=== PATIENT | male | born 1950 | race Caucasian/White ===

== ENCOUNTER → 2016-10-09 | Outpatient (REF) | payer MEDICARE, BC ==
[~2016-10-09] MED LIST: ASPI81TAEC PO; ATOR1TAB18 PO; CARV25TA PO; CEFD1CAP8 PO; COLA100C3 PO; CORE12.5 PO; COZA1TAB PO; DIGO0.12 PO; DRIS50002 PO; FEBU40TA PO; JANU100T PO; KEPP500T6 PO; LIDO5DIS36 TD; LOSA25TA8 PO; METF1000 PO; NORC7.5T PO; TORS100T PO; TOUJ1.2I SC; TRAM200T PO; XARE15TA PO
== END ==
LOC: M LAB REF 16:40
PROVIDERS: ATTEND Nurse Practitioner Family
DX: R56.9 Unspecified convulsions (principal)

== ENCOUNTER 2016-10-30 20:32 | Inpatient (IN) | payer MEDICARE, BC ==
[~2016-10-30] VITALS: Ht 170.2 cm; Wt 114.0 kg
[2016-10-30] MEDS: METOPROLOL 5 MG/5 ML VIAL IV SCH ×3 (21:14→21:29)
[2016-10-30 21:17] LABS: BASO % 0.2 % (0.0-1.0); EOS # 0.1 K/mm3 (0.0-0.50); EOS % 0.6 % (0.0-3.0); LARGE UNSTAINED CELL # 0.2 K/mm3 (0.0-0.4); LARGE UNSTAINED CELL % 0.9 % (0.0-4.0); LYMPH # 0.6 K/mm3 (1.5-4.5); LYMPH % 2.7 % (24.0-44.0); MEAN CORPUSCULAR HEMOGLOBIN 31.1 pg (27.0-33.0); MEAN CORPUSCULAR HGB CONC 34.3 g/dl (32.0-36.5); MEAN CORPUSCULAR VOLUME 90.5 fl (80.0-96.0); MONO # 0.9 K/mm3 (0.0-0.8); MONO % 4.6 % (0.0-5.0); NEUTROPHILS # 18.8 K/mm3 (1.8-7.7); NEUTROPHILS % 91.1 % (36.0-66.0); PLATELET COUNT, AUTOMATED 307 k/mm3 (150-450); RED CELL DISTRIBUTION WIDTH 14.8 % (11.5-14.5); WHITE BLOOD COUNT 20.6 K/mm3 (4.0-10.0)
[2016-10-30 21:24] LABS: INR 1.36
[2016-10-30 21:37] LABS: ALBUMIN 3.1 GM/DL (3.2-5.2); ALBUMIN/GLOBULIN RATIO 0.82 (1.00-1.93); ALKALINE PHOSPHATASE 109 U/L (45-117); ALT/SGPT 23 U/L (12-78); ANION GAP 10 MEQ/L (8-16); AST/SGOT 20 U/L (15-37); BILIRUBIN,DIRECT 0.2 MG/DL (0.0-0.2); BILIRUBIN,TOTAL 0.7 MG/DL (0.2-1.0); BLOOD UREA NITROGEN 38 MG/DL (7-18); CALCIUM LEVEL 8.4 MG/DL (8.8-10.2); CARBON DIOXIDE LEVEL 30 MEQ/L (21-32); CHLORIDE LEVEL 102 MEQ/L (98-107); CREATININE FOR GFR 1.63 MG/DL (0.70-1.30); FREE T4 1.57 NG/DL (0.76-1.46); GLOMERULAR FILTRATION RATE 45.6 (>49); GLUCOSE, FASTING 113 MG/DL (80-110); POTASSIUM SERUM 4.3 MEQ/L (3.5-5.1); SODIUM LEVEL 142 MEQ/L (136-145); TOTAL PROTEIN 6.9 GM/DL (6.4-8.2)
[2016-10-30 21:46] LABS: DIGOXIN LEVEL 0.7 NG/ML (0.5-2.0)
[2016-10-30] MEDS ORDERED: ASPI81TA7 PO (21:49)
[2016-10-30] MEDS ORDERED: CARV25TA PO (21:49)
[2016-10-30] MEDS ORDERED: CLOT1CRE71 TOP (21:49)
[2016-10-30] MEDS ORDERED: LOSA25TA8 PO (21:49)
--- NOTE | 2016-10-30 22:14 | ECGEPIP ---
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
--- NOTE | 2016-10-30 22:30 | REPUSA ---
Clinical history: Congestion. Comparison: None. Findings: The mediastinum and cardiac silhouette are within normal limits. There is mild pulmonary va scular congestion. There is a focal right lower lobe infiltrate. No pleural effusion or pneumothorax is seen. The osseous structures and soft tissues are unremarkable. Impression: Right lower lobe infiltrate. Mild congestive heart failure.
[2016-10-30] MEDS ORDERED: FUROSEMIDE 100 MG/10 ML VIAL (J1940) IV ONE (22:45)
[2016-10-30] MEDS ORDERED: DOXYCYCLINE HYCLATE 100 MG in D5W MINI-BAG PLUS 100 ML IV ONE (22:45)
[2016-10-30] MEDS ORDERED: cefTRIAXone SOD 1 GM in D5W MINI-BAG PLUS 50 ML IV ONE (22:45)
[2016-10-31] VITALS (7 sets, daily range): BP systolic 117–150; BP diastolic 58–76
[2016-10-31] MEDS ORDERED: DOCUSATE SODIUM 100 MG CAP PO PRN (03:00)
[2016-10-31] MEDS: LOTRISONE CREAM 15 GM (BETAMETH/CLOTRIMAZOLE) TOP SCH ×2 (03:31→20:40)
[2016-10-31] MEDS: ATORVASTATIN 20 MG TAB PO SCH ×2 (03:31→20:40)
[2016-10-31] MEDS ORDERED: DEXTROSE 50% 50 ML SYRINGE IV PRN (06:00)
[2016-10-31] MEDS ORDERED: GLUCAGON FOR INJ 1 MG VIAL (J1610) SC PRN (06:00)
[2016-10-31] MEDS ORDERED: GLUCOSE 4 GM CHEW TABLET PO PRN (06:00)
[2016-10-31 06:28] LABS: BASO % 0.1 % (0.0-1.0); LARGE UNSTAINED CELL # 0.1 K/mm3 (0.0-0.4); LARGE UNSTAINED CELL % 0.4 % (0.0-4.0); LYMPH # 0.7 K/mm3 (1.5-4.5); LYMPH % 2.3 % (24.0-44.0); MEAN CORPUSCULAR HEMOGLOBIN 30.9 pg (27.0-33.0); MEAN CORPUSCULAR HGB CONC 33.6 g/dl (32.0-36.5); MEAN CORPUSCULAR VOLUME 91.8 fl (80.0-96.0); MONO % 3.1 % (0.0-5.0); NEUTROPHILS # 30.1 K/mm3 (1.8-7.7); NEUTROPHILS % 94.2 % (36.0-66.0); PLATELET COUNT, AUTOMATED 255 k/mm3 (150-450); RED CELL DISTRIBUTION WIDTH 14.8 % (11.5-14.5)
--- NOTE | 2016-10-31 06:29 | HPE ---
DATE OF ADMISSION: 10/30/2016 PRIMARY CARE PROVIDER: JONATHAN Dong FUND MANAGER: Jude Keys MD REASON FOR ADMISSION: Atrial fibrillation, rapid ventricular response (RVR). HISTORY OF PRESENT ILLNESS: Patient is a 66-year-old male with history of atrial fibrillation with RVR. He was cardioverted in 2011. He was only in sinus rhythm for 4 months and then went back into atrial fibrillation. He has been controlled with medication ever since. He follows up with Dr. Keys. Per his , patient today started having nausea and vomiting, as well as some wheezes around 2-3 p.m. His stated he was a little confused, complaining of chills, no fever and had a cough with clear sputum. His said that he has been having a cold for the past 2-3 days. In the emergency room, patient underwent a chest x-ray, which showed right lower lobe infiltrate, mild congestive heart failure. He was found to be in rapid heart rate. EKG was done in the emergency room, which showed atrial fibrillation with rapid ventricular response, left bundle branch block, which is old, heart rate in 140s. Patient was given metoprolol. He got a total of three doses of 5 mg IV and diltiazem 20 mg, as well as one dose of Lasix 80 mg IV and he was started on ceftriaxone, doxycycline for his pneumonia. Upon my examination, his heart rate had already slowed down in the 70s. He was asymptomatic. He denied any shortness of breath. At this time, he denied any chest pain, denied any chills, denied any nausea or vomiting. Hospitalist was called for the admission. REVIEW OF SYSTEMS: 12-point review of system was obtained all which was negative except for those mentioned above. PAST MEDICAL HISTORY: Significant for congestive heart failure, atrial fibrillation, gout, seizure disorder, history of CVA in 2012, hypertension, hyperlipidemia, diabetes, coronary artery disease, left bundle branch block. obstructive sleep apnea on continuous positive airway pressure (CPAP). PAST SURGICAL HISTORY: Significant for cardiac catheterization with stent placement in the LAD, right leg surgery, bilateral cataract surgery. ALLERGIES TO MEDICATIONS: None. SOCIAL HISTORY: Patient quit smoking in 2011. He used to smoke five cigars a day for 25 years. Denies any alcohol use. Lives at home with his . FAMILY HISTORY: Noncontributory. HOME MEDICATIONS: Include: - Fajardo one tablet by mouth three times a day as needed, pain - aspirin 81 mg by mouth daily - atorvastatin 80 mg at bedtime - carvedilol 25 mg by mouth twice a day - digoxin 0.125 mg daily - Colace 100 mg daily as needed for constipation - Uloric 40 mg by mouth daily - Keppra 500 mg by mouth twice a day - Lidoderm patch daily as needed, pain - losartan 25 mg daily - metformin 1000 mg daily - Januvia 100 mg by mouth at lunchtime - Xarelto 50 mg by mouth daily - torsemide 50 mg by mouth daily - Toujeo 14 units subcutaneously daily - tramadol 200 mg daily - vitamin D 50,000 units once a week PHYSICAL FINDINGS: Vital signs on admission: Temperature 98.3, pulse 81, respiratory rate 20, blood pressure is 150/74, pulse oximetry 94% on 3 liters. HEENT: Pupils equal, round, reactive to light and accommodation. Neck: Supple. No jugular venous distention (JVD). Lungs: Clear to auscultation (CTA) bilaterally. Abdomen: Soft, nontender, nondistended. Extremities: Trace edema bilaterally. LABORATORY FINDINGS: WBC is 20.6, hemoglobin 14.9, hematocrit 43.5, platelet count 307. Sodium 142, potassium 4.3, chloride 102, BUN 38, creatinine 1.63, fasting glucose 113. Liver enzymes within normal limits. Troponin negative times one. BNP 381. TSH 1.8. Toxicology screen, Keppra level is pending. Digoxin level 0.7. D-dimer was 1130.7. INR 1.368, APTT was 41.1 and PTT 16.9. Chest x-ray showed right lower lobe infiltrate, mild congestive heart disease. ASSESSMENT AND PLAN: 1. Atrial fibrillation with rapid ventricular response, which had resolved after three doses of IV metoprolol 5 mg and diltiazem 20 mg. We will resume patient's home medications of digoxin 0.125 mg daily and carvedilol 25 mg by mouth twice a day. We will continue patient's Xarelto 50 mg by mouth daily. Patient normally follows up with Dr. Keys. We will monitor patient on telemetry overnight. 2. Right lower lobe infiltrate. Per , patient has been having cold-like symptoms for the last 2-3 days. We will continue patient on azithromycin and ceftriaxone. He was started on doxycycline and ceftriaxone in the emergency room. We will try to obtain sputum culture. Patient has been afebrile in the hospital but he had subjective fevers at home, and he has got leukocytosis of 20.6. 3. History of congestive heart failure. Patient received one dose of IV Lasix 80 mg. We will continue his torsemide. Does not appear to be grossly overloaded at this time. Will continue to monitor. 4. History of seizures. Will continue patient's Keppra. 5. History of CVA. 6. History of hypertension. 7. Hyperlipidemia. 8. Diabetes. Continue patient on insulin sliding scale with Accu-Chek before food and nightly. Consistent carbohydrate diet. 9. Left bundle branch block. 10. Coronary artery disease. We will continue to trend cardiac enzymes. First set was negative. 11. Deep venous thrombosis (DVT) prophylaxis. Patient is already on Xarelto.
[2016-10-31 06:35] LABS: ALBUMIN 2.7 GM/DL (3.2-5.2); ALBUMIN/GLOBULIN RATIO 0.61 (1.00-1.93); ALKALINE PHOSPHATASE 99 U/L (45-117); ALT/SGPT 21 U/L (12-78); ANION GAP 11 MEQ/L (8-16); AST/SGOT 15 U/L (15-37); BILIRUBIN,TOTAL 0.6 MG/DL (0.2-1.0); BLOOD UREA NITROGEN 34 MG/DL (7-18); CALCIUM LEVEL 8.1 MG/DL (8.8-10.2); CARBON DIOXIDE LEVEL 33 MEQ/L (21-32); CHLORIDE LEVEL 98 MEQ/L (98-107); CREATININE FOR GFR 1.59 MG/DL (0.70-1.30); GLOMERULAR FILTRATION RATE 46.9 (>49); GLUCOSE, FASTING 154 MG/DL (80-110); SODIUM LEVEL 142 MEQ/L (136-145); TOTAL PROTEIN 7.1 GM/DL (6.4-8.2)
[2016-10-31] MEDS: HumaLOG INSULIN (NovoLOG) PER UNIT SC SCH ×4 (08:43→20:45)
[2016-10-31] MEDS: levETIRAcetam 250MG TABLET (KEPPRA) PO SCH ×2 (08:45→20:40)
[2016-10-31] MEDS ORDERED: TORSEMIDE 100 MG TAB PO SCH (09:00)
[2016-10-31] MEDS: traMADol ER 100MG TABLET (ULTRAM ER) PO SCH (09:00)
[2016-10-31] MEDS: ASPIRIN 81 MG ENTERIC TAB PO SCH (09:58)
[2016-10-31] MEDS: CARVedilol 12.5 MG TAB PO SCH ×2 (10:03→20:39)
[2016-10-31] MEDS: LOSARTAN 25 MG TAB PO SCH (10:05)
[2016-10-31] MEDS: DOXYCYCLINE HYCLATE 100 MG in D5W MINI-BAG PLUS 100 ML IV SCH (13:37)
--- NOTE | 2016-10-31 15:16 | IPNPDOC ---
Subjective Date Seen The patient was seen on 10/31/16. Subjective Chief Complaint/HPI The patient is a 66-year-old male admitted with a reason for visit of Afib With Rapid Ventricular Response. Events since last encounter Feeling better. tired, cough is nonproductive, tolerating diet, no chest pain decline all vaccinations because of his history of polio s/p live vaccine Constitutional: Denies: Chills, Fever Pulmonary: Reports: Cough, Denies: Dyspnea Cardiovascular: Denies: Chest Pain, Palpitations Gastrointestinal: Denies: Nausea, Vomiting, Abdominal Pain Objective Physical Examination General Exam: Positive: Alert, Cooperative, No Acute Distress ENT Exam: Positive: Mucous membr. moist/pink Chest Exam: Positive: Diminished, Negative: Rales, Rhonchi, Wheezing Heart Exam: Positive: Irregular Rhythm, Normal S1, Normal S2 Abdomen Exam: Positive: Normal bowel sounds, Negative: Soft, Tenderness Extremity Exam: Positive: Edema (trace left) Assessment /Plan Problems (1) Pneumonia Status: Acute Problem Text: RLL- community acquired declines vaccination- we discuss at some length ceftriaxone and doxycycline ordered blood cultures ordered - resp screen ordered, sputum ordered although cough non productive (2) Atrial fibrillation with rapid ventricular response Status: Acute Problem Text: rate controlled likely related to acute illness on xarelto (3) Diabetes Status: Chronic (4) Hypertension Status: Chronic (5) Hyperlipidemia Status: Chronic (6) Post-polio syndrome Status: Chronic (7) CAD (coronary artery disease) Status: Chronic (8) LBBB (left bundle branch block) Status: Chronic (9) CHF (congestive heart failure) Status: Chronic Problem Text: received lasix in ED, continuing po diuretics Plan/VTE VTE Prophylaxis Ordered?: Yes (xarelto) VS, I&O, 24H, Fishbone Vital Signs/I&O Vital Signs Date Time Temp Pulse Resp B/P (MAP) Pulse Ox O2 Delivery O2 Flow Rate FiO2 10/31/16 12:00 97.6 66 18 117/60 (79) 93 Nasal Cannula 0.5 I&O- Last 24 Hours up to 6 AM 10/31/16 06:00 Intake Total 300 ml Output Total 750 ml Balance -450 ml Laboratory Data 24H LABS Laboratory Tests 2 10/30/16 21:04: White Blood Count 20.6H, Red Blood Count 4.81, Hemoglobin 14.9, Hematocrit 43.5 , Mean Corpuscular Volume 90.5, Mean Corpuscular Hemoglobin 31.1, Mean Corpuscular Hemoglobin Concent 34.3, Red Cell Distribution Width 14.8H, Platelet Count 307, Neutrophils (%) (Auto) 91.1H, Lymphocytes (%) (Auto) 2.7L, Monocytes (%) (Auto) 4.6, Eosinophils (%) (Auto) 0.6, Basophils (%) (Auto) 0.2, Neutrophils # (Auto) 18.8H, Lymphocytes # (Auto) 0.6L, Monocytes # (Auto) 0.9H, Eosinophils # (Auto) 0.1, Basophils # (Auto) 0.0, Large Unclassified Cells % 0.9 , Large Unclassified Cells # 0.2, Prothrombin Time 16.9H, Prothromb Time International Ratio 1.36, Activated Partial Thromboplast Time 41.1H, D-Dimer, Quantitative 1130.7H, Anion Gap 10, Glomerular Filtration Rate 45.6L, Calcium Level 8.4L, Aspartate Amino Transf (AST/SGOT) 20, Alanine Aminotransferase (ALT/ SGPT) 23, Alkaline Phosphatase 109, Total Bilirubin 0.7, Direct Bilirubin 0.2, Total Creatine Kinase 75, Creatine Kinase MB 1.0, Creatine Kinase MB Relative Index 1.33, Troponin I < 0.02, B-Type Natriuretic Peptide 381H, Total Protein 6.9, Albumin 3.1L, Albumin/Globulin Ratio 0.82L, Thyroid Stimulating Hormone ( TSH) 1.880, Free Thyroxine 1.57H, Digoxin Level 0.7 10/30/16 22:14: 10/31/16 05:24: White Blood Count 32.0*H, Red Blood Count 4.39, Hemoglobin 13.5L, Hematocrit 40.3L, Mean Corpuscular Volume 91.8, Mean Corpuscular Hemoglobin 30.9, Mean Corpuscular Hemoglobin Concent 33.6, Red Cell Distribution Width 14.8H, Platelet Count 255, Neutrophils (%) (Auto) 94.2H, Lymphocytes (%) (Auto) 2.3L, Monocytes (%) (Auto) 3.1, Eosinophils (%) (Auto) 0.0, Basophils (%) (Auto) 0.1, Neutrophils # (Auto) 30.1H, Lymphocytes # (Auto) 0.7L, Monocytes # (Auto) 1.0H, Eosinophils # (Auto) 0.0, Basophils # (Auto) 0.0, Large Unclassified Cells % 0.4 , Large Unclassified Cells # 0.1 10/31/16 05:29: Anion Gap 11, Glomerular Filtration Rate 46.9L, Calcium Level 8.1L, Aspartate Amino Transf (AST/SGOT) 15, Alanine Aminotransferase (ALT/SGPT) 21, Alkaline Phosphatase 99, Total Bilirubin 0.6, Total Creatine Kinase 47, Creatine Kinase MB 1.0, Creatine Kinase MB Relative Index 2.12, Troponin I < 0.02, Total Protein 7.1, Albumin 2.7L, Albumin/Globulin Ratio 0.61L, Blood Urea Nitrogen 34H , Creatinine 1.59H, Sodium Level 142, Potassium Level 4.0, Chloride Level 98, Carbon Dioxide Level 33H 10/31/16 06:53: Lactic Acid Level 2.1*H 10/31/16 11:43: Lactic Acid Followup at 4 Hours 1.9 10/31/16 11:56: Bedside Glucose (Misc Panel) 133H 10/31/16 13:10: Total Creatine Kinase 52, Creatine Kinase MB 1.0, Creatine Kinase MB Relative Index 1.92, Troponin I < 0.02 CBC/BMP Laboratory Tests 10/30/16 21:04 Red Blood Count 4.81, Mean Corpuscular Volume 90.5, Mean Corpuscular Hemoglobin 31.1, Mean Corpuscular Hemoglobin Concent 34.3, Red Cell Distribution Width 14.8 H, Neutrophils (%) (Auto) 91.1 H, Lymphocytes (%) (Auto) 2.7 L, Monocytes ( %) (Auto) 4.6, Eosinophils (%) (Auto) 0.6, Basophils (%) (Auto) 0.2, Neutrophils # (Auto) 18.8 H, Lymphocytes # (Auto) 0.6 L, Monocytes # (Auto) 0.9 H, Eosinophils # (Auto) 0.1, Basophils # (Auto) 0.0 10/31/16 05:24 Red Blood Count 4.39, Mean Corpuscular Volume 91.8, Mean Corpuscular Hemoglobin 30.9, Mean Corpuscular Hemoglobin Concent 33.6, Red Cell Distribution Width 14.8 H, Neutrophils (%) (Auto) 94.2 H, Lymphocytes (%) (Auto) 2.3 L, Monocytes ( %) (Auto) 3.1, Eosinophils (%) (Auto) 0.0, Basophils (%) (Auto) 0.1, Neutrophils # (Auto) 30.1 H, Lymphocytes # (Auto) 0.7 L, Monocytes # (Auto) 1.0 H, Eosinophils # (Auto) 0.0, Basophils # (Auto) 0.0 10/31/16 05:29 Calcium Level 8.1 L, Aspartate Amino Transf (AST/SGOT) 15, Alanine Aminotransferase (ALT/SGPT) 21, Total Creatine Kinase 47, Alkaline Phosphatase 99, Total Bilirubin 0.6, Total Protein 7.1, Albumin 2.7 L Microbiology Microbiology 10/30/16 Blood Culture, Received Pending 10/30/16 Blood Culture, Received Pending 10/31/16 Gram Stain - Final, Resulted 10/31/16 Sputum Culture, Resulted Pending 10/31/16 Respiratory Virus Panel (PCR) (MARCOS), Received Pending DOLORES LUEVANO MD October 31, 2016 15:16
[2016-10-31] MEDS ORDERED: LEVALBUTEROL 1.25 MG/0.5 ML CONCENTRATE NEB INH PRN (15:30)
[2016-10-31] MEDS: LEVALBUTEROL 1.25 MG/0.5 ML CONCENTRATE NEB INH SCH ×2 (16:00→20:25)
[2016-10-31] MEDS: FEBUXOSTAT 40 MG TABLET (ULORIC) PO SCH (18:23)
[2016-10-31] MEDS: DIGOXIN 0.125 MG TAB PO SCH (18:23)
[2016-10-31] MEDS: RIVAROXABAN 15 MG TAB (XARELTO) PO SCH (18:23)
[2016-10-31] MEDS ORDERED: cefTRIAXone SOD 1 GM in D5W MINI-BAG PLUS 50 ML IV SCH (21:00)
[2016-10-31] MEDS: cefTRIAXone SOD 2 GM in D5W MINI-BAG PLUS 50 ML IV SCH (22:39)
[2016-11-01 03:28] VITALS: BP 118/63
[2016-11-01 05:23] LABS: MEAN CORPUSCULAR HEMOGLOBIN 30.1 pg (27.0-33.0); MEAN CORPUSCULAR HGB CONC 32.6 g/dl (32.0-36.5); MEAN CORPUSCULAR VOLUME 92.3 fl (80.0-96.0); RED CELL DISTRIBUTION WIDTH 14.9 % (11.5-14.5); WHITE BLOOD COUNT 20.3 K/mm3 (4.0-10.0)
[2016-11-01 05:37] LABS: ALBUMIN 2.4 GM/DL (3.2-5.2); ALBUMIN/GLOBULIN RATIO 0.63 (1.00-1.93); BILIRUBIN,TOTAL 0.5 MG/DL (0.2-1.0); CALCIUM LEVEL 8.1 MG/DL (8.8-10.2); CREATININE FOR GFR 1.55 MG/DL (0.70-1.30); GLOMERULAR FILTRATION RATE 48.3 (>49); MAGNESIUM LEVEL 1.4 MG/DL (1.8-2.4); POTASSIUM SERUM 3.6 MEQ/L (3.5-5.1); TOTAL PROTEIN 6.2 GM/DL (6.4-8.2)
[2016-11-01] MEDS: LEVALBUTEROL 1.25 MG/0.5 ML CONCENTRATE NEB INH SCH ×4 (07:54→20:46)
[2016-11-01 08:00] VITALS: BP 140/69
[2016-11-01] MEDS: TORSEMIDE (DEMADEX) 50 MG PER 1/2 TAB PO SCH (08:37)
[2016-11-01] MEDS: ASPIRIN 81 MG ENTERIC TAB PO SCH (08:37)
[2016-11-01] MEDS: levETIRAcetam 250MG TABLET (KEPPRA) PO SCH ×2 (08:37→20:36)
[2016-11-01] MEDS: LOSARTAN 25 MG TAB PO SCH (08:37)
[2016-11-01] MEDS: traMADol ER 100MG TABLET (ULTRAM ER) PO SCH (08:37)
[2016-11-01] MEDS: HumaLOG INSULIN (NovoLOG) PER UNIT SC SCH ×4 (08:38→21:00)
[2016-11-01] MEDS: CARVedilol 12.5 MG TAB PO SCH ×2 (08:38→20:36)
--- NOTE | 2016-11-01 11:10 | IPNPDOC ---
Subjective Date Seen The patient was seen on 11/01/16. Subjective Chief Complaint/HPI The patient is a 66-year-old male admitted with a reason for visit of Afib With Rapid Ventricular Response. Events since last encounter Feeling better than yesterday, tolerating diet, although not particularly hungry - notes that he is in the same room that he was admitted to last year, not complaining of pain Constitutional: Denies: Chills, Fever Pulmonary: Denies: Dyspnea, Cough Cardiovascular: Denies: Chest Pain, Palpitations Gastrointestinal: Denies: Nausea, Vomiting Objective Physical Examination General Exam: Positive: Alert, Cooperative, No Acute Distress ENT Exam: Positive: Mucous membr. moist/pink Chest Exam: Positive: Diminished, Negative: Rales, Rhonchi, Wheezing Heart Exam: Positive: Rate Normal, Irregular Rhythm, Normal S1, Normal S2 Telemetry: Positive: Tachycardia Abdomen Exam: Positive: Normal bowel sounds, Negative: Soft, Tenderness Extremity Exam: Positive: Edema (trace left) Assessment /Plan Problems (1) Pneumonia Status: Acute Problem Text: RLL- community acquired declines vaccination- we discussed at some length 10/31/16 ceftriaxone and doxycycline ordered blood cultures ordered - resp screen shows entero/rhino viruses, sputum pending (2) Atrial fibrillation with rapid ventricular response Status: Acute Problem Text: rate controlled likely related to acute illness on xarelto (3) Diabetes Status: Chronic (4) Hypertension Status: Chronic (5) Hyperlipidemia Status: Chronic (6) Post-polio syndrome Status: Chronic (7) CAD (coronary artery disease) Status: Chronic (8) LBBB (left bundle branch block) Status: Chronic (9) CHF (congestive heart failure) Status: Chronic Problem Text: received lasix in ED, continued po diuretics- but has evidence of acute renal failure- will d/c for now- re-evaluate 11/02/16 Plan/VTE VTE Prophylaxis Ordered?: Yes (xarelto) VS, I&O, 24H, Fishbone Vital Signs/I&O Vital Signs Date Time Temp Pulse Resp B/P (MAP) Pulse Ox O2 Delivery O2 Flow Rate FiO2 11/01/16 08:38 67 11/01/16 08:37 140/69 11/01/16 08:00 97.4 18 93 Room Air 10/31/16 16:00 1.0 I&O- Last 24 Hours up to 6 AM 11/01/16 06:00 Intake Total 2300 ml Output Total 1150 ml Balance 1150 ml Laboratory Data 24H LABS Laboratory Tests 2 10/31/16 11:43: Lactic Acid Followup at 4 Hours 1.9 10/31/16 11:56: Bedside Glucose (Misc Panel) 133H 10/31/16 13:10: Total Creatine Kinase 52, Creatine Kinase MB 1.0, Creatine Kinase MB Relative Index 1.92, Troponin I < 0.02 10/31/16 17:56: Bedside Glucose (Misc Panel) 101 10/31/16 20:45: Bedside Glucose (Misc Panel) 181H 10/31/16 20:50: Total Creatine Kinase 52, Creatine Kinase MB 1.0, Creatine Kinase MB Relative Index 1.92, Troponin I 0.02 11/01/16 04:41: Anion Gap 6L, Glomerular Filtration Rate 48.3L, Blood Urea Nitrogen 39H, Creatinine 1.55H, Sodium Level 139, Potassium Level 3.6, Chloride Level 97L, Carbon Dioxide Level 36H, Calcium Level 8.1L, Aspartate Amino Transf (AST/SGOT) 14L, Alanine Aminotransferase (ALT/SGPT) 17, Alkaline Phosphatase 80, Total Bilirubin 0.5, Total Protein 6.2L, Albumin 2.4L, Magnesium Level 1.4L, Albumin/ Globulin Ratio 0.63L CBC/BMP Laboratory Tests 11/01/16 04:41 Red Blood Count 3.85 L, Mean Corpuscular Volume 92.3, Mean Corpuscular Hemoglobin 30.1, Mean Corpuscular Hemoglobin Concent 32.6, Red Cell Distribution Width 14.9 H, Calcium Level 8.1 L, Aspartate Amino Transf (AST/SGOT ) 14 L, Alanine Aminotransferase (ALT/SGPT) 17, Alkaline Phosphatase 80, Total Bilirubin 0.5, Total Protein 6.2 L, Albumin 2.4 L Microbiology Microbiology 10/30/16 Blood Culture - Preliminary, Resulted No growth after 24 hours . All specim... 10/30/16 Blood Culture - Preliminary, Resulted No growth after 24 hours . All specim... 10/31/16 Gram Stain - Final, Resulted 10/31/16 Sputum Culture, Resulted Pending 10/31/16 Respiratory Virus Panel (PCR) (MARCOS) - Final, Complete Human Rhinovirus/Enterovirus FLINT,DOLORES Santiago MD November 01, 2016 11:10
[2016-11-01 12:00] VITALS: BP 114/55
[2016-11-01] MEDS: DOXYCYCLINE HYCLATE 100 MG in D5W MINI-BAG PLUS 100 ML IV SCH ×3 (12:10)
[2016-11-01 16:00] VITALS: BP 113/53
--- NOTE | 2016-11-01 16:33 | ECGEPIP ---
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
[2016-11-01] MEDS: FEBUXOSTAT 40 MG TABLET (ULORIC) PO SCH (18:10)
[2016-11-01] MEDS: RIVAROXABAN 15 MG TAB (XARELTO) PO SCH (18:11)
[2016-11-01] MEDS: DIGOXIN 0.125 MG TAB PO SCH (18:11)
[2016-11-01 19:23] VITALS: BP 134/60
[2016-11-01] MEDS ORDERED: MAG SULF 1GM/100ML (MAG RUN) 1 GM in APPROPRIATE DILUENT 1 EA IV ONE (19:30)
[2016-11-01] MEDS: ATORVASTATIN 20 MG TAB PO SCH (20:35)
[2016-11-01] MEDS: ANEXSIA, NORCO 7.5MG/325MG TABLET(HYDROCODONE/APAP) PO PRN ×2 (20:36)
[2016-11-01] MEDS: LOTRISONE CREAM 15 GM (BETAMETH/CLOTRIMAZOLE) TOP SCH (22:13)
[2016-11-01] MEDS: cefTRIAXone SOD 2 GM in D5W MINI-BAG PLUS 50 ML IV SCH (22:54)
[2016-11-02] VITALS (7 sets, daily range): BP systolic 128–156; BP diastolic 59–74
[2016-11-02] MEDS: DOXYCYCLINE HYCLATE 100 MG in D5W MINI-BAG PLUS 100 ML IV SCH ×2 (00:55→12:15)
[2016-11-02 05:55] LABS: MEAN CORPUSCULAR HEMOGLOBIN 30.4 pg (27.0-33.0); MEAN CORPUSCULAR HGB CONC 33.1 g/dl (32.0-36.5); MEAN CORPUSCULAR VOLUME 91.9 fl (80.0-96.0); RED CELL DISTRIBUTION WIDTH 14.7 % (11.5-14.5); WHITE BLOOD COUNT 16.5 K/mm3 (4.0-10.0)
[2016-11-02 06:12] LABS: ALBUMIN 2.4 GM/DL (3.2-5.2); ALBUMIN/GLOBULIN RATIO 0.62 (1.00-1.93); BILIRUBIN,TOTAL 0.5 MG/DL (0.2-1.0); CREATININE FOR GFR 1.35 MG/DL (0.70-1.30); GLOMERULAR FILTRATION RATE 56.6 (>49); MAGNESIUM LEVEL 1.7 MG/DL (1.8-2.4); POTASSIUM SERUM 3.6 MEQ/L (3.5-5.1); TOTAL PROTEIN 6.3 GM/DL (6.4-8.2)
[2016-11-02] MEDS: LEVALBUTEROL 1.25 MG/0.5 ML CONCENTRATE NEB INH SCH ×4 (08:07→19:49)
[2016-11-02] MEDS: levETIRAcetam 250MG TABLET (KEPPRA) PO SCH ×2 (08:32→21:33)
[2016-11-02] MEDS: TORSEMIDE (DEMADEX) 50 MG PER 1/2 TAB PO SCH (08:33)
[2016-11-02] MEDS: LOSARTAN 25 MG TAB PO SCH (08:33)
[2016-11-02] MEDS: ASPIRIN 81 MG ENTERIC TAB PO SCH (08:33)
[2016-11-02] MEDS: CARVedilol 12.5 MG TAB PO SCH ×2 (08:33→21:33)
[2016-11-02] MEDS: HumaLOG INSULIN (NovoLOG) PER UNIT SC SCH ×4 (08:34→21:00)
[2016-11-02] MEDS: traMADol ER 100MG TABLET (ULTRAM ER) PO SCH (08:34)
--- NOTE | 2016-11-02 10:46 | IPNPDOC ---
Subjective Date Seen The patient was seen on 11/02/16. Subjective Chief Complaint/HPI The patient is a 66-year-old male admitted with a reason for visit of Afib With Rapid Ventricular Response. Events since last encounter Feeling better, not ready to go home, was unaware of episodes of bradycardia, tolerating diet, nonproductive cough Constitutional: Denies: Chills, Fever Pulmonary: Reports: Cough, Denies: Dyspnea Cardiovascular: Denies: Chest Pain, Palpitations Gastrointestinal: Denies: Nausea, Vomiting, Abdominal Pain Objective Physical Examination General Exam: Positive: Alert, Cooperative, No Acute Distress Eye Exam: Negative: Sclera icteric ENT Exam: Positive: Mucous membr. moist/pink Chest Exam: Positive: Diminished, Negative: Rales, Rhonchi, Wheezing Heart Exam: Positive: Rate Normal, Irregular Rhythm, Normal S1, Normal S2 Telemetry: Positive: Bradycardia Abdomen Exam: Positive: Normal bowel sounds, Negative: Soft, Tenderness Extremity Exam: Negative: Edema Assessment /Plan Problems (1) Pneumonia Status: Acute Problem Text: RLL- community acquired declines vaccination- we discussed at some length 10/31/16 ceftriaxone and doxycycline ordered blood cultures negative at 48 hours - resp screen shows entero/rhino viruses, sputum negative (2) Atrial fibrillation with rapid ventricular response Status: Acute Problem Text: rate controlled likely related to acute illness on xarelto (3) Diabetes Status: Chronic (4) Hypertension Status: Chronic (5) Hyperlipidemia Status: Chronic (6) Post-polio syndrome Status: Chronic (7) CAD (coronary artery disease) Status: Chronic (8) LBBB (left bundle branch block) Status: Chronic (9) CHF (congestive heart failure) Status: Chronic Problem Text: received lasix in ED, continued po diuretics- but has evidence of acute renal failure- on re-evaluation will continue po meds as ordered, reviewed plan with Marc Rico Plan/VTE VTE Prophylaxis Ordered?: Yes (xarelto) VS, I&O, 24H, Fishbone Vital Signs/I&O Vital Signs Date Time Temp Pulse Resp B/P (MAP) Pulse Ox O2 Delivery O2 Flow Rate FiO2 11/02/16 08:33 68 142/65 11/02/16 08:00 97.0 18 91 11/02/16 04:49 Room Air 11/01/16 21:06 1.0 I&O- Last 24 Hours up to 6 AM 11/02/16 05:59 Intake Total 960 ml Output Total 300 ml Balance 660 ml Laboratory Data 24H LABS Laboratory Tests 2 11/01/16 11:32: Bedside Glucose (Misc Panel) 260H 11/01/16 17:24: Bedside Glucose (Misc Panel) 191H 11/01/16 22:10: Bedside Glucose (Misc Panel) 244H 11/02/16 04:55: Anion Gap 9, Glomerular Filtration Rate 56.6, Blood Urea Nitrogen 38H, Creatinine 1.35H, Sodium Level 140, Potassium Level 3.6, Chloride Level 99, Carbon Dioxide Level 32, Calcium Level 8.0L, Aspartate Amino Transf (AST/SGOT) 20, Alanine Aminotransferase (ALT/SGPT) 27, Alkaline Phosphatase 89, Total Bilirubin 0.5, Total Protein 6.3L, Albumin 2.4L, Magnesium Level 1.7L, Albumin/ Globulin Ratio 0.62L CBC/BMP Laboratory Tests 11/02/16 04:55 Red Blood Count 3.74 L, Mean Corpuscular Volume 91.9, Mean Corpuscular Hemoglobin 30.4, Mean Corpuscular Hemoglobin Concent 33.1, Red Cell Distribution Width 14.7 H, Calcium Level 8.0 L, Aspartate Amino Transf (AST/SGOT ) 20, Alanine Aminotransferase (ALT/SGPT) 27, Alkaline Phosphatase 89, Total Bilirubin 0.5, Total Protein 6.3 L, Albumin 2.4 L Microbiology Microbiology 10/30/16 Blood Culture - Preliminary, Resulted No Growth after 48 hours. All Specime... 10/30/16 Blood Culture - Preliminary, Resulted No Growth after 48 hours. All Specime... 10/31/16 Gram Stain - Final, Complete 10/31/16 Sputum Culture - Final, Complete 10/31/16 Respiratory Virus Panel (PCR) (MARCOS) - Final, Complete Human Rhinovirus/Enterovirus DOLORES LUEVANO MD November 02, 2016 10:46
[2016-11-02] MEDS: FEBUXOSTAT 40 MG TABLET (ULORIC) PO SCH (17:25)
[2016-11-02] MEDS: RIVAROXABAN 15 MG TAB (XARELTO) PO SCH (17:25)
[2016-11-02] MEDS: DIGOXIN 0.125 MG TAB PO SCH (17:26)
[2016-11-02] MEDS: ATORVASTATIN 20 MG TAB PO SCH (21:32)
[2016-11-02] MEDS: ANEXSIA, NORCO 7.5MG/325MG TABLET(HYDROCODONE/APAP) PO PRN (21:33)
[2016-11-02] MEDS: LOTRISONE CREAM 15 GM (BETAMETH/CLOTRIMAZOLE) TOP SCH (21:34)
[2016-11-02] MEDS: cefTRIAXone SOD 2 GM in D5W MINI-BAG PLUS 50 ML IV SCH (23:17)
[2016-11-03] MEDS: DOXYCYCLINE HYCLATE 100 MG in D5W MINI-BAG PLUS 100 ML IV SCH ×2 (00:04→13:03)
[2016-11-03 04:37] VITALS: BP 148/65
[2016-11-03 05:20] LABS: MEAN CORPUSCULAR HEMOGLOBIN 30.8 pg (27.0-33.0); MEAN CORPUSCULAR HGB CONC 33.2 g/dl (32.0-36.5); MEAN CORPUSCULAR VOLUME 92.8 fl (80.0-96.0); RED CELL DISTRIBUTION WIDTH 14.6 % (11.5-14.5); WHITE BLOOD COUNT 12.5 K/mm3 (4.0-10.0)
[2016-11-03 05:38] LABS: ALBUMIN 2.3 GM/DL (3.2-5.2); ALBUMIN/GLOBULIN RATIO 0.59 (1.00-1.93); ALKALINE PHOSPHATASE 90 U/L (45-117); ALT/SGPT 23 U/L (12-78); ANION GAP 7 MEQ/L (8-16); AST/SGOT 14 U/L (15-37); BILIRUBIN,TOTAL 0.5 MG/DL (0.2-1.0); BLOOD UREA NITROGEN 32 MG/DL (7-18); CALCIUM LEVEL 8.2 MG/DL (8.8-10.2); CARBON DIOXIDE LEVEL 31 MEQ/L (21-32); CHLORIDE LEVEL 101 MEQ/L (98-107); CREATININE FOR GFR 1.16 MG/DL (0.70-1.30); GLOMERULAR FILTRATION RATE > 60.0 (>49); GLUCOSE, FASTING 191 MG/DL (80-110); MAGNESIUM LEVEL 1.6 MG/DL (1.8-2.4); POTASSIUM SERUM 3.7 MEQ/L (3.5-5.1); SODIUM LEVEL 139 MEQ/L (136-145); TOTAL PROTEIN 6.2 GM/DL (6.4-8.2)
[2016-11-03] MEDS: ANEXSIA, NORCO 7.5MG/325MG TABLET(HYDROCODONE/APAP) PO PRN (06:10)
[2016-11-03] MEDS: LEVALBUTEROL 1.25 MG/0.5 ML CONCENTRATE NEB INH SCH ×4 (07:10→19:54)
[2016-11-03 08:29] VITALS: BP 141/67
[2016-11-03] MEDS: HumaLOG INSULIN (NovoLOG) PER UNIT SC SCH ×4 (09:07→21:00)
[2016-11-03] MEDS: TORSEMIDE (DEMADEX) 50 MG PER 1/2 TAB PO SCH (09:08)
[2016-11-03] MEDS: LOSARTAN 25 MG TAB PO SCH (09:08)
[2016-11-03] MEDS: CARVedilol 12.5 MG TAB PO SCH ×2 (09:08→22:11)
[2016-11-03] MEDS: levETIRAcetam 250MG TABLET (KEPPRA) PO SCH ×2 (09:08→22:10)
[2016-11-03] MEDS: ASPIRIN 81 MG ENTERIC TAB PO SCH (09:08)
[2016-11-03] MEDS ORDERED: SLF 3 ML SYR IV PRN (09:15)
[2016-11-03] MEDS: traMADol ER 100MG TABLET (ULTRAM ER) PO SCH (09:16)
[2016-11-03] MEDS: SLF 3 ML SYR IV SCH ×2 (13:03→22:13)
[2016-11-03] MEDS ORDERED: MAG SULF 1GM/100ML (MAG RUN) 1 GM in APPROPRIATE DILUENT 1 EA IV ONE (13:15)
--- NOTE | 2016-11-03 14:50 | IPNPDOC ---
Subjective Date Seen The patient was seen on 11/03/16. Subjective Chief Complaint/HPI The patient is a 66-year-old male admitted with a reason for visit of Afib With Rapid Ventricular Response. Events since last encounter Feeling better, still weaker than normal, not ready for discharge, trouble producing sputum, he is accepting of trial of acapella Enjoys fishing which we discuss at some length Objective Physical Examination General Exam: Positive: Alert, No Acute Distress Eye Exam: Negative: Sclera icteric ENT Exam: Positive: Mucous membr. moist/pink Chest Exam: Positive: Diminished, Negative: Rales, Rhonchi, Wheezing Heart Exam: Positive: Rate Normal, Irregular Rhythm, Normal S1, Normal S2 Abdomen Exam: Positive: Normal bowel sounds, Negative: Soft, Tenderness Extremity Exam: Negative: Edema Assessment /Plan Problems (1) Pneumonia Status: Acute Problem Text: RLL- community acquired- based on xray/presentation planning 7 days of antibiotics which could be completed as outpt declines vaccination- we discussed at some length 10/31/16, 11/03/16 ceftriaxone and doxycycline ordered blood cultures negative at 48 hours - resp screen shows entero/rhino viruses, sputum negative (2) Atrial fibrillation with rapid ventricular response Status: Acute Problem Text: rate controlled likely related to acute illness on xarelto No longer needs telemetry (3) Diabetes Status: Chronic (4) Hypertension Status: Chronic (5) Hyperlipidemia Status: Chronic (6) Post-polio syndrome Status: Chronic (7) CAD (coronary artery disease) Status: Chronic (8) LBBB (left bundle branch block) Status: Chronic (9) CHF (congestive heart failure) Status: Chronic Problem Text: received lasix in ED, continued on home meds Plan/VTE VTE Prophylaxis Ordered?: Yes (xarelto) VS, I&O, 24H, Fishbone Vital Signs/I&O Vital Signs Date Time Temp Pulse Resp B/P (MAP) Pulse Ox O2 Delivery O2 Flow Rate FiO2 11/03/16 09:08 60 141/67 11/03/16 08:29 98.2 18 94 Room Air 11/03/16 06:40 1.0 I&O- Last 24 Hours up to 6 AM 11/03/16 06:00 Intake Total 1548 ml Output Total 1675 ml Balance -127 ml Laboratory Data 24H LABS Laboratory Tests 2 11/02/16 17:00: Bedside Glucose (Misc Panel) 141H 11/02/16 21:19: Bedside Glucose (Misc Panel) 216H 11/03/16 04:54: Anion Gap 7L, Glomerular Filtration Rate > 60.0, Blood Urea Nitrogen 32H, Creatinine 1.16, Sodium Level 139, Potassium Level 3.7, Chloride Level 101, Carbon Dioxide Level 31, Calcium Level 8.2L, Aspartate Amino Transf (AST/SGOT) 14L, Alanine Aminotransferase (ALT/SGPT) 23, Alkaline Phosphatase 90, Total Bilirubin 0.5, Total Protein 6.2L, Albumin 2.3L, Magnesium Level 1.6L, Albumin/ Globulin Ratio 0.59L 11/03/16 11:44: Bedside Glucose (Misc Panel) 220H CBC/BMP Laboratory Tests 11/03/16 04:54 Red Blood Count 3.69 L, Mean Corpuscular Volume 92.8, Mean Corpuscular Hemoglobin 30.8, Mean Corpuscular Hemoglobin Concent 33.2, Red Cell Distribution Width 14.6 H, Calcium Level 8.2 L, Aspartate Amino Transf (AST/SGOT ) 14 L, Alanine Aminotransferase (ALT/SGPT) 23, Alkaline Phosphatase 90, Total Bilirubin 0.5, Total Protein 6.2 L, Albumin 2.3 L Microbiology Microbiology 10/30/16 Blood Culture - Preliminary, Resulted No Growth after 72 hours. All specime... 10/30/16 Blood Culture - Preliminary, Resulted No Growth after 72 hours. All specime... 10/31/16 Gram Stain - Final, Complete 10/31/16 Sputum Culture - Final, Complete 10/31/16 Respiratory Virus Panel (PCR) ([facility]) - Final, Complete Human Rhinovirus/Enterovirus DOLORES LUEVANO MD November 03, 2016 14:50
[2016-11-03 15:35] VITALS: BP 150/69
[2016-11-03] MEDS: FEBUXOSTAT 40 MG TABLET (ULORIC) PO SCH (17:43)
[2016-11-03] MEDS: DIGOXIN 0.125 MG TAB PO SCH (17:43)
[2016-11-03] MEDS: RIVAROXABAN 15 MG TAB (XARELTO) PO SCH (17:43)
[2016-11-03 22:00] VITALS: BP 152/80
[2016-11-03] MEDS: LOTRISONE CREAM 15 GM (BETAMETH/CLOTRIMAZOLE) TOP SCH (22:09)
[2016-11-03] MEDS: ATORVASTATIN 20 MG TAB PO SCH (22:10)
[2016-11-03] MEDS: cefTRIAXone SOD 2 GM in D5W MINI-BAG PLUS 50 ML IV SCH (22:11)
[2016-11-04] MEDS: DOXYCYCLINE HYCLATE 100 MG in D5W MINI-BAG PLUS 100 ML IV SCH ×2 (01:30→12:52)
[2016-11-04] MEDS: SLF 3 ML SYR IV SCH ×3 (05:25→22:20)
[2016-11-04 06:00] VITALS: BP 144/68
[2016-11-04 06:12] LABS: MEAN CORPUSCULAR HEMOGLOBIN 30.2 pg (27.0-33.0); MEAN CORPUSCULAR HGB CONC 33.1 g/dl (32.0-36.5); MEAN CORPUSCULAR VOLUME 91.5 fl (80.0-96.0); RED CELL DISTRIBUTION WIDTH 14.7 % (11.5-14.5)
[2016-11-04 06:27] LABS: ALBUMIN 2.4 GM/DL (3.2-5.2); ALBUMIN/GLOBULIN RATIO 0.62 (1.00-1.93); ALKALINE PHOSPHATASE 89 U/L (45-117); ALT/SGPT 23 U/L (12-78); ANION GAP 5 MEQ/L (8-16); AST/SGOT 14 U/L (15-37); BILIRUBIN,TOTAL 0.6 MG/DL (0.2-1.0); BLOOD UREA NITROGEN 25 MG/DL (7-18); CALCIUM LEVEL 8.2 MG/DL (8.8-10.2); CARBON DIOXIDE LEVEL 33 MEQ/L (21-32); CHLORIDE LEVEL 102 MEQ/L (98-107); CREATININE FOR GFR 1.08 MG/DL (0.70-1.30); GLOMERULAR FILTRATION RATE > 60.0 (>49); GLUCOSE, FASTING 155 MG/DL (80-110); MAGNESIUM LEVEL 1.5 MG/DL (1.8-2.4); SODIUM LEVEL 140 MEQ/L (136-145); TOTAL PROTEIN 6.3 GM/DL (6.4-8.2)
[2016-11-04] MEDS ORDERED: MAG SULF 1GM/100ML (MAG RUN) 1 GM in APPROPRIATE DILUENT 1 EA IV ONE (07:00)
[2016-11-04] MEDS: LEVALBUTEROL 1.25 MG/0.5 ML CONCENTRATE NEB INH SCH ×4 (07:34→20:01)
[2016-11-04] MEDS: levETIRAcetam 250MG TABLET (KEPPRA) PO SCH ×2 (08:36→22:19)
[2016-11-04] MEDS: TORSEMIDE (DEMADEX) 50 MG PER 1/2 TAB PO SCH (08:36)
[2016-11-04] MEDS: HumaLOG INSULIN (NovoLOG) PER UNIT SC SCH ×4 (08:36→21:00)
[2016-11-04] MEDS: traMADol ER 100MG TABLET (ULTRAM ER) PO SCH (08:37)
[2016-11-04] MEDS: CARVedilol 12.5 MG TAB PO SCH ×2 (08:37→22:19)
[2016-11-04] MEDS: ASPIRIN 81 MG ENTERIC TAB PO SCH (08:37)
[2016-11-04] MEDS: LOSARTAN 25 MG TAB PO SCH (08:37)
--- NOTE | 2016-11-04 12:16 | IPNPDOC ---
Subjective Date Seen The patient was seen on 11/04/16. Subjective Chief Complaint/HPI The patient is a 66-year-old male admitted with a reason for visit of Afib With Rapid Ventricular Response. General: Denies: Chills, Night Sweats Constitutional: Denies: Chills, Fever Eyes: Denies: Pain, Vision change ENT: Denies: Head Aches, Ear Pain Skin: Denies: Rash, Lesions Pulmonary: Reports: Cough Cardiovascular: Denies: Chest Pain, Palpitations Gastrointestinal: Denies: Nausea, Vomiting Genitourinary: Denies: Dysuria, Frequency Hematologic: Denies: Bruising, Bleeding Excessively Objective Physical Examination General Exam: Positive: Alert, No Acute Distress Eye Exam: Negative: Sclera icteric ENT Exam: Positive: Mucous membr. moist/pink Chest Exam: Positive: Diminished, Negative: Rales, Rhonchi, Wheezing Heart Exam: Positive: Rate Normal, Irregular Rhythm, Normal S1, Normal S2 Abdomen Exam: Positive: Normal bowel sounds, Negative: Soft, Tenderness Extremity Exam: Negative: Edema Assessment /Plan Problems (1) Pneumonia Status: Acute Response to Treatment: Improving Problem Text: Cont ceftriaxone and doxycycline, will transition to PO Levaquin tomorrow for a completion of 7 days total Resp screen + for entero/rhino viruses, Sputum negative Resp status improving, will transition to PO Abx and Anticipate D/C in the AM pending clinical improvement (2) Atrial fibrillation with rapid ventricular response Status: Resolved Response to Treatment: Stable Problem Text: likely exacerbated by underlying PNA rate controlled Cont xarelto (3) Diabetes Status: Chronic (4) Hypertension Status: Chronic (5) Hyperlipidemia Status: Chronic (6) Post-polio syndrome Status: Chronic (7) CAD (coronary artery disease) Status: Chronic (8) LBBB (left bundle branch block) Status: Chronic (9) CHF (congestive heart failure) Status: Chronic Problem Text: received lasix in ED, continued on home meds Plan/VTE VTE Prophylaxis Ordered?: Yes (xarelto) VS, I&O, 24H, Fishbone Vital Signs/I&O Vital Signs Date Time Temp Pulse Resp B/P (MAP) Pulse Ox O2 Delivery O2 Flow Rate FiO2 11/04/16 08:37 68 140/70 11/04/16 06:00 98.8 20 92 Room Air 11/03/16 06:40 1.0 I&O- Last 24 Hours up to 6 AM 11/04/16 06:00 Intake Total 1130 ml Output Total 1970 ml Balance -840 ml Laboratory Data 24H LABS Laboratory Tests 2 11/03/16 16:51: Bedside Glucose (Misc Panel) 115 11/03/16 20:32: Bedside Glucose (Misc Panel) 182H 11/04/16 05:45: Anion Gap 5L, Glomerular Filtration Rate > 60.0, Blood Urea Nitrogen 25H, Creatinine 1.08, Sodium Level 140, Potassium Level 4.0, Chloride Level 102, Carbon Dioxide Level 33H, Calcium Level 8.2L, Aspartate Amino Transf (AST/SGOT) 14L, Alanine Aminotransferase (ALT/SGPT) 23, Alkaline Phosphatase 89, Total Bilirubin 0.6, Total Protein 6.3L, Albumin 2.4L, Magnesium Level 1.5L, Albumin/ Globulin Ratio 0.62L CBC/BMP Laboratory Tests 11/04/16 05:45 Red Blood Count 3.71 L, Mean Corpuscular Volume 91.5, Mean Corpuscular Hemoglobin 30.2, Mean Corpuscular Hemoglobin Concent 33.1, Red Cell Distribution Width 14.7 H, Calcium Level 8.2 L, Aspartate Amino Transf (AST/SGOT ) 14 L, Alanine Aminotransferase (ALT/SGPT) 23, Alkaline Phosphatase 89, Total Bilirubin 0.6, Total Protein 6.3 L, Albumin 2.4 L Microbiology Microbiology 10/30/16 Blood Culture - Preliminary, Resulted No Growth after 72 hours. All specime... 10/30/16 Blood Culture - Preliminary, Resulted No Growth after 72 hours. All specime... 10/31/16 Gram Stain - Final, Complete 10/31/16 Sputum Culture - Final, Complete 10/31/16 Respiratory Virus Panel (PCR) ([facility]) - Final, Complete Human Rhinovirus/Enterovirus MIRIAN DUARTE MD November 04, 2016 12:16
[2016-11-04 14:00] VITALS: BP 157/74
[2016-11-04] MEDS: RIVAROXABAN 15 MG TAB (XARELTO) PO SCH (17:49)
[2016-11-04] MEDS: FEBUXOSTAT 40 MG TABLET (ULORIC) PO SCH (17:49)
[2016-11-04] MEDS: DIGOXIN 0.125 MG TAB PO SCH (17:50)
[2016-11-04 22:00] VITALS: BP 131/70
[2016-11-04] MEDS: ATORVASTATIN 20 MG TAB PO SCH (22:19)
[2016-11-04] MEDS: cefTRIAXone SOD 2 GM in D5W MINI-BAG PLUS 50 ML IV SCH ×2 (22:19→23:53)
[2016-11-04] MEDS: LOTRISONE CREAM 15 GM (BETAMETH/CLOTRIMAZOLE) TOP SCH (22:20)
[2016-11-04] MEDS: ANEXSIA, NORCO 7.5MG/325MG TABLET(HYDROCODONE/APAP) PO PRN (23:24)
[2016-11-05] MEDS: DOXYCYCLINE HYCLATE 100 MG in D5W MINI-BAG PLUS 100 ML IV SCH (02:10)
[2016-11-05] MEDS: SLF 3 ML SYR IV SCH (04:21)
[2016-11-05 06:00] VITALS: BP 141/71
[2016-11-05 06:26] LABS: MEAN CORPUSCULAR HEMOGLOBIN 30.1 pg (27.0-33.0); MEAN CORPUSCULAR VOLUME 91.1 fl (80.0-96.0); RED CELL DISTRIBUTION WIDTH 14.7 % (11.5-14.5); WHITE BLOOD COUNT 13.9 K/mm3 (4.0-10.0)
[2016-11-05 06:44] LABS: ALBUMIN 2.3 GM/DL (3.2-5.2); ALBUMIN/GLOBULIN RATIO 0.62 (1.00-1.93); ALKALINE PHOSPHATASE 87 U/L (45-117); ALT/SGPT 24 U/L (12-78); ANION GAP 7 MEQ/L (8-16); AST/SGOT 12 U/L (15-37); BILIRUBIN,TOTAL 0.5 MG/DL (0.2-1.0); BLOOD UREA NITROGEN 26 MG/DL (7-18); CALCIUM LEVEL 8.1 MG/DL (8.8-10.2); CARBON DIOXIDE LEVEL 29 MEQ/L (21-32); CHLORIDE LEVEL 102 MEQ/L (98-107); GLOMERULAR FILTRATION RATE > 60.0 (>49); GLUCOSE, FASTING 175 MG/DL (80-110); MAGNESIUM LEVEL 1.7 MG/DL (1.8-2.4); POTASSIUM SERUM 3.9 MEQ/L (3.5-5.1); SODIUM LEVEL 138 MEQ/L (136-145)
[2016-11-05] MEDS ORDERED: MAG SULF 1GM/100ML (MAG RUN) 1 GM in APPROPRIATE DILUENT 1 EA IV ONE (07:00)
[2016-11-05] MEDS: LEVALBUTEROL 1.25 MG/0.5 ML CONCENTRATE NEB INH SCH (07:55)
[2016-11-05] MEDS: levETIRAcetam 250MG TABLET (KEPPRA) PO SCH (08:21)
[2016-11-05] MEDS: ASPIRIN 81 MG ENTERIC TAB PO SCH (08:21)
[2016-11-05] MEDS: TORSEMIDE (DEMADEX) 50 MG PER 1/2 TAB PO SCH (08:21)
[2016-11-05 08:22] VITALS: BP 137/77
[2016-11-05] MEDS: traMADol ER 100MG TABLET (ULTRAM ER) PO SCH (08:22)
[2016-11-05] MEDS: CARVedilol 12.5 MG TAB PO SCH (08:22)
[2016-11-05] MEDS: HumaLOG INSULIN (NovoLOG) PER UNIT SC SCH ×2 (08:22→13:17)
[2016-11-05] MEDS: LOSARTAN 25 MG TAB PO SCH (08:23)
[2016-11-05] MEDS ORDERED: MAGN400C3 PO (09:46)
[2016-11-05] MEDS ORDERED: LEVA500T PO (09:46)
--- NOTE | 2016-11-05 13:05 | DS.PDOC ---
Discharge Summary General Date of Admission October 30, 2016 at 23:37 Date of Discharge 11/05/16 Discharge Summary PROCEDURES PERFORMED DURING STAY: None. ADMITTING DIAGNOSES: 1. . Atrial fibrillation with rapid ventricular rate 2. . Viral/bacterial pneumonia DISCHARGE DIAGNOSES: 1. . Atrial fibrillation with rapid ventricular rate 2. . Viral/bacterial pneumonia COMPLICATIONS/CHIEF COMPLAINT: Afib With Rapid Ventricular Response. HISTORY OF PRESENT ILLNESS: . 66-year-old male with past medical history of congestive heart failure, atrial fibrillation, gout, seizure disorder, history of CVA in 2011, hypertension, hyperlipidemia, diabetes, coronary artery disease, left bundle branch block, and obstructive sleep apnea on continuous positive airway pressure (CPAP) presented to the ER with a chief complaint of increased shortness of breath. The patient states that he had initially started off with a cough productive of yellowish sputum, and flulike symptoms with generalized lethargy and malaise over the preceding 2-3 days. In the ER, the patient was found to be in atrial fibrillation with a rapid ventricular rate. The patient was given beta blockade as well as calcium channel eddie therapy in the ER. The patient was admitted to the hospitalist service for further evaluation and management. During hospitalization, the patient was noted to be positive for human Rhinovirus/enterovirus on the respiratory virus panel. A chest x-ray revealed a right lower lobe infiltrate. The patient was started on IV antibiotics and was given supportive treatment. During this time, the patient's respiratory status significantly improved, and his white blood cell count trended towards normalcy. As for the patient's atrial fibrillation with rapid ventricular rate, his rate has remained under control after treatment of his underlying respiratory illness. At this time, the patient states that he is feeling significantly better and is eager to return home. I have transitioned the patient's antibiotics to a by mouth regimen to be completed over the next 48 hours. In addition, I have advised the patient to follow-up with his primary care physician within one week. DISCHARGE MEDICATIONS: Please see below. ALLERGIES: Please see below. PHYSICAL EXAMINATION ON DISCHARGE: VITAL SIGNS: Please see below. General Exam: Positive: Alert, No Acute Distress Eye Exam: Negative: Sclera icteric ENT Exam: Positive: Mucous membr. moist/pink Chest Exam: Positive: Diminished, Negative: Rales, Rhonchi, Wheezing Heart Exam: Positive: Rate Normal, Irregular Rhythm, Normal S1, Normal S2 Abdomen Exam: Positive: Normal bowel sounds, Negative: Soft, Tenderness Extremity Exam: Negative: Edema LABORATORY DATA: Please see below. IMAGING: Clinical history: Congestion. Comparison: None. Findings: The mediastinum and cardiac silhouette are within normal limits. There is mild pulmonary vascular congestion. There is a focal right lower lobe infiltrate. No pleural effusion or pneumothorax is seen. The osseous structures and soft tissues are unremarkable. Impression: Right lower lobe infiltrate. Mild congestive heart failure. PROGNOSIS: Medically Stable ACTIVITY: As tolerated. DIET: .2gm low sodium diet DISCHARGE PLAN: Home DISPOSITION: .Home DISCHARGE INSTRUCTIONS: 1. . Follow-up primary care physician within one to 2 weeks 2. . Return to the ER if his symptoms return or persist DISCHARGE CONDITION: Stable. TIME SPENT ON DISCHARGE: Greater than 30 minutes. Vital Signs/I&Os Vital Signs Date Time Temp Pulse Resp B/P (MAP) Pulse Ox O2 Delivery O2 Flow Rate FiO2 11/05/16 08:22 67 137/77 11/05/16 08:20 Room Air 11/05/16 06:00 98.2 19 94 11/03/16 06:40 1.0 I&O- Last 24 Hours up to 6 AM 11/05/16 06:00 Intake Total 2030 ml Output Total 1400 ml Balance 630 ml Laboratory Data Labs 24H Laboratory Tests 2 11/05/16 06:13: Anion Gap 7L, Glomerular Filtration Rate > 60.0, Blood Urea Nitrogen 26H, Creatinine 1.10, Sodium Level 138, Potassium Level 3.9, Chloride Level 102, Carbon Dioxide Level 29, Calcium Level 8.1L, Aspartate Amino Transf (AST/SGOT) 12L, Alanine Aminotransferase (ALT/SGPT) 24, Alkaline Phosphatase 87, Total Bilirubin 0.5, Total Protein 6.0L, Albumin 2.3L, Magnesium Level 1.7L, Albumin/ Globulin Ratio 0.62L CBC/BMP Laboratory Tests 11/05/16 06:13 Red Blood Count 3.65 L, Mean Corpuscular Volume 91.1, Mean Corpuscular Hemoglobin 30.1, Mean Corpuscular Hemoglobin Concent 33.0, Red Cell Distribution Width 14.7 H, Calcium Level 8.1 L, Aspartate Amino Transf (AST/SGOT ) 12 L, Alanine Aminotransferase (ALT/SGPT) 24, Alkaline Phosphatase 87, Total Bilirubin 0.5, Total Protein 6.0 L, Albumin 2.3 L Microbiology Microbiology 10/30/16 Blood Culture - Final, Complete NO GROWTH AFTER 5 DAYS 10/30/16 Blood Culture - Final, Complete NO GROWTH AFTER 5 DAYS 10/31/16 Gram Stain - Final, Complete 10/31/16 Sputum Culture - Final, Complete 10/31/16 Respiratory Virus Panel (PCR) ([facility]) - Final, Complete Human Rhinovirus/Enterovirus Discharge Medications Scheduled ([place]) 300 Unit/Ml Inj, 14 UNIT SC DAILY, (Reported) (Magnesium Oxide) 400 Mg Cap, 400 MG PO BID Aspirin (Aspirin) 81 Mg Tab, 81 MG PO DAILY, (Reported) Atorvastatin Calcium (Atorvastatin Calcium) 80 Mg Tab, 80 MG PO QHS, (Reported) Betamethasone/Clotrimazole (Clotrimazole/Betamethason 1-0.05 %) 1 Dose/15 Gm Cream, 1 DOSE TOP QHS, (Reported) APPLIES TO FEET Carvedilol (Carvedilol) 25 Mg Tab, 25 MG PO BID, (Reported) Digoxin (Digoxin) 0.125 Mg Tab, 0.125 MG PO DAILY, (Reported) DINNERTIME Febuxostat (Uloric) 40 Mg Tab, 40 MG PO DAILY, (Reported) DINNERTIME Levetiracetam (Keppra) 500 Mg Tab, 500 MG PO BID, (Reported) Levofloxacin Hemihydrate (Levaquin) 500 Mg Tab, 500 MG PO DAILY Losartan Potassium (Losartan Potassium) 25 Mg Tab, 25 MG PO DAILY, (Reported) Metformin Hydrochloride (Metformin HCl) 1,000 Mg Tab, 1,000 MG PO DAILY, ( Reported) Rivaroxaban (Xarelto) 15 Mg Tab, 15 MG PO DAILY, (Reported) DINNERTIME Sitagliptin Phosphate (Januvia) 100 Mg Tab, 100 MG PO DAILY, (Reported) LUNCHTIME Torsemide (Torsemide) 100 Mg Tab, 50 MG PO DAILY, (Reported) Tramadol HCl (Tramadol HCl ER) 200 Mg Tab, 200 MG PO DAILY, (Reported) Vitamin D (Drisdol) 50,000 Unit Cap, 50,000 UNIT PO 1XWK, (Reported) THURSDAYS AROUND DINNERTIME Scheduled PRN Acetaminophen/Hydrocodone ([place] 7.5-325 mg) 1 Tab Tab, 1 TAB PO TID PRN for PAIN, (Reported) Docusate Sodium (Colace) 100 Mg Cap, 100 MG PO DAILY PRN for CONSTIPATION, ( Reported) Lidocaine (Lidoderm) 5 % Dis, 1-2 PATCH TD DAILY PRN for PAIN, (Reported) Allergies Coded Allergies: No Known Allergies (Unverified , 12/25/15) MIRIAN DUARTE MD November 05, 2016 13:05
== END 2016-11-05 13:20 | disposition home or self-care (01) | DRG 308 ==
LOC: EDBD 20:32 → M ED 22:12 → M ED INP 23:37 → M PCU 10-31 16:00 → M MSPAV 11-03 15:32
PROVIDERS: ADMIT Internal Medicine; ATTEND Internal Medicine
DX: I48.91 Unspecified atrial fibrillation (principal); J15.9 Unspecified bacterial pneumonia; J12.9 Viral pneumonia, unspecified; N17.9 Acute kidney failure, unspecified; I50.9 Heart failure, unspecified; M10.9 Gout, unspecified; G40.909 Epilepsy, unspecified, not intractable, without status epilepticus; E78.5 Hyperlipidemia, unspecified; E11.9 Type 2 diabetes mellitus without complications; G47.33 Obstructive sleep apnea (adult) (pediatric); I44.7 Left bundle-branch block, unspecified; I25.10 Atherosclerotic heart disease of native coronary artery without angina pectoris; Z79.82 Long term (current) use of aspirin; Z79.899 Other long term (current) drug therapy; Z87.891 Personal history of nicotine dependence; Z86.73 Personal history of transient ischemic attack (TIA), and cerebral infarction without residual deficits; G14 Postpolio syndrome

== ENCOUNTER → 2016-12-23 | Outpatient (CLI) | payer MEDICARE, BC ==
[~2016-12-23] MED LIST changes: +ASPI1TAB15 PO; -ATOR1TAB18 PO; +ATOR80TA59 PO; +CLOT1CRE71 TOP; -COLA100C3 PO; +COLA100C5 PO; +KEPP1TAB PO; -KEPP500T6 PO; +LEVA1TAB2 PO; -LIDO5DIS36 TD; +LIDO5DIS41 TD; +MAGN400C3 PO; -METF1000 PO; +METF10004 PO; -NORC7.5T PO; +NORC7.5T35 PO
--- NOTE | 2016-12-23 13:45 | REP ---
Chest two views HISTORY: Pneumonia Comparison: 12/25/2015 The lungs are clear. The heart is normal in size. The pulmonary vasculature is normal in appearance. The bony structure is intact. IMPRESSION: No acute disease. Signed by Liban Regan MD 12/23/2016 01:35 P
== END ==
LOC: M WUC 12:09
PROVIDERS: ATTEND Nurse Practitioner Family
DX: J18.9 Pneumonia, unspecified organism (principal)

== ENCOUNTER → 2017-02-10 | Outpatient (REF) | payer MEDICARE, BC | LOC: M LAB REF 13:53 | PROVIDERS: ATTEND Nurse Practitioner Family | DX: I48.2 Chronic atrial fibrillation (principal) ==

== ENCOUNTER → 2018-11-09 | Outpatient (REF) | payer MEDICARE, BC ==
[~2018-11-09] MED LIST changes: -DRIS50002 PO; +DRIS50003 PO; +LOSA25TA14 PO; -LOSA25TA8 PO; +NORC1TAB8 PO; -NORC7.5T35 PO; -TRAM200T PO; +TRAM200T23 PO
[2018-11-09 19:12] LABS: DIGOXIN LEVEL 0.5 NG/ML (0.5-2.0)
[2018-11-10 16:30] LABS: URIC ACID 3.6 MG/DL (3.5-7.2)
== END ==
LOC: M LAB REF 16:34
PROVIDERS: ATTEND Internal Medicine
DX: I48.2 Chronic atrial fibrillation (principal)

== ENCOUNTER → 2019-01-04 | Outpatient (REF) | payer MEDICARE, BC | LOC: M LAB REF 18:20 | PROVIDERS: ATTEND Nurse Practitioner Adult Health | DX: R19.7 Diarrhea, unspecified (principal) ==

== ENCOUNTER → 2019-02-17 | Outpatient (REF) | payer MEDICARE, BC ==
[~2019-02-17] MED LIST changes: -FEBU40TA PO; +FEBU40TA4 PO
[2019-02-18 19:32] LABS: PERCENT SATURATION 12.8 % (19.7-50.0)
== END ==
LOC: M LAB REF 16:42
PROVIDERS: ATTEND Internal Medicine
DX: N18.3 Chronic kidney disease, stage 3 (moderate) (principal); D64.9 Anemia, unspecified

== ENCOUNTER → 2019-03-03 | Outpatient (CLI) | payer MEDICARE, BC | LOC: M PT 12:11 | PROVIDERS: ATTEND Internal Medicine | DX: Z99.3 Dependence on wheelchair (principal) ==

== ENCOUNTER → 2019-05-12 | Outpatient (REF) | payer MEDICARE, BC | LOC: M LAB REF 17:43 | PROVIDERS: ATTEND Internal Medicine | DX: I48.20 Chronic atrial fibrillation, unspecified (principal); D64.9 Anemia, unspecified ==

== ENCOUNTER 2019-07-11 10:07 | Day surgery (SDC) | payer MEDICARE, BC ==
[~2019-07-11] VITALS: Ht 167.6 cm; Wt 112.9 kg
[~2019-07-11 10:07] MED LIST changes: +DIGO0.123 PO; +LIDOCAINE 2% MDV 20 ML VIAL As Ordered ONE; +MAGN400T2 PO; +NS 1,000 ML IV ONE; +VITA50005 PO; +ZYLO300T6 PO; +fentaNYL 100 MCG/2 ML INJECTION (J3010) As Ordered ONE; +propofoL 500 MG/50 ML VIAL As Ordered ONE
--- NOTE | 2019-07-11 11:35 | ROOR ---
Patient Name: Festus Cowan Procedure Date: 07/11/2019 11:14 AM Date of : 1950 Age: 69 Room: [facility] Gender: Male Note Status: Finalized Procedure: Upper Endoscopy + Biopsies Indications: Heartburn, Exclusion of Holland's esophagus, Family history of gastric cancer Providers: Samm Rucker MD Referring MD: Melida REYES MD Requesting Provider: Medicines: Monitored Anesthesia Care Complications: No immediate complications. Procedure: Pre-Anesthesia Assessment: - The heart rate, respiratory rate, oxygen saturations, blood pressure, adequacy of pulmonary ventilation, and response to care were monitored throughout the procedure. The Endoscope was introduced through the mouth, and advanced to the second part of duodenum. The upper GI endoscopy was accomplished without difficulty. The patient tolerated the procedure well. Findings: The Z-line was variable and was found 35 cm from the incisors. Multiple biopsies were obtained with cold forceps for evaluation to rule out Holland's Esophagus randomly at the gastroesophageal junction. A small hiatal hernia was present. Localized mild inflammation characterized by congestion (edema), erosions and erythema was found in the gastric antrum. Biopsies were taken with a cold forceps for Helicobacter pylori testing. The exam of the duodenum was otherwise normal. Impression: - Z-line variable, 35 cm from the incisors. - Small hiatal hernia. - Mucosal changes suspicious for gastritis. Biopsied. - Multiple biopsies were obtained at the gastroesophageal junction. - The examination was otherwise normal. Recommendation: - Patient has a contact number available for emergencies. The signs and symptoms of potential delayed complications were discussed with the patient. Return to normal activities tomorrow. Written discharge instructions were provided to the patient. - High fiber diet. - Discharge patient to home. - Continue present medications. - Await pathology results. - Telephone GI clinic for pathology results in 1 week. - Return to referring physician. - The findings and recommendations were discussed with the patient's family. Samm Rucker MD Samm Rucker MD 07/11/2019 11:35:18 AM Electronically signed by Samm Rucker MD Number of Addenda: 0 Note Initiated On: 07/11/2019 11:14 AM Estimated Blood Loss: Estimated blood loss: none.
--- NOTE | 2019-07-11 11:59 | ROOR ---
Patient Name: Festus Cowan Procedure Date: 07/11/2019 11:14 AM Date of : 1950 Age: 69 Room: [facility] Gender: Male Note Status: Finalized Procedure: Total Colonoscopy to Cecum + Cold Snare Polypectomy Indications: Colon cancer screening in patient at increased risk: Colorectal cancer in mother Providers: Samm Rucker MD Referring MD: Melida REYES MD Requesting Provider: Medicines: Monitored Anesthesia Care Complications: No immediate complications. Procedure: Pre-Anesthesia Assessment: - The heart rate, respiratory rate, oxygen saturations, blood pressure, adequacy of pulmonary ventilation, and response to care were monitored throughout the procedure. The Colonoscope was introduced through the anus and advanced to the cecum, identified by appendiceal orifice and ileocecal valve. The colonoscopy was performed without difficulty. The patient tolerated the procedure well. The quality of the bowel preparation was excellent. Findings: The perianal and digital rectal examinations were normal. Non-bleeding internal hemorrhoids were found during retroflexion. The hemorrhoids were small and Grade I (internal hemorrhoids that do not prolapse). Multiple small and large-mouthed diverticula were found in the recto-sigmoid colon, sigmoid colon and descending colon. A small polyp was found in the mid ascending colon. The polyp was sessile. The polyp was removed with a cold snare. Resection and retrieval were complete. The exam was otherwise without abnormality on direct and retroflexion views. Impression: - Non-bleeding internal hemorrhoids. - Diverticulosis in the recto-sigmoid colon, in the sigmoid colon and in the descending colon. - One small polyp in the mid ascending colon, removed with a cold snare. Resected and retrieved. - The examination was otherwise normal on direct and retroflexion views. - The exam was otherwise normal to the cecum. Recommendation: - Patient has a contact number available for emergencies. The signs and symptoms of potential delayed complications were discussed with the patient. Return to normal activities tomorrow. Written discharge instructions were provided to the patient. - Resume previous diet. - Discharge patient to home. - Continue present medications. - Await pathology results. - Repeat colonoscopy in 5 years for surveillance based on pathology results. - The findings and recommendations were discussed with the patient's family. Samm Rucker MD Samm Rucker MD 07/11/2019 11:58:27 AM Electronically signed by Samm Rucker MD Number of Addenda: 0 Note Initiated On: 07/11/2019 11:14 AM Estimated Blood Loss: Estimated blood loss: none.
[2019-07-11 12:20] VITALS: BP 176/78
== END 2019-07-11 12:26 | disposition home or self-care (01) ==
LOC: M OPP 10:07
PROVIDERS: ATTEND Internal Medicine Gastroenterology
DX: Z12.11 Encounter for screening for malignant neoplasm of colon (principal); Z80.0 Family history of malignant neoplasm of digestive organs; K64.0 First degree hemorrhoids; K57.30 Diverticulosis of large intestine without perforation or abscess without bleeding; D12.2 Benign neoplasm of ascending colon; K22.8 Other specified diseases of esophagus; K44.9 Diaphragmatic hernia without obstruction or gangrene; K31.89 Other diseases of stomach and duodenum; R12 Heartburn; I25.5 Ischemic cardiomyopathy; I48.91 Unspecified atrial fibrillation; G47.30 Sleep apnea, unspecified; E10.9 Type 1 diabetes mellitus without complications; Z79.4 Long term (current) use of insulin; Z79.82 Long term (current) use of aspirin; Z79.891 Long term (current) use of opiate analgesic; Z79.899 Other long term (current) drug therapy; Z87.891 Personal history of nicotine dependence
CPT/HCPCS: 43239; 45385; 88305; J3010

== ENCOUNTER → 2019-07-19 | Outpatient (REF) | payer MEDICARE, BC ==
[~2019-07-19] MED LIST changes: -LIDOCAINE 2% MDV 20 ML VIAL As Ordered ONE; -NS 1,000 ML IV ONE; -fentaNYL 100 MCG/2 ML INJECTION (J3010) As Ordered ONE; -propofoL 500 MG/50 ML VIAL As Ordered ONE
== END ==
LOC: M LAB REF 17:17
PROVIDERS: ATTEND Internal Medicine
DX: M10.9 Gout, unspecified (principal)

== ENCOUNTER → 2019-11-21 | Outpatient (REF) | payer MEDICARE, BC ==
[~2019-11-21] MED LIST changes: +ASPI-546 PO; -ASPI1TAB15 PO; +ESSE250T PO; +FERR325T3 PO; +FLOM0.4C39 PO; +ONDA-83 PO; +PANT40TA29 PO; +TORS20TA2 PO; +VENTAER INH
[2019-11-21 18:15] LABS: APPEARANCE, URINE MANUAL TURBID (CLEAR); BILIRUBIN, URINE MANUAL OBSCURED (NEGATIVE); COLOR, URINE MANUAL AMBER (YELLOW); GLUCOSE, URINE (UA) MANUAL NEGATIVE (NEGATIVE); KETONE, URINE MANUAL OBSCURED mg/dL (NEGATIVE); NITRITE, URINE MANUAL OBSCURED (NEGATIVE); PH,URINE MAN 8.5 UNITS (5.0 - 7.0); PROTEIN, URINE MANUAL 3+ mg/dL (NEGATIVE); SPECIFIC GRAVITY,URINE MANUAL 1.016 (1.002-1.035); UROBILINOGEN, URINE MANUAL OBSCURED mg/dl (NORMAL)
[2019-11-21 18:16] LABS: BLOOD URINE MANUAL POSITIVE (NEGATIVE); LEUKOCYTE ESTERASE, URINE MAN POSITIVE (NEGATIVE); RBC, URINE TNTC /hpf (0-3); WBC, URINE TNTC /hpf (0-3)
[2019-11-21 18:17] LABS: BACTERIA, URINE SMALL AMOUNT; HYALINE CAST, URINE NONE SEEN /lpf (0-1); SQUAMOUS EPITHELIAL CELL URINE NONE SEEN /hpf (SMALL AMT)
[2019-11-21 18:18] LABS: AMORPHOUS SEDIMENT, URINE MOD AMOUNT (NEGATIVE)
[2019-11-21 18:19] LABS: MUCUS, URINE SMALL AMOUNT (NEGATIVE)
[2019-11-21 18:40] LABS: ANISOCYTOSIS 2+; BASOPHILS 1 % (0-1); EOSINOPHILS 1 % (0-3); LYMPHOCYTES 8 % (16-44); MONOCYTES 7 % (0-5); NEUTROPHILS 83 % (28-66); PLATELET ESTIMATE NORMAL (NORMAL)
[2019-11-21 18:41] LABS: OVALOCYTES 2+
[2019-11-21 18:58] LABS: CRENATED RBC 1+
== END ==
LOC: M LAB REF 17:19
PROVIDERS: ATTEND Internal Medicine
DX: R31.9 Hematuria, unspecified (principal); D72.829 Elevated white blood cell count, unspecified

== ENCOUNTER → 2019-12-08 | Outpatient (REF) | payer MEDICARE, BC ==
[2019-12-08 12:27] LABS: APPEARANCE, URINE CLEAR (CLEAR); BACTERIA, URINE AUTO NEGATIVE (NEGATIVE); BILIRUBIN, URINE AUTO NEGATIVE (NEGATIVE); BLOOD, URINE BLOOD NEGATIVE (NEGATIVE); COLOR, URINE YELLOW (YELLOW); GLUCOSE, URINE (UA) AUTO NEGATIVE (NEGATIVE); KETONE, URINE AUTO NEGATIVE (NEGATIVE); LEUKOCYTE ESTERASE, URINE AUTO NEGATIVE (NEGATIVE); NITRITE, URINE AUTO NEGATIVE (NEGATIVE); PROTEIN, URINE AUTO 3+ mg/dL (NEGATIVE); RBC, URINE AUTO 7 /HPF (0-3); SPECIFIC GRAVITY URINE AUTO 1.014 (1.002-1.035); SQUAMOUS EPITHELIAL CELL UR AU 1 /HPF (0-6); WBC, URINE AUTO 1 /HPF (0-3)
== END ==
LOC: M LAB REF 11:27
PROVIDERS: ATTEND Internal Medicine
DX: R31.9 Hematuria, unspecified (principal); I48.20 Chronic atrial fibrillation, unspecified

== ENCOUNTER → 2020-01-03 | Outpatient (REF) | payer MEDICARE, BC | LOC: M LAB REF 15:29 | PROVIDERS: ATTEND Internal Medicine | DX: D64.9 Anemia, unspecified (principal) ==

== ENCOUNTER → 2020-01-12 | Outpatient (REF) | payer MEDICARE, BC ==
[2020-02-10 23:19] LABS: MYOGLOBIN SCREEN, URINE POSITIVE (NEGATIVE)
[2020-02-28 14:03] LABS: FREE LAMBDA LIGHT CHAINS SERUM SEE SEPARATE REPORT
[2020-02-28 14:04] LABS: FREE KAPPA LIGHT CHAINS SERUM SEE SEPARATE REPORT; FREE KAPPA LIGHT CHAINS URINE SEE SEPARATE REPORT; FREE LAMBDA LIGHT CHAINS URINE SEE SEPARATE REPORT; KAPPA/LAMBDA RATIO SERUM SEE SEPARATE REPORT; KAPPA/LAMBDA RATIO URINE SEE SEPARATE REPORT
[2020-03-10 15:05] LABS: CREATININE,RANDOM URINE 91.6 MG/DL; TOTAL PROTEIN,RANDOM URINE 488.2 MG/DL (0.0-12.0)
[2020-03-10 16:36] LABS: MYOGLOBIN 81 NG/ML (16-116)
== END ==
LOC: M LAB REF 13:25
PROVIDERS: ATTEND Internal Medicine
DX: R80.9 Proteinuria, unspecified (principal); R31.9 Hematuria, unspecified

== ENCOUNTER → 2020-02-06 | Outpatient (REF) | payer MEDICARE, BC ==
[2020-02-07 12:17] LABS: TOTAL PROTEIN 6.3 GM/DL (6.4-8.2)
[2020-02-07 14:01] LABS: ALBUMIN 2.84 GM/DL (3.29-5.55); ALPHA-1-GLOBULIN % 7.3 % (2.9-4.9); ALPHA-1-GLOBULINS 0.46 GM/DL (0.17-0.41); ALPHA-2-GLOBULINS 0.98 GM/DL (0.42-0.99); ALPHA-2-GLOBULINS % 15.5 % (7.1-11.8); BETA-1-GLOBULINS 0.33 GM/DL (0.28-0.60); BETA-1-GLOBULINS % 5.3 % (4.7-7.2); BETA-2-GLOBULINS 0.42 GM/DL (0.19-0.55); BETA-2-GLOBULINS % 6.7 % (3.2-6.5); GAMMA GLOBULIN % 20.2 % (11.1-18.8); GAMMA GLOBULINS 1.27 GM/DL (0.65-1.58)
== END ==
LOC: M LAB REF 11:02
PROVIDERS: ATTEND Internal Medicine
DX: R80.9 Proteinuria, unspecified (principal); N18.3 Chronic kidney disease, stage 3 (moderate)

== ENCOUNTER → 2020-02-07 | Outpatient (REF) | payer MEDICARE, BC ==
[2020-02-07 19:17] LABS: APPEARANCE, URINE CLOUDY (CLEAR); BACTERIA, URINE AUTO NEGATIVE (NEGATIVE); BILIRUBIN, URINE AUTO NEGATIVE (NEGATIVE); BLOOD, URINE BLOOD NEGATIVE (NEGATIVE); COLOR, URINE AMBER (YELLOW); GLUCOSE, URINE (UA) AUTO NEGATIVE (NEGATIVE); KETONE, URINE AUTO NEGATIVE (NEGATIVE); LEUKOCYTE ESTERASE, URINE AUTO TRACE (NEGATIVE); MUCUS, URINE SMALL (NEGATIVE); NITRITE, URINE AUTO NEGATIVE (NEGATIVE); PROTEIN, URINE AUTO 3+ mg/dL (NEGATIVE); RBC, URINE AUTO 4 /HPF (0-3); SPECIFIC GRAVITY URINE AUTO 1.014 (1.002-1.035); SQUAMOUS EPITHELIAL CELL UR AU 4 /HPF (0-6); TRIPLE PHOSPHATE CRYSTALS SMALL; UROBILINOGEN, URINE AUTO 0.2 mg/dL (0.0-2.0); WBC, URINE AUTO 92 /HPF (0-3)
== END ==
LOC: M LAB REF 13:24
PROVIDERS: ATTEND Internal Medicine
DX: R31.9 Hematuria, unspecified (principal); R80.9 Proteinuria, unspecified

== ENCOUNTER → 2020-02-10 | Outpatient (CLI) | payer MEDICARE, BC | LOC: M LABSMTC 11:03 | PROVIDERS: ATTEND Anesthesiology | DX: Z11.59 Encounter for screening for other viral diseases (principal) | CPT/HCPCS: C9803; U0003 ==

== ENCOUNTER 2020-02-15 09:34 | Day surgery (SDC) | payer MEDICARE, BC ==
[~2020-02-15] VITALS: Ht 172.7 cm; Wt 111.0 kg
[~2020-02-15 09:34] MED LIST changes: +LIDOCAINE 2% 100MG/5ML SDV (FOR ANES.) As Ordered ONE; +NS 1,000 ML IV ONE; +propofoL 200 MG/20 ML VIAL As Ordered ONE
[2020-02-15 11:30] VITALS: BP 137/63
--- NOTE | 2020-02-15 11:39 | ROOR ---
Patient Name: Festus Cowan Procedure Date: 02/15/2020 10:35 AM Date of : 1950 Age: 70 Room: [facility] Gender: Male Note Status: Finalized Procedure: Total Colonoscopy to Cecum Indications: Abnormal CT of the GI tract Providers: Samm Rucker MD Referring MD: Melida REYES MD Requesting Provider: Medicines: Monitored Anesthesia Care Complications: No immediate complications. Procedure: Pre-Anesthesia Assessment: - The heart rate, respiratory rate, oxygen saturations, blood pressure, adequacy of pulmonary ventilation, and response to care were monitored throughout the procedure. The Colonoscope was introduced through the anus and advanced to the cecum, identified by appendiceal orifice and ileocecal valve. The colonoscopy was performed without difficulty. The patient tolerated the procedure well. The quality of the bowel preparation was good. Findings: The perianal and digital rectal examinations were normal. Non-bleeding internal hemorrhoids were found during retroflexion. The hemorrhoids were small and Grade I (internal hemorrhoids that do not prolapse). Multiple small and large-mouthed diverticula were found in the recto-sigmoid colon, sigmoid colon and descending colon. The exam was otherwise without abnormality on direct and retroflexion views. Impression: - Non-bleeding internal hemorrhoids. - Diverticulosis in the recto-sigmoid colon, in the sigmoid colon and in the descending colon. - The examination was otherwise normal on direct and retroflexion views. - No specimens collected. - The exam was otherwise normal to the cecum. Recommendation: - Patient has a contact number available for emergencies. The signs and symptoms of potential delayed complications were discussed with the patient. Return to normal activities tomorrow. Written discharge instructions were provided to the patient. - High fiber diet. - Discharge patient to home. - Continue present medications. - Repeat colonoscopy in 5 years for surveillance. - Return to referring physician. - The findings and recommendations were discussed with the patient. Samm Rucker MD Samm Rucker MD 02/15/2020 10:58:39 AM Electronically signed by Samm Rucker MD Number of Addenda: 0 Note Initiated On: 02/15/2020 10:35 AM Estimated Blood Loss: Estimated blood loss: none.
== END 2020-02-15 11:36 | disposition home or self-care (01) ==
LOC: M OPP 09:34
PROVIDERS: ATTEND Internal Medicine Gastroenterology
DX: K57.30 Diverticulosis of large intestine without perforation or abscess without bleeding (principal); K64.0 First degree hemorrhoids; R93.3 Abnormal findings on diagnostic imaging of other parts of digestive tract; I10 Essential (primary) hypertension; I48.91 Unspecified atrial fibrillation; E10.9 Type 1 diabetes mellitus without complications; Z80.0 Family history of malignant neoplasm of digestive organs; G47.30 Sleep apnea, unspecified; Z87.891 Personal history of nicotine dependence; Z79.4 Long term (current) use of insulin; Z79.82 Long term (current) use of aspirin; Z79.891 Long term (current) use of opiate analgesic; Z79.899 Other long term (current) drug therapy; Z95.5 Presence of coronary angioplasty implant and graft

== ENCOUNTER → 2020-02-21 | Outpatient (REF) | payer MEDICARE, BC ==
[~2020-02-21] MED LIST changes: -LIDOCAINE 2% 100MG/5ML SDV (FOR ANES.) As Ordered ONE; -NS 1,000 ML IV ONE; -propofoL 200 MG/20 ML VIAL As Ordered ONE
[2020-02-21 18:04] LABS: PERCENT SATURATION 13.1 % (19.7-50.0)
[2020-02-24 17:07] LABS: ANCA-ATYPICAL <1:20 titer (Neg:<1:20); ANTI DOUBLE STRAND-DNA AB 6 IU/mL (0-9); ANTI DS-DNA AB Negative (Negative); ANTI-GLOMERULAR BASEMENT MEMB 5 units (0-20); ANTINUCLEAR ANTIBODIES DIRECT Positive (Negative); CYTOPLASMIC NEUTROP AB ANCA-C <1:20 titer (Neg:<1:20); FREE KAPPA LIGHT CHAINS SERUM 63.9 mg/L (3.3-19.4); FREE LAMBDA LIGHT CHAINS SERUM 57.3 mg/L (5.7-26.3); KAPPA/LAMBDA RATIO SERUM 1.12 (0.26-1.65); PERINUCLEAR AB ANCA-P <1:20 titer (Neg:<1:20); RNP ANTIBODIES <0.2 AI (0.0-0.9); SJOGREN'S ANTI SS-B <0.2 AI (0.0-0.9); SMITH ANTIBODIES <0.2 AI (0.0-0.9)
== END ==
LOC: M LAB REF 17:12
PROVIDERS: ATTEND Internal Medicine Nephrology
DX: R80.9 Proteinuria, unspecified (principal); D50.9 Iron deficiency anemia, unspecified

== ENCOUNTER → 2020-02-29 | Outpatient (REF) | payer MEDICARE, BC ==
[2020-02-29 19:16] LABS: CREATININE, URINE 74.6 MG/DL; URINE TOTAL PROTEIN 394.9 MG/DL (0-12)
[2020-02-29 19:17] LABS: CREATININE 24 HOUR, URINE 939.9 MG/24HR (950-2500); TOTAL PROTEIN 24 HOUR URINE 4975.7 MG/24HR (50-150)
== END ==
LOC: M LAB REF 16:59
PROVIDERS: ATTEND Internal Medicine Nephrology
DX: R80.9 Proteinuria, unspecified (principal)

== ENCOUNTER → 2020-03-29 | Outpatient (REF) | payer MEDICARE, BC ==
[2020-03-29 18:13] LABS: APPEARANCE, URINE MANUAL TURBID (CLEAR); COLOR, URINE MANUAL YELLOW (YELLOW); GLUCOSE, URINE (UA) MANUAL NEGATIVE (NEGATIVE); KETONE, URINE MANUAL NEGATIVE (NEGATIVE); PROTEIN, URINE MANUAL 3+ mg/dL (NEGATIVE); SPECIFIC GRAVITY,URINE MANUAL 1.017 (1.002-1.035)
[2020-03-29 18:14] LABS: BILIRUBIN, URINE MANUAL NEGATIVE (NEGATIVE); BLOOD URINE MANUAL POSITIVE (NEGATIVE); LEUKOCYTE ESTERASE, URINE MAN POSITIVE (NEGATIVE); NITRITE, URINE MANUAL NEGATIVE (NEGATIVE); PH,URINE MAN 8.5 UNITS (5.0 - 7.0); UROBILINOGEN, URINE MANUAL NORMAL (NORMAL)
[2020-03-29 18:29] LABS: BACTERIA, URINE SMALL AMOUNT; HYALINE CAST, URINE NONE SEEN /lpf (0-1); MUCUS, URINE LARGE AMOUNT (NEGATIVE); SQUAMOUS EPITHELIAL CELL URINE SMALL AMOUNT /hpf (SMALL AMT); TRIPLE PHOSPHATE CRYSTAL,URINE SMALL AMOUNT /hpf
[2020-03-29 18:30] LABS: AMORPHOUS SEDIMENT, URINE LARGE AMOUNT (NEGATIVE)
== END ==
LOC: M LAB REF 16:23
PROVIDERS: ATTEND Internal Medicine
DX: R80.9 Proteinuria, unspecified (principal); N40.0 Benign prostatic hyperplasia without lower urinary tract symptoms

== ENCOUNTER → 2020-05-08 | Outpatient (REF) | payer MEDICARE, BC ==
[2020-05-08 17:50] LABS: BACTERIA, URINE AUTO NEGATIVE (NEGATIVE); RBC, URINE AUTO 2 /HPF (0-3); SQUAMOUS EPITHELIAL CELL UR AU 0 /HPF (0-6); WBC, URINE AUTO 2 /HPF (0-3)
== END ==
LOC: M LAB REF 17:10
PROVIDERS: ATTEND Internal Medicine Nephrology
DX: R80.9 Proteinuria, unspecified (principal)

== ENCOUNTER → 2020-05-25 | Outpatient (REF) | payer MEDICARE, BC ==
[2020-05-25 13:42] LABS: APPEARANCE, URINE TURBID (CLEAR); BACTERIA, URINE AUTO 3+ (NEGATIVE); BILIRUBIN, URINE AUTO NEGATIVE (NEGATIVE); BLOOD, URINE BLOOD 2+ (NEGATIVE); COLOR, URINE YELLOW (YELLOW); GLUCOSE, URINE (UA) AUTO 1+ mg/dL (NEGATIVE); KETONE, URINE AUTO NEGATIVE (NEGATIVE); LEUKOCYTE ESTERASE, URINE AUTO 3+ (NEGATIVE); NITRITE, URINE AUTO NEGATIVE (NEGATIVE); PROTEIN, URINE AUTO 3+ mg/dL (NEGATIVE); RBC, URINE AUTO 29 /HPF (0-3); SQUAMOUS EPITHELIAL CELL UR AU 0 /HPF (0-6); UROBILINOGEN, URINE AUTO 0.2 mg/dL (0.0-2.0); WBC, URINE AUTO TNTC /HPF (0-3)
== END ==
LOC: M SMT 12:40
PROVIDERS: ATTEND Nurse Practitioner Women's Health
DX: N39.0 Urinary tract infection, site not specified (principal)
CPT/HCPCS: 51703; 51798; 81001; 87088; G0463

== ENCOUNTER → 2020-07-24 | Outpatient (REF) | payer MEDICARE, BC ==
[2020-07-24 18:16] LABS: APPEARANCE, URINE CLOUDY (CLEAR); BACTERIA, URINE AUTO 2+ (NEGATIVE); BILIRUBIN, URINE AUTO NEGATIVE (NEGATIVE); BLOOD, URINE BLOOD 3+ (NEGATIVE); COLOR, URINE YELLOW (YELLOW); GLUCOSE, URINE (UA) AUTO NEGATIVE (NEGATIVE); KETONE, URINE AUTO NEGATIVE (NEGATIVE); LEUKOCYTE ESTERASE, URINE AUTO 3+ (NEGATIVE); MUCUS, URINE SMALL (NEGATIVE); NITRITE, URINE AUTO NEGATIVE (NEGATIVE); PROTEIN, URINE AUTO 3+ mg/dL (NEGATIVE); RBC, URINE AUTO TNTC /HPF (0-3); SPECIFIC GRAVITY URINE AUTO 1.009 (1.002-1.035); SQUAMOUS EPITHELIAL CELL UR AU 1 /HPF (0-6); UROBILINOGEN, URINE AUTO 0.2 mg/dL (0.0-2.0); WBC, URINE AUTO TNTC /HPF (0-3)
== END ==
LOC: M SMT 16:57
PROVIDERS: ATTEND Nurse Practitioner Family
DX: N28.89 Other specified disorders of kidney and ureter (principal)
CPT/HCPCS: 51702; 51798; 81001; 87088; 87186; G0463

== ENCOUNTER 2020-08-03 17:00 | Emergency (ER) | payer MEDICARE, BC ==
[~2020-08-03] VITALS: Ht 167.6 cm; Wt 100.0 kg
[2020-08-03 17:01] VITALS: BP 149/66
--- OUTSIDE RECORDS SUMMARY | 2020-08-03 17:11 | CCD | Continuity of Care Document ---
Author Author Festus Reyes M.D. Organization Unknown Address [address] [facility] [address] [place] [address] Phone [phone] Care Team Providers [facility] Name Role Phone Mj Philip MD AUTM [phone] Melida Reyes MD AUTM [phone] TerraCelsa quevedosusan AUTM [phone] [facility] AUTM Problems Active Problems Provider Date Type 2 diabetes mellitus DORINDA Rodriguez Onset: 08/21/19 14 Long-term current use of insulin Melida Reyes M.D. Ons et: 11/21/2019 Chronic atrial fibrillation Melida Reyes M.D. Onset: 0 11/21/2019 Long-term current use of anticoagulant Hunter Banks Onset: 11/21/2019 Hypertensive chronic kidney disease with stage 1 through stage 4 chronic kidney disease, or unspecified chronic kidney disease Melida Reyes M.D. Onset: 11/21/2019 Chronic kidney disease stage 3 Melida Reyes M.D. Onset : 11/21/2019 Primary cardiomyopathy Melida Reyes M.D. Onset: 2019 Obstructive sleep apnea syndrome Melida Reyes M.D. Ons et: 11/21/2019 Post poliomyelitis syndrome Reba Coyle FNP Onset: 11/20 Infarction - precerebral Reba Coyle FNP Onset: 11/21/19 20 Pure hypercholesterolemia Melida Reyes M.D. Onset: Proteinuria Melida Reyes M.D. Onset: 0 Chronic atrial fibrillation Melida Reyes M.D. Onset: 0 02/09/2020 Social History Type Date Description Comments Sex Unknown ETOH Use Rarely consumes alcohol Tobacco Use Start: Unknown End: Unknown Patient is a former smoker CIGARS, QUIT 2011 Allergies, Adverse Reactions, Alerts Description No Known Drug Allergies Medications Active Medications SIG Qnty Indications Ordering Provide r Date Pantoprazole Sodium 20mg Tablets D R 1 by mouth every am 90tabs Melida Reyes M.D. 05/07/20 20 B-D Uf III Short Pen Need Mis 31G X 10/21' Use Twice Daily 180units Melida Reyes M.D. 1 06/20/2019 Torsemide 20mg Tablets 2 by mouth qam alternate with 1 po qam Melida Reyes M.D. 03/28/2020 Magnesium 400mg Tablets 2 by mouth qam; 2 by mouth every night Melida Reyes M.D. Losartan Potassium 50mg Tablets take 1 tablet by mouth qhs 90tabs Melida Reyes M.D. 03/09 Contour Next Blood Glucose Test S trips Use 1 Strip To Check Glucose Twice Daily 100units Melida Reyes M.D. 02/18/2020 Drisdol 1.25mg (37213 Ut) Capsules 1 tab weekly by mouth 12caps Melida Reyes M.D. 11/01/19 20 Ferrous Sulfate 324(65Fe) mg Table ts DR 1 by mouth every other day Melida Reyes M.D. 05/20/2019 Armen Contour Next Blood Glucose Test Strips test twice a day dxe11.21 100units Melida styles M.D. 07/04/2018 Allopurinol 300mg Tablets 1 by mouth every day 90tabs Melida Reyes M.D. 10/24/19 18 Ondansetron HCL 4mg Tablets take one tablet by mouth q 6 hour prn nausea 30tabs DORINDA Rodriguez 02/21/2017 Ventolin HFA 108(90Base) mcg/Act A erosol 2 puffs four times a day as needed 24gm May Chaves, P 11/15/2016 Digoxin 125mcg Tablets 1 by mouth every day 90tabs Reba Coyle,[employer] 11/13/2016 Cpap Supplies to be worn while sleeping. G47.33 Christiane Cole, [employer] 10/09/2016 Lancets Misc test twi ce a day dx: e11.9 200units Chavo Cuenca, D.O. 06/11/2015 BD Pen [place] Short/Ultrafine/31G X 5/1 6" 31G X 8 mm Misc 2 inj every day dx e11.21 200units Melida amezquita M.D. 02/02/2015 Khari Carney 300U nit/ML Solution Pen-Inject 26 units every morning, titrate up as in structed until average am fsbs is less than 140 13.5ml Melida Reyes M.D. 02/03/20 15 Hydrocodone-Acetaminophen 7.5-325mg Tablets 1 by mouth bid/ as needed g14 60tabs M25.512 Melida De Guzman M.D. 12/23/2013 Xarelto 15mg Tablets Take 1 tablet by mouth once daily 90tabs Melida Reyes M.D. 014 Levetiracetam 500mg Tablets Take 1 tablet by mouth twice daily 180tabs Melida Reyes M.D. Tramadol HCL ER 200mg Tablets ER 2 4HR 1 by mouth every day g14 30tabs G14 Melida Reyes M.D. 04/09 Lidoderm 5% Patches apply 1 patch 12 hours on and 12 hours off as needed 90units Melida Reyes M.D. 05/02/2013 Colace 100mg Capsules 1 po bi d prn Rick Snow.OSelin 05/02/2013 Aspirin 81mg Tablets 1 po qd Rick Snow.OSelin 05/02/2013 Atorvastatin Calcium 80mg Tablets take one tablet by mouth once daily 90tabs Melida Reyes M. D. 05/02/2013 Carvedilol 25mg Tablets Take 1 tablet by mouth twice daily 180tabs Melida Reyes M.D. Finasteride 5mg Tablets 1 by mouth every day Unknown History Medications Tramadol HCL ER 150mg Caps ER 24HR 1 po qd 30caps Melida Reyes M.D. 05/07/20 - 05/08/2020 Cipro 250mg Tablets 1 twice a day x 10 days 20tabs Melida Reyes M.D. 03/29/20 20 - 05/07/2020 Amoxicillin 500mg Capsules 1 three times a day x 10 days 30caps May Chaves [facility] 02/07/2020 - Medications Administered in Office Medication SIG Qnty Indications Ordering Provider Date Administration Of Flu Vaccine Inj ection May Chaves [facility] 03/16/2019 Administration Of Flu Vaccine Inj ection BERNA RodriguezP 03/29/2018 Immunizations CPT Code Status Date Vaccine Lot # 55681 Given 03/16/2019 Influenza Vaccin e Quadrivalent Preser/Antibiotic Free Im Use [id number] 15080 Given 03/29/2018 Influenza Virus Vaccine, Quadrivalent (Cciiv4), Derived From Cell 061805 U-Td Refused 01/03/2020 Td(Adult)(Tetanus, Diphtheri a) unspecified 30444 Refused 01/03/2020 Shingrix Zoster Vaccine (HZV), Recombinant, Subunit, Adjuvanted 59031 Refused 01/03/2020 Pneumovax 23 74703 Refused 01/03/2020 Prevnar 13 70368 Refused 05/10/2018 Shingrix Zoster Vaccine (HZV), Recombinant, Subunit, Adjuvanted 44506 Refused 05/12/2017 Zoster Vaccine 90302 Refused 05/12/2017 Pneumovax 23 97605 Refused 05/12/2017 Tetanus/Diptheria(Td)Toxoids Preservative Free 19102 Refused 05/12/2017 Influenza Vaccin e Quadrivalent Preser/Antibiotic Free Im Use 93914 Refused 05/12/2017 Prevnar 13 Vital Signs Date Vital Result Comment 06/19/2020 1:29pm BP Systolic 128 mmHg RT Arm BP Diastolic 70 mmHg RT Arm Heart Rate 60 /min Height 65 inches 5'5" Weight 225.00 lb BMI (Body Mass Index) 37.4 kg/m2 05/07/2020 11:31am BP Systolic 120 mmHg BP Diastolic 60 mmHg Heart Rate 58 /min Height 65 inches 5'5" Weight 235.00 lb BMI (Body Mass Index) 39.1 kg/m2 Results Test Acquired Date Facility Test Result H/L Range Note A1c 05/07/2020 [facility] Knitting Machine Mechanic: [place] [address] [phone] Hba1c 8.8 % High <5.7 1 Est Avg Glucose 206 mg/dL High 60 - 110 Laboratory test finding 05/07/2020 [facility] marie hubbard Knitting Machine Mechanic: [place] [address] [phone] Thyroid Stimulating Hormone 6.03 uIU/mL High 0.3 6 - 3.74 Laboratory test finding 05/07/2020 [facility] anna marie hubbard Knitting Machine Mechanic: [place] [address] [phone] T4 Free 1.37 ng/dL 0.76 - 1.46 Laboratory test finding 03/29/2020 [facility] [address] [id number] [phone] Urine Culture FULL REPORT IN L <SEE NOTE> Normal 2 Urinalysis Manual 03/29/2020 [facility] nter [address] [place], [place] [address] [phone] Appearance, Urine Manual TURBID High Clear Color, Urine Manual YELLOW Normal Yellow PH,Urine Man 8.5 units Normal 5.0 - 7.0 Specific [place],Urine Manual 1.017 Normal 1.002-1.035 Protein, Urine Manual 3+ mg/dL High Negative Glucose, Urine (Ua) Manual NEGATIVE mg/dL Normal Negative Ketone, Urine Manual NEGATIVE mg/dL Normal Negative Urobilinogen, Urine Manual NORMAL mg/dL Normal Normal Bilirubin, Urine Manual NEGATIVE Normal Negative Nitrite, Urine Manual NEGATIVE Normal Negative Leukocyte Esterase, Urine Man POSITIVE High Negative Blood Urine Manual POSITIVE High Negative Microscopic, Urine 03/29/2020 [facility] nt [address] [place] [address] [phone] WBC, Urine 3-5 /hpf High 0-3 RBC, Urine 3-5 /hpf High 0-3 Squamous Epithelial Cell Urine SMALL AMOUNT /hpf Normal Small Amt Triple Phosphate Crystal,Urine SMALL AMOUNT /hpf High None Bacteria, Urine SMALL AMOUNT High None Hyaline Cast, Urine NONE SEEN /lpf Normal 0-1 Mucus, Urine LARGE AMOUNT High Negative Amorphous Sediment, Urine LARGE AMOUNT High Negative Microscopic Exam UNSPUN Normal Ua Routine 02/07/2020 [facility] nter [address] [place] [address] [phone] Appearance, Urine CLOUDY High Clear Color, Urine SOLE Normal Yellow PH,Urine 8.0 units Normal 5.0-9.0 Specific [place] Urine Auto 1.014 Normal 1.002-1.035 Protein, Urine Auto 3+ mg/dL High Negative Glucose, Urine (Ua) Auto NEGATIVE mg/dL Normal Negative Ketone, Urine Auto NEGATIVE mg/dL Normal Negative Urobilinogen, Urine Auto 0.2 mg/dL Normal 0.0-2.0 Bilirubin, Urine Auto NEGATIVE Normal Negative Nitrite, Urine Auto NEGATIVE Normal Negative Leukocyte Esterase, Urine Auto TRACE High Negative Blood, Urine Blood NEGATIVE Normal Negative WBC, Urine Auto 92 /HPF High 0-3 RBC, Urine Auto 4 /HPF High 0-3 Bacteria, Urine Auto NEGATIVE Normal Negative Squamous Epithelial Cell Ur AU 4 /HPF Normal 0-6 Mucus, Urine SMALL Normal Negative Hyaline Cast, Urine Auto 0 /LPF Normal 0-1 Triple Phosphate Crystals SMALL Normal None Laboratory test finding 02/07/2020 [facility] [address] [place] [address] [phone] Urine Culture FULL REPORT IN L <SEE NOTE> Normal 3 Microalbumin/Creatinine Urine 02/07/2020 [facility] Knitting Machine Mechanic: [place] [address] [phone] Microalbumin Urine 5549.2 mg/L High 1.3 - 20.0 4 Urine Creatinine 71.7 mg/dL 30.0 - 125.0 Microalb/Creat Ratio 7739.5 ug/mg High 0.0 - 30.0 Basic Metabolic Panel 02/06/2020 [facility] Knitting Machine Mechanic: Dr Dinesh Balderas [place], [place] [id number] [phone] Glucose 83 mg/dL 74 - 99 5 BUN 20 mg/dL High 7 - 18 Creatinine 1.3 mg/dL 0.6 - 1.3 Sodium 141 mEq/L 136 - 145 Potassium 4.2 mEq/L 3.5 - 5.1 Chloride 105 mEq/L 98 - 107 Carbon Dioxide 28 mEq/L 21 - 32 Calcium 8.3 mg/dL Low 8.5 - 10.1 GFR 55 mL/min Low >60 GFR >= 60 mL/min >60 6 Laboratory test finding 02/06/2020 [facility] Knitting Machine Mechanic: [place] [address] [phone] Magnesium 1.6 mg/dL Low 1.8 - 2.4 Serum Protein Electrophoresis 02/06/2020 [address] [place] [id number] [phone] Albumin % 45.0 % Low 55.8-66.1 Hjggv-5-Osctneqe % 7.3 % High 2.9-4.9 Pxrgy-1-Lizzmlate % 15.5 % High 7.1-11.8 Irrm-3-Cwunlbruz % 5.3 % Normal 4.7-7.2 Ipxv-0-Nzxjfllzg % 6.7 % High 3.2-6.5 Gamma Globulin % 20.2 % High 11.1-18.8 Albumin 2.84 GM/DL Low 3.29-5.55 Lqkik-1-Uhxorczkk 0.46 GM/DL High 0.17-0.41 Yekml-5-Dawrjuhdr 0.98 GM/DL Normal 0.42-0.99 Yqhs-6-Nghujmquk 0.33 GM/DL Normal 0.28-0.60 Vgkx-8-Jzxkkgtem 0.42 GM/DL Normal 0.19-0.55 Gamma Globulins 1.27 GM/DL Normal 0.65-1.58 Total Protein 6.3 GM/DL Low 6.4-8.2 Spep Interpretation SEE COMMENT Normal 7 Spep Pathologist Review REV'D BY Jamison RED <SEE NOTE> Normal 8 Microalbumin/Creatinine Urine 01/12/2020 [facility] Knitting Machine Mechanic: [place] [address] [phone] Microalbumin Urine 3505.9 mg/L High 1.3 - 20.0 Urine Creatinine 92.3 mg/dL 30.0 - 125.0 Microalb/Creat Ratio 3798.4 ug/mg High 0.0 - 30.0 Laboratory test finding 01/12/2020 [facility] anna marie hubbard Knitting Machine Mechanic: [place] [address] [phone] Creatine Kinase(CK) 26 U/L Low 39 - 308 Serum Protein Elect W/RFX 01/12/2020 [facility] [address] [place] [address] [phone] Albumin % TNP % Normal 55.8-66.1 Fzbij-1-Vooxmrue % TNP % Normal 2.9-4.9 Iesyw-9-Slfsddzlx % TNP % Normal 7.1-11.8 Oewr-5-Burkbuqdr % TNP % Normal 4.7-7.2 Tkgg-2-Mokshxckw % TNP % Normal 3.2-6.5 Gamma Globulin % TNP % Normal 11.1-18.8 Albumin TNP GM/DL Normal 3.29-5.55 9 Nkflc-5-Avilsbquk TNP GM/DL Normal 0.17-0.41 Hwnnt-7-Gumgyislk TNP GM/DL Normal 0.42-0.99 Vcgj-2-Orldtwbsy TNP GM/DL Normal 0.28-0.60 Cjnx-5-Pbbctfrzc TNP GM/DL Normal 0.19-0.55 Gamma Globulins TNP GM/DL Normal 0.65-1.58 Total Protein TNP GM/DL Normal 6.4-8.2 Spep Interpretation For RFX TNP Normal Spep Pathologist Review TNP Normal Laboratory test finding 01/12/2020 [facility] [address] [place] [address] [phone] Myoglobin 81 NG/ML Normal 16-116 Laboratory test finding 01/12/[address] [address] [phone] Myoglobin Screen, Urine POSITIVE Normal Negative 10 Immunotype Ur (Free LT Chains) SEE SEPARATE REP <SEE NOTE> Normal 11 Urine Protein Electrophoresis SEE SEPARATE REP <SEE NOTE> Normal 12 Creatinine,Random Urine 91.6 mg/dL Normal Total Protein,Random Urine 488.2 mg/dL High 0.0-12.0 Urine Free [place] & Lambda Chains Quantit 01/12/2020 [address] [place] [address] [phone] Free [place] Light Chains Urine SEE SEPARATE REP < SEE NOTE> Normal 13 Free Lambda Light Chains Urine SEE SEPARATE REP <SEE NOTE> Normal 14 [place]/Lambda Ratio Urine SEE SEPARATE REP <SEE NOTE> Normal 15 Free [place] & Lambda LT Chains 01/12/2020 [place] [address] [phone] Free [place] Light Chains Serum SEE SEPARATE REP < SEE NOTE> Normal 16 Free Lambda Light Chains Serum SEE SEPARATE REP <SEE NOTE> Normal 17 [place]/Lambda Ratio Serum SEE SEPARATE REP <SEE NOTE> Normal 18 Microalbumin/Creatinine Urine 01/03/2020 [facility], Knitting Machine Mechanic: [place] [address] [phone] Microalbumin Urine 3327.8 mg/L High 1.3 - 20.0 Urine Creatinine 99.4 mg/dL 30.0 - 125.0 Microalb/Creat Ratio 3347.9 ug/mg High 0.0 - 30.0 Complete Blood Count 01/03/2020 [facility] Knitting Machine Mechanic: [place] [address] [phone] WBC 12.1 x10*3/UL High 4.1 - 10.9 RBC 3.69 x10*6/UL Low 4.20 - 6.30 Hemoglobin 10.9 g/dL Low 12.0 - 18.0 19 Hematocrit 31.6 % Low 37.0 - 51.0 MCV 85.7 fL 80.0 - 97.0 MCH 29.5 pg 26.0 - 32.0 MCHC 34.4 g/dL 31.0 - 38.0 RDW 16.6 % High 11.6 - 13.7 PLT 368 x10*3/UL 140 - 440 MPV 9.3 FL 7.8 - 11.0 Lymph % 16.5 % 10.0 - 58.5 Mid % 5.6 % 1.7 - 9.3 Neut % 77.9 % 37.0 - 92.0 Lymph # 2.0 x10*3/UL 0.6 - 4.1 Mid # 0.7 x10*3/UL High 0.1 - 0.6 Neut # 9.4 x10*3/UL High 2.0 - 7.8 A1c 01/03/2020 [facility] Knitting Machine Mechanic: Dr Dinesh Balderas [place] [id number] [phone] Hba1c 7.8 g/dL High 4.8 - 5.6 20 Est Avg Glucose 177 mg/dL High 60 - 110 Laboratory test finding 01/03/2020 [facility] islisa, Knitting Machine Mechanic: Dr Dinesh Balderas [place] [id number] [phone] Magnesium 1.8 mg/dL 1.8 - 2.4 Basic Metabolic Panel 01/03/2020 [facility] Knitting Machine Mechanic: Dr [address]h [place] [id number] [phone] Glucose 205 mg/dL High 74 - 99 21 BUN 20 mg/dL High 7 - 18 Creatinine 1.2 mg/dL 0.6 - 1.3 Sodium 142 mEq/L 136 - 145 Potassium 4.9 mEq/L 3.5 - 5.1 Chloride 104 mEq/L 98 - 107 Carbon Dioxide 28 mEq/L 21 - 32 Calcium 8.1 mg/dL Low 8.5 - 10.1 22 GFR >= 60 mL/min >60 GFR >= 60 mL/min >60 23 Laboratory test finding 01/03/2020 [facility] is, Knitting Machine Mechanic: Dr Dinesh Balderas [place] [id number] [phone] Thyroid Stimulating Hormone 3.81 uIU/mL High 0.3 6 - 3.74 Liver Function Profile 01/03/2020 [facility] Knitting Machine Mechanic: Dr [address]h [address] [place] [id number] [phone] Alk. Phosphatase 128 mg/dL High 46 - 116 Total Bilirubin 0.6 mg/dL 0.2 - 1.0 Ast (Sgot) 18 U/L 15 - 37 Alt (SGPT) 16 U/L 12 - 78 Albumin 2.4 g/dL Low 3.4 - 5.0 24 Total Protein 6.1 g/dL Low 6.4 - 8.2 Direct Bilirubin 0.2 mg/dL High 0.0 - 0.2 A/G Ratio 0.65 CALC Low 1.00 - 1.90 Lipid Profile 01/03/2020 [facility] , Knitting Machine Mechanic: Dr Dinesh Balderas [place] [id number] [phone] Cholesterol 114 mg/dL Low 131 - 200 Triglycerides 61 mg/dL 30 - 150 HDL Cholesterol 32 mg/dL Low 35 - 60 LDL (Calculated) 70 CALC 50 - 159 Laboratory test finding 01/03/2020 [facility], Knitting Machine Mechanic: Dr D[place] [address] [phone] PSA 1.63 ng/mL <4.00 25 Ua Dipstick Only 01/03/2020 [facility] Knitting Machine Mechanic: Dr D[place] [address] [phone] Urine Color YELLOW Yellow Urine Appearance CLEAR Clear Urine PH 7.0 units 5.0 - 9.0 Urine Specific [place] 1.015 1.005 - 1.030 Urine Leukocytes NEGATIVE Negative Urine Blood SMALL Abnormal Negative Urine Protein 3+ Abnormal Negative -Trace Urine Glucose NEGATIVE mg/dL Negative Urine Nitrite NEGATIVE Negative Urine Ketone NEGATIVE mg/dL Negative Urine Bilirubin NEGATIVE Negative Urine Urobilinogen 0.2 mg/dL 0.2 - 1.0 1 Lab Result Notes: Pre-Diabetes 5.7 - 6.4 % Diabetes = or > 6.5% 2 FULL REPORT IN LAB NOTES (eC W and Medent). ORGANISM 1: AEROCOCCUS VIRIDANS COLONY COUNT >100,000 Aerococcus viridans appear to be susceptible to penicillin and display a low level of resistance to aminoglycoides. A. viridans seems to be naturally susceptible to macrolides, tetracyclines, and chloramphenicol, resistance to these agents has been observed. ORGANISM 1: AEROCOCCUS VIRIDANS 3 FULL REPORT IN LAB NOTES (eC W and Medent). NO GROWTH 4 NOTE: SPECIMEN WAS DILUTED MANY TIMES ...THIS HAS BEEN VERIFIED 5 100-125 mg/dL PRE-DIABET ES/FASTING >126 mg/dL DIABETES/FASTING 6 CHRONIC KIDNEY DISEASE STAGI NG PER NKF STAGE I & II GFR >= 60 NORMAL TO MILDLY DECREASED STAGE III GFR 30-59 MODERATELY DECREASED STAGE IV GFR 15-29 SEVERELY DECREASED STAGE V GFR <15 VERY LITTLE GFR LEFT ESRD GFR <15 ON DANCE PROFESSOR 7 M-SPIKE NOTED IN EARLY GAMMA REGION. CONCENTRATION = 0.33 GM/DL 8 REV'D BY Jamison VITALE 9 Test not performed. Please resubmit with new order and sample. 10 SUGGEST QUANTITATIVE TEST BE ORDERED FOR CONFIRMATION. 11 SEE SEPARATE REPORT Testing performed at reference lab . Report copy to follow on a separate form. 02/28/20 REF LAB#:[id number] 12 SEE SEPARATE REPORT 13 SEE SEPARATE REPORT 14 SEE SEPARATE REPORT 15 SEE SEPARATE REPORT 16 SEE SEPARATE REPORT Testing performed at reference lab . Report copy to follow on a separate form. 02/28/20 REF LAB#:[id number] 17 SEE SEPARATE REPORT 18 SEE SEPARATE REPORT 19 NOTE: RESULT VERIFIED. 20 Lab Result Notes: Pre-Diabetes 5.7 - 6.4 % Diabetes = or > 6.5% 21 100-125 mg/dL PRE-DIABET ES/FASTING >126 mg/dL DIABETES/FASTING 22 NOTE: RESULT VERIFIED. 23 CHRONIC KIDNEY DISEASE STAGI NG PER NKF STAGE I & II GFR >= 60 NORMAL TO MILDLY DECREASED STAGE III GFR 30-59 MODERATELY DECREASED STAGE IV GFR 15-29 SEVERELY DECREASED STAGE V GFR <15 VERY LITTLE GFR LEFT ESRD GFR <15 ON DANCE PROFESSOR 24 NOTE: RESULT VERIFIED. 25 This assay was performed on the [employer] Dimension EXL using the B- Galactosidase/CPRG methodology and should not be compared interchangeably with other methods. The PSA should not be used alone as a screening test for the presence or absence of malignant disease. Procedures Date Code Description Status 02/15/2020 [id number] Colonoscopy Completed 07/11/2019 [id number] Colonoscopy Completed 05/13/2016 [id number] Diabetic Retinal Eye Exam Comple [employer] Description No Information Available Encounters Type Date Location Provider Dx Diagnosis Office Visit 06/19/2020 1:[facility]p [facility] 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 06/19/2020 R80.9 Proteinuria, unspecified Melida Reyes M.D. 06/19/2020 R39.14 Feeling of incomplete bladder em ptying Melida Reyes M.D. 06/19/2020 N40.1 Benign prostatic hyperplasia wit h lower urinary tract symptoms Melida Reyes M.D. 06/19/2020 D47.2 Monoclonal gammopathy Melida pierre M.D. 06/19/2020 D50.9 Iron deficiency anemia, unspecif ied Melida Reyes M.D. 06/19/2020 E03.9 Hypothyroidism, unspecified Hunter HerrD. 06/19/2020 I48.20 Chronic atrial fibrillation, uns pecjena Reyes M.D. 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 06/19/2020 I12.9 Hypertensive chronic kidney dise ase with stage 1 through sta Melida Reyes M.D. 06/19/2020 N18.31 Chronic kidney disease, stage 3a Melida Reyes M.D. 06/19/2020 E78.00 Pure hypercholesterolemia, unspe ciroxanne Reyes M.D. 06/19/2020 M15.9 Polyosteoarthritis, unspecified Melida Reyes M.D. 05/07/2020 R80.9 Proteinuria, unspecified Melida Reyes M.D. 05/07/2020 D47.2 Monoclonal gammopathy Melida pierre M.D. 05/07/2020 D50.9 Iron deficiency anemia, unspecif ied Mleida Reyes M.D. 05/07/2020 N30.01 Acute cystitis with hematuria Pari Reyes M.D. 05/07/2020 I48.20 Chronic atrial fibrillation, uns pecjena Reyes M.D. 05/07/2020 Z79.01 terminal make up operator (current) use of antic oagulants Melida Reyes M.D. 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 05/07/2020 I12.9 Hypertensive chronic kidney dise ase with stage 1 through sta Melida Reyes M.D. 05/07/2020 N18.31 Chronic kidney disease, stage 3a Melida Reyes M.D. 05/07/2020 E78.00 Pure hypercholesterolemia, unspe ciroxanne Reyes M.D. 05/07/2020 M15.9 Polyosteoarthritis, unspecified Melida Reyes M.D. 05/07/2020 E07.9 Disorder of thyroid, unspecified Melida Reyes M.D. 03/29/2020 R30.0 Dysuria Melida martinez M.D. 03/29/2020 R30.0 Dysuria Lab Schedule 03/28/2020 D50.9 Iron deficiency anemia, unspecif ied Melida Reyes M.D. 03/28/2020 N40.0 Benign prostatic hyp erplasia without lower urinary tract symptoms Melida Reyes M.D. 03/28/2020 I48.20 Chronic atrial fibrillation, uns pecified Melida Reyes M.D. 03/28/2020 Z79.01 custodial (current) use of antic oagulants Melida Reyes M.D. 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 03/28/2020 I12.9 Hypertensive chronic kidney dise ase with stage 1 through sta Melida Reyes M.D. 03/28/2020 N18.31 Chronic kidney disease, stage 3a Melida Reyes M.D. 03/28/2020 E83.42 Hypomagnesemia Melida martinez M.D. 03/28/2020 E78.00 Pure hypercholesterolemia, unspe cified Melida Reyes M.D. 03/28/2020 M15.9 Polyosteoarthritis, unspecified Melida Reyes M.D. 03/28/2020 R80.9 Proteinuria, unspecified Melida Reyes M.D. 03/28/2020 D47.2 Monoclonal gammopathy Melida pierre M.D. 02/09/2020 R80.9 Proteinuria, unspecified Melida Reyes M.D. 02/09/2020 D47.2 Monoclonal gammopathy Melida pierre M.D. 02/09/2020 D50.9 Iron deficiency anemia, unspecif ied Melida Reyes M.D. 02/09/2020 I48.20 Chronic atrial fibrillation, uns pecjena Reyes M.D. 02/09/2020 Z79.01 custodial (current) use of antic oagulants Melida Reyes M.D. 02/09/2020 I42.0 Dilated cardiomyopathy Melida Reyes M.D. 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 02/09/2020 N18.3 Chronic kidney disease, stage 3 (moderate) Melida Reyes M.D. 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 02/09/2020 G47.33 Obstructive sleep apnea (adult) (pediatric) Melida Reyes M.D. 02/09/2020 E83.42 Hypomagnesemia Melida martinez M.D. 02/09/2020 N40.0 Benign prostatic hyp erplasia without lower urinary tract symptoms Melida Reyes M.D. 02/07/2020 R31.9 Hematuria, unspecified Melida Reyes M.D. 02/07/2020 R31.9 Hematuria, unspecified Lab Sched ule 02/06/2020 E83.42 Hypomagnesemia Melida martinez M.D. 02/06/2020 E83.42 Hypomagnesemia Lab Schedule 02/06/2020 I12.9 Hypertensive chronic kidney disease with stage 1 through stage 4 chronic kidney disease, or unspecified chronic kidney disease Melida Reyes M.D. 02/06/2020 I12.9 Hypertensive chronic kidney dise ase with stage 1 through sta Lab Schedule 02/06/2020 N18.3 Chronic kidney disease, stage 3 (moderate) Melida Reyes M.D. 02/06/2020 N18.3 Chronic kidney disease, stage 3 (moderate) Lab Schedule 02/06/2020 R80.9 Proteinuria, unspecified Melida Reyes M.D. 02/06/2020 R80.9 Proteinuria, unspecified Lab Lewis edule 01/12/2020 R80.9 Proteinuria, unspecified Melida Reyes M.D. 01/12/2020 R80.9 Proteinuria, unspecified Lab Lewis edule 01/12/2020 R31.9 Hematuria, unspecified Melida Reyes M.D. 01/12/2020 R31.9 Hematuria, unspecified Lab Sched ule 01/11/2020 R80.9 Proteinuria, unspecified Melida Reyes M.D. 01/03/2020 I48.20 Chronic atrial fibrillation, uns pecified Melida Reyes M.D. 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 01/03/2020 I42.0 Dilated cardiomyopathy Melida Reyes M.D. 01/03/2020 I12.9 Hypertensive chronic kidney dise ase with stage 1 through sta Melida Reyes M.D. 01/03/2020 N18.3 Chronic kidney disease, stage 3 (moderate) Melida Reyes M.D. 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 01/03/2020 Z79.4 custodial (current) use of insul in Melida Reyes M.D. 01/03/2020 G47.33 Obstructive sleep apnea (adult) (pediatric) Melida Reyes M.D. 01/03/2020 E83.42 Hypomagnesemia Melida martinez M.D. 01/03/2020 N40.0 Benign prostatic hyp erplasia without lower urinary tract symptoms Melida Reyes M.D. 01/03/2020 E78.00 Pure hypercholesterolemia, unspe cified Melida Reyes M.D. 01/03/2020 Z13.89 Encounter for screening for othe r disorder Melida Reyes M.D. Plan of Treatment Future Appointment(s):* 08/06/2020 10:45 am - Melida Reyes M.D. at [facility] 06/19/2020 - Melida Reyes M.D.* N30.21 Other chronic cystitis with hematuria * R80.9 Proteinuria, unspecified * R39.14 Feeling of incomplete bladder emptying * N40.1 Benign prostatic hyperplasia with lower urinary tract symptoms * D47.2 Monoclonal gammopathy * D50.9 Iron deficiency anemia, unspecified * E03.9 Hypothyroidism, unspecified * I48.20 Chronic atrial fibrillation, unspecified * E11.21 Type 2 diabetes mellitus with diabetic nephropathy * I12.9 Hypertensive chronic kidney disease with stage 1 through sta * N18.31 Chronic kidney disease, stage 3a * E78.00 Pure hypercholesterolemia, unspecified * M15.9 Polyosteoarthritis, unspecified * All * Comments:* 15. CVA. 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 Healthcare Proxy, MOLST forms reviewed and signed. Functional Status Description No Information Available Mental Status Description No Information Available Referrals Refer to Reason for Referral Status Appt Date Feng Ellis M.D. CONSULT FOR BPH, UTI 0- PLEASE LET OFFICE KNOW IF AN APPT HAS BEEN MADE Sent [facility] [address], [place] [address] [phone] Germaine Betts MD NEW PATIENT CONSULT FOR PROT EINURIA DR. REYES HAS SPOKEN WITH YOUR PHYSICIAN AND HAS AGREED TO SEE OUR PATIENT WITHIN 2 WEEKS. THANK YOU! Closed 02/21/2020 [facility] [address] [place], [place] [address] [phone]
--- OUTSIDE RECORDS SUMMARY | 2020-08-03 17:11 | CCD ---
Author Author [facility] Organization [facility] Address Unknown Phone Unavailable Care Team Providers Care Budget Examiner Name Role Phone Francisco, Anuel Unavailable PROBLEMS Type Condition ICD9-CM Code [id number] Code Onset Dates Condition S tatus W/U Status Risk SNOMED Code Notes Problem Urinary retention due to benign prostatic hyperplasia N28.89 Active confirmed 562788358 Problem Gross hematuria R31.0 Active confirmed 1978 83159 Problem Benign prostatic hyperplasia with lower urinary tract symptoms N40.1 Active confirmed [id number] ALLERGIES No Known Allergies ENCOUNTERS from 1950 to 2020-08-01 Encounter Location Date Provider Diagnosis [facility] [address] [place] [address] Jul Anuel Francisco Urinary tract infection, site not specif ied N39.0 IMMUNIZATIONS No Information SOCIAL HISTORY Tobacco Use: Social History Observation Description Date Details (start date - stop date) Former Smoker Sex Assigned At : Social History Observation Description Sex Assigned At Unknown Language: Question Answer Notes Languages spoken: Estonian 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 Alcohol Screening: Question Answer Notes Did you have a drink containing alcohol in the past year? Ye s Points 1 Interpretation Negative How often did you have six or more drinks on one occas ion in the past year? Never (0 points) How many drinks did you have on a typica l day when you were drinking in the past year? 1 or 2 (0 points) How often did you have a drink containing alcohol in t he past year? Monthly or less (1 point) Tobacco Use: Question Answer Notes Are you a: former smoker quit 2011 REASON FOR REFERRAL No Information VITAL SIGNS No information MEDICATIONS Medication SIG (Take, Route, Frequency, Duration) Notes Start Da te End Date Status Atorvastatin Calcium 80 MG 1 tablet Orally Once a day for 30 day(s) Active Levetiracetam 500 MG 1 tablet Orally every 12 hrs for 30 day(s) Active Aspir-Low 81 MG 1 tablet Orally Once a day for 30 day(s) Active Xarelto 15 MG 1 tablet with food Orally Once a day for 30 day(s) Active Ventolin HFA 108 (90 Base) MCG/ACT 1 puff as needed Inhalation ever y 4 hrs Active Allopurinol 300 MG 1 tablet Orally Once a day for 30 day(s) Active Ferrous Sulfate 325 (65 Fe) MG 1 tablet Orally Once a day for 30 day( s) Active Lidoderm 5 % 1 patch remove after 12 hours Externally Once a day Active Digoxin 125 MCG as directed Orally A ctive Zofran 4 MG 1 tablet Orally Once a day for 30 day(s) Active Losartan Potassium 50 MG 1 tablet Orally Once a day for 30 day(s) Active Ventolin HFA 108 (90 Base) MCG/ACT 1 puff as needed Inhalation ever y 4 hrs Not-Taking Levofloxacin 500 MG 1 tablet Orally Once a day for 10 day(s) Jul, Active Drisdol 1.25 MG (47633 UT) 1 capsule Orally for 30 day(s) Active Toujeo SoloStar 300 UNIT/ML as directed Subcutaneous Active Bactrim DS 800-160 MG 1 tablet Orally _1 hour prior to cystoscop y 18 May, 2020 Not-Taking Digoxin 125 MCG as directed Orally U nknown Misc. Devices - as directed Active Hydrocodone-Acetaminophen 7.5-325 MG 1 tablet as needed Orally ever y 6 hrs Active Torsemide 20 MG as directed Orally A ctive Colace 100 MG 1 capsule as needed Orally Once a day for 30 day(s) Active Magnesium 400 MG as directed Orally Active TraMADol HCl ER 150 MG 1 capsule Orally Once a day Active Pantoprazole Sodium 40 MG 1 tablet Orally Once a day Active Flomax 0.4 MG 1 capsule Orally Once a day for 30 day(s) Active Finasteride 5 MG 1 tablet Orally Once a day for 90 day(s) Jun, Active Carvedilol 25 MG 1 tablet with food Orally Twice a day for 30 day(s) Active PROCEDURES No Information RESULTS No Results REASON FOR VISIT urine culture MEDICAL (GENERAL) HISTORY Type Description Date Medical History DM type 2 Medical History Chronic A-fib Medical History kidney disease stage 3 Medical History cardiomyopathy Medical History Obstructive sleep apnea Medical History post poliomyelitis syndrome Medical History proteinuria Medical History Gout Medical History hx stroke Surgical History heart stent placed 03/2012 Surgical History leg surgery right Surgical History cataracts Surgical History colonoscopy Surgical History cystoscopy 06/12/2020 Hospitalization History pneumonmia Hospitalization History polio at 8 years Hospitalization History stroke Goals Section No Information Health Concerns No Information MEDICAL EQUIPMENT No Information MENTAL STATUS No Information FUNCTIONAL STATUS No Information ASSESSMENTS Encounter Date Diagnosis Assessment Notes Treatment Notes Treatm ent Clinical Notes Jul, Urinary tract infection, site not specified (ICD -10 - N39.0) PLAN OF TREATMENT Next Appt Details Provider Name:Aj Rogers, 2020-08-30 10:00:00 AM, [address], [place], [address], Insurance Providers Payer Name Payer Address Payer Phone Insured Name Patient Relati onship to Insured Coverage Start Date Coverage End Date BS [place] [facility] [address] [facility] [address] ALVINA BLACKMAN self MEDICARE Part A and B [address] [facility] [address] [phone] ALVINA BLACKMAN self
--- OUTSIDE RECORDS SUMMARY | 2020-08-03 17:11 | CCD | Continuity of Care Document ---
Author Author Festus Reyes M.D. Organization Unknown Address [address] [facility] [address] [place] [address] Phone [phone] Care Team Providers Care Food And Beverage Assistant Manager Name Role Phone Mj Philip MD AUTM [phone] Melida Reyes MD AUTM [phone] TerraCelsa quevedosusan AUTM [phone] [facility] [place] AUTM [phone] Problems Active Problems Provider Date Type 2 [...] 100units Melida Reyes M.D. 02/18/2020 Drisdol 1.25mg (88101 Ut) Capsules 1 tab weekly by mouth [...] 1 by mouth every day 90tabs Reba Coyle,BELT BACK OPERATOR 11/13/2016 Cpap Supplies to be worn while sleeping. G47.33 Christiane Cole, BELT BACK OPERATOR 10/09/2016 Lancets Misc test twi ce a day dx: e11.9 200units Chavo Cuenca, D.O. 06/11/2015 BD Pen Clute Short/Ultrafine/31G X 5/1 6" 31G X 8 mm Misc 2 inj every day dx e11.21 200units Melida amezquita M.D. 02/02/2015 Khari Carney 300U nit/ML Solution Pen-Inject 32 units every morning, titrate up as in [...] tablet by mouth twice daily 180tabs Melida Ryees M.D. Finasteride 5mg Tablets 1 by mouth every day Unknown History Medications Tramadol HCL ER 150mg Caps ER 24HR 1 po qd 30caps Melida Reyes M.D. 05/07/20 - 05/08/2020 Cipro 250mg Tablets 1 twice a day x 10 days 20tabs Melida Reyes M.D. 03/29/20 20 - 05/07/2020 Amoxicillin 500mg Capsules 1 three times a day x 10 days 30caps May Chaves [facility] 02/07/2020 - Medications Administered in Office Medication SIG Qnty Indications Ordering Provider Date Administration Of Flu Vaccine Inj ection May Chaves [facility] 03/16/2019 Administration Of Flu Vaccine Inj ection BENRA RodriguezP 03/29/2018 Immunizations CPT Code Status Date Vaccine Lot # [id number] Given 03/16/2019 Influenza Vaccin e Quadrivalent Preser/Antibiotic Free Im Use [id number] Given 03/29/2018 Influenza Virus Vaccine, Quadrivalent (Cciiv4), Derived From Cell [id number] U-Td Refused 01/03/2020 Td(Adult)(Tetanus, Diphtheri a) unspecified 84217 Refused 01/03/2020 Shingrix Zoster Vaccine (HZV), Recombinant, Subunit, Adjuvanted 82286 Refused 01/03/2020 Pneumovax 23 41201 Refused 01/03/2020 Prevnar 13 28598 Refused 05/10/2018 Shingrix Zoster Vaccine (HZV), Recombinant, Subunit, Adjuvanted 84688 Refused 05/12/2017 Zoster Vaccine 48244 Refused 05/12/2017 Pneumovax 23 68637 Refused 05/12/2017 Tetanus/Diptheria(Td)Toxoids Preservative Free 52503 Refused 05/12/2017 Influenza Vaccin e Quadrivalent Preser/Antibiotic Free [place] Use 84820 Refused 05/12/2017 Prevnar 13 Vital Signs Date [...] Test Result H/L Range Note A1c 05/07/2020 [facility] Bingo Worker: [place] [address] [phone] Hba1c 8.8 % High <5.7 1 Est Avg Glucose 206 mg/dL High 60 - 110 Laboratory test finding 05/07/2020 [facility] anna marie hubbard Bingo Worker: [place] [address] [phone] Thyroid Stimulating Hormone 6.03 uIU/mL High 0.3 6 - 3.74 Laboratory test finding 05/07/2020 [facility] anna marie hubbard Bingo Worker: [place] [address] [phone] T4 Free 1.37 ng/dL 0.76 - 1.46 Laboratory test finding 03/29/2020 [facility] [address] [id number] [phone] Urine Culture FULL REPORT IN L <SEE NOTE> Normal 2 Urinalysis Manual 03/29/2020 [facility] nter [address] [place], [place] [id number] [phone] Appearance, Urine Manual TURBID High Clear Color, Urine Manual YELLOW Normal Yellow PH,Urine Man 8.5 units Normal 5.0 - 7.0 Specific [place],Urine Manual 1.017 Normal 1.002-1.035 Protein, Urine Manual 3+ mg/dL High Negative Glucose, Urine (Ua) Manual NEGATIVE mg/dL Normal Negative Ketone, Urine Manual NEGATIVE mg/dL Normal Negative Urobilinogen, Urine Manual NORMAL mg/dL Normal Normal Bilirubin, Urine Manual NEGATIVE Normal Negative Nitrite, Urine Manual NEGATIVE Normal Negative Leukocyte Esterase, Urine Man POSITIVE High Negative Blood Urine Manual POSITIVE High Negative Microscopic, Urine 03/29/2020 [facility] nt [address] [place] [address] [phone] WBC, Urine 3-5 /hpf High 0-3 RBC, [...] Microscopic Exam UNSPUN Normal Ua Routine 02/07/2020 [facility] [address]ter [address] [place] [address] [phone] Appearance, Urine CLOUDY High Clear Color, Urine SOLE Normal Yellow PH,Urine 8.0 units Normal 5.0-9.0 Specific [place] Urine Auto 1.014 Normal 1.002-1.035 Protein, Urine [...] SMALL Normal None Laboratory test finding 02/07/2020 [address] [place] [address] [phone] Urine Culture FULL REPORT IN L <SEE NOTE> Normal 3 Microalbumin/Creatinine Urine 02/07/2020 [facility] Bingo Worker: [place] [address] [phone] Microalbumin Urine 5549.2 mg/L High 1.3 - 20.0 4 Urine Creatinine 71.7 mg/dL 30.0 - 125.0 Microalb/Creat Ratio 7739.5 ug/mg High 0.0 - 30.0 Serum Protein Electrophoresis 02/06/2020 [facility] [address] [place] [address] [phone] Albumin % 45.0 % Low 55.8-66.1 Prklr-6-Tnemsuzv % 7.3 % High 2.9-4.9 Tqbuf-8-Mytnyaefd % 15.5 % High 7.1-11.8 Nwnz-4-Epykgttpi % 5.3 % Normal 4.7-7.2 Visd-2-Kmoapgowz % 6.7 % High 3.2-6.5 Gamma Globulin % 20.2 % High 11.1-18.8 Albumin 2.84 GM/DL Low 3.29-5.55 Asmgf-5-Mfksivkem 0.46 GM/DL High 0.17-0.41 Jrxby-8-Selbscqxp 0.98 GM/DL Normal 0.42-0.99 Titv-7-Vbbjnxyau 0.33 GM/DL Normal 0.28-0.60 Wrvb-9-Gvuebggsq 0.42 GM/DL Normal 0.19-0.55 Gamma Globulins 1.27 GM/DL Normal 0.65-1.58 Total Protein 6.3 GM/DL Low 6.4-8.2 Spep Interpretation SEE COMMENT Normal 5 Spep Pathologist Review REV'D BY Jamison RED <SEE NOTE> Normal 6 Laboratory test finding 02/06/2020 [facility] Bingo Worker: Dr Dinesh Balder[place] [address] [phone] Magnesium 1.6 mg/dL Low 1.8 - 2.4 Basic Metabolic Panel 02/06/2020 [facility] Bingo Worker: Dr Dinesh Balderas [place] [address] [phone] Glucose 83 mg/dL 74 - 99 7 BUN 20 mg/dL High 7 - 18 Creatinine 1.3 mg/dL 0.6 - 1.3 Sodium 141 mEq/L 136 - 145 Potassium 4.2 mEq/L 3.5 - 5.1 Chloride 105 mEq/L 98 - 107 Carbon Dioxide 28 mEq/L 21 - 32 Calcium 8.3 mg/dL Low 8.5 - 10.1 GFR 55 mL/min Low >60 GFR >= 60 mL/min >60 8 1 Lab Result Notes: Pre-Diabetes 5.7 - [...] MANY TIMES ...THIS HAS BEEN VERIFIED 5 M-SPIKE NOTED IN EARLY GAMMA REGION. CONCENTRATION = 0.33 GM/DL 6 REV'D BY Jamisno VITALE 7 100-125 mg/dL PRE-DIABET ES/FASTING >126 mg/dL DIABETES/FASTING 8 CHRONIC KIDNEY DISEASE STAGI NG PER NKF STAGE I & II GFR >= 60 NORMAL TO MILDLY DECREASED STAGE III GFR 30-59 MODERATELY DECREASED STAGE IV GFR 15-29 SEVERELY DECREASED STAGE V GFR <15 VERY LITTLE GFR LEFT ESRD GFR <15 ON DIGITAL EDITOR Procedures Date Code Description Status 02/15/2020 [id number] Colonoscopy Completed 07/11/2019 [id number] Colonoscopy Completed 05/13/2016 449605735 Diabetic Retinal Eye Exam Comple Moven Description No Information Available Encounters Type Date Location Provider Dx Diagnosis Office Visit 06/19/2020 1:30p [facility] PSelinCSelin Reyes M.D. N30.21 Other chronic cystitis with [...] Polyosteoarthritis, unspecif ied Office Visit 05/07/2020 11:30a [facility] PAshish Reyes M.D. 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 06/19/2020 E03.9 Hypothyroidism, unspecified Ayanna Reyes M.D. 06/19/2020 I48.20 Chronic atrial fibrillation, uns pecified Melida Reyes M.D. 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 06/19/2020 I12.9 Hypertensive chronic kidney dise ase with stage 1 through sta Melida Reyes M.D. 06/19/2020 N18.31 Chronic kidney disease, stage 3a Melida Reyes M.D. 06/19/2020 E78.00 Pure hypercholesterolemia, unspe cified Melida Reyes M.D. 06/19/2020 M15.9 Polyosteoarthritis, annabellaified Melida Reyes M.D. 05/07/2020 R80.9 Proteinuria, unspecified Melida Reyes M.D. 05/07/2020 D47.2 Monoclonal gammopathy Melida pierre M.D. 05/07/2020 D50.9 Iron deficiency anemia, unspecif ied Melida Reyes M.D. 05/07/2020 N30.01 Acute cystitis with hematuria Pari Reyes M.D. 05/07/2020 I48.20 Chronic atrial fibrillation, uns pecjena Reyes M.D. 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 05/07/2020 I12.9 Hypertensive chronic kidney dise ase with stage 1 through axel Reyes M.D. 05/07/2020 N18.31 Chronic kidney disease, stage 3a Melida Reyes M.D. 05/07/2020 E78.00 Pure hypercholesterolemia, unspe cified Melida Reyes M.D. 05/07/2020 M15.9 Polyosteoarthritis, unspecified Melida [...] uns pecified Melida Reyes M.D. 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 03/28/2020 I12.9 Hypertensive chronic kidney dise ase with stage 1 through axel Reyes M.D. 03/28/2020 N18.31 Chronic kidney disease, stage 3a Melida Reyes M.D. 03/28/2020 E83.42 Hypomagnesemia Melida martinez M.D. 03/28/2020 E78.00 Pure hypercholesterolemia, unspe ciroxanne Reyes M.D. 03/28/2020 M15.9 Polyosteoarthritis, unspecified Melida Reyes M.D. 03/28/2020 R80.9 Proteinuria, unspecified Melida Reyes M.D. 03/28/2020 D47.2 Monoclonal gammopathy Melida pierre M.D. 02/09/2020 R80.9 Proteinuria, unspecified Melida Reyes M.D. 02/09/2020 D47.2 Monoclonal gammopathy Melida pierre M.D. 02/09/2020 D50.9 Iron deficiency anemia, unspecif ied Melida Reyes M.D. 02/09/2020 I48.20 Chronic atrial fibrillation, uns pecified Melida Reyes M.D. 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 02/06/2020 R80.9 Proteinuria, unspecified Lab [facility] Plan of Treatment Future Appointment(s):* 08/06/2020 10:45 am - [facility] 06/19/2020 - Melida Reyes M.D.* N30.21 [...] Description No Information Available Referrals Refer to Dr Reason for Referral Status Appt Date Feng Ellis M.D. CONSULT FOR BPH, UTI 0- PLEASE LET OFFICE KNOW IF AN APPT HAS BEEN MADE Sent [facility] [address] [place] , [place] [address] [phone] Germaine Betts MD NEW PATIENT CONSULT FOR PROT EINURIA DR. REYES HAS SPOKEN WITH YOUR PHYSICIAN AND HAS AGREED TO SEE OUR PATIENT WITHIN 2 WEEKS. THANK YOU! Closed 02/21/2020 [facility] [address] [place], [place] [address] [phone]
--- OUTSIDE RECORDS SUMMARY | 2020-08-03 17:11 | CCD ---
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 Name Role Phone ApodacaDwight ng Unavailable PROBLEMS Type Condition ICD9-CM Code [id number] Code Onset Dates Condition S tatus SNOMED Code Notes Problem Urinary retention due to benign prostatic hyperplasia N28.89 Active 345759158 Problem Gross hematuria R31.0 Active 891876434 Problem Benign prostatic hyperplasia with lower urinary tract symptoms N40.1 Active [id number] ALLERGIES No Known Allergies ENCOUNTERS from 1950 to 2020-07-04 Encounter Location Date Provider Diagnosis [facility] [id number] [place] [address] [place] [address] Jun Dwight Apodaca Urinary retention due to benign prostati c hyperplasia N28.89 and Gross hematuria R31.0 IMMUNIZATIONS No Information SOCIAL HISTORY Tobacco Use: Social History Observation Description Date Details (start date - stop date) Former Smoker Sex Assigned At : Social History Observation Description Sex Assigned At Unknown Language: Question Answer Notes Languages spoken: Lithuanian Scientology: Question Answer Notes Scientology No restoration beliefs that would impact health care. Alcohol [...] REASON FOR REFERRAL No Information VITAL SIGNS Weight 238 lbs 06 [place], 2021 Height 66 in Jun, BMI 38.41 kg/m2 Jun, Heart Rate 52 /min Jun, Respiratory Rate 18 /min Jun, Temperature 98.3 degrees Fahrenheit Jun, Oximetry 96 Jun, Blood pressure systolic 130 mm Hg Jun, Blood pressure diastolic 72 mm Hg Jun, MEDICATIONS Medication SIG (Take, Route, Frequency, Duration) Notes Start Da te End Date Status Drisdol 1.25 MG (69936 UT) 1 capsule Orally for 30 day(s) Active Hydrocodone-Acetaminophen 7.5-325 MG 1 tablet as needed Orally ever y 6 hrs Active Losartan Potassium 50 MG 1 tablet Orally Once a day for 30 day(s) Active Toujeo SoloStar 300 UNIT/ML as directed Subcutaneous Active Allopurinol 300 MG 1 tablet Orally Once a day for 30 day(s) Active Digoxin 125 MCG as directed Orally U nknown Ferrous Sulfate 325 (65 Fe) MG 1 tablet Orally Once a day for 30 day( s) Active Ventolin HFA 108 (90 Base) MCG/ACT 1 puff as needed Inhalation ever y 4 hrs Not-Taking Zofran 4 MG 1 tablet Orally Once a day for 30 day(s) Active TraMADol HCl ER 150 MG 1 capsule Orally Once a day Active Bactrim DS 800-160 MG 1 tablet Orally _1 hour prior to cystoscop y May, Not-Taking Atorvastatin Calcium 80 MG 1 tablet Orally Once a day for 30 day(s) Active Torsemide 20 MG as directed Orally A ctive Digoxin 125 MCG as directed Orally A ctive Flomax 0.4 MG 1 capsule Orally Once a day for 30 day(s) Active Finasteride 5 MG 1 tablet Orally Once a day for 90 day(s) Jun, Active Ventolin HFA 108 (90 Base) MCG/ACT 1 puff as needed Inhalation ever y 4 hrs Active Misc. Devices - as directed Active Carvedilol 25 MG 1 tablet with food Orally Twice a day for 30 day(s) Active Magnesium 400 MG as directed Orally Active Pantoprazole Sodium 40 MG 1 tablet Orally Once a day Active Aspir-Low 81 MG 1 tablet Orally Once a day for 30 day(s) Active Lidoderm 5 % 1 patch remove after 12 hours Externally Once a day Active Colace 100 MG 1 capsule as needed Orally Once a day for 30 day(s) Active Levetiracetam 500 MG 1 tablet Orally every 12 hrs for 30 day(s) Active Xarelto 15 MG 1 tablet with food Orally Once a day for 30 day(s) Active PROCEDURES No Information RESULTS No Results REASON FOR VISIT urinary retention MEDICAL (GENERAL) HISTORY Type Description Date Medical [...] Notes Treatment Notes Treatm ent Clinical Notes Jun, Urinary retention due to mary ign prostatic hyperplasia (ICD-10 - N28.89) He prefers to delay surgery for now. I will add Finasteride to his regimen and RTC 2 weeks for voiding trial Jun, Gross hematuria (ICD-10 - R31.0) PLAN OF TREATMENT Treatment Notes Assessment Notes Clinical Notes Urinary retention due to benign prostatic hyperplasia He prefers to delay surgery for now. I will add Finasteride to his regimen and RTC 2 weeks for voiding trial Future Test Test Name Order Date uro CYSTOSCOPY 20200613 Medication: Lidocaine HCl 2% Jelly 5mL Intravesically [id number] Gomez Catheter Coude Insertion 16F [id number] Next Appt Details 2 Weeks Reason:voiding trial Provider Name:Aj Rogers, 2020-08-30 10:00:00 AM, [address], [place], [address], Follow Up:2 Weeksvoiding trial Insurance Providers Payer Name Payer Address Payer Phone Insured Name Patient Relati onship to Insured Coverage Start Date Coverage End Date MEDICARE Part A and B [address] [facility] [phone] ALVINA BLACKMAN self [place] [address] [address] [place] [address] ALVINA BLACKMAN self
--- OUTSIDE RECORDS SUMMARY | 2020-08-03 17:11 | CCD ---
Author Author [facility] Organization [facility] Address Unknown Phone Unavailable Care Team Providers Care Director Of Field Sales Name Role Phone Francisco Jsol Marian Unavailable PROBLEMS Type Condition ICD9-CM Code [id number] Code Onset Dates Condition S tatus SNOMED Code Notes Problem Urinary retention due to benign prostatic hyperplasia N28.89 Active 851111284 Problem Gross hematuria R31.0 Active 186796469 Problem Benign prostatic hyperplasia with lower urinary tract symptoms N40.1 Active [id number] ALLERGIES No Known Allergies ENCOUNTERS from 1950 to 2020-07-02 Encounter Location Date Provider Diagnosis [facility] Urology [address] [place] [address] Jun Marian Dove IMMUNIZATIONS No Information SOCIAL HISTORY Tobacco Use: Social History Observation Description Date Details (start date - stop date) Former Smoker Sex Assigned At : Social History Observation Description Sex Assigned At Unknown Language: Question Answer Notes Languages spoken: Turkmen Congregation: Question Answer Notes Congregation No scientologist beliefs that would impact health care. Alcohol [...] te End Date Status Drisdol 1.25 MG (77748 UT) 1 capsule Orally for 30 day(s) [...] to cystoscop y 18 May, 2020 Not-Taking Atorvastatin Calcium 80 MG 1 tablet [...] Information RESULTS No Results REASON FOR VISIT No Information MEDICAL (GENERAL) HISTORY Type Description Date Medical [...] No Information FUNCTIONAL STATUS No Information ASSESSMENTS No Information PLAN OF TREATMENT Next Appt Details Provider Name:Aj Mosqueda Rogers, 2020-08-30 10:00:00 AM, [address], [place], [address], Insurance Providers Payer Name Payer Address Payer Phone Insured Name Patient Relati onship to Insured Coverage Start Date Coverage End Date BS [facility] [address] [facility] [address] ALVINA BLACKMAN self MEDICARE Part A and B [address] [facility] [phone] ALVINA BLACKMAN self
--- OUTSIDE RECORDS SUMMARY | 2020-08-03 17:11 | CCD ---
Author Author [facility] Organization [facility] Address Unknown Phone Unavailable Care Team Providers Care Consultant Electronics Name Role Phone Aj Rogers Unavailable PROBLEMS Type Condition ICD9-CM Code [id number] Code Onset Dates Condition S tatus SNOMED Code Notes Problem Urinary retention due to benign prostatic hyperplasia N28.89 Active 010847435 Problem Gross hematuria R31.0 Active 527727171 Problem Benign prostatic hyperplasia with lower urinary tract symptoms N40.1 Active [id number] ALLERGIES No Known Allergies ENCOUNTERS from 1950 to 2020-07-05 Encounter Location Date Provider Diagnosis [facility] Urology [address] [place] [address] Jun Aj Rogers Urinary retention due to benign prostati c hyperplasia N28.89 ; Benign prostatic hyperplasia with lower urinary tract symptoms N40.1 and Other retention of urine R33.8 IMMUNIZATIONS No Information SOCIAL HISTORY Tobacco Use: Social History Observation Description Date Details (start date - stop date) Former Smoker Sex Assigned At : Social History Observation Description Sex Assigned At Unknown Language: Question Answer Notes Languages spoken: Palestinian Synagogue: Question Answer Notes Synagogue No buddhist beliefs that would impact health care. Alcohol [...] No Information VITAL SIGNS Weight 238 lbs Jun, Height 66 in Jun, BMI 38.41 kg/m2 Jun, Heart Rate 58 /min Jun, Respiratory Rate 18 /min Jun, Temperature 99 degrees Fahrenheit Jun, Oximetry 95 Jun, Blood pressure systolic 128 mm Hg Jun, Blood pressure diastolic 74 mm Hg Jun, MEDICATIONS Medication SIG (Take, Route, Frequency, Duration) Notes Start Da te End Date Status Drisdol 1.25 MG (08660 UT) 1 capsule Orally for 30 day(s) [...] a day for 30 day(s) Active PROCEDURES from 1950 to 2020-07-05 Procedure Date Ordered Result Body Site Voiding Trial 2020-06-27 N/A uro INSERT TEMP BLADDER CATH 2020-06-27 N/A RESULTS No Results REASON FOR VISIT TOV MEDICAL (GENERAL) HISTORY Type Description Date Medical [...] mary ign prostatic hyperplasia (ICD-10 - N28.89) The patient will begin self intermittent catheterization. He was stay on tamsulosin and finasteride. Follow-up in 10 weeks for management. Jun, Benign prostatic hyperplasia with lower urinary tract symptoms (ICD-10 - N40.1) Jun, Other retention of urine (ICD-10 - R33.8) PLAN OF TREATMENT Treatment Notes Assessment Notes Clinical Notes Urinary retention due to benign prostatic hyperplasia The patient will begin self intermittent catheterization. He was stay on tamsulosin and finasteride. Follow-up in 10 weeks for management. Next Appt Details 10 weeks for management of chronic reten tion Reason: Provider Name:Aj Rogers, 2020-08-30 10:00:00 AM, [address], [place], [address], Insurance Providers Payer Name Payer Address Payer Phone Insured Name Patient Relati onship to Insured Coverage Start Date Coverage End Date [facility] [place] [phone] [address] [place] [address] ALVINA BLACKMAN self MEDICARE Part A and B [address] [facility] [phone] ALVINA BLACKMAN self
--- OUTSIDE RECORDS SUMMARY | 2020-08-03 17:12 | CCD | Continuity of Care Document ---
Author Author Festus Reyes M.D. Organization Unknown Address [address] [place] [address] Phone [phone] Care Team Providers Care Calculus Teacher Name Role Phone Mj Philip MD AUTM [phone] Melida Reyes MD AUTM [phone] TerraCelsa quevedosusan AUTM [phone] [facility] [place] AUTM Problems Active Problems Provider Date Type 2 diabetes mellitus DORINDA Rodriguez Onset: 08/21/19 14 Long-term current use of insulin Melida Reyes M.D. Ons et: 11/21/2019 Chronic atrial fibrillation, unspecified Melida Reyes M.D. Onset: 11/21/2019 Long-term current use of anticoagulant Hunter Banks Onset: 11/21/2019 Hypertensive chronic kidney disease with stage 1 through stage 4 chronic kidney disease, or unspecified chronic kidney disease Melida eRyes M.D. Onset: 11/21/2019 Chronic kidney disease stage 3 Melida Reyes M.D. Onset : 11/21/2019 Primary cardiomyopathy Melida Reyes M.D. Onset: 2019 Obstructive sleep apnea syndrome Melida Reyes M.D. Ons et: 11/21/2019 Post poliomyelitis syndrome Reba Coyle FNP Onset: 11/20 Infarction - precerebral Reba Coyle FNP Onset: 06/15/20 20 Pure hypercholesterolemia Melida Reyes M.D. Onset: [...] 100units Melida Reyes M.D. 02/18/2020 Drisdol 1.25mg (12809 Ut) Capsules 1 tab weekly by mouth [...] a day as needed 24gm May Chaves, [facility] 11/15/2016 Digoxin 125mcg Tablets 1 by mouth every day 90tabs Reba Coyle,[facility] 11/13/2016 Cpap Supplies to be worn while sleeping. G47.33 Phyl Panda Cole, [facility] 10/09/2016 Lancets Misc test twi ce a day dx: e11.9 200units Chavo Cuenca, D.O. 06/11/2015 BD Pen [place] Short/Ultrafine/31G X 5/1 6" 31G X 8 [...] 05/02/2013 Aspirin 81mg Tablets 1 po qd Lay SnowOSelin 05/02/2013 Atorvastatin Calcium 80mg Tablets take one tablet by mouth once daily 90tabs Hunter Banks 05/02/2013 Carvedilol 25mg Tablets Take 1 tablet by mouth twice daily 180tabs Mleida Reyes M.D. Finasteride 5mg Tablets 1 by mouth every day Unknown History Medications Tramadol HCL ER 150mg Caps ER 24HR 1 po qd 30caps Melida Reyes M.D. 05/07/20 20 - 05/08/2020 Cipro 250mg Tablets 1 twice a day x 10 days 20tabs Melida Reyes M.D. 03/29/20 20 - 05/07/2020 Amoxicillin 500mg Capsules 1 three times a day x 10 days 30caps DORINDA Rodriguez 02/07/2020 - Magnesium 250mg Tablets 1 by mouth every hs Melida Reyes M.D. 12/19/19 - 03/28/2020 Medications Administered in Office Medication SIG Qnty Indications Ordering Provider Date Administration Of Flu Vaccine Inj ection DORINDA Rodriguez 03/16/2019 Administration Of Flu Vaccine Inj ection DORINDA Rodriguez 03/29/2018 Immunizations CPT Code Status Date Vaccine Lot # 99603 Given 03/16/2019 Influenza Vaccin e Quadrivalent Preser/Antibiotic Free Im Use [id number] 42176 Given 03/29/2018 Influenza Virus Vaccine, Quadrivalent (Cciiv4), Derived From Cell [id number] U-Td Refused 01/03/2020 Td(Adult)(Tetanus, Diphtheri a) unspecified 52188 Refused 01/03/2020 Shingrix Zoster Vaccine (HZV), Recombinant, Subunit, Adjuvanted 24118 Refused 01/03/2020 Pneumovax 23 29236 Refused 01/03/2020 Prevnar 13 59489 Refused 05/10/2018 Shingrix Zoster Vaccine (HZV), Recombinant, Subunit, Adjuvanted 06416 Refused 05/12/2017 Zoster Vaccine 18691 Refused 05/12/2017 Pneumovax 23 18995 Refused 05/12/2017 Tetanus/Diptheria(Td)Toxoids Preservative Free 14439 Refused 05/12/2017 Influenza Vaccin e Quadrivalent Preser/Antibiotic Free Im Use 88734 Refused 05/12/2017 Prevnar 13 Vital Signs Date [...] Test Result H/L Range Note A1c 05/07/2020 [facility] Embedded Developer: [place] [address] [phone] Hba1c 8.8 % High <5.7 1 Est Avg Glucose 206 mg/dL High 60 - 110 Laboratory test finding 05/07/2020 [facility] islisa, anna marie Embedded Developer: [place] [address] [phone] Thyroid Stimulating Hormone 6.03 uIU/mL High 0.3 6 - 3.74 Laboratory test finding 05/07/2020 [facility] islisa, Embedded Developer: [place] [address] [phone] T4 Free 1.37 ng/dL 0.76 - 1.46 Laboratory test finding 03/29/2020 [facility] [address] [place], [place] [id number] [phone] Urine Culture FULL REPORT IN L <SEE NOTE> Normal 2 Urinalysis Manual 03/29/2020 [facility] [address] [place], [place] [id number] [phone] Appearance, Urine Manual TURBID High Clear Color, Urine Manual YELLOW Normal Yellow PH,Urine Man 8.5 units Normal 5.0 - 7.0 Specific Otis,Urine Manual 1.017 Normal 1.002-1.035 Protein, Urine Manual 3+ mg/dL High Negative Glucose, Urine (Ua) Manual NEGATIVE mg/dL Normal Negative Ketone, Urine Manual NEGATIVE mg/dL Normal Negative Urobilinogen, Urine Manual NORMAL mg/dL Normal Normal Bilirubin, Urine Manual NEGATIVE Normal Negative Nitrite, Urine Manual NEGATIVE Normal Negative Leukocyte Esterase, Urine Man POSITIVE High Negative Blood Urine Manual POSITIVE High Negative Microscopic, Urine 03/29/2020 [facility] [address] [place] [address] [phone] WBC, Urine 3-5 /hpf High 0-3 RBC, [...] Microscopic Exam UNSPUN Normal Ua Routine 02/07/2020 [facility] [address] [place] [address] [phone] Appearance, Urine CLOUDY High Clear Color, Urine SOLE Normal Yellow PH,Urine 8.0 units Normal 5.0-9.0 Specific Otis Urine Auto 1.014 Normal 1.002-1.035 Protein, Urine [...] SMALL Normal None Laboratory test finding 02/07/2020 [facility] [address] [place], [place] [id number] [phone] Urine Culture FULL REPORT IN L <SEE NOTE> Normal 3 Microalbumin/Creatinine Urine 02/07/2020 [facility] Embedded Developer: [place] [address] [phone] Microalbumin Urine 5549.2 mg/L High 1.3 - 20.0 4 Urine Creatinine 71.7 mg/dL 30.0 - 125.0 Microalb/Creat Ratio 7739.5 ug/mg High 0.0 - 30.0 Basic Metabolic Panel 02/06/2020 [facility] Embedded Developer: Dr Dinesh Balderas [place], [place] [id number] [phone] Glucose 83 mg/dL 74 - 99 5 [...] mL/min >60 6 Laboratory test finding 02/06/2020 [facility] Embedded Developer: [place] [address] [phone] Magnesium 1.6 mg/dL Low 1.8 - 2.4 Serum Protein Electrophoresis 02/06/2020 [facility] [address] [place] [address] [phone] Albumin % 45.0 % Low 55.8-66.1 Pqrwx-1-Xdjouhsr % 7.3 % High 2.9-4.9 Hmnnr-6-Ntxmgizlc % 15.5 % High 7.1-11.8 Mvqv-2-Oiqykdhik % 5.3 % Normal 4.7-7.2 Xjza-7-Ajpqpanob % 6.7 % High 3.2-6.5 Gamma Globulin % 20.2 % High 11.1-18.8 Albumin 2.84 GM/DL Low 3.29-5.55 Tbdnj-3-Bibirjppb 0.46 GM/DL High 0.17-0.41 Rpxmg-6-Nhrdntzvz 0.98 GM/DL Normal 0.42-0.99 Jxmq-5-Vslvbrelp 0.33 GM/DL Normal 0.28-0.60 Cgke-5-Sficengdp 0.42 GM/DL Normal 0.19-0.55 Gamma Globulins 1.27 GM/DL Normal 0.65-1.58 Total Protein 6.3 GM/DL Low 6.4-8.2 Spep Interpretation SEE COMMENT Normal 7 Spep Pathologist Review REV'D BY Jamison RED <SEE NOTE> Normal 8 Microalbumin/Creatinine Urine 01/12/2020 [facility] Embedded Developer: [place] [address] [phone] Microalbumin Urine 3505.9 mg/L High 1.3 - 20.0 Urine Creatinine 92.3 mg/dL 30.0 - 125.0 Microalb/Creat Ratio 3798.4 ug/mg High 0.0 - 30.0 Laboratory test finding 01/12/2020 [facility] Embedded Developer: Dr Dinesh Balderas [place], [place] [id number] [phone] Creatine Kinase(CK) 26 U/L Low 39 - 308 Serum Protein Elect W/RFX 01/12/[address] [address] [phone] Albumin % TNP % Normal 55.8-66.1 Fmfye-0-Jvfohfvw % TNP % Normal 2.9-4.9 Nhoqs-6-Gwyfdmhms % TNP % Normal 7.1-11.8 Mfaz-1-Plcqgizfb % TNP % Normal 4.7-7.2 Yrkh-4-Olhzpbzfr % TNP % Normal 3.2-6.5 Gamma Globulin % TNP % Normal 11.1-18.8 Albumin TNP GM/DL Normal 3.29-5.55 9 Jmnwk-3-Dnhdyiqmb TNP GM/DL Normal 0.17-0.41 Qygcx-9-Otdgyqhjg TNP GM/DL Normal 0.42-0.99 Omwv-8-Rzxvofupr TNP GM/DL Normal 0.28-0.60 Rurf-8-Onfdmdvhp TNP GM/DL Normal 0.19-0.55 Gamma Globulins TNP GM/DL Normal 0.65-1.58 Total Protein TNP GM/DL Normal 6.4-8.2 Spep Interpretation For RFX TNP Normal Spep Pathologist Review TNP Normal Laboratory test finding 01/12/[address] [address] [phone] Myoglobin 81 NG/ML Normal 16-116 Laboratory test finding 01/12/[address] [address] [phone] Myoglobin Screen, Urine POSITIVE Normal Negative 10 Immunotype Ur (Free LT Chains) SEE SEPARATE REP <SEE NOTE> Normal 11 Urine Protein Electrophoresis SEE SEPARATE REP <SEE NOTE> Normal 12 Creatinine,Random Urine 91.6 mg/dL Normal Total Protein,Random Urine 488.2 mg/dL High 0.0-12.0 Urine Free Burchinal & Lambda Chains Quantit 01/12/2020 [address] [place] [address] [phone] Free Burchinal Light Chains Urine SEE SEPARATE REP < SEE NOTE> Normal 13 Free Lambda Light Chains Urine SEE SEPARATE REP <SEE NOTE> Normal 14 Burchinal/Lambda Ratio Urine SEE SEPARATE REP <SEE NOTE> Normal 15 Free Burchinal & Lambda LT Chains 01/12/[address] [address] [phone] Free Burchinal Light Chains Serum SEE SEPARATE REP < SEE NOTE> Normal 16 Free Lambda Light Chains Serum SEE SEPARATE REP <SEE NOTE> Normal 17 Burchinal/Lambda Ratio Serum SEE SEPARATE REP <SEE NOTE> Normal 18 Microalbumin/Creatinine Urine 01/03/2020 [facility] Embedded Developer: [place] [address] [phone] Microalbumin Urine 3327.8 mg/L High 1.3 - 20.0 Urine Creatinine 99.4 mg/dL 30.0 - 125.0 Microalb/Creat Ratio 3347.9 ug/mg High 0.0 - 30.0 Complete Blood Count 01/03/2020 [facility] Embedded Developer: [place] [address] [phone] WBC 12.1 x10*3/UL High 4.1 - 10.9 [...] x10*3/UL High 2.0 - 7.8 A1c [facility]/03/2020 [facility] Embedded Developer: Dr Dinesh Balderas [place] [id number] [phone] Hba1c 7.8 g/dL High 4.8 - 5.6 20 Est Avg Glucose 177 mg/dL High 60 - 110 Laboratory test finding 01/03/2020 [facility], Embedded Developer: [place] [address] [phone] Magnesium 1.8 mg/dL 1.8 - 2.4 Basic Metabolic Panel 01/03/2020 [facility] Embedded Developer: [place] [address] [phone] Glucose 205 mg/dL High 74 - 99 [...] mL/min >60 23 Laboratory test finding 01/03/2020 [facility], Embedded Developer: [place] [address] [phone] Thyroid Stimulating Hormone 3.81 uIU/mL High 0.3 6 - 3.74 Liver Function Profile 01/03/2020 [facility] Embedded Developer: [place] [address] [phone] Alk. Phosphatase 128 mg/dL High 46 - [...] Low 1.00 - 1.90 Lipid Profile 01/03/2020 [facility] , Embedded Developer: [place] [address] [phone] Cholesterol 114 mg/dL Low 131 - 200 Triglycerides 61 mg/dL 30 - 150 HDL Cholesterol 32 mg/dL Low 35 - 60 LDL (Calculated) 70 CALC 50 - 159 Laboratory test finding 01/03/2020 [facility] Embedded Developer: [place] [address] [phone] PSA 1.63 ng/mL <4.00 25 Ua Dipstick Only 01/03/2020 [facility] , Embedded Developer: Dr Dinesh Balderas [place] [id number] [phone] Urine Color YELLOW Yellow Urine Appearance CLEAR Clear Urine PH 7.0 units 5.0 - 9.0 Urine Specific Otis 1.015 1.005 - 1.030 Urine Leukocytes NEGATIVE Negative Urine Blood SMALL Abnormal Negative Urine Protein 3+ Abnormal Negative -Trace Urine Glucose NEGATIVE mg/dL Negative Urine Nitrite NEGATIVE Negative Urine Ketone NEGATIVE mg/dL Negative Urine Bilirubin NEGATIVE Negative Urine Urobilinogen 0.2 mg/dL 0.2 - 1.0 Laboratory test finding 12/19/[address] [facility], Embedded Developer: Dr Dinesh Balderas [place] [id number] [phone] Magnesium 1.4 mg/dL Low 1.8 - 2.4 26 Basic Metabolic Panel 12/19/2019 [facility], Embedded Developer: Dr Dinesh Balderas [place] [id number] [phone] Glucose 132 mg/dL High 74 - 99 27 BUN 24 mg/dL High 7 - 18 Creatinine 1.3 mg/dL 0.6 - 1.3 Sodium 141 mEq/L 136 - 145 Potassium 4.4 mEq/L 3.5 - 5.1 Chloride 103 mEq/L 98 - 107 Carbon Dioxide 30 mEq/L 21 - 32 Calcium 8.5 mg/dL 8.5 - 10.1 GFR 55 mL/min Low >60 GFR >= 60 mL/min >60 28 Ua Dipstick Only 12/19/2019 [facility] Embedded Developer: Dr Dinesh Balderas [place], [place] [address] [phone] Urine Color YELLOW Yellow Urine Appearance CLEAR Clear Urine PH 6.0 units 5.0 - 9.0 Urine Specific Otis 1.020 1.005 - 1.030 Urine Leukocytes NEGATIVE Negative Urine Blood SMALL Abnormal Negative Urine Protein 3+ Abnormal Negative -Trace Urine Glucose NEGATIVE mg/dL Negative Urine Nitrite NEGATIVE Negative Urine Ketone NEGATIVE mg/dL Negative Urine Bilirubin NEGATIVE Negative Urine Urobilinogen 0.2 mg/dL 0.2 - 1.0 Microalbumin/Creatinine Urine 12/19/2019 [facility] Embedded Developer: Dr Dinesh Balderas [place], [place] [address] [phone] Microalbumin Urine 1594.2 mg/L High 1.3 - 20.0 2 9 Urine Creatinine 60.1 mg/dL 30.0 - 125.0 Microalb/Creat Ratio 2652.6 ug/mg High 0.0 - 30.0 1 Lab Result Notes: Pre-Diabetes 5.7 - [...] LITTLE GFR LEFT ESRD GFR <15 ON POLICY MANAGER 7 M-SPIKE NOTED IN EARLY GAMMA REGION. CONCENTRATION = 0.33 GM/DL 8 REV'D BY Jamison VITALE 9 Test not performed. Please resubmit with new order and sample. 10 SUGGEST QUANTITATIVE TEST BE ORDERED FOR CONFIRMATION. 11 SEE SEPARATE REPORT Testing performed at reference lab . Report copy to follow on a separate form. 02/28/20 REF LAB#:[id number] 12 SEE SEPARATE REPORT 13 SEE SEPARATE REPORT 14 SEE SEPARATE REPORT 15 SEE SEPARATE REPORT 16 SEE SEPARATE REPORT Testing performed at reference lab . Report copy to follow on a separate form. 02/28/20 REF LAB#:[id number] 17 SEE SEPARATE REPORT 18 SEE SEPARATE [...] LITTLE GFR LEFT ESRD GFR <15 ON POLICY MANAGER 24 NOTE: RESULT VERIFIED. 25 This assay was performed on the Siemens Dimension EXL using the B- Galactosidase/CPRG methodology and should not be compared interchangeably with other methods. The PSA should not be used alone as a screening test for the presence or absence of malignant disease. 26 NOTE: RESULT VERIFIED. 27 100-125 mg/dL PRE-DIABET ES/FASTING >126 mg/dL DIABETES/FASTING 28 CHRONIC KIDNEY DISEASE STAGI NG PER NKF STAGE I & II GFR >= 60 NORMAL TO MILDLY DECREASED STAGE III GFR 30-59 MODERATELY DECREASED STAGE IV GFR 15-29 SEVERELY DECREASED STAGE V GFR <15 VERY LITTLE GFR LEFT ESRD GFR <15 ON POLICY MANAGER 29 240.3 Procedures Date Code Description Status 02/15/2020 [id number] Colonoscopy Completed 07/11/2019 [id number] Colonoscopy Completed 05/13/2016 [id number] Diabetic Retinal Eye Exam Comple moneymeets Description No Information Available Encounters Type Date Location Provider Dx Diagnosis Office Visit 05/07/2020 11:30a [facility] Contreras Reyes M.D. 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 05/07/2020 D47.2 Monoclonal gammopathy Melida pierre M.D. 05/07/2020 D50.9 Iron deficiency anemia, unspecif ied Melida Reyes M.D. 05/07/2020 N30.01 Acute cystitis with hematuria Pari Reyes M.D. 05/07/2020 I48.20 Chronic atrial fibrillation, uns pecified Melida Reyes M.D. 05/07/2020 Z79.01 rn long term care (current) use of antic oagulants Melida Reyes [...] M.D. 03/28/2020 I48.20 Chronic atrial fibrillation, uns pecjena Reyes M.D. 03/28/2020 Z79.01 rn long term care (current) use of antic oagulants Melida Reyes [...] uns pecified Melida Reyes M.D. 02/09/2020 Z79.01 assisted (current) use of antic oagulants Melida Reyse M.D. 02/09/2020 I42.0 Dilated cardiomyopathy Melida Reyes [...] uns pecified Melida Reyes M.D. 01/03/2020 Z79.01 assisted (current) use of antic oagulants Melida Reyes M.D. 01/03/2020 I42.0 Dilated cardiomyopathy Melida Reyes M.D. 01/03/2020 I12.9 Hypertensive chronic kidney dise ase with stage 1 through sta Melida Reyes M.D. 01/03/2020 N18.3 Chronic kidney disease, stage 3 (moderate) Melida Reyes M.D. 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 01/03/2020 Z79.4 rn long term care (current) use of insul in Melida Reyes M.D. 01/03/2020 G47.33 Obstructive sleep apnea (adult) (pediatric) Melida Reyes M.D. 01/03/2020 E83.42 Hypomagnesemia Melida martinez M.D. 01/03/2020 N40.0 Benign prostatic hyp erplasia without lower urinary tract symptoms Melida Reyes M.D. 01/03/2020 E78.00 Pure hypercholesterolemia, unspe cified Melida Reyes M.D. 01/03/2020 Z13.89 Encounter for screening for othe r disorder Melida Reyes M.D. 12/19/2019 R31.9 Hematuria, unspecified Melida Reyes M.D. 12/19/2019 R63.4 Abnormal weight loss Melida De Guzman M.D. 12/19/2019 I48.20 Chronic atrial fibrillation, uns pecified Melida Reyes M.D. 12/19/2019 Z79.01 assisted (current) use of antic oagulants Melida Reyes M.D. 12/19/2019 E11.21 Type 2 diabetes mellitus with di abetic nephropathy Melida Reyes M.D. 12/19/2019 Z79.4 assisted (current) use of insul in Melida Reyes M.D. 12/19/2019 D64.9 Anemia, unspecified Melida amezquita M.D. 12/19/2019 E83.42 Hypomagnesemia Melida martinez M.D. 12/19/2019 I12.9 Hypertensive chronic kidney dise ase with stage 1 through sta Melida Reyes M.D. 12/19/2019 N18.3 Chronic kidney disease, stage 3 (moderate) Melida Reyes M.D. Plan of Treatment 05/07/2020 - Melida Reyes M.D.* R80.9 Proteinuria, unspecified * D47.2 Monoclonal gammopathy * D50.9 Iron deficiency anemia, unspecified * N30.01 Acute cystitis with hematuria * I48.20 Chronic atrial fibrillation, unspecified * Z79.01 assisted (current) use of anticoagulants * E11.21 Type 2 diabetes mellitus with diabetic nephropathy * I12.9 Hypertensive chronic kidney disease with stage 1 through sta * N18.31 Chronic kidney disease, stage 3a * E78.00 Pure hypercholesterolemia, unspecified * M15.9 Polyosteoarthritis, unspecified * E07.9 Disorder of thyroid, unspecified * All * New Medication:* Pantoprazole Sodium 20 mg - 1 by mouth every am * Tramadol HCL ER 150 mg - 1 po qd * Comments:* 13. CVA. Continues on Keppra for seizure [id number]. Post polio syndrome. Uses scooter, walker, cane. is supportive. Functional Status Description No Information Available Mental Status Description No Information Available Referrals Refer to Dr Reason for Referral Status Appt Date Feng Ellis M.D. CONSULT FOR BPH, UTI 0- PLEASE LET OFFICE KNOW IF AN APPT HAS BEEN MADE Sent [facility] [address] , [facility] [place] [address] [phone] Germaine Betts MD NEW PATIENT CONSULT FOR PROT EINURIA DR. REYES HAS SPOKEN WITH YOUR PHYSICIAN AND HAS AGREED TO SEE OUR PATIENT WITHIN 2 WEEKS. THANK YOU! Created [facility] [address] [place], [place] [address] [phone]
--- OUTSIDE RECORDS SUMMARY | 2020-08-03 17:12 | CCD ---
Author Author [facility] Organization [facility] Address Unknown Phone Unavailable Care Team Providers Care Bus And Trolley Inspecting Dispatcher Name Role Phone Marian Dove Unavailable PROBLEMS Type Condition ICD9-CM Code [id number] Code Onset Dates Condition S tatus SNOMED Code Notes Problem Benign prostatic hyperplasia with lower urinary tract symptoms N40.1 Active [id number] Problem Urinary retention due to benign prostatic hyperplasia N28.89 Active 093180245 ALLERGIES No Known Allergies ENCOUNTERS from 1950 to 2020-06-12 Encounter Location Date Provider Diagnosis [facility] Urology [address] [place] [address] Jun Marian Dove Benign prostatic hyperplasia with lower urinary tract symptoms N40.1 IMMUNIZATIONS No Information SOCIAL HISTORY Tobacco Use: Social History Observation Description Date Details (start date - stop date) Former Smoker Sex Assigned At : Social History Observation Description Sex Assigned At Unknown Language: Question Answer Notes Languages spoken: Turkmen Druze: Question Answer Notes Druze No shinto beliefs that would impact health care. Alcohol [...] Notes Start Da te End Date Status Carvedilol 25 MG 1 tablet with food Orally Twice a day for 30 day(s) Active Bactrim DS 800-160 MG 1 tablet Orally _1 hour prior to cystoscop y 18 May, 2020 Active Torsemide 20 MG as directed Orally A ctive Toujeo SoloStar 300 UNIT/ML as directed Subcutaneous Active Xarelto 15 MG 1 tablet with food Orally Once a day for 30 day(s) Active Levetiracetam 500 MG 1 tablet Orally every 12 hrs for 30 day(s) Active Losartan Potassium 50 MG 1 tablet Orally Once a day for 30 day(s) Active Colace 100 MG 1 capsule as needed Orally Once a day for 30 day(s) Active Atorvastatin Calcium 80 MG 1 tablet Orally Once a day for 30 day(s) Active TraMADol HCl ER 150 MG 1 capsule Orally Once a day Active Ventolin HFA 108 (90 Base) MCG/ACT 1 puff as needed Inhalation ever y 4 hrs Active Aspir-Low 81 MG 1 tablet Orally Once a day for 30 day(s) Active Misc. Devices - as directed Active Ferrous Sulfate 325 (65 Fe) MG 1 tablet Orally Once a day for 30 day( s) Active Pantoprazole Sodium 40 MG 1 tablet Orally Once a day Active Lidoderm 5 % 1 patch remove after 12 hours Externally Once a day Active Hydrocodone-Acetaminophen 7.5-325 MG 1 tablet as needed Orally ever y 6 hrs Active Flomax 0.4 MG 1 capsule Orally Once a day for 30 day(s) Active Magnesium 400 MG as directed Orally Active Drisdol 1.25 MG (75723 UT) 1 capsule Orally for 30 day(s) Active Digoxin 125 MCG as directed Orally A ctive Zofran 4 MG 1 tablet Orally Once a day for 30 day(s) Active Allopurinol 300 MG 1 tablet Orally Once a day for 30 day(s) Active Digoxin 125 MCG as directed Orally U nknown Ventolin HFA 108 (90 Base) MCG/ACT 1 puff as needed Inhalation ever y 4 hrs Not-Taking PROCEDURES No Information RESULTS No Results REASON FOR VISIT antibiotic cysto MEDICAL (GENERAL) HISTORY Type Description Date Medical History DM type 2 Medical History Chronic A-fib Medical History kidney disease stage 3 Medical History cardiomyopathy Medical History Obstructive sleep apnea Medical History post poliomyelitis syndrome Medical History proteinuria Medical History Gout Medical History hx stroke Surgical History heart stent placed 03/2012 Surgical History leg surgery right Surgical History cataracts Surgical History colonoscopy Hospitalization History pneumonmia Hospitalization History polio at 8 years Hospitalization History stroke Goals Section No Information Health Concerns No Information MEDICAL EQUIPMENT No Information MENTAL STATUS No Information FUNCTIONAL STATUS No Information ASSESSMENTS Encounter Date Diagnosis Assessment Notes Treatment Notes Treatm ent Clinical Notes Jun, Benign prostatic hyperplasia with lower urinary tract symptoms (ICD-10 - N40.1) PLAN OF TREATMENT Medication Medication Name Sig Start Date Stop Date Bactrim DS 800-160 MG 1 tablet Orally _1 hour prior to cystoscop y 18 May, 2020 Next Appt Details Provider Name:Dwight Apodaca, 2020-06 02:30:00 PM, [address], [place], [address], Insurance Providers Payer Name Payer Address Payer Phone Insured Name Patient Relati onship to Insured Coverage Start Date Coverage End Date MEDICARE Part A and B [address] [facility] [phone] ALVINA BLACKMAN [facility] [place] [address] [address] [facility] [id number] ALVINA BLACKMAN self
--- OUTSIDE RECORDS SUMMARY | 2020-08-03 17:12 | CCD ---
Author Author [facility] Organization [facility] Address Unknown Phone Unavailable Care Team Providers Care Rehabilitation Manager Name Role Phone Marian Dove Unavailable PROBLEMS Type Condition ICD9-CM Code [id number] Code Onset Dates Condition S tatus SNOMED Code Notes Problem Benign prostatic hyperplasia with lower urinary tract symptoms N40.1 Active [id number] Problem Urinary retention due to benign prostatic hyperplasia N28.89 Active [id number] ALLERGIES No Known Allergies ENCOUNTERS from 1950 to 2020-06-04 Encounter Location Date Provider Diagnosis [facility] Urology [address] [place] [address] May Marian Dove Benign prostatic hyperplasia with lower urinary tract symptoms N40.1 ; Urinary tract infection, site not specified N39.0 ; Urinary retention due to benign prostatic hyperplasia N28.89 and Poor urinary stream R39.12 IMMUNIZATIONS No Information SOCIAL HISTORY Tobacco Use: Social History Observation Description Date Details (start date - stop date) Former Smoker Sex Assigned At : Social History Observation Description Sex Assigned At Unknown Language: Question Answer Notes Languages spoken: Sami Samaritan: Question Answer Notes Samaritan No judaism beliefs that would impact health care. Alcohol [...] No Information VITAL SIGNS Weight 238 lbs May, Height 66 in May, BMI 38.41 kg/m2 May, Heart Rate 45 /min May, Respiratory Rate 18 /min May, Temperature 98.9 degrees Fahrenheit May, Oximetry 95% May, Blood pressure systolic 132 mm Hg May, Blood pressure diastolic 74 mm Hg May, MEDICATIONS Medication SIG (Take, Route, Frequency, Duration) Notes Start Da te End Date Status Torsemide 20 MG as directed Orally A ctive Toujeo SoloStar 300 UNIT/ML as directed Subcutaneous Active Magnesium 400 MG as directed Orally Active Hydrocodone-Acetaminophen 7.5-325 MG 1 tablet as needed Orally ever y 6 hrs Active Levetiracetam 500 MG 1 tablet Orally every 12 hrs for 30 day(s) Active Carvedilol 25 MG 1 tablet with food Orally Twice a day for 30 day(s) Active Losartan Potassium 50 MG 1 tablet Orally Once a day for 30 day(s) Active Xarelto 15 MG 1 tablet with food Orally Once a day for 30 day(s) Active TraMADol HCl ER 150 MG 1 capsule Orally Once a day Active Drisdol 1.25 MG (42220 UT) 1 capsule Orally for 30 day(s) Active Digoxin 125 MCG as directed Orally A ctive Pantoprazole Sodium 40 MG 1 tablet Orally Once a day Active Lidoderm 5 % 1 patch remove after 12 hours Externally Once a day Active Flomax 0.4 MG 1 capsule Orally Once a day for 30 day(s) Active Atorvastatin Calcium 80 MG 1 tablet Orally Once a day for 30 day(s) Active Colace 100 MG 1 capsule as needed Orally Once a day for 30 day(s) Active Misc. Devices - as directed Active Ventolin HFA 108 (90 Base) MCG/ACT 1 puff as needed Inhalation ever y 4 hrs Active Aspir-Low 81 MG 1 tablet Orally Once a day for 30 day(s) Active Ferrous Sulfate 325 (65 Fe) MG 1 tablet Orally Once a day for 30 day( s) Active Bactrim DS 800-160 MG 1 tablet Orally _1 hour prior to cystoscop y May, Active Zofran 4 MG 1 tablet Orally Once a day for 30 day(s) Active Allopurinol 300 MG 1 tablet Orally Once a day for 30 day(s) Active Digoxin 125 MCG as directed Orally U nknown Ventolin HFA 108 (90 Base) MCG/ACT 1 puff as needed Inhalation ever y 4 hrs Not-Taking PROCEDURES from 1950 to 2020-06-04 Procedure Date Ordered Result Body Site Medication: Lidocaine HCl 2% Jelly 5mL Intravesically 2020-05-25 N/A Beck Catheter Coude Insertion 18F 2020-05-25 N/A uro PVR (Post Voiding Residual) Bladder Scan 2020-05-25 N/A RESULTS Component Value Reference Range UA URINALYSIS Reviewed date:05/25/2020 13:46:50 Interpretation: Performing Lab:[facility] [address] [id number] , ,[place] [address] URINE CULTURE Reviewed date:05/28/2020 08:21:09 Interpretation: Performing Lab:[facility] [address] [id number] , ,[place] [address] REASON FOR VISIT UTI MEDICAL (GENERAL) HISTORY Type Description Date Medical [...] Notes Treatment Notes Treatm ent Clinical Notes May, Benign prostatic hyperplasia with lower urinary tract symptoms (ICD-10 - N40.1) May, Urinary tract infection, site not specified (ICD -10 - N39.0) May, Urinary retention due to mary ign prostatic hyperplasia (ICD-10 - N28.89) May, Poor urinary stream (ICD-10 - R39.12) May, Other Caring for your beck catheter material was printed,Cystoscopy material was printed Patient Educated with: Cystoscopy (In- Office) Procedure and Instructions.pdf (Cystoscopy (In-Office) Procedure and Instructions.pdf) PLAN OF TREATMENT Medication Medication Name Sig Start Date Stop Date Bactrim DS 800-160 MG 1 tablet Orally _1 hour prior to cystoscop y 18 May, 2020 Next Appt Details cysto Reason:urinary retention Provider Name:Dwight Apodaca, 2020-06 02:30:00 PM, [address], [place], [address], Follow Up:cystourinary retention Insurance Providers Payer Name Payer Address Payer Phone Insured Name Patient Relati onship to Insured Coverage Start Date Coverage End Date BS [facility] [facility] [address] [facility] [address] ALVINA BLACKMAN self MEDICARE Part A and B [address] [facility] [phone] ALVINA BLACKMAN self
--- OUTSIDE RECORDS SUMMARY | 2020-08-03 17:12 | CCD ---
Author Author [facility] Organization [facility] Address Unknown Phone Unavailable Care Team Providers Care Director [employer] Communications Name Role Phone Francisco JNaomie hortonhel Unavailable PROBLEMS Type Condition ICD9-CM Code [id number] Code Onset Dates Condition S tatus SNOMED Code Notes Problem Benign prostatic hyperplasia with lower urinary tract symptoms N40.1 Active [id number] Problem Urinary retention due to benign prostatic hyperplasia N28.89 Active 513234281 ALLERGIES No Known Allergies ENCOUNTERS from 1950 to 2020-06-04 Encounter Location Date Provider Diagnosis [facility] Urology [address] [place] [address] May Marian Dove IMMUNIZATIONS No Information SOCIAL HISTORY Tobacco Use: Social History Observation Description Date Details (start date - stop date) Former Smoker Sex Assigned At : Social History Observation Description Sex Assigned At Unknown Language: Question Answer Notes Languages spoken: Ethiopian Baptist: Question Answer Notes Baptist No orthodox beliefs that would impact health care. Alcohol [...] Once a day Active Drisdol 1.25 MG (61770 UT) 1 capsule Orally for 30 day(s) [...] Information RESULTS No Results REASON FOR VISIT bloody/cloudy urine MEDICAL (GENERAL) HISTORY Type Description Date Medical [...] Information ASSESSMENTS No Information PLAN OF TREATMENT Medication Medication Name Sig Start Date Stop Date Bactrim DS 800-160 MG 1 tablet Orally _1 hour prior to cystoscop y 18 May, 2020 Next Appt Details Provider Name:Dwight Apodaca, 2020-06 02:30:00 PM, [address], [place], [address], Insurance Providers Payer Name Payer Address Payer Phone Insured Name Patient Relati onship to Insured Coverage Start Date Coverage End Date BS [facility] [address] [place] [address] ALVINA BLACKMAN self MEDICARE Part A and B [address] [facility] [phone] ALVINA BLACKMAN self
--- OUTSIDE RECORDS SUMMARY | 2020-08-03 17:13 | CCD ---
Author Author [facility] Organization [facility] Address Unknown Phone Unavailable Care Team Providers Care Assistant To The Vice President Name Role Phone Jamison Rucker MD Unavailable Unavailable Jamison Rucker MD Unavailable Unavailable Jamison Rucker MD Unavailable Unavailable Jamison Rucker MD Unavailable Unavailable Jamison Rucker MD Unavailable Unavailable Jamison Rucker MD Unavailable Unavailable Jamison Rucker MD Unavailable Unavailable Jamison Rucker MD Unavailable Unavailable Jamison Rucker MD Unavailable Unavailable Jamison Rucker MD Unavailable Unavailable Jamison Rucker MD Unavailable Unavailable Jamison Rucker MD Unavailable Unavailable Jamison Rucker MD Unavailable Unavailable Jamison Rucker MD Unavailable Unavailable Jamison Rucker MD Unavailable Unavailable Jamison Rucker MD Unavailable Unavailable Jamison Rucker MD Unavailable Unavailable Jamison Rucker MD Unavailable Unavailable Jamison Rucker MD Unavailable Unavailable Jamison Rucker MD Unavailable Unavailable Jamison Rucker MD Unavailable Unavailable Jamison Rucker MD Unavailable Unavailable Jamison Rucker MD Unavailable Unavailable Jamison Rucker MD Unavailable Unavailable Jamison Rucker MD Unavailable Unavailable Jamison Rucker MD Unavailable Unavailable Jamison Rucker MD Unavailable Unavailable Jamison Rucker MD Unavailable Unavailable Jamison Rucker MD Unavailable Unavailable Jamison Rucker MD Unavailable Unavailable Jamison Rucker MD Unavailable Unavailable Jamison Rucker MD Unavailable Unavailable Jamison Rucker MD Unavailable Unavailable Jamison Rucker MD Unavailable Unavailable Jamison Rucker MD Unavailable Unavailable Jamison Rucker MD Unavailable Unavailable Jamison Rucker MD Unavailable Unavailable Jamison Rucker MD Unavailable Unavailable Jamison Rucker MD Unavailable Unavailable Jamison Rucker MD Unavailable Unavailable Jamison Rucker MD Unavailable Unavailable Jamison Rucker MD Unavailable Unavailable Jamison Rucker MD Unavailable Unavailable Jamison Rucker MD Unavailable Unavailable Jamison Rucker MD Unavailable Unavailable Jamison Rucker MD Unavailable Unavailable Jamison Rucker MD Unavailable Unavailable Jamison Rucker MD Unavailable Unavailable Jamison Rucker MD Unavailable Unavailable Jamison Rucker MD Unavailable Unavailable Panda Fofana MD Unavailable Unavailable Panda Fofana MD Unavailable Unavailable Panda Fofana MD Unavailable Unavailable Panda Fofana MD Unavailable Unavailable Panda Fofana MD Unavailable Unavailable Panda Fofana MD Unavailable Unavailable Panda Fofana MD Unavailable Unavailable Panda Fofana MD Unavailable Unavailable Panda Fofana MD Unavailable Unavailable Panda Fofana MD Unavailable Unavailable Panda Fofana MD Unavailable Unavailable Panda Fofana MD Unavailable Unavailable Panda Fofana MD Unavailable Unavailable Panda Fofana MD Unavailable Unavailable Panda Fofana MD Unavailable Unavailable Panda Fofana MD Unavailable Unavailable Panda Fofana MD Unavailable Unavailable Panda Fofana MD Unavailable Unavailable Panda Fofana MD Unavailable Unavailable Panda Fofana MD Unavailable Unavailable Panda Fofana MD Unavailable Unavailable Panda Fofana MD Unavailable Unavailable Panda Fofana MD Unavailable Unavailable Panda Fofana MD Unavailable Unavailable Panda Fofana MD Unavailable Unavailable Panda Fofana MD Unavailable Unavailable Panda Fofana MD Unavailable Unavailable Panda Fofana MD Unavailable Unavailable Panda Fofana MD Unavailable Unavailable Panda Fofana MD Unavailable Unavailable Panda Fofana MD Unavailable Unavailable Panda Fofana MD Unavailable Unavailable Panda Fofana MD Unavailable Unavailable Panda Fofana MD Unavailable Unavailable Panda Fofana MD Unavailable Unavailable Panda Fofana MD Unavailable Unavailable Panda Fofana MD Unavailable Unavailable Panda Fofana MD Unavailable Unavailable Panda Fofana MD Unavailable Unavailable Panda Fofana MD Unavailable Unavailable Panda Fofana MD Unavailable Unavailable Pnada Fofana MD Unavailable Unavailable Panda Fofana MD Unavailable Unavailable Panda Fofana MD Unavailable Unavailable Panda Fofana MD Unavailable Unavailable Panda Fofana MD Unavailable Unavailable Panda Fofana MD Unavailable Unavailable Panda Fofana MD Unavailable Unavailable Panda Fofana MD Unavailable Unavailable Panda Fofana MD Unavailable Unavailable BrigidoPanda MD Unavailable Unavailable BrigidoPanda MD Unavailable Unavailable Panda Fofana MD Unavailable Unavailable Panda Fofana MD Unavailable Unavailable Panda Fofana MD Unavailable Unavailable Panda Fofana MD Unavailable Unavailable Panda Fofana MD Unavailable Unavailable Panda Fofana MD Unavailable Unavailable Panda Fofana MD Unavailable Unavailable Panda Fofana MD Unavailable Unavailable Panda Fofana MD Unavailable Unavailable Panda Fofana MD Unavailable Unavailable Panda Fofana MD Unavailable Unavailable Panda Fofana MD Unavailable Unavailable Panda Fofana MD Unavailable Unavailable Panda Fofana MD Unavailable Unavailable Panda Fofana MD Unavailable Unavailable Panda Fofana MD Unavailable Unavailable Panda Fofana MD Unavailable Unavailable Panda Fofana MD Unavailable Unavailable Panda Fofana MD Unavailable Unavailable Panda Fofana MD Unavailable Unavailable Panda Fofana MD Unavailable Unavailable Panda Fofana MD Unavailable Unavailable Panad Fofana MD Unavailable Unavailable Panda Fofana MD Unavailable Unavailable Panda Fofana MD Unavailable Unavailable Panda Fofana MD Unavailable Unavailable Fish, Martin Ramires MD Unavailable Unavailable Fish, Martin Ramires MD Unavailable Unavailable Fish, Martin Ramires MD Unavailable Unavailable Fish, Martin Ramires MD Unavailable Unavailable Dino, Martin Ramires MD Unavailable Unavailable Dino, Martin Ramires MD Unavailable Unavailable Dino, Martin Ramires MD Unavailable Unavailable Dino, Martin Ramires MD Unavailable Unavailable Dino, Martin Ramires MD Unavailable Unavailable Dino, Martin Ramires MD Unavailable Unavailable Dino, Martin Ramires MD Unavailable Unavailable Dino, Martin Ramires MD Unavailable Unavailable Dino, B Ike MD Unavailable Unavailable Fish, B Ike MD Unavailable Unavailable Fish, B Ike MD Unavailable Unavailable Fish, B Ike MD Unavailable Unavailable Fish, B Ike MD Unavailable Unavailable Fish, B Ike MD Unavailable Unavailable Fish, B Ike MD Unavailable Unavailable Fish, B Ike MD Unavailable Unavailable Fish, B Ike MD Unavailable Unavailable Fish, B Ike MD Unavailable Unavailable Fish, B Ike MD Unavailable Unavailable Fish, B Ike MD Unavailable Unavailable Fish, B Ike MD Unavailable Unavailable Fish, B Ike MD Unavailable Unavailable Fish, B Ike MD Unavailable Unavailable Fish, B Ike MD Unavailable Unavailable Fish, B Ike MD Unavailable Unavailable Fish, B Ike MD Unavailable Unavailable Fish, B Ike MD Unavailable Unavailable Fish, B Ike MD Unavailable Unavailable Fish, B Ike MD Unavailable Unavailable Fish, B Ike MD Unavailable Unavailable Fish, B Ike MD Unavailable Unavailable Fish, B Ike MD Unavailable Unavailable Fish, B Ike MD Unavailable Unavailable Fish, B Ike MD Unavailable Unavailable Fish, B Ike MD Unavailable Unavailable Fish, B Ike MD Unavailable Unavailable Fish, B Ike MD Unavailable Unavailable Fish, B Ike MD Unavailable Unavailable Fish, B Ike MD Unavailable Unavailable Fish, B Ike MD Unavailable Unavailable Fish, B Ike MD Unavailable Unavailable Fish, B Ike MD Unavailable Unavailable Fish, B Ike MD Unavailable Unavailable Fish, B Ike MD Unavailable Unavailable Fish, B Ike MD Unavailable Unavailable Fish, B Ike MD Unavailable Unavailable Fish, B Ike MD Unavailable Unavailable Fish, B Ike MD Unavailable Unavailable Fish, B Ike MD Unavailable Unavailable Re-disclosure Warning The records that you are about to access may contain information from federally-assisted alcohol or drug abuse programs. If such information is present, then the following federally mandated warning applies: This information has been disclosed to you from records protected by federal confidentiality rules (42 CFR part 2). The federal rules prohibit you from making any further disclosure of this information unless further disclosure is expressly permitted by the written consent of the person to whom it pertains or as otherwise permitted by 42 CFR part 2. A general authorization for the release of medical or other information is NOT sufficient for this purpose. The Federal rules restrict any use of the information to criminally investigate or prosecute any alcohol or drug abuse patient.The records that you are about to access may contain highly sensitive health information, the redisclosure of which is protected by Article 27-F of the [facility] Public Health law. If you continue you may have access to information: Regarding HIV / AIDS; Provided by facilities licensed or operated by the [facility] Office of Mental Health; or Provided by the [facility] Office for People With Developmental Disabilities. If such information is present, then the following [facility] mandated warning applies: This information has been disclosed to you from confidential records which are protected by state law. State law prohibits you from making any further disclosure of this information without the specific written consent of the person to whom it pertains, or as otherwise permitted by law. Any unauthorized further disclosure in violation of state law may result in a fine or mcc sentence or both. A general authorization for the release of medical or other information is NOT sufficient authorization for further disc losure. Encounters Encounter Providers Location Date Indications Data Source(s ) Unknown [address] [place] [id number] 07/27/2020 12:00:00 AM EST eCW1 ([facility]) Unknown [address] [place] [phone] 07/02/2020 12:00:00 AM EST eCW1 ([facility]) Outpatient [address] [place] [phone] 06/27/2020 12:00:00 AM EST eCW1 ([facility]) Outpatient Attender: Melida Rodriguez 12:30:00 PM EST MED[facility] ([facility] ) ([facility]yst[facility]) Urology [address] [place] [phone] 06/13/2020 12:00:00 AM EST eCW1 ([facility]) Unknown [address] [place] [phone] 06/11/2020 12:00:00 AM EST eCW1 ([facility]) Unknown [address] [place] [phone] 06/04/2020 12:00:00 AM EST eCW1 ([facility]) Outpatient [address] [place] [phone] 05/25/2020 12:00:00 AM EST eCW1 ([facility]) Outpatient Attender: Melida Rodriguez 10:30:00 AM EST [facility] ([facility] ) Outpatient Attender: Melida Rodriguez 10:45:00 AM EDT [facility] ([facility] ) Outpatient Attender: Melida Rodriguez 02:30:00 PM EDT [facility] ([facility] ) Outpatient Attender: Samm Rucker MD Main Office 01/26/2020 10:45:00 AM EDT [facility] ([facility]) OFFICE OUTPATIENT NEW 30 MINUTES Attender: Ike Sun MD Physic al Therapy 01/25/2020 10:45:00 AM EDT [facility] ([facility]) Outpatient Attender: Melida Rodriguez 11:00:00 AM EDT [facility] ([facility] ) Outpatient Attender: Melida Rodriguze 11:15:00 AM EDT [facility] ([facility] ) Outpatient Attender: Melida Rodriguez 08:30:00 AM EDT [facility] ([facility] ) Outpatient Attender: Melida Rodriguez 03:15:00 PM EDT [facility] ([facility] ) Outpatient Attender: Melida Rodriguez 10:00:00 AM EST [facility] ([facility] ) Immunizations Vaccine Date Status Description Data Source(s) INFLUENZA VACCINE QUADRIVALENT 2019- (65 YR UP)/MF59 C.1/PF 03/08/2020 12:00:00 AM EDT completed Kapoor Madeline Shingrix Zoster Vaccine (HZV), Recombinant, Subunit, A djuvanted 01/03/2020 12:25:00 PM EDT completed [facility]) Pneumococcal conjugate PCV 13 01/03/2020 12:24:00 PM EDT completed ELEUTERIO ([facility]) pneumococcal polysaccharide PPV23 01/03/2020 12:24:00 PM EDT comple ezekiel MCCLELLAN ([facility]) Note that this Td is not adsorbed. 01/03/2020 12:24:00 PM EDT compl eted MEDDIANE ([facility]) Medications Medication Brand Name Start Date Product Form Dose Route Admi nistrative Instructions Pharmacy Instructions Status Indications Reaction Description Data Source(s) Levofloxacin 500 MG Oral Tablet Levofloxacin 500 MG 07/30/2020 1 2:00:00 AM EST 1.0 {tablet} active Levofloxaci n 500 MG eCW1 ([facility]) Finasteride 5 MG Oral Tablet Finasteride 5 MG 06/13/2020 12:00:00 A M EST 1.0 {tablet} active Finasteride 5 MG eCW1 ( [facility]) Finasteride 5 MG Oral Tablet Finasteride 5 MG 06/13/2020 12:00:00 A M EST 1.0 {tablet} active Finasteride 5 MG eCW1 ( [facility]) Finasteride 5 MG Oral Tablet Finasteride 5 MG 06/13/2020 12:00:00 A M EST 1.0 {tablet} active Finasteride 5 MG eCW1 ( [facility]) Finasteride 5 MG Oral Tablet Finasteride 5 MG 06/13/2020 12:00:00 A M EST 1.0 {tablet} active Finasteride 5 MG eCW1 ( [facility]) Sulfamethoxazole 800 MG / Trimethoprim 1 60 MG Oral Tablet [Bactrim] Bactrim DS 800-160 MG Bactrim DS 800-160 MG 05/25/2020 12:00:00 AM EST 1.0 {table t} suspended Bactrim DS 800-160 MG eCW1 ( [facility]) Sulfamethoxazole 800 MG / Trimethoprim 1 60 MG Oral Tablet [Bactrim] Bactrim DS 800-160 MG Bactrim DS 800-160 MG 05/25/2020 12:00:00 AM EST 1.0 {table t} suspended Bactrim DS 800-160 MG eCW1 ( [facility]) Sulfamethoxazole 800 MG / Trimethoprim 1 60 MG Oral Tablet [Bactrim] Bactrim DS 800-160 MG Bactrim DS 800-160 MG 05/25/2020 12:00:00 AM EST 1.0 {table t} active Bactrim DS 800-160 MG eCW1 ( [facility]) Sulfamethoxazole 800 MG / Trimethoprim 1 60 MG Oral Tablet [Bactrim] Bactrim DS 800-160 MG Bactrim DS 800-160 MG 05/25/2020 12:00:00 AM EST 1.0 {table t} active Bactrim DS 800-160 MG eCW1 ( [facility]) Sulfamethoxazole 800 MG / Trimethoprim 1 60 MG Oral Tablet [Bactrim] Bactrim DS 800-160 MG Bactrim DS 800-160 MG 05/25/2020 12:00:00 AM EST 1.0 {table t} active Bactrim DS 800-160 MG eCW1 ( [facility]) Sulfamethoxazole 800 MG / Trimethoprim 1 60 MG Oral Tablet [Bactrim] Bactrim DS 800-160 MG Bactrim DS 800-160 MG 05/25/2020 12:00:00 AM EST 1.0 {table t} suspended Bactrim DS 800-160 MG eCW1 ( [facility]) Sulfamethoxazole 800 MG / Trimethoprim 1 60 MG Oral Tablet [Bactrim] Bactrim DS 800-160 MG Bactrim DS 800-160 MG 05/25/2020 12:00:00 AM EST 1.0 {table t} suspended Bactrim DS 800-160 MG eCW1 ( [facility]) pantoprazole 20 MG Delayed Release Oral Tablet Pantoprazole Sodium 05/07/2020 12:00:00 AM EST ORAL active M EDENT ([facility]) 24 HR tramadol hydrochloride 150 MG Extended Release O ral Capsule Tramadol HCL ER 05/07/2020 12:00:00 AM EST ORAL completed [facility] ([facility]) B-D Uf III Short Pen Need Mis 04/20/2020 12:00:00 AM EST active [facility] ([facility]) Ciprofloxacin 250 MG Oral Tablet [Cipro] Cipro 03/29/2020 12:00:00 AM EDT completed MED[facility] ([facility]) Losartan Potassium 50 MG Oral Tablet Losartan Potassium 12:00:00 AM EDT ORAL active [facility] ([facility]) torsemide 20 MG Oral Tablet Torsemide 03/28/2020 12:00:00 AM EDT ORAL active MED[facility] ([facility]) Magnesium 03/28/2020 12:00:00 AM EDT ORAL active [facility] ([facility]) Contour Next Blood Glucose Test 02/18/2020 12:00:00 AM EDT active [facility] ([facility] ) Amoxicillin 500 MG Oral Capsule Amoxicillin 02/07/2020 12:00:00 AM EDT completed [facility] ([facility]) Suprep Bowel Prep Kit Suprep Bowel Prep Kit 01/26/2020 12:00:00 AM EDT active [facility] ([facility]) Magnesium 12/19/2019 12:00:00 AM EDT ORAL complete d [facility] ([facility]) torsemide 20 MG Oral Tablet Torsemide 12/08/2019 12:00:00 AM EDT ORAL active [facility] ([facility]) Amoxicillin 500 MG Oral Tablet Amoxicillin 11/23/2019 12:00:00 AM EDT ORAL completed [facility] ([facility]) Tamsulosin hydrochloride 0.4 MG Oral Capsule Tamsulosin HCL 11/20/2019 12:00:00 AM EDT active [facility] ([facility]) Ciprofloxacin 250 MG Oral Tablet Ciprofloxacin HCL 11/20/2019 12:00 :00 AM EDT ORAL completed [facility] ([facility]) Ergocalciferol 26873 UNT Oral Capsule [Drisdol] Drisdol 11/01/2019 12:00:00 AM EDT ORAL active [facility] ([facility]) Magnesium Oxide 400 MG Oral Tablet Magnesium Oxide 07/20/2019 12:00 :00 AM EST ORAL completed [facility] ([facility]) Omeprazole 40 MG Delayed Release Oral Capsule Omeprazole 07/11/2019 12:00:00 AM EST ORAL active [facility] (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 [place] [facility] [id number] S [id number] MEDICARE C [id number] S [id number] A Medicare Natl Govt Servic Medicare Primary [id number] Self [id number] [facility] Medigap Part B [id number] Self [id number] Medicare [place]l Govt Servic Medicare Primary [id number] Self [id number] Medicare [place] Govt Servic Medicare Primary [id number] Self [id number] Medicare [place] Govt Servic Medicare Primary [id number] Self [id number] Medicare [place] Govt Servic Medicare Primary [id number] Self [id number] Medicare [place] Govt Servic Medicare Primary [id number] Self [id number] [facility] [id number] SP [id number] MEDICARE [id number] SP [id number] A Medicare Natl Govt Servic Medicare Primary [id number] Self [id number] Medicare [place] Govt Servic Medicare Primary [id number] Self [id number] Medicare [place] Govt Servic Medicare Primary [id number] Self [id number] Medicare [place] Govt Servic Medicare Primary [id number] Self [id number] [facility] Medigap Part B [id number] Self [id number] Medicare Natl Govt Servic Medicare Primary Self [facility] [id number] No [id number] BS [place] [facility] [id number] SP [id number] SELF PAY [id number] SP [id number] Problems, Conditions, and Diagnoses Code Display Name Description Problem Type Effective Dates Data Source(s) R31.0 614239717 Gross hematuria Problem 06/13/2020 12:00:00 AM EST eCW1 ([facility]) N40.1 Lower urinary tract symptoms due to varun gn prostatic hypertrophy Benign prostatic hyperplasia with lower urinary tract symptoms Problem 05/25/2020 12:00:00 AM EST eCW1 ([facility]) N28.89 Disorder of kidney and/or ureter Urinary retention due to benign prostatic hyperplasia Problem 05/25/2020 12:00:00 AM EST eCW1 ([facility]) [id number] Chronic atrial fibrillation Chronic atrial fibrillatio n Problem 02/09/2020 12:00:00 AM EDT MED[facility] ([facility]) [id number] Radiology result abnormal Radiology result abnormal Pr oblem 01/26/2020 12:00:00 AM EDT MED[facility] ([facility]) [id number] Proteinuria Proteinuria Problem 01/11/2020 12:00:00 AM EDT [facility] ([facility]) [id number] Pure hypercholesterolemia Pure hypercholesterolemia Pr oblem 11/21/2019 12:00:00 AM EDT [facility] ([facility]) [id number] Infarction - precerebral Infarction - precerebral Prob kiet 11/21/2019 12:00:00 AM EDT [facility] ([facility]) [id number] Post poliomyelitis syndrome Post poliomyelitis syndrom e Problem 11/21/2019 12:00:00 AM EDT [facility] ([facility]) [id number] Obstructive sleep apnea syndrome Obstructive sle ep apnea syndrome Problem 11/21/2019 12:00:00 AM EDT [facility] ([facility]) [id number] Primary cardiomyopathy Primary cardiomyopathy Problem 11/21/2019 12:00:00 AM EDT [facility] ([facility]) 440187909 Chronic kidney disease stage 3 Chronic kidney disease stage 3 Problem 11/21/2019 12:00:00 AM EDT [facility] ([facility]) Hypertensive chronic kidney disease with stage 1 through stage 4 chronic kidney disease, or unspecified chronic kidney disease Hypertensive chronic kidney disease with stage 1 through stage 4 chronic kidney disease, or unspecified chronic kidney disease Problem 11/21/2019 12:00:00 AM ED T MED[facility] ([facility]) [id number] Long-term current use of anticoagulant L bryan-term current use of anticoagulant Problem 11/21/2019 12:00:00 AM EDT MEDENT ([facility]) 183150262 Chronic atrial fibrillation Chronic atrial fibrillatio n Problem 11/21/2019 12:00:00 AM EDT [facility] ([facility]) [id number] Long-term current use of insulin Long-term curre nt use of insulin Problem 11/21/2019 12:00:00 AM EDT [facility] ([facility]) Surgeries/Procedures Procedure Description Date Indications Data Source(s) INSJ TEMP NDWELLG BLADDER CATHETER SIMPLE 06/27/2020 1 2:00:00 AM EST eCW1 ([facility]) Voiding Trial 06/27/2020 12:00:00 AM EST eCW1 ([facility]) uro PVR (Post Voiding Residual) Bladder Scan 0 12:00:00 AM EST eCW1 ([facility]) Medication: Lidocaine HCl 2% Jelly 5mL Intravesically 05/25/2020 12:00:00 AM EST eCW1 ([facility]) Colonoscopy 02/15/2020 12:00:00 AM EDT M EDENT ([facility]) COLONOSCOPY FLX DX W/WO COLLJ SPECIMENS 02/15/2020 12: 00:00 AM EDT MED[facility] ([facility]) RADEX SPINE LUMBOSACRAL MINIMUM 4 VIEWS 01/25/2020 12: 00:00 AM EDT [facility] ([facility]) X-Ray Hip Unilateral With Pelvis 2-3 Views 01/25/2020 12:00:00 AM EDT MED[facility] ([facility]) Colonoscopy 07/11/2019 12:00:00 AM EST M EDENT ([facility]) Results ID Date Data Source URINE CULTURE 05/25/2020 12:00:00 AM EST [facility] Name Value Range Interpretation Code Description Data Fatmata rce(s) Supporting Document(s) URINE CULTURE eCW1 ([facility]) ID Date Data Source UA URINALYSIS 05/25/2020 12:00:00 AM EST [facility] Name Value Range Interpretation Code Description Data Fatmata rce(s) Supporting Document(s) UA URINALYSIS eCW1 ([facility]) ID Date Data Source [id number] 05/07/2020 11:22:00 AM EST [facility] Name Value Range Interpretation Code Description Data Fatmata rce(s) Supporting Document(s) Thyroxine (T4) free [Mass/volume] in Serum or Plasma 1.37 ng/dL 0.76- 1.46 [facility]) ID Date Data Source [id number] 05/07/2020 11:22:00 AM EST [facility]) Name Value Range Interpretation Code Description Data Fatmata rce(s) Supporting Document(s) Thyrotropin [Units/volume] in Serum or Plasma by Detec tion limit <= 0.05 mIU/L 6.03 uIU/mL 0.36-3.74 [facility] ([facility] ) ID Date Data Source [id number] 05/07/2020 11:22:00 AM EST [facility] Name Value Range Interpretation Code Description Data Fatmata rce(s) Supporting Document(s) Glucose mean value [Mass/volume] in Blood Estimated fr om glycated hemoglobin 206 mg/dL 60-110 [facility] Hemoglobin A1c/Hemoglobin.total in Blood 8.8 % [facility] Lab Result Notes: Pre-Diabetes 5.7 - 6.4 % Diabetes = or > 6.5% ID Date Data Source [id number] 03/29/2020 11:30:00 AM EDT [facility] ([facility]) Name Value Range Interpretation Code Description Data Fatmata rce(s) Supporting Document(s) WBC, Urine Laboratory test result 0-3 [facility] ([facility]) RBC, Urine Laboratory test result 0-3 [facility] ([facility]) Triple Phosphate Crystal,Urine Laboratory test result [facility] ([facility]) Squamous Epithelial Cell Urine Laboratory test result [facility] ([facility]) Mucus, Urine Laboratory test result MEDE NT ([facility]) Hyaline Cast, Urine Laboratory test result 0-1 [facility] ([facility]) Bacteria, Urine Laboratory test result M ED[facility] ([facility]) Microscopic Exam Laboratory test result [facility] ([facility]) Amorphous Sediment, Urine Laboratory test result [facility] ([facility]) ID Date Data Source [id number] 03/29/2020 11:30:00 AM EDT [facility] Name Value Range Interpretation Code Description Data Fatmata rce(s) Supporting Document(s) Color, Urine Manual Laboratory test result [facility] Appearance, Urine Manual Laboratory test result [facility] PH,Urine Man 8.5 units 5.0-7.0 [facility] Protein, Urine Manual Laboratory test result [facility] Specific [place],Urine Manual 1.017 1.002-1.035 [facility] ([facility]) Glucose, Urine (Ua) Manual Laboratory test result [facility] Urobilinogen, Urine Manual Laboratory test result [facility] Bilirubin, Urine Manual Laboratory test result [facility] Ketone, Urine Manual Laboratory test result [facility] Leukocyte Esterase, Urine Man Laboratory test result [facility] Nitrite, Urine Manual Laboratory test result [facility] Blood Urine Manual Laboratory test result [facility] ID Date Data Source [id number] 03/29/2020 11:30:00 AM EDT [facility] Name Value Range Interpretation Code Description Data Fatmata rce(s) Supporting Document(s) Bacteria identified in Urine by Culture Laboratory test result [facility] ([facility]) FULL REPORT IN LAB NOTES ([facility]CW and [facility] ). ORGANISM 1: AEROCOCCUS VIRIDANS COLONY COUNT >100,000 Aerococcus viridans appear to be susceptible to penicillin and display a low level of resistance to aminoglycoides. A. viridans seems to be naturally susceptible to macrolides, tetracyclines, and chloramphenicol, resistance to these agents has been observed. ORGANISM 1: AEROCOCCUS VIRIDANS ID Date Data Source [id number] 02/10/2020 11:00:00 AM EDT [facility] Name Value Range Interpretation Code Description Data Fatmata rce(s) Supporting Document(s) SARS coronavirus 2 RNA [facility] This lab was ordered by [facility] and reported by [facility]. ID Date Data Source [id number] 02/07/2020 01:25:00 PM EDT [facility] ([facility]) Name Value Range Interpretation Code Description Data Fatmata rce(s) Supporting Document(s) Bacteria identified in Urine by Culture Laboratory test result [facility] FULL REPORT IN LAB NOTES ([facility] and [facility] ). NO GROWTH ID Date Data Source [id number] 02/07/2020 01:25:00 PM EDT [facility] Name Value Range Interpretation Code Description Data Fatmata rce(s) Supporting Document(s) Appearance, Urine Laboratory test result [facility] PH,Urine 8.0 units 5.0-9.0 [facility]) Specific [place] Urine Auto 1.014 1.002-1.035 [facility] Color, Urine Laboratory test result [facility] Protein, Urine Auto Laboratory test result [facility] Glucose, Urine (Ua) Auto Laboratory test result [facility] Urobilinogen, Urine Auto 0.2 mg/dL 0.0-2.0 [facility] Ketone, Urine Auto Laboratory test result [facility] Bilirubin, Urine Auto Laboratory test result [facility] Nitrite, Urine Auto Laboratory test result [facility] Blood, Urine Blood Laboratory test result [facility] Leukocyte Esterase, Urine Auto Laboratory test result [facility] Bacteria, Urine Auto Laboratory test result [facility] RBC, Urine Auto 4 /HPF 0-3 [facility] ([facility]) WBC, Urine Auto 92 /HPF 0-3 [facility] ([facility]) Mucus, Urine Laboratory test result [facility] Hyaline Cast, Urine Auto 0 /LPF 0-1 [facility] Squamous Epithelial Cell Ur AU 4 /HPF 0-6 [facility] Triple Phosphate Crystals Laboratory test result [facility] ID Date Data Source [id number] 02/07/2020 01:24:00 PM EDT [facility] ([facility]) Name Value Range Interpretation Code Description Data Fatmata rce(s) Supporting Document(s) Urine Creatinine 71.7 mg/dL 30.0-125.0 [facility] Microalbumin Urine 5549.2 mg/L 1.3-20.0 [facility] ( [facility] NOTE: SPECIMEN WAS DILUTED MANY TIMES ...THIS HAS BEEN VERIFIED Microalb/Creat Ratio 7739.5 ug/mg 0.0-30.0 [facility] ([facility]) ID Date Data Source [id number] 02/06/2020 11:03:00 AM EDT [facility] ([facility]) Name Value Range Interpretation Code Description Data Fatmata rce(s) Supporting Document(s) Albumin % 45.0 % 55.8-66.1 [facility]) Helyh-1-Slfhnwty % 7.3 % 2.9-4.9 [facility] ([facility]) Rxlu-6-Gfewfmdmt % 5.3 % 4.7-7.2 [facility] ([facility]) Yroq-0-Bmnpupzhc % 6.7 % 3.2-6.5 [facility] ([facility]) Fehjw-5-Fvdzbrtmz % 15.5 % 7.1-11.8 [facility] ([facility]) Fylyh-9-Rigtbzktx 0.46 GM/DL 0.17-0.41 [facility] ([facility]) Gamma Globulin % 20.2 % 11.1-18.8 [facility] ([facility]) Albumin 2.84 GM/DL 3.29-5.55 [facility]) Wlje-0-Jhcmtnwlk 0.42 GM/DL 0.19-0.55 [facility] ([facility] Kqaa-9-Haznmyluf 0.33 GM/DL 0.28-0.60 [facility] ([facility] Hmmzm-0-Bqxpyyweo 0.98 GM/DL 0.42-0.99 [facility] ([facility]) Gamma Globulins 1.27 GM/DL 0.65-1.58 [facility] ([facility]) Spep Interpretation Laboratory test result [facility] ([facility]) M-SPIKE NOTED IN EARLY GAMMA REGION. CONCENTRATION = 0.33 GM/DL Total Protein 6.3 GM/DL 6.4-8.2 [facility] ([facility]) Laboratory test finding (navigational concept) Laboratory test result [facility] ([facility]) REV'D BY Jamison LOZANO ID Date Data Source [id number] 02/06/2020 11:01:00 AM EDT [facility] ([facility]) Name Value Range Interpretation Code Description Data Fatmata rce(s) Supporting Document(s) Glucose [Mass/volume] in Serum or Plasma 83 mg/dL 74-99 [facility] ([facility]) 100-125 mg/dL PRE-DIABETES/FASTING >126 mg/dL DIABETES/FASTING Urea nitrogen [Mass/volume] in Serum or Plasma 20 mg/dL 7-18 [facility] ([facility]) Sodium [Moles/volume] in Serum or Plasma 141 meq/L 136-145 [facility] ([facility]) Potassium [Moles/volume] in Serum or Plasma 4.2 meq/L 3.5-5.1 [facility] ([facility]) Creatinine 1.3 mg/dL 0.6-1.3 [facility] ([facility]) Glomerular filtration rate/1.73 sq M pre dicted among non-blacks [Volume Rate/Area] in Serum or Plasma by Creatinine-based formula (MDRD) 55 mL/min [facility] ([facility]) Calcium [Mass/volume] in Serum or Plasma 8.3 mg/dL 8.5-10.1 [facility] ([facility]) Chloride [Moles/volume] in Serum or Plasma 105 meq/L 98-107 [facility] ([facility]) Carbon dioxide, total [Moles/volume] in Serum or Plasma 28 meq/L 21 -32 [facility] ([facility]) Glomerular filtration rate/1.73 sq M pre dicted among blacks [Volume Rate/Area] in Serum or Plasma by Creatinine-based formula (MDRD) Laboratory test result [facility] <content>CHRONIC KIDNEY DISEASE STAGING PER NKF</content>
<content></content>
<content>STAGE I & II GFR >= 60 NORMAL TO MILDLY DECREASED</content>
<content>STAGE III GFR 30-59 MODERATELY DECREASED</content>
<content>STAGE IV GFR 15-29 SEVERELY DECREASED</content>
<content>STAGE V GFR <15 VERY LITTLE GFR LEFT</content>
<content>ESRD GFR <15 ON CHARTER PILOT</content>
<content></content> ID Date Data Source [id number] 02/06/2020 11:01:00 AM EDT [facility] ([facility]) Name Value Range Interpretation Code Description Data Fatmata rce(s) Supporting Document(s) Magnesium 1.6 mg/dL 1.8-2.4 [facility]) ID Date Data Source [id number] 01/12/2020 01:36:00 PM EDT [facility] ([facility]) Name Value Range Interpretation Code Description Data Fatmata rce(s) Supporting Document(s) Free [place] Light Chains Serum Laboratory test result [facility] ([facility]) SEE SEPARATE REPORT Testing performed at reference lab . Report copy to follow on a separate form. 02/28/20 REF LAB#:[id number] [place]/Lambda Ratio Serum Laboratory test result [facility] ([facility]) SEE SEPARATE REPORT Free Lambda Light Chains Serum Laboratory test result [facility] ([facility]) SEE SEPARATE REPORT ID Date Data Source [id number] 01/12/2020 01:36:00 PM EDT [facility] ([facility]) Name Value Range Interpretation Code Description Data Fatmata rce(s) Supporting Document(s) Free Lambda Light Chains Urine Laboratory test result [facility] ([facility]) SEE SEPARATE REPORT Free [place] Light Chains Urine Laboratory test result [facility] ([facility]) SEE SEPARATE REPORT [place]/Lambda Ratio Urine Laboratory test result [facility] ([facility]) SEE SEPARATE REPORT ID Date Data Source [id number] 01/12/2020 01:36:00 PM EDT [facility] ([facility]) Name Value Range Interpretation Code Description Data Fatmata rce(s) Supporting Document(s) Myoglobin Screen, Urine [facility] SUGGEST QUANTITATIVE TEST BE ORDERED FOR CONFIRMATION. Immunofixation for Urine Laboratory test result [facility] ([facility]) SEE SEPARATE REPORT Testing performed at reference lab . Report copy to follow on a separate form. 02/28/20 REF LAB#:[id number] Creatinine [Mass/volume] in Urine 91.6 mg/dL [facility] ([facility]) Protein electrophoresis panel - Urine Laboratory test result [facility] ([facility]) SEE SEPARATE REPORT Protein [Mass/volume] in Urine 488.2 mg/dL 0.0-12.0 [facility] ([facility]) ID Date Data Source [id number] 01/12/2020 01:36:00 PM EDT [facility] Name Value Range Interpretation Code Description Data Fatmata rce(s) Supporting Document(s) Myoglobin [Mass/volume] in Serum or Plasma 81 ng/mL 16-116 [facility]) ID Date Data Source [id number] 01/12/2020 01:36:00 PM EDT [facility] Name Value Range Interpretation Code Description Data Fatmata rce(s) Supporting Document(s) Albumin % Laboratory test result 55.8-66.1 [facility] ([facility]) Yzqxs-3-Jczzzwoap % Laboratory test result 7.1-11.8 [facility] ([facility]) Ondc-6-Mqhgafmfl % Laboratory test result 4.7-7.2 [facility] ([facility]) Yxxhm-0-Onucsmlk % Laboratory test result 2.9-4.9 [facility] ([facility]) Gamma Globulin % Laboratory test result 11.1-18.8 [facility] ([facility]) Lvrj-3-Wktjpoald % Laboratory test result 3.2-6.5 [facility] ([facility]) Tgson-8-Iszgrcnze Laboratory test result 0.42-0.99 [facility] Albumin Laboratory test result 3.29-5.55 [facility] ([facility]) Test not performed. Please resubmit wit h new order and sample. Qtsii-4-Wddsdyuwq Laboratory test result 0.17-0.41 [facility] ([facility]) Bdiu-2-Qpcoklqin Laboratory test result 0.19-0.55 [facility] Fibz-7-Ehpmofqij Laboratory test result 0.28-0.60 [facility] Gamma Globulins Laboratory test result 0.65-1.58 [facility] Total Protein Laboratory test result 6.4-8.2 [facility] Spep Interpretation For RFX Laboratory test result [facility] Laboratory test finding (navigational concept) Laboratory test result [facility] ([facility]) ID Date Data Source [id number] 01/12/2020 01:36:00 PM EDT [facility] Name Value Range Interpretation Code Description Data Fatmata rce(s) Supporting Document(s) Myoglobin Screen, Urine Laboratory test result [facility] Myoglobin [Mass/volume] in Serum or Plasma Laboratory test result [facility] Protein [Mass/volume] in Urine Laboratory test result [facility] ([facility]) Creatinine [Mass/volume] in Urine Laboratory test result [facility]) ID Date Data Source [id number] 01/17/2020 05:05:00 PM EDT [facility] Name Value Range Interpretation Code Description Data Fatmata rce(s) Supporting Document(s) Free [place] Lt Chains,S 65.3 mg/L 3.3-19.4 Above high normal [facility] Free Lambda Lt Chains,S 58.7 mg/L 5.7-26.3 Above high normal [facility] [place]/Lambda Ratio,S 1.11 0.26-1.65 [facility] ID Date Data Source [id number] 01/18/2020 04:05:00 AM EDT [facility] Name Value Range Interpretation Code Description Data Fatmata rce(s) Supporting Document(s) Free [place] Lt Chains,Ur 153.36 mg/L 0.63-113.79 Above high normal [facility] Free Lambda Lt Chains,Ur 54.49 mg/L 0.47-11.77 Above high normal [facility] [place]/Lambda Ratio,U 2.81 1.03-31.76 [facility] ID Date Data Source [id number] 01/18/2020 03:05:00 PM EDT [facility] Name Value Range Interpretation Code Description Data Fatmata rce(s) Supporting Document(s) Protein,Total,Urine 559.1 mg/dL Not Estab. [facility] Results confirmed ondilution. Albumin, U 74.8 % [facility] Xpgxe-2-Nzccyzgv, U 6.5 % [facility] Auwzh-4-Gtuxamfc, U 4.1 % [facility] Beta Globulin, U 8.9 % [facility] Gamma Globulin, U 5.7 % [facility] M-Fadi, % Not Observed % Not Observed [facility] Immunofixation Result, Urine L [facility] Immunofixation shows IgA monoclonal prot ein with kappa light chainspecificity.Monoclonal bands detected are faint. Suggest retesting in 4-6 months. Note: [facility] Protein electrophoresis scan will follow via computer, mail, orcourier delivery. PDF . [facility] ID Date Data Source [id number] 01/12/2020 11:13:00 AM EDT [facility] ([facility]) Name Value Range Interpretation Code Description Data Fatmata rce(s) Supporting Document(s) Creatine kinase [Enzymatic activity/volume] in Serum or Plasma 26 U /L 39-308 [facility] ([facility]) ID Date Data Source [id number] 01/12/2020 10:59:00 AM EDT [facility] ([facility]) Name Value Range Interpretation Code Description Data Fatmata rce(s) Supporting Document(s) Urine Creatinine 92.3 mg/dL 30.0-125.0 [facility] ([facility]) Microalbumin Urine 3505.9 mg/L 1.3-20.0 [facility] ( [facility]) Microalb/Creat Ratio 3798.4 ug/mg 0.0-30.0 [facility] ([facility]) ID Date Data Source [id number] 01/04/2020 12:00:00 AM EDT [facility] Imaging Melida Fofana MD Patient Name: ALVINA [id number] [facility] Date of : Floor [facility]: [facility] [id number] Fax: [phone] EXAM: CT ABDOMEN & PELVIS WITHOUT&WITH CONTRASTCLINICAL INFORMATION: Hematuria. UTI.Low dose [address] scanning of the abdomen and pelvis wasobtained with oral contrast, before and after the administration ofintravenous contrast using 3 mm increments and reconstructed in bothsagittal and coronal scan planes. Immediate and delayed post contrastenhanced imaging was obtained through the abdomen. 75 cc of Optiray 350was administered intravenously.The visualized lung bases demonstrate mild interstitial fibrotic change.There are small bilateral pleural effusions.There is mild elevation of the left hemidiaphragm. The liver demonstratesno evidence of mass. There appear to be small gallstones in thegallbladder without evidence of gallbladder wall edema. I do not seeevidence of significant biliary dilatation. The spleen is normal in sizewith no intrinsic abnormality. The adrenal glands are normal. Nopancreatic mass is seen. There is no evidence of renal, ureteral orbladder calculus. A cyst in the nnetv-jg-ckx left kidney measuresapproximately 1.8 cm in diameter. A cyst in the lower pole of the leftkidney measures 1.6 cm in diameter. There is no hydroureteronephrosisbilaterally. There is mild atherosclerotic calcification of the abdominalaorta without aneurysm. There is no adenopathy. There is no free air orfree fluid. There is sigmoid diverticulosis and left colonicdiverticulosis, with no evidence of acute diverticulitis. I suspect rectalwall thickening. Differential diagnosis would include inflammation orneoplasm. Prostate is moderately enlarged. Urinary bladder is moderatelydistended. There are degenerative changes of the spine. There is severeatrophy of the right pelvic and lower extremity musculature to the level ofthe proximal thigh.IMPRESSION:Small bilateral pleural effusion.Small gallstones in the gallbladder with no gallbladder wall edema orevidence of biliary dilatation. No renal, ureteral or bladder calculus.No hydroureteronephrosis. Two cysts left kidney as discussed above.Urinary bladder is moderately distended. Prostate is moderately enlarged.Sigmoid and left colonic diverticulosis without acute diverticulitis.There appears to be thickening of the wall of the rectum, which mayindicate inflammatory change or neoplasm.Accredited by the [employer] in [place].Davi Back, ASHLEY/Christiano you for referring ALVINA BLACKMAN to our office. Electronically Signed - DAVI BACK MD 01/04/20 18:16 Name Value Range Interpretation Code Description Data Fatmata rce(s) Supporting Document(s) ID Date Data Source [id number] 01/03/2020 11:46:00 AM EDT [facility] Name Value Range Interpretation Code Description Data Fatmata rce(s) Supporting Document(s) Urine Color Laboratory test result [facility] ([facility]) Urine Appearance Laboratory test result [facility] ([facility]) Specific gravity of Urine 1.015 1.005-1.030 [facility] ([facility]) Urine PH 7.0 units 5.0-9.0 [facility]) Urine Leukocytes Laboratory test result [facility] ([facility]) Urine Blood Laboratory test result Abnormal (applies to non-numeric results) [facility] ([facility]) Urine Protein Laboratory test result 0-0 Abnormal (applies to non-numeric results) [facility] ([facility]) Glucose [Presence] in Urine Laboratory test result [facility] ([facility]) Urine Nitrite Laboratory test result [facility] ([facility]) Urine Ketone Laboratory test result [facility] ([facility]) Urine Urobilinogen 0.2 mg/dL 0.2-1.0 [facility] ([facility]) Bilirubin.total [Mass/volume] in Serum or Plasma Laboratory test resu lt [facility] ([facility]) ID Date Data Source [id number] 01/03/2020 11:46:00 AM EDT [facility] ([facility]) Name Value Range Interpretation Code Description Data Fatmata rce(s) Supporting Document(s) Urine Creatinine 99.4 mg/dL 30.0-125.0 [facility] Microalbumin Urine 3327.8 mg/L 1.3-20.0 [facility] ([facility] Microalb/Creat Ratio 3347.9 ug/mg 0.0-30.0 [facility] ([facility]) ID Date Data Source [id number] 01/03/2020 10:44:00 AM EDT [facility] ([facility]) Name Value Range Interpretation Code Description Data Fatmata rce(s) Supporting Document(s) Ferritin [Mass/volume] in Serum or Plasma Laboratory test result [facility] ([facility]) ID Date Data Source [id number] 01/03/2020 10:33:00 AM EDT [facility] ([facility]) Name Value Range Interpretation Code Description Data Fatmata rce(s) Supporting Document(s) Thyrotropin [Units/volume] in Serum or Plasma by Detec tion limit <= 0.05 mIU/L 3.81 uIU/mL 0.36-3.74 [facility] ([facility] ) ID Date Data Source [id number] 01/03/2020 10:33:00 AM EDT [facility] ([facility]) Name Value Range Interpretation Code Description Data Fatmata rce(s) Supporting Document(s) Glucose [Mass/volume] in Serum or Plasma 205 mg/dL 74-99 [facility] ([facility]) 100-125 mg/dL PRE-DIABETES/FASTING >126 mg/dL DIABETES/FASTING Creatinine 1.2 mg/dL 0.6-1.3 [facility] Urea nitrogen [Mass/volume] in Serum or Plasma 20 mg/dL 7-18 [facility] ([facility]) Sodium [Moles/volume] in Serum or Plasma 142 meq/L 136-145 [facility] ([facility]) Potassium [Moles/volume] in Serum or Plasma 4.9 meq/L 3.5-5.1 [facility] ([facility]) Chloride [Moles/volume] in Serum or Plasma 104 meq/L 98-107 [facility] ([facility]) Calcium [Mass/volume] in Serum or Plasma 8.1 mg/dL 8.5-10.1 [facility] ([facility]) NOTE: RESULT VERIFIED. Glomerular filtration rate/1.73 sq M pre dicted among non-blacks [Volume Rate/Area] in Serum or Plasma by Creatinine-based formula (MDRD) Laboratory test result [facility] ([facility] ) Carbon dioxide, total [Moles/volume] in Serum or Plasma 28 meq/L 21 -32 [facility] ([facility]) Glomerular filtration rate/1.73 sq M pre dicted among blacks [Volume Rate/Area] in Serum or Plasma by Creatinine-based formula (MDRD) Laboratory test result [facility] ([facility]) <content>CHRONIC KIDNEY DISEASE STAGING PER NKF</content>
<content></content>
<content>STAGE I & II GFR >= 60 NORMAL TO MILDLY DECREASED</content>
<content>STAGE III GFR 30-59 MODERATELY DECREASED</content>
<content>STAGE IV GFR 15-29 SEVERELY DECREASED</content>
<content>STAGE V GFR <15 VERY LITTLE GFR LEFT</content>
<content>ESRD GFR <15 ON CHARTER PILOT</content>
<content></content> ID Date Data Source [id number] 01/03/2020 10:33:00 AM EDT [facility] ([facility]) Name Value Range Interpretation Code Description Data Fatmata rce(s) Supporting Document(s) Magnesium 1.8 mg/dL 1.8-2.4 [facility] ([facility]) ID Date Data Source [id number] 01/03/2020 10:33:00 AM EDT [facility] ([facility]) Name Value Range Interpretation Code Description Data Fatmata rce(s) Supporting Document(s) Hemoglobin A1c/Hemoglobin.total in Blood 7.8 g/dL 4.8-5.6 [facility] Lab Result Notes: Pre-Diabetes 5.7 - 6.4 % Diabetes = or > 6.5% Glucose mean value [Mass/volume] in Blood Estimated fr om glycated hemoglobin 177 mg/dL 60-110 [facility] ID Date Data Source [id number] 01/03/2020 10:33:00 AM EDT [facility] Name Value Range Interpretation Code Description Data Fatmata rce(s) Supporting Document(s) Leukocytes [#/volume] in Blood by Automated count 12.1 x10*3/UL 4.1-1 0.9 [facility] Hematocrit [Volume Fraction] of Blood by Automated count 31.6 % 3 7.0-51.0 [facility] ([facility]) Erythrocytes [#/volume] in Blood by Automated count 3.69 x10*6/UL 4.2 0-6.30 [facility] Hemoglobin [Mass/volume] in Blood 10.9 g/dL 12.0-18.0 [facility] NOTE: RESULT VERIFIED. MCV 85.7 fL 80.0-97.0 [facility] ([facility]) MCH 29.5 pg 26.0-32.0 [facility] ([facility]) MCHC 34.4 g/dL 31.0-38.0 [facility] ([facility]) Erythrocyte distribution width [Ratio] by Automated count 16.6 % 11.6-13.7 [facility] Platelets [#/volume] in Blood by Automated count 368 x10*3/UL 140-440 [facility] MPV 9.3 FL 7.8-11.0 [facility] ([facility]) Mid % 5.6 % 1.7-9.3 [facility] ([facility]) Lymph % 16.5 % 10.0-58.5 [facility] ([facility]) Lymph # 2.0 x10*3/UL 0.6-4.1 [facility] ([facility]) Neut % 77.9 % 37.0-92.0 [facility] ([facility]) Mid # 0.7 x10*3/UL 0.1-0.6 [facility] ([facility]) Neut # 9.4 x10*3/UL 2.0-7.8 [facility] ([facility]) ID Date Data Source [id number] 01/03/2020 10:33:00 AM EDT [facility]) Name Value Range Interpretation Code Description Data Fatmata rce(s) Supporting Document(s) Magnesium, Serum Laboratory test result [facility] ([facility]) Hemoglobin A1c/Hemoglobin.total in Blood Laboratory test result [facility]) ID Date Data Source [id number] 01/03/2020 10:32:00 AM EDT [facility] ([facility]) Name Value Range Interpretation Code Description Data Fatmata rce(s) Supporting Document(s) Prostate specific Ag [Mass/volume] in Serum or Plasma 1.63 ng/mL [facility] ([facility]) This assay was performed on the Siemens Dimension EXL using the B- Galactosidase/CPRG methodology and should not be compared interchangeably with other methods. The PSA should not be used alone as a screening test for the presence or absence of malignant disease. ID Date Data Source [id number] 01/03/2020 10:32:00 AM EDT [facility] ([facility]) Name Value Range Interpretation Code Description Data Fatmata rce(s) Supporting Document(s) Cholesterol [Mass/volume] in Serum or Plasma 114 mg/dL 131-200 [facility] ([facility]) Triglyceride [Mass/volume] in Serum or Plasma 61 mg/dL 30-150 [facility] ([facility]) Cholesterol in LDL [Mass/volume] in Serum or Plasma by calcu lation 70 CALC 50-159 [facility] ([facility]) Cholesterol in HDL [Mass/volume] in Serum or Plasma 32 mg/dL 35-60 [facility] ([facility]) ID Date Data Source [id number] 01/03/2020 10:32:00 AM EDT [facility] ([facility]) Name Value Range Interpretation Code Description Data Fatmata rce(s) Supporting Document(s) Alkaline phosphatase isoenzyme [Units/volume] in Serum or Pl asma 128 mg/dL 46-116 [facility] ([facility]) Total Bilirubin 0.6 mg/dL 0.2-1.0 [facility] ([facility]) Alanine aminotransferase [Enzymatic activity/volume] in Seru m or Plasma 16 U/L 12-78 [facility] ([facility]) Aspartate aminotransferase [Enzymatic activity/volume] in Serum or Plasma 18 U/L 15-37 [facility] Albumin [Mass/volume] in Serum or Plasma 2.4 g/dL 3.4-5.0 [facility] ([facility]) NOTE: RESULT VERIFIED. Proteinase 3 Ab [Units/volume] in Serum 6.1 g/dL 6.4-8.2 [facility] Direct Bilirubin 0.2 mg/dL 0.0-0.2 [facility] ([facility]) A/G Ratio 0.65 CALC 1.00-1.90 [facility] ([facility]) ID Date Data Source [id number] 12/19/2019 11:45:00 AM EDT [facility] ([facility]) Name Value Range Interpretation Code Description Data Fatmata rce(s) Supporting Document(s) Microalbumin Urine 1594.2 mg/L 1.3-20.0 [facility] ([facility]) 240.3 Microalb/Creat Ratio 2652.6 ug/mg 0.0-30.0 [facility] Urine Creatinine 60.1 mg/dL 30.0-125.0 [facility] ([facility]) ID Date Data Source [id number] 12/19/2019 11:45:00 AM EDT [facility] Name Value Range Interpretation Code Description Data Fatmata rce(s) Supporting Document(s) Urine Color Laboratory test result [facility] Specific gravity of Urine 1.020 1.005-1.030 [facility] Urine Appearance [facility] Urine PH 6.0 units 5.0-9.0 [facility] ([facility]) Urine Blood Laboratory test result Abnormal (applies to non-numeric results) [facility] ([facility]) Urine Leukocytes Laboratory test result [facility] ([facility]) Urine Nitrite Laboratory test result [facility] ([facility]) Urine Protein Laboratory test result 0-0 Abnormal (applies to non-numeric results) [facility] ([facility]) Glucose [Presence] in Urine Laboratory test result [facility] ([facility]) Urine Urobilinogen 0.2 mg/dL 0.2-1.0 [facility] ([facility]) Urine Ketone Laboratory test result [facility] ([facility]) Bilirubin.total [Mass/volume] in Serum or Plasma Laboratory test resu lt [facility] ([facility]) ID Date Data Source [id number] 12/19/2019 11:45:00 AM EDT [facility] ([facility]) Name Value Range Interpretation Code Description Data Fatmata rce(s) Supporting Document(s) Glucose [Mass/volume] in Serum or Plasma 132 mg/dL 74-99 [facility] ([facility]) 100-125 mg/dL PRE-DIABETES/FASTING >126 mg/dL DIABETES/FASTING Urea nitrogen [Mass/volume] in Serum or Plasma 24 mg/dL 7-18 [facility] ([facility]) Creatinine 1.3 mg/dL 0.6-1.3 [facility]) Sodium [Moles/volume] in Serum or Plasma 141 meq/L 136-145 [facility] ([facility]) Chloride [Moles/volume] in Serum or Plasma 103 meq/L 98-107 [facility] ([facility]) Potassium [Moles/volume] in Serum or Plasma 4.4 meq/L 3.5-5.1 [facility] ([facility]) Glomerular filtration rate/1.73 sq M pre dicted among non-blacks [Volume Rate/Area] in Serum or Plasma by Creatinine-based formula (MDRD) 55 mL/min [facility] Carbon dioxide, total [Moles/volume] in Serum or Plasma 30 meq/L 21 -32 [facility] ([facility]) Calcium [Mass/volume] in Serum or Plasma 8.5 mg/dL 8.5-10.1 [facility] ([facility]) Glomerular filtration rate/1.73 sq M pre dicted among blacks [Volume Rate/Area] in Serum or Plasma by Creatinine-based formula (MDRD) Laboratory test result [facility] <content>CHRONIC KIDNEY DISEASE STAGING PER NKF</content>
<content></content>
<content>STAGE I & II GFR >= 60 NORMAL TO MILDLY DECREASED</content>
<content>STAGE III GFR 30-59 MODERATELY DECREASED</content>
<content>STAGE IV GFR 15-29 SEVERELY DECREASED</content>
<content>STAGE V GFR <15 VERY LITTLE GFR LEFT</content>
<content>ESRD GFR <15 ON CHARTER PILOT</content>
<content></content> ID Date Data Source [id number] 12/19/2019 11:45:00 AM EDT [facility] ([facility]) Name Value Range Interpretation Code Description Data Fatmata rce(s) Supporting Document(s) Magnesium 1.4 mg/dL 1.8-2.4 [facility] ([facility]) NOTE: RESULT VERIFIED. ID Date Data Source [id number] 12/08/2019 09:04:00 AM EDT [facility] Name Value Range Interpretation Code Description Data Fatmata rce(s) Supporting Document(s) Color, Urine Laboratory test result [facility] ([facility]) Appearance, Urine Laboratory test result [facility] ([facility]) Protein, Urine Auto Laboratory test result [facility] ([facility]) Specific [place] Urine Auto 1.014 1.002-1.035 [facility] ([facility]) PH,Urine 6.0 units 5.0-9.0 [facility] ([facility]) Ketone, Urine Auto Laboratory test result [facility] ([facility]) Glucose, Urine (Ua) Auto Laboratory test result [facility] Urobilinogen, Urine Auto 2.0 mg/dL 0.0-2.0 [facility] ([facility]) Bilirubin, Urine Auto Laboratory test result [facility] ([facility]) Nitrite, Urine Auto Laboratory test result [facility] ([facility]) Blood, Urine Blood Laboratory test result [facility] Leukocyte Esterase, Urine Auto Laboratory test result [facility] ([facility]) RBC, Urine Auto 7 /HPF 0-3 [facility] ([facility]) WBC, Urine Auto 1 /HPF 0-3 [facility] ([facility]) Bacteria, Urine Auto Laboratory test result [facility] Squamous Epithelial Cell Ur AU 1 /HPF 0-6 [facility] Hyaline Cast, Urine Auto 0 /LPF 0-1 [facility] ID Date Data Source [id number] 12/08/2019 09:04:00 AM EDT [facility] Name Value Range Interpretation Code Description Data Fatmata rce(s) Supporting Document(s) Microscopic observation [Identifier] in Unspecified specimen by Non- gynecological cytology method Laboratory test result [facility] Bacteria identified in Urine by Culture Laboratory test result [facility] FULL REPORT IN LAB NOTES (eCW and [facility] ). NO GROWTH ID Date Data Source [id number] 12/08/2019 09:03:00 AM EDT [facility] Name Value Range Interpretation Code Description Data Fatmata rce(s) Supporting Document(s) Erythrocytes [#/volume] in Blood by Automated count 3.86 x10*6/UL 4.2 0-6.30 [facility] ([facility]) Leukocytes [#/volume] in Blood by Automated count 10.4 x10*3/UL 4.1-1 0.9 [facility] MCV 87.8 fL 80.0-97.0 [facility] ([facility]) Hemoglobin [Mass/volume] in Blood 11.2 g/dL 12.0-18.0 [facility] ([facility]) NOTE: RESULT VERIFIED. Hematocrit [Volume Fraction] of Blood by Automated count 33.9 % 3 7.0-51.0 [facility] ([facility]) MCHC 33.1 g/dL 31.0-38.0 [facility] ([facility]) MCH 29.0 pg 26.0-32.0 [facility] ([facility]) Erythrocyte distribution width [Ratio] by Automated count 17.3 % 11.6-13.7 [facility] Platelets [#/volume] in Blood by Automated count 272 x10*3/UL 140-440 [facility] ([facility]) Lymph % 16.3 % 10.0-58.5 [facility] ([facility]) MPV 9.0 FL 7.8-11.0 [facility] ([facility]) Mid % 5.8 % 1.7-9.3 [facility] ([facility]) Neut % 77.9 % 37.0-92.0 [facility] ([facility]) Mid # 0.6 x10*3/UL 0.1-0.6 [facility] ([facility]) Lymph # 1.7 x10*3/UL 0.6-4.1 [facility] ([facility]) Neut # 8.1 x10*3/UL 2.0-7.8 [facility] ([facility]) ID Date Data Source [id number] 12/08/2019 09:03:00 AM EDT [facility] Name Value Range Interpretation Code Description Data Fatmata rce(s) Supporting Document(s) Hemoglobin A1c/Hemoglobin.total in Blood 7.9 g/dL 4.8-5.6 [facility] Lab Result Notes: Pre-Diabetes 5.7 - 6.4 % Diabetes = or > 6.5% Glucose mean value [Mass/volume] in Blood Estimated fr om glycated hemoglobin 180 mg/dL 60-110 [facility] ID Date Data Source [id number] 12/08/2019 09:03:00 AM EDT [facility] Name Value Range Interpretation Code Description Data Fatmata rce(s) Supporting Document(s) Magnesium 1.4 mg/dL 1.8-2.4 [facility] ([facility]) NOTE: RESULT VERIFIED. ID Date Data Source [id number] 12/08/2019 09:03:00 AM EDT [facility] ([facility]) Name Value Range Interpretation Code Description Data Fatmata rce(s) Supporting Document(s) Glucose [Mass/volume] in Serum or Plasma 98 mg/dL 74-99 [facility] ([facility]) 100-125 mg/dL PRE-DIABETES/FASTING >126 mg/dL DIABETES/FASTING Urea nitrogen [Mass/volume] in Serum or Plasma 23 mg/dL 7-18 [facility] ([facility]) Creatinine 1.5 mg/dL 0.6-1.3 [facility] ([facility]) Sodium [Moles/volume] in Serum or Plasma 141 meq/L 136-145 [facility] ([facility]) Chloride [Moles/volume] in Serum or Plasma 106 meq/L 98-107 [facility] ([facility]) Potassium [Moles/volume] in Serum or Plasma 4.5 meq/L 3.5-5.1 [facility] ([facility]) Glomerular filtration rate/1.73 sq M pre dicted among non-blacks [Volume Rate/Area] in Serum or Plasma by Creatinine-based formula (MDRD) 47 mL/min [facility] ([facility]) Calcium [Mass/volume] in Serum or Plasma 8.1 mg/dL 8.5-10.1 [facility] ([facility]) NOTE: RESULT VERIFIED. Carbon dioxide, total [Moles/volume] in Serum or Plasma 28 meq/L 21 -32 [facility] Glomerular filtration rate/1.73 sq M pre dicted among blacks [Volume Rate/Area] in Serum or Plasma by Creatinine-based formula (MDRD) 57 mL/min [facility] <content>CHRONIC KIDNEY DISEASE STAGING PER NKF</content>
<content></content>
<content>STAGE I & II GFR >= 60 NORMAL TO MILDLY DECREASED</content>
<content>STAGE III GFR 30-59 MODERATELY DECREASED</content>
<content>STAGE IV GFR 15-29 SEVERELY DECREASED</content>
<content>STAGE V GFR <15 VERY LITTLE GFR LEFT</content>
<content>ESRD GFR <15 ON CHARTER PILOT</content>
<content></content> ID Date Data Source [id number] 12/08/2019 09:03:00 AM EDT [facility] ([facility]) Name Value Range Interpretation Code Description Data Fatmata rce(s) Supporting Document(s) Digoxin [Mass/volume] in Serum or Plasma 1.0 ng/mL 0.5-2.0 [facility] ([facility]) ID Date Data Source [id number] 12/08/2019 09:03:00 AM EDT [facility] ([facility]) Name Value Range Interpretation Code Description Data Fatmata rce(s) Supporting Document(s) Microscopic observation [Identifier] in Unspecified specimen by Non- gynecological cytology method Laboratory test result [facility] SPECIMEN: Urine 60ml Dark yellow SPECIMEN ADEQUACY: Satisfactory for evaluation CATEGORIZATION: Negative for Malignancy DESCRIPTIONS: Urothelial cells noted COMMENTS: 12/12/2019 - 1245 Signed EDMUNDO RAMSEY(ASCP) 12/12/2019 1246 (Prelim) Signed Sree Lozano MD 12/12/2019 1311 ID Date Data Source [id number] 12/08/2019 09:03:00 AM EDT [facility] ([facility]) Name Value Range Interpretation Code Description Data Fatmata rce(s) Supporting Document(s) Magnesium, Serum Laboratory test result [facility] ([facility]) Hemoglobin A1c/Hemoglobin.total in Blood Laboratory test result [facility] ([facility]) ID Date Data Source [id number] 11/21/2019 03:53:00 PM EDT [facility] ([facility]) Name Value Range Interpretation Code Description Data Fatmata rce(s) Supporting Document(s) Appearance, Urine Manual Laboratory test result [facility] ([facility]) PH,Urine Man 8.5 units 5.0-7.0 [facility] ([facility]) Color, Urine Manual Laboratory test result [facility] ([facility]) Glucose, Urine (Ua) Manual Laboratory test result [facility] ([facility]) Protein, Urine Manual Laboratory test result [facility] ([facility]) Specific [place],Urine Manual 1.016 1.002-1.035 [facility] Urobilinogen, Urine Manual Laboratory test result [facility] ([facility]) Ketone, Urine Manual Laboratory test result [facility] ([facility]) Nitrite, Urine Manual Laboratory test result [facility] Bilirubin, Urine Manual Laboratory test result [facility] ([facility]) Blood Urine Manual Laboratory test result [facility] Leukocyte Esterase, Urine Man Laboratory test result [facility] ID Date Data Source [id number] 11/21/2019 03:53:00 PM EDT [facility] Name Value Range Interpretation Code Description Data Fatmata rce(s) Supporting Document(s) Neutrophils 83 % 28-66 [facility] ([facility]) Lymphocytes 8 % 16-44 [facility] ([facility]) Monocytes 7 % 0-5 [facility] ([facility]) Eosinophils 1 % 0-3 [facility] ([facility]) Basophils 1 % 0-1 [facility] ([facility]) Anisocytosis Laboratory test result [facility] Crenated RBC Laboratory test result [facility] ([facility]) Platelet Estimate Laboratory test result [facility] Ovalocytes Laboratory test result [facility] ID Date Data Source [id number] 11/21/2019 03:53:00 PM EDT [facility] Name Value Range Interpretation Code Description Data Fatmata rce(s) Supporting Document(s) RBC, Urine Laboratory test result 0-3 [facility] ([facility]) WBC, Urine Laboratory test result 0-3 [facility] ([facility]) Squamous Epithelial Cell Urine Laboratory test result [facility] ([facility]) Hyaline Cast, Urine Laboratory test result 0-1 [facility] Bacteria, Urine Laboratory test result [facility] Mucus, Urine Laboratory test result [facility] Amorphous Sediment, Urine Laboratory test result [facility] ([facility]) Microscopic Exam Laboratory test result [facility] ([facility]) ID Date Data Source [id number] 11/21/2019 03:53:00 PM EDT [facility] Name Value Range Interpretation Code Description Data Fatmata rce(s) Supporting Document(s) Bacteria identified in Urine by Culture Laboratory test result [facility] FULL REPORT IN LAB NOTES ([facility]CW and [facility] ). ORGANISM 1: AEROCOCCUS VIRIDANS COLONY COUNT >100,000 Aerococcus viridans appear to be susceptible to penicillin and display a low level of resistance to aminoglycoides. A. viridans seems to be naturally susceptible to macrolides, tetracyclines, and chloramphenicol, resistance to these agents has been observed. ORGANISM 1: AEROCOCCUS VIRIDANS ID Date Data Source [id number] 11/21/2019 03:39:00 PM EDT [facility] Name Value Range Interpretation Code Description Data Fatmata rce(s) Supporting Document(s) Creatine kinase [Enzymatic activity/volume] in Serum or Plasma 63 U /L 39-308 [facility] ID Date Data Source [id number] 11/21/2019 03:39:00 PM EDT [facility] ([facility]) Name Value Range Interpretation Code Description Data Fatmata rce(s) Supporting Document(s) Leukocytes [#/volume] in Blood by Automated count 14.4 x10*3/UL 4.1-1 0.9 [facility] NOTE: MANUAL DIFFERENTIAL SENT TO [facility] FOR VERIFICATION. Erythrocytes [#/volume] in Blood by Automated count 4.53 x10*6/UL 4.2 0-6.30 [facility]) Hematocrit [Volume Fraction] of Blood by Automated count 38.8 % 3 7.0-51.0 [facility] ([facility]) Hemoglobin [Mass/volume] in Blood 12.8 g/dL 12.0-18.0 [facility] ([facility]) MCH 28.2 pg 26.0-32.0 [facility] MCV 85.5 fL 80.0-97.0 [facility] MCHC 32.9 g/dL 31.0-38.0 [facility] ([facility]) MPV 8.5 FL 7.8-11.0 [facility] ([facility]) Platelets [#/volume] in Blood by Automated count 362 x10*3/UL 140-440 [facility] ([facility]) Erythrocyte distribution width [Ratio] by Automated count 16.9 % 11.6-13.7 [facility] ([facility]) Lymph % 7.1 % 10.0-58.5 [facility] Mid % 8.5 % 1.7-9.3 [facility] Neut # 12.1 x10*3/UL 2.0-7.8 [facility] ([facility]) Neut % 84.4 % 37.0-92.0 [facility] ([facility]) Mid # 1.3 x10*3/UL 0.1-0.6 [facility] ([facility]) Lymph # 1.0 x10*3/UL 0.6-4.1 [facility] ([facility]) ID Date Data Source [id number] 11/21/2019 03:39:00 PM EDT [facility] ([facility]) Name Value Range Interpretation Code Description Data Fatmata rce(s) Supporting Document(s) Urea nitrogen [Mass/volume] in Serum or Plasma 30 mg/dL 7-18 [facility] ([facility]) Glucose [Mass/volume] in Serum or Plasma 119 mg/dL 74-99 [facility] ([facility]) 100-125 mg/dL PRE-DIABETES/FASTING >126 mg/dL DIABETES/FASTING Creatinine 1.5 mg/dL 0.6-1.3 [facility] ([facility]) Sodium [Moles/volume] in Serum or Plasma 141 meq/L 136-145 [facility] ([facility]) Potassium [Moles/volume] in Serum or Plasma 4.2 meq/L 3.5-5.1 [facility] ([facility]) Carbon dioxide, total [Moles/volume] in Serum or Plasma 33 meq/L 21 -32 [facility] ([facility]) Chloride [Moles/volume] in Serum or Plasma 104 meq/L 98-107 [facility] ([facility]) Calcium [Mass/volume] in Serum or Plasma 8.7 mg/dL 8.5-10.1 [facility] ([facility]) Alkaline phosphatase isoenzyme [Units/volume] in Serum or Pl asma 126 mg/dL 46-116 [facility] ([facility]) Total Bilirubin 0.8 mg/dL 0.2-1.0 [facility] ([facility]) Aspartate aminotransferase [Enzymatic activity/volume] in Serum or Plasma 10 U/L 15-37 [facility] ([facility] ) Alanine aminotransferase [Enzymatic activity/volume] in Seru m or Plasma 9 U/L 12-78 [facility] ([facility]) Albumin [Mass/volume] in Serum or Plasma 2.5 g/dL 3.4-5.0 [facility] ([facility]) A/G Ratio 0.57 CALC 1.00-1.90 [facility] ([facility]) Proteinase 3 Ab [Units/volume] in Serum 6.9 g/dL 6.4-8.2 [facility] ([facility]) Glomerular filtration rate/1.73 sq M pre dicted among blacks [Volume Rate/Area] in Serum or Plasma by Creatinine-based formula (MDRD) 57 mL/min [facility] [facility] <content>CHRONIC KIDNEY DISEASE STAGING PER NKF</content>
<content></content>
<content>STAGE I & II GFR >= 60 NORMAL TO MILDLY DECREASED</content>
<content>STAGE III GFR 30-59 MODERATELY DECREASED</content>
<content>STAGE IV GFR 15-29 SEVERELY DECREASED</content>
<content>STAGE V GFR <15 VERY LITTLE GFR LEFT</content>
<content>ESRD GFR <15 ON CHARTER PILOT</content>
<content></content> Glomerular filtration rate/1.73 sq M pre dicted among non-blacks [Volume Rate/Area] in Serum or Plasma by Creatinine-based formula (MDRD) 47 mL/min [facility] ([facility]) ID Date Data Source [id number] 07/19/2019 11:57:00 AM EST [facility] ([facility]) Name Value Range Interpretation Code Description Data Fatmata rce(s) Supporting Document(s) Urate [Mass/volume] in Serum or Plasma 5.4 mg/dL 3.5-7.2 [facility] ([facility]) ID Date Data Source [id number] 07/19/2019 11:56:00 AM EST [facility] ([facility]) Name Value Range Interpretation Code Description Data Fatmata rce(s) Supporting Document(s) Urea nitrogen [Mass/volume] in Serum or Plasma 23 mg/dL 7-18 [facility] ([facility]) Glucose [Mass/volume] in Serum or Plasma 106 mg/dL 74-99 [facility] ([facility]) 100-125 mg/dL PRE-DIABETES/FASTING >126 mg/dL DIABETES/FASTING Creatinine 1.3 mg/dL 0.6-1.3 [facility] ([facility]) Sodium [Moles/volume] in Serum or Plasma 142 meq/L 136-145 [facility] ([facility]) Potassium [Moles/volume] in Serum or Plasma 4.9 meq/L 3.5-5.1 [facility] ([facility]) Glomerular filtration rate/1.73 sq M pre dicted among non-blacks [Volume Rate/Area] in Serum or Plasma by Creatinine-based formula (MDRD) 55 mL/min [facility] ([facility]) Carbon dioxide, total [Moles/volume] in Serum or Plasma 30 meq/L 21 -32 [facility] ([facility]) Calcium [Mass/volume] in Serum or Plasma 8.3 mg/dL 8.5-10.1 [facility] ([facility]) Chloride [Moles/volume] in Serum or Plasma 105 meq/L 98-107 [facility] ([facility]) Glomerular filtration rate/1.73 sq M pre dicted among blacks [Volume Rate/Area] in Serum or Plasma by Creatinine-based formula (MDRD) [facility] <content>CHRONIC KIDNEY DISEASE STAGING PER NKF</content>
<content></content>
<content>STAGE I & II GFR >= 60 NORMAL TO MILDLY DECREASED</content>
<content>STAGE III GFR 30-59 MODERATELY DECREASED</content>
<content>STAGE IV GFR 15-29 SEVERELY DECREASED</content>
<content>STAGE V GFR <15 VERY LITTLE GFR LEFT</content>
<content>ESRD GFR <15 ON CHARTER PILOT</content>
<content></content> ID Date Data Source [id number] 07/19/2019 11:56:00 AM EST [facility] ([facility]) Name Value Range Interpretation Code Description Data Fatmata rce(s) Supporting Document(s) Magnesium 1.5 mg/dL 1.8-2.4 [facility]) NOTE: RESULT VERIFIED. ID Date Data Source [id number] 07/19/2019 11:56:00 AM EST [facility] ([facility]) Name Value Range Interpretation Code Description Data Fatmata rce(s) Supporting Document(s) Hemoglobin A1c/Hemoglobin.total in Blood 7.8 g/dL 4.8-5.6 [facility] Lab Result Notes: Pre-Diabetes 5.7 - 6.4 % Diabetes = or > 6.5% Glucose mean value [Mass/volume] in Blood Estimated fr om glycated hemoglobin 177 mg/dL 60-110 [facility] ID Date Data Source [id number] 07/19/2019 11:56:00 AM EST [facility] ([facility]) Name Value Range Interpretation Code Description Data Fatmata rce(s) Supporting Document(s) Leukocytes [#/volume] in Blood by Automated count 10.0 x10*3/UL 4.1-1 0.9 [facility] ([facility]) Hemoglobin [Mass/volume] in Blood 11.2 g/dL 12.0-18.0 [facility] ([facility]) NOTE: RESULT VERIFIED. Erythrocytes [#/volume] in Blood by Automated count 4.08 x10*6/UL 4.2 0-6.30 [facility] ([facility]) MCV 84.3 fL 80.0-97.0 [facility] ([facility]) MCH 27.4 pg 26.0-32.0 [facility] ([facility]) Hematocrit [Volume Fraction] of Blood by Automated count 34.4 % 3 7.0-51.0 [facility] MCHC 32.5 g/dL 31.0-38.0 [facility] ([facility]) Platelets [#/volume] in Blood by Automated count 265 x10*3/UL 140-440 [facility] Erythrocyte distribution width [Ratio] by Automated count 17.7 % 11.6-13.7 [facility] Mid % 4.3 % 1.7-9.3 [facility] ([facility]) Lymph % 13.9 % 10.0-58.5 [facility] ([facility]) MPV 8.7 FL 7.8-11.0 [facility] ([facility]) Neut % 81.8 % 37.0-92.0 [facility] ([facility]) Neut # 8.2 x10*3/UL 2.0-7.8 [facility] ([facility]) Mid # 0.5 x10*3/UL 0.1-0.6 [facility] ([facility]) Lymph # 1.3 x10*3/UL 0.6-4.1 [facility] ID Date Data Source [id number] 07/19/2019 11:56:00 AM EST [facility] Name Value Range Interpretation Code Description Data Fatmata rce(s) Supporting Document(s) Thyrotropin [Units/volume] in Serum or Plasma by Detec tion limit <= 0.05 mIU/L 3.27 uIU/mL 0.36-3.74 [facility] ([facility] ) ID Date Data Source [id number] 07/11/2019 10:51:00 AM EST [facility] Name Value Range Interpretation Code Description Data Fatmata rce(s) Supporting Document(s) Bedside Glucose 95 mg/dL 80-115 [facility] ([facility]) ID Date Data Source [id number] 06/14/2019 10:14:00 AM EST [facility] ([facility]) Name Value Range Interpretation Code Description Data Fatmata rce(s) Supporting Document(s) Creatinine 1.2 mg/dL 0.6-1.3 [facility] Urea nitrogen [Mass/volume] in Serum or Plasma 21 mg/dL 7-18 [facility] ([facility]) Glucose [Mass/volume] in Serum or Plasma 102 mg/dL 74-99 [facility] ([facility]) 100-125 mg/dL PRE-DIABETES/FASTING >126 mg/dL DIABETES/FASTING Potassium [Moles/volume] in Serum or Plasma 4.2 meq/L 3.5-5.1 [facility] ([facility]) Chloride [Moles/volume] in Serum or Plasma 103 meq/L 98-107 [facility] ([facility]) Carbon dioxide, total [Moles/volume] in Serum or Plasma 32 meq/L 21 -32 [facility] ([facility]) Sodium [Moles/volume] in Serum or Plasma 143 meq/L 136-145 [facility] ([facility]) Glomerular filtration rate/1.73 sq M pre dicted among non-blacks [Volume Rate/Area] in Serum or Plasma by Creatinine-based formula (MDRD) Laboratory [facility] ) Glomerular filtration rate/1.73 sq M pre dicted among blacks [Volume Rate/Area] in Serum or Plasma by Creatinine-based formula (MDRD) Laboratory test result [facility] ([facility]) <content>CHRONIC KIDNEY DISEASE STAGING PER NKF</content>
<content></content>
<content>STAGE I & II GFR >= 60 NORMAL TO MILDLY DECREASED</content>
<content>STAGE III GFR 30-59 MODERATELY DECREASED</content>
<content>STAGE IV GFR 15-29 SEVERELY DECREASED</content>
<content>STAGE V GFR <15 VERY LITTLE GFR LEFT</content>
<content>ESRD GFR <15 ON CHARTER PILOT</content>
<content></content> Calcium [Mass/volume] in Serum or Plasma 9.0 mg/dL 8.5-10.1 [facility] ([facility]) ID Date Data Source [id number] 06/14/2019 10:14:00 AM EST [facility] ([facility]) Name Value Range Interpretation Code Description Data Fatmata rce(s) Supporting Document(s) Erythrocytes [#/volume] in Blood by Automated count 4.63 x10*6/UL 4.2 0-6.30 [facility] ([facility]) Leukocytes [#/volume] in Blood by Automated count 11.4 x10*3/UL 4.1-1 0.9 [facility] ([facility]) Hematocrit [Volume Fraction] of Blood by Automated count 38.8 % 3 7.0-51.0 [facility] ([facility]) MCH 26.9 pg 26.0-32.0 [facility]) MCV 83.9 fL 80.0-97.0 [facility]) Hemoglobin [Mass/volume] in Blood 12.4 g/dL 12.0-18.0 [facility] Erythrocyte distribution width [Ratio] by Automated count 16.4 % 11.6-13.7 [facility] ([facility]) MCHC 32.0 g/dL 31.0-38.0 [facility]) Platelets [#/volume] in Blood by Automated count 317 x10*3/UL 140-440 [facility] ([facility]) Lymph % 15.5 % 10.0-58.5 [facility]) Mid % 4.7 % 1.7-9.3 [facility]) MPV 8.5 FL 7.8-11.0 [facility] Neut % 79.8 % 37.0-92.0 [facility]) Lymph # 1.7 x10*3/UL 0.6-4.1 [facility] ([facility]) Mid # 0.6 x10*3/UL 0.1-0.6 [facility] ([facility]) Neut # 9.1 x10*3/UL 2.0-7.8 [facility] ([facility]) Procedure Social History Code Duration Value Status Description Data Source(s ) Smoking 07/31/2020 12:00:00 AM EST Former Smoker completed Former Smoker eCW1 ([facility]) Smoking 06/27/2020 12:00:00 AM EST Former Smoker completed Former Smoker eCW1 ([facility]) Smoking 06/27/2020 12:00:00 AM EST Former Smoker completed Former Smoker eCW1 ([facility]) Smoking 06/27/2020 12:00:00 AM EST Former Smoker completed Former Smoker eCW1 ([facility]) Smoking 05/25/2020 12:00:00 AM EST Former Smoker completed Former Smoker eCW1 ([facility]) Smoking 05/25/2020 12:00:00 AM EST Former Smoker completed Former Smoker eCW1 ([facility]) Smoking 05/25/2020 12:00:00 AM EST Former Smoker completed Former Smoker eCW1 ([facility]) Vital Signs ID Date Data Source [id number] Name Value Range Interpretation Code Description Data Source(s) Diastolic blood pressure 74 mm[Hg] 74 mm[Hg] eCW1 ([facility]) Systolic blood pressure 128 mm[Hg] 128 mm[Hg] e CW1 ([facility]) Body temperature 99 [degF] 99 [degF] eCW1 ([facility]) Respiratory rate 18 /min 18 /min eCW1 ([facility]) Heart rate 58 /min 58 /min eCW1 ([facility]) Body mass index (BMI) [Ratio] 38.41 kg/m2 38.41 kg/m2 eCW1 ([facility]) Body height 66 [in_i] 66 [in_i[facility] Body weight 238 [lb_av] 238 [lb_av] eCW1 ([facility]) Body mass index (BMI) [Ratio] 37.4 kg/m2 37.4 k g/m2 [facility] ([facility]) Body weight 225.00 [lb_av] 225.00 [lb_av] MEDEN T ([facility]) Body height 65 [in_i] 65 [in_i] [facility] ([facility]) 5'5" Heart rate 60 /min 60 /min [facility] ([facility]) Diastolic blood pressure 70 mm[Hg] 70 mm[Hg] [facility] ([facility]) RT Arm Systolic blood pressure 128 mm[Hg] 128 mm[Hg] M EDENT ([facility]) RT Arm Diastolic blood pressure 72 mm[Hg] 72 mm[Hg] eCW1 ([facility]) Systolic blood pressure 130 mm[Hg] 130 mm[Hg] e CW1 ([facility]) Body temperature 98.3 [degF] 98.3 [degF] eCW1 ( [facility]) Respiratory rate 18 /min 18 /min eCW1 ([facility]) Heart rate 52 /min 52 /min eCW1 ([facility]) Body mass index (BMI) [Ratio] 38.41 kg/m2 38.41 kg/m2 W1 ([facility]) Body height 66 [in_i] 66 [in_i] [facility] Body weight 238 [lb_av] 238 [lb_av] eCW1 ([facility]) Diastolic blood pressure 74 mm[Hg] 74 mm[Hg] eCW1 ([facility]) Systolic blood pressure 132 mm[Hg] 132 mm[Hg] e CW1 ([facility]) Body temperature 98.9 [degF] 98.9 [degF] eCW1 ( [facility]) Respiratory rate 18 /min 18 /min eCW1 ([facility]) Heart rate 45 /min 45 /min eCW1 ([facility]) Body mass index (BMI) [Ratio] 38.41 kg/m2 38.41 kg/m2 W1 ([facility]) Body height 66 [in_i] 66 [in_i] [facility] Body weight 238 [lb_av] 238 [lb_av] eCW1 ([facility]) Body mass index (BMI) [Ratio] 39.1 kg/m2 39.1 k g/m2 [facility] ([facility]) Body weight 235.00 [lb_av] 235.00 [lb_av] MED[facility] T ([facility]) Body height 65 [in_i] 65 [in_i] [facility] ([facility]) 5'5" Heart rate 58 /min 58 /min [facility] ([facility]) Diastolic blood pressure 60 mm[Hg] 60 mm[Hg] [facility] ([facility]) Systolic blood pressure 120 mm[Hg] 120 mm[Hg] M EDENT ([facility]) Body mass index (BMI) [Ratio] 41.3 kg/m2 41.3 k g/m2 [facility] ([facility]) Diastolic blood pressure 60 mm[Hg] 60 mm[Hg] [facility] ([facility]) RT Arm Systolic blood pressure 128 mm[Hg] 128 mm[Hg] M EDENT ([facility]) RT Arm Body weight 248.00 [lb_av] 248.00 [lb_av] [facility] T ([facility]) Body height 65 [in_i] 65 [in_i] [facility] ([facility]) 5'5" Heart rate 56 /min 56 /min [facility] ([facility]) Body weight 107.503 kg 107.503 kg [facility]) Body mass index (BMI) [Ratio] 37.1 kg/m2 37.1 k g/m2 [facility] ([facility]) Heart rate 59 /min 59 /min [facility]) Diastolic blood pressure 77 mm[Hg] 77 mm[Hg] [facility] ([facility]) Systolic blood pressure 130 mm[Hg] 130 mm[Hg] M EDENT ([facility]) Body weight 237.00 [lb_av] 237.00 [lb_av] MEDEN T ([facility]) Temp 97.9 Body height 67 [in_i] 67 [in_i] [facility]) 5'7" Body mass index (BMI) [Ratio] 38.2 kg/m2 38.2 k g/m2 [facility] ([facility] ) Body weight 237.00 [lb_av] 237.00 [lb_av] MEDEN T ([facility]) Body height 66 [in_i] 66 [in_i] [facility] ([facility]) 5'6" Body temperature 97.4 [degF] 97.4 [degF] [facility] ([facility] ) Body mass index (BMI) [Ratio] 40.5 kg/m2 40.5 k g/m2 [facility] ([facility]) Oxygen saturation in Arterial blood by Pulse oximetry 98 % 98 % [facility] ([facility]) Air Body weight 243.12 [lb_av] 243.12 [lb_av] [facility] T ([facility]) Body height 65 [in_i] 65 [in_i] [facility] ([facility]) 5'5" Heart rate 50 /min 50 /min [facility] ([facility]) Diastolic blood pressure 64 mm[Hg] 64 mm[Hg] [facility] ([facility]) Systolic blood pressure 126 mm[Hg] 126 mm[Hg] [facility] ([facility]) Body mass index (BMI) [Ratio] 41.1 kg/m2 41.1 k g/m2 [facility] ([facility]) Oxygen saturation in Arterial blood by Pulse oximetry 94 % 94 % [facility] ([facility]) Body weight 247.00 [lb_av] 247.00 [lb_av] [facility] T ([facility]) Body height 65 [in_i] 65 [in_i] [facility] ([facility]) 5'5" Heart rate 74 /min 74 /min [facility] ([facility]) Diastolic blood pressure 66 mm[Hg] 66 mm[Hg] [facility] ([facility]) Systolic blood pressure 138 mm[Hg] 138 mm[Hg] [facility] ([facility]) Body mass index (BMI) [Ratio] 40.8 kg/m2 40.8 k g/m2 [facility] ([facility]) Oxygen saturation in Arterial blood by Pulse oximetry 97 % 97 % [facility] ([facility]) Body weight 245.00 [lb_av] 245.00 [lb_av] [facility] T ([facility]) Body height 65 [in_i] 65 [in_i] [facility] ([facility]) 5'5" Heart rate 63 /min 63 /min [facility] ([facility]) Diastolic blood pressure 72 mm[Hg] 72 mm[Hg] [facility]) Systolic blood pressure 124 mm[Hg] 124 mm[Hg] [facility] ([facility]) Body mass index (BMI) [Ratio] 38.8 kg/m2 38.8 k g/m2 [facility] ([facility]) Oxygen saturation in Arterial blood by Pulse oximetry 95 % 95 % [facility] ([facility]) Body weight 233.00 [lb_av] 233.00 [lb_av] [facility] T ([facility]) Body height 65 [in_i] 65 [in_i] [facility] ([facility]) 5'5" Heart rate 85 /min 85 /min [facility] ([facility]) Diastolic blood pressure 62 mm[Hg] 62 mm[Hg] [facility]) Systolic blood pressure 122 mm[Hg] 122 mm[Hg] [facility] ([facility]) Body mass index (BMI) [Ratio] 43.8 kg/m2 43.8 k g/m2 [facility] ([facility]) Body weight 263.00 [lb_av] 263.00 [lb_av] [facility] Body height 65 [in_i] 65 [in_i] [facility]) 5'5" Heart rate 88 /min 88 /min [facility] ([facility]) Diastolic blood pressure 64 mm[Hg] 64 mm[Hg] [facility]) RT Arm Systolic blood pressure 150 mm[Hg] 150 mm[Hg] [facility] ([facility]) RT Arm Body height 67 [in_i] 67 [in_i] [facility] ([facility]) 5'7" Body weight 116.122 kg 116.122 kg [facility] ([facility]) Body mass index (BMI) [Ratio] 40.1 kg/m2 40.1 k g/m2 [facility] ([facility]) Heart rate 74 /min 74 /min [facility]) Diastolic blood pressure 83 mm[Hg] 83 mm[Hg] [facility] ([facility]) Systolic blood pressure 138 mm[Hg] 138 mm[Hg] M EDENT ([facility]) Body weight 256.00 [lb_av] 256.00 [lb_av] MEDEN T ([facility]) Patient Treatment Plan of Care Planned Activity Planned Date Details Description Data Source (s) Sulfamethoxazole 800 MG / Trimethoprim 160 MG Oral Tab let [Bactrim] 05/25/2020 12:00:00 AM EST eCW1 ([facility]) Sulfamethoxazole 800 MG / Trimethoprim 160 MG Oral Tab let [Bactrim] 05/25/2020 12:00:00 AM EST eCW1 ([facility]) Sulfamethoxazole 800 MG / Trimethoprim 160 MG Oral Tab let [Bactrim] 05/25/2020 12:00:00 AM EST eCW1 ([facility])
--- OUTSIDE RECORDS SUMMARY | 2020-08-03 17:53 | CCD ---
Author Author [facility] Organization [facility] Address Unknown Phone Unavailable Care Team Providers Care Warp Starter Name Role Phone Jamison Rucker MD Unavailable [...] Unavailable Unavailable Jamison Rucker MD Unavailable Unavailable Jamisno Rucker MD Unavailable Unavailable Jamison Rucker MD [...] Unavailable Panda Fofana MD Unavailable Unavailable Panda Fofnaa MD Unavailable Unavailable Panda Fofana MD Unavailable [...] Unavailable Dino, Martin Ramires MD Unavailable Unavailable iDno, Martin Ramires MD Unavailable Unavailable Dino, Martin [...] B Ike MD Unavailable Unavailable Fish, B Kie MD Unavailable Unavailable Fish, B Ike MD [...] is protected by Article 27-F of the [facility] Public Health law. If you continue you may have access to information: Regarding HIV / AIDS; Provided by facilities licensed or operated by the [facility] Office of Mental Health; or Provided by the [facility] Office for People With Developmental Disabilities. If such information is present, then the following [facility] mandated warning applies: This information [...] law may result in a fine or penitentiary sentence or both. A general authorization for the release of medical or other information is NOT sufficient authorization for further disc losure. Encounters Encounter Providers Location Date Indications Data Source(s ) Unknown [address] [place] [id number] 07/27/2020 12:00:00 AM EST eCW1 ([facility]) Unknown [address] [place] [phone] 07/02/2020 12:00:00 AM EST eCW1 ([facility]) Outpatient [address] [place] [phone] 06/27/2020 12:00:00 AM EST eCW1 ([facility]) Outpatient Attender: Melida Rodriguez 12:30:00 PM EST MEDENT ([facility] ) (Cysto1) Urology [address] [place] [phone] 06/13/2020 12:00:00 AM EST eCW1 ([facility]) Unknown [address] [place] [phone] 06/11/2020 12:00:00 AM EST eCW1 ([facility]) Unknown [address] [place] [phone] 06/04/2020 12:00:00 AM EST eCW1 ([facility]) Outpatient [address] [place] [id number] 05/25/2020 12:00:00 AM EST eCW1 ([facility]) Outpatient Attender: Melida Rodriguez 10:30:00 AM EST MEDENT ([facility] ) Outpatient Attender: Melida Rodriguez 10:45:00 AM EDT MEDENT ([facility] ) Outpatient Attender: Melida Rodriguez 02:30:00 PM EDT MEDENT ([facility] ) Outpatient Attender: Samm Rucker MD Main Office 01/26/2020 10:45:00 AM EDT MEDENT ([facility]) OFFICE OUTPATIENT NEW 30 MINUTES Attender: Ike Sun MD Physic al Therapy 01/25/2020 10:45:00 AM EDT MEDENT ([facility]) Outpatient Attender: Melida Rodriguez 11:00:00 AM EDT MEDENT ([facility] ) Outpatient Attender: Melida Rodriguez 11:15:00 AM EDT MEDENT ([facility] ) Outpatient Attender: Melida Rodriguez 08:30:00 AM EDT MED[facility] ([facility] ) Outpatient Attender: Melida Rodriguez 03:15:00 PM EDT MEDENT ([facility] ) Outpatient Attender: Melida Rodriguez 10:00:00 AM EST MEDENT ([facility] ) Immunizations Vaccine Date Status Description Data Source(s) INFLUENZA VACCINE QUADRIVALENT 2019- (65 YR UP)/MF59 C.1/PF 03/08/2020 12:00:00 AM EDT completed Kapoor Madeline Shingrix Zoster Vaccine (HZV), Recombinant, Subunit, A djuvanted 01/03/2020 12:25:00 PM EDT completed [facility]) Pneumococcal conjugate PCV 13 01/03/2020 12:24:00 PM EDT completed ELEUTERIO ([facility]) pneumococcal polysaccharide PPV23 01/03/2020 12:24:00 PM EDT comple ezekiel MCCLELLAN ([facility]) Note that this Td is not adsorbed. 01/03/2020 12:24:00 PM EDT compl eted MEDDIANE ([facility]) Medications Medication Brand Name Start Date Product Form Dose Route Admi nistrative Instructions Pharmacy Instructions Status Indications Reaction Description Data Source(s) Levofloxacin 500 MG Oral Tablet Levofloxacin 500 MG 07/30/2020 1 2:00:00 AM EST 1.0 {tablet} active Levofloxaci n 500 MG [facility] Finasteride 5 MG Oral Tablet Finasteride 5 MG 06/13/2020 12:00:00 A M EST 1.0 {tablet} active Finasteride 5 MG [facility]CW[facility] Finasteride 5 MG Oral Tablet Finasteride 5 MG 06/13/2020 12:00:00 A M EST 1.0 {tablet} active Finasteride 5 MG eCW1 [facility] Finasteride 5 MG Oral Tablet Finasteride 5 MG 06/13/2020 12:00:00 A M EST 1.0 {tablet} active Finasteride 5 MG eCW1 [facility]) Finasteride 5 MG Oral Tablet Finasteride 5 MG 06/13/2020 12:00:00 A M EST 1.0 {tablet} active Finasteride 5 MG eCW1 [facility]) Sulfamethoxazole 800 MG / Trimethoprim 1 60 MG Oral Tablet [Bactrim] Bactrim DS 800-160 MG Bactrim DS 800-160 MG 05/25/2020 12:00:00 AM EST 1.0 {table t} suspended Bactrim DS 800-160 MG eCW1 ( [facility]) Sulfamethoxazole 800 MG / Trimethoprim 1 60 MG Oral Tablet [Bactrim] Bactrim DS 800-160 MG Bactrim DS 800-160 MG 05/25/2020 12:00:00 AM EST 1.0 {table t} suspended Bactrim DS 800-160 MG eCW1 ( [facility]) Sulfamethoxazole 800 MG / Trimethoprim 1 60 MG Oral Tablet [Bactrim] Bactrim DS 800-160 MG Bactrim DS 800-160 MG 05/25/2020 12:00:00 AM EST 1.0 {table t} active Bactrim DS 800-160 MG eCW1 ( [facility]) Sulfamethoxazole 800 MG / Trimethoprim 1 60 MG Oral Tablet [Bactrim] Bactrim DS 800-160 MG Bactrim DS 800-160 MG 05/25/2020 12:00:00 AM EST 1.0 {table t} active Bactrim DS 800-160 MG eCW1 ( [facility]) Sulfamethoxazole 800 MG / Trimethoprim 1 60 MG Oral Tablet [Bactrim] Bactrim DS 800-160 MG Bactrim DS 800-160 MG 05/25/2020 12:00:00 AM EST 1.0 {table t} active Bactrim DS 800-160 MG eCW1 ( [facility]) Sulfamethoxazole 800 MG / Trimethoprim 1 60 MG Oral Tablet [Bactrim] Bactrim DS 800-160 MG Bactrim DS 800-160 MG 05/25/2020 12:00:00 AM EST 1.0 {table t} suspended Bactrim DS 800-160 MG eCW1 ( [facility]) Sulfamethoxazole 800 MG / Trimethoprim 1 60 MG Oral Tablet [Bactrim] Bactrim DS 800-160 MG Bactrim DS 800-160 MG 05/25/2020 12:00:00 AM EST 1.0 {table t} suspended Bactrim DS 800-160 MG eCW1 ( [facility]) pantoprazole 20 MG Delayed Release Oral Tablet Pantoprazole Sodium 05/07/2020 12:00:00 AM EST ORAL active M EDENT ([facility]) 24 HR tramadol hydrochloride 150 MG Extended Release O ral Capsule Tramadol HCL ER 05/07/2020 12:00:00 AM EST ORAL completed MED[facility] ([facility]) B-D Uf III Short Pen Need Mis 04/20/2020 12:00:00 AM EST active [facility] ([facility]) Ciprofloxacin 250 MG Oral Tablet [Cipro] Cipro 03/29/2020 12:00:00 AM EDT completed MEDENT ([facility]) Losartan Potassium 50 MG Oral Tablet Losartan Potassium 12:00:00 AM EDT ORAL active MEDENT ([facility]) torsemide 20 MG Oral Tablet Torsemide 03/28/2020 12:00:00 AM EDT ORAL active MED[facility] ([facility]) Magnesium 03/28/2020 12:00:00 AM EDT ORAL active MEDENT ([facility]) Contour Next Blood Glucose Test 02/18/2020 12:00:00 AM EDT active MEDENT ([facility] ) Amoxicillin 500 MG Oral Capsule Amoxicillin 02/07/2020 12:00:00 AM EDT completed MEDENT ([facility]) Suprep Bowel Prep Kit Suprep Bowel Prep Kit 01/26/2020 12:00:00 AM EDT active [facility] ([facility]) Magnesium 12/19/2019 12:00:00 AM EDT ORAL complete d MEDENT ([facility]) torsemide 20 MG Oral Tablet Torsemide 12/08/2019 12:00:00 AM EDT ORAL active MED[facility] ([facility]) Amoxicillin 500 MG Oral Tablet Amoxicillin 11/23/2019 12:00:00 AM EDT ORAL completed MEDENT ([facility]) Tamsulosin hydrochloride 0.4 MG Oral Capsule Tamsulosin HCL 11/20/2019 12:00:00 AM EDT active MEDENT ([facility]) Ciprofloxacin 250 MG Oral Tablet Ciprofloxacin HCL 11/20/2019 12:00 :00 AM EDT ORAL completed MEDENT ([facility]) Ergocalciferol 20908 UNT Oral Capsule [Drisdol] Drisdol 11/01/2019 12:00:00 AM EDT ORAL active MEDENT ([facility]) Magnesium Oxide 400 MG Oral Tablet Magnesium Oxide 07/20/2019 12:00 :00 AM EST ORAL completed MEDENT ([facility]) Omeprazole 40 MG Delayed Release Oral Capsule Omeprazole 07/11/2019 12:00:00 AM EST ORAL active MEDENT ([facility]) Suprep Bowel Prep Kit Suprep Bowel Prep Kit 06/21/2019 12:00:00 AM EST active [facility] ([facility]) Insurance Providers Payer name Policy type / Coverage type Policy ID Covered alliance party ID Covered alliance party's relationship to patterson Policy [place] Plan Information BCBS 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 PROGRAM [id number] SP [id number] MEDICARE [id number] SP [id number] [facility] EMPLOYEE PROGRAM [id number] SP [id number] MEDICARE C [id number] S [id number] [facility] [place] [facility] [id number] S [id number] MEDICARE C [id number] S [id number] A Medicare Natl Govt Servic Medicare Primary [id number] Self [id number] [facility] Medigap Part B [id number] Self [id number] Medicare Natl Govt Servic Medicare Primary [id number] Self [id number] Medicare Natl Govt Servic Medicare Primary [id number] Self [id number] Medicare Natl Govt Servic Medicare Primary [id number] Self [id number] Medicare Natl Govt Servic Medicare Primary [id number] Self [id number] Medicare Natl Govt Servic Medicare Primary [id number] Self [id number] [facility] [id number] SP [id number] MEDICARE [id number] SP [id number] A Medicare Natl Govt Servic Medicare Primary [id number] Self [id number] Medicare Natl Govt Servic Medicare Primary [id number] Self [id number] Medicare Natl Govt Servic Medicare Primary [id number] Self [id number] Medicare Natl Govt Servic Medicare Primary [id number] Self [id number] [facility] Medigap Part B [id number] Self 8 Medicare Natl Govt Servic Medicare Primary Self [facility] [id number] No [id number] BS [place] [facility] [id number] SP [id number] SELF PAY [id number] SP [id number] Problems, Conditions, and Diagnoses Code Display Name Description Problem Type Effective Dates Data Source(s) R31.0 [id number] Gross hematuria Problem 06/13/2020 12:00:00 AM EST [facility]CW1 [facility]) N40.1 Lower urinary tract symptoms due to varun gn prostatic hypertrophy Benign prostatic hyperplasia with lower urinary tract symptoms Problem 05/25/2020 12:00:00 AM EST eCW1 [facility]) N28.89 Disorder of kidney and/or ureter Urinary retention due to benign prostatic hyperplasia Problem 05/25/2020 12:00:00 AM EST eCW1 ([facility]) [id number] Chronic atrial fibrillation Chronic atrial fibrillatio n Problem 02/09/2020 12:00:00 AM EDT MEDENT ([facility]) [id number] Radiology result abnormal Radiology result abnormal Pr oblem 01/26/2020 12:00:00 AM EDT MEDENT ([facility]) [id number] Proteinuria Proteinuria Problem 01/11/2020 12:00:00 AM EDT MEDENT ([facility]) [id number] Pure hypercholesterolemia Pure hypercholesterolemia Pr oblem 11/21/2019 12:00:00 AM EDT MED[facility] ([facility]) [id number] Infarction - precerebral Infarction - precerebral Prob kiet 11/21/2019 12:00:00 AM EDT MED[facility] ([facility]) [id number] Post poliomyelitis syndrome Post poliomyelitis syndrom e Problem 11/21/2019 12:00:00 AM EDT MED[facility] ([facility]) [id number] Obstructive sleep apnea syndrome Obstructive sle ep apnea syndrome Problem 11/21/2019 12:00:00 AM EDT [facility] ([facility] [id number] Primary cardiomyopathy Primary cardiomyopathy Problem 11/21/2019 12:00:00 AM EDT MEDENT ([facility]) [id number] Chronic kidney disease stage 3 Chronic kidney disease stage 3 Problem 11/21/2019 12:00:00 AM EDT MEDENT ([facility]) Hypertensive chronic kidney disease with stage 1 through stage 4 chronic kidney disease, or unspecified chronic kidney disease Hypertensive chronic kidney disease with stage 1 through stage 4 chronic kidney disease, or unspecified chronic kidney disease Problem 11/21/2019 12:00:00 AM ED T MEDENT ([facility]) [id number] Long-term current use of anticoagulant L bryan-term current use of anticoagulant Problem 11/21/2019 12:00:00 AM EDT MEDENT ([facility]) 103476773 Chronic atrial fibrillation Chronic atrial fibrillatio n Problem 11/21/2019 12:00:00 AM EDT MEDENT ([facility]) 986347124 Long-term current use of insulin Long-term curre nt use of insulin Problem 11/21/2019 12:00:00 AM EDT [facility] ([facility]) Surgeries/Procedures Procedure Description Date Indications Data Source(s) INSJ TEMP NDWELLG BLADDER CATHETER SIMPLE 06/27/2020 1 2:00:00 AM EST [facility]CW[facility] Voiding Trial 06/27/2020 12:00:00 AM EST eCW1 [facility]) uro PVR (Post Voiding Residual) Bladder Scan 0 12:00:00 AM EST eCW1 [facility]) Medication: Lidocaine HCl 2% Jelly 5mL Intravesically 05/25/2020 12:00:00 AM EST eCW1 ([facility]) Colonoscopy 02/15/2020 12:00:00 AM EDT M EDENT ([facility]) COLONOSCOPY FLX DX W/WO COLLJ SPECIMENS 02/15/2020 12: 00:00 AM EDT MEDENT ([facility]) RADEX SPINE LUMBOSACRAL MINIMUM 4 VIEWS 01/25/2020 12: 00:00 AM EDT MEDENT ([facility]) X-Ray Hip Unilateral With Pelvis 2-3 Views 01/25/2020 12:00:00 AM EDT MEDENT ([facility]) Colonoscopy 07/11/2019 12:00:00 AM EST M EDENT ([facility]) Results ID Date Data Source URINE CULTURE 05/25/2020 12:00:00 AM EST eCW1 ([facility]) Name Value Range Interpretation Code Description Data Fatmata rce(s) Supporting Document(s) URINE CULTURE eCW1 [facility]) ID Date Data Source UA URINALYSIS 05/25/2020 12:00:00 AM EST eCW1 ([facility]) Name Value Range Interpretation Code Description Data Fatmata rce(s) Supporting Document(s) UA URINALYSIS eCW1 ([facility]) ID Date Data Source [id number] 05/07/2020 11:22:00 AM EST [facility] Name Value Range Interpretation Code Description Data Fatmata rce(s) Supporting Document(s) Thyroxine (T4) free [Mass/volume] in Serum or Plasma 1.37 ng/dL 0.76- 1.[address] [facility] ([facility]) ID Date Data Source [id number] 05/07/2020 11:22:00 AM EST [facility]) Name Value Range Interpretation Code Description Data Fatmata rce(s) Supporting Document(s) Thyrotropin [Units/volume] in Serum or Plasma by Detec tion limit <= 0.05 mIU/L 6.03 uIU/mL 0.36-3.74 [facility] ([facility] ) ID Date Data Source [id number] 05/07/2020 11:22:00 AM EST [facility]) Name Value Range Interpretation Code Description Data Fatmata rce(s) Supporting Document(s) Glucose mean value [Mass/volume] in Blood Estimated fr om glycated hemoglobin 206 mg/dL 60-[address] [facility] Hemoglobin A1c/Hemoglobin.total in Blood 8.8 % [facility] Lab Result Notes: Pre-Diabetes 5.7 - 6.4 % Diabetes = or > 6.5% ID Date Data Source [id number] 03/29/2020 11:30:00 AM EDT [facility]) Name Value Range Interpretation Code Description Data Fatmata rce(s) Supporting Document(s) WBC, Urine Laboratory test result 0-3 MED[facility] ([facility]) RBC, Urine Laboratory test result 0-3 [facility] ([facility]) Triple Phosphate Crystal,Urine Laboratory test result [facility] ([facility]) Squamous Epithelial Cell Urine Laboratory test result [facility] ([facility]) Mucus, Urine Laboratory test result MEDE NT ([facility]) Hyaline Cast, Urine Laboratory test result 0-1 [facility] ([facility]) Bacteria, Urine Laboratory test result M EDENT ([facility]) Microscopic Exam Laboratory test result [facility] ([facility]) Amorphous Sediment, Urine Laboratory test result [facility] ([facility]) ID Date Data Source [id number] 03/29/2020 11:30:00 AM EDT [facility] ([facility] Name Value Range Interpretation Code Description Data Fatmata rce(s) Supporting Document(s) Color, Urine Manual Laboratory test result [facility] ([facility]) Appearance, Urine Manual Laboratory test result [facility] ([facility]) PH,Urine Man 8.5 units 5.0-7.0 [facility]) Protein, Urine Manual Laboratory test result [facility]) Specific [place],Urine Manual 1.017 1.002-1.035 MED[facility] ([facility]) Glucose, Urine (Ua) Manual Laboratory test result [facility]) Urobilinogen, Urine Manual Laboratory test result [facility] ([facility]) Bilirubin, Urine Manual Laboratory test result [facility] ([facility]) Ketone, Urine Manual Laboratory test result [facility] ([facility]) Leukocyte Esterase, Urine Man Laboratory test result [facility] ([facility]) Nitrite, Urine Manual Laboratory test result [facility] ([facility]) Blood Urine Manual Laboratory test result [facility] ([facility]) ID Date Data Source [id number] 03/29/2020 11:30:00 AM EDT [facility] ([facility] Name Value Range Interpretation Code Description Data Fatmata rce(s) Supporting Document(s) Bacteria identified in Urine by Culture Laboratory test result MEDENT ([facility]) FULL REPORT IN LAB NOTES (eCW and Medent ). ORGANISM 1: AEROCOCCUS VIRIDANS COLONY COUNT >100,000 Aerococcus viridans appear to be susceptible to penicillin and display a low level of resistance to aminoglycoides. A. viridans seems to be naturally susceptible to macrolides, tetracyclines, and chloramphenicol, resistance to these agents has been observed. ORGANISM 1: AEROCOCCUS VIRIDANS ID Date Data Source [id number] 02/10/2020 11:00:00 AM EDT [facility] Name Value Range Interpretation Code Description Data Fatmata rce(s) Supporting Document(s) SARS coronavirus 2 RNA [facility] This lab was ordered by [facility] and reported by [facility]. ID Date Data Source [id number] 02/07/2020 01:25:00 PM EDT MEDENT ([facility]) Name Value Range Interpretation Code Description Data Fatmata rce(s) Supporting Document(s) Bacteria identified in Urine by Culture Laboratory test result [facility] ([facility]) FULL REPORT IN LAB NOTES (eCW and Med[facility] ). NO GROWTH ID Date Data Source [id number] 02/07/2020 01:25:00 PM EDT [facility] ([facility] Name Value Range Interpretation Code Description Data Fatmata rce(s) Supporting Document(s) Appearance, Urine Laboratory test result [facility] ([facility]) PH,Urine 8.0 units 5.0-9.0 [facility] ([facility]) Specific [place] Urine Auto 1.014 1.002-1.035 [facility]) Color, Urine Laboratory test result MEDE NT ([facility]) Protein, Urine Auto Laboratory test result [facility] ([facility]) Glucose, Urine (Ua) Auto Laboratory test result [facility] ([facility]) Urobilinogen, Urine Auto 0.2 mg/dL 0.0-2.0 MEDEN T ([facility]) Ketone, Urine Auto Laboratory test result [facility] ([facility]) Bilirubin, Urine Auto Laboratory test result [facility] ([facility]) Nitrite, Urine Auto Laboratory test result [facility] ([facility]) Blood, Urine Blood Laboratory test result [facility] ([facility]) Leukocyte Esterase, Urine Auto Laboratory test result [facility] ([facility]) Bacteria, Urine Auto Laboratory test result [facility] ([facility]) RBC, Urine Auto 4 /HPF 0-3 MED[facility] ([facility]) WBC, Urine Auto 92 /HPF 0-3 [facility] ([facility]) Mucus, Urine Laboratory test result MEDE NT ([facility]) Hyaline Cast, Urine Auto 0 /LPF 0-1 MEDEN T ([facility]) Squamous Epithelial Cell Ur AU 4 /HPF 0-6 [facility] ([facility]) Triple Phosphate Crystals Laboratory test result [facility] ([facility]) ID Date Data Source [id number] 02/07/2020 01:24:00 PM EDT MED[facility] ([facility]) Name Value Range Interpretation Code Description Data Fatmata rce(s) Supporting Document(s) Urine Creatinine 71.7 mg/dL 30.0-125.0 [facility] Microalbumin Urine 5549.2 mg/L 1.3-20.0 [facility] ( [facility] NOTE: SPECIMEN WAS DILUTED MANY TIMES ...THIS HAS BEEN VERIFIED Microalb/Creat Ratio 7739.5 ug/mg 0.0-30.0 [facility] ([facility]) ID Date Data Source [id number] 02/06/2020 11:03:00 AM EDT MED[facility] ([facility]) Name Value Range Interpretation Code Description Data Fatmata rce(s) Supporting Document(s) Albumin % 45.0 % 55.8-66.1 [facility]) Sigsn-7-Ppsuwpby % 7.3 % 2.9-4.9 [facility] Lacd-0-Xqygiocve % 5.3 % 4.7-7.2 [facility] Aivu-5-Mouwcwswh % 6.7 % 3.2-6.5 [facility] Koecf-6-Esodrjgzp % 15.5 % 7.1-11.8 [facility] ([facility]) Zcwoc-7-Lvziiqmlj 0.46 GM/DL 0.17-0.41 MED[facility] ([facility]) Gamma Globulin % 20.2 % 11.1-18.8 [facility] ([facility]) Albumin 2.84 GM/DL 3.29-5.55 [facility] Bgik-6-Nbkejpovi 0.42 GM/DL 0.19-0.55 [facility] Fstp-5-Qerfhjesx 0.33 GM/DL 0.28-0.60 [facility] Tlqkv-2-Zgvzvqwlj 0.98 GM/DL 0.42-0.99 [facility] Gamma Globulins 1.27 GM/DL 0.65-1.58 [facility] ([facility]) Spep Interpretation Laboratory test result [facility] ([facility]) M-SPIKE NOTED IN EARLY GAMMA REGION. CONCENTRATION = 0.33 GM/DL Total Protein 6.3 GM/DL 6.4-8.2 [facility] ([facility]) Laboratory test finding (navigational concept) Laboratory test result [facility] ([facility]) REV'D BY Jamison LOZANO ID Date Data Source [id number] 02/06/2020 11:01:00 AM EDT [facility] ([facility]) Name Value Range Interpretation Code Description Data Fatmata rce(s) Supporting Document(s) Glucose [Mass/volume] in Serum or Plasma 83 mg/dL 74-99 [facility] ([facility]) 100-125 mg/dL PRE-DIABETES/FASTING >126 mg/dL DIABETES/FASTING Urea nitrogen [Mass/volume] in Serum or Plasma 20 mg/dL 7-18 [facility] ([facility]) Sodium [Moles/volume] in Serum or Plasma 141 meq/L 136-145 [facility] ([facility]) Potassium [Moles/volume] in Serum or Plasma 4.2 meq/L 3.5-5.1 [facility] ([facility]) Creatinine 1.3 mg/dL 0.6-1.3 [facility] ([facility]) Glomerular filtration rate/1.73 sq M pre dicted among non-blacks [Volume Rate/Area] in Serum or Plasma by Creatinine-based formula (MDRD) 55 mL/min [facility] ([facility]) Calcium [Mass/volume] in Serum or Plasma 8.3 mg/dL 8.5-10.1 [facility] ([facility]) Chloride [Moles/volume] in Serum or Plasma 105 meq/L 98-107 [facility] ([facility]) Carbon dioxide, total [Moles/volume] in Serum or Plasma 28 meq/L 21 -32 [facility] ([facility]) Glomerular filtration rate/1.73 sq M pre dicted among blacks [Volume Rate/Area] in Serum or Plasma by Creatinine-based formula (MDRD) Laboratory test result [facility]) <content>CHRONIC KIDNEY DISEASE STAGING PER NKF</content>
<content></content>
<content>STAGE I & II GFR >= 60 NORMAL TO MILDLY DECREASED</content>
<content>STAGE III GFR 30-59 MODERATELY DECREASED</content>
<content>STAGE IV GFR 15-29 SEVERELY DECREASED</content>
<content>STAGE V GFR <15 VERY LITTLE GFR LEFT</content>
<content>ESRD GFR <15 ON ENTERPRISE ACCOUNT EXECUTIVE</content>
<content></content> ID Date Data Source [id number] 02/06/2020 11:01:00 AM EDT [facility] ([facility]) Name Value Range Interpretation Code Description Data Fatmata rce(s) Supporting Document(s) Magnesium 1.6 mg/dL 1.8-2.4 [facility] ([facility]) ID Date Data Source [id number] 01/12/2020 01:36:00 PM EDT [facility] ([facility]) Name Value Range Interpretation Code Description Data Fatmata rce(s) Supporting Document(s) Free [place] Light Chains Serum Laboratory test result [facility] ([facility]) SEE SEPARATE REPORT Testing performed at reference lab . Report copy to follow on a separate form. 02/28/20 REF LAB#:[id number] [place]/Lambda Ratio Serum Laboratory test result [facility] ([facility]) SEE SEPARATE REPORT Free Lambda Light Chains Serum Laboratory test result [facility] ([facility]) SEE SEPARATE REPORT ID Date Data Source [id number] 01/12/2020 01:36:00 PM EDT [facility] ([facility]) Name Value Range Interpretation Code Description Data Fatmata rce(s) Supporting Document(s) Free Lambda Light Chains Urine Laboratory test result [facility] ([facility]) SEE SEPARATE REPORT Free [place] Light Chains Urine Laboratory test result [facility] ([facility]) SEE SEPARATE REPORT [place]/Lambda Ratio Urine Laboratory test result [facility] ([facility]) SEE SEPARATE REPORT ID Date Data Source [id number] 01/12/2020 01:36:00 PM EDT [facility] ([facility]) Name Value Range Interpretation Code Description Data Fatmata rce(s) Supporting Document(s) Myoglobin Screen, Urine [facility] SUGGEST QUANTITATIVE TEST BE ORDERED FOR CONFIRMATION. Immunofixation for Urine Laboratory test result [facility] ([facility]) SEE SEPARATE REPORT Testing performed at reference lab . Report copy to follow on a separate form. 02/28/20 REF LAB#:[id number] Creatinine [Mass/volume] in Urine 91.6 mg/dL [facility] ([facility]) Protein electrophoresis panel - Urine Laboratory test result [facility] ([facility]) SEE SEPARATE REPORT Protein [Mass/volume] in Urine 488.2 mg/dL 0.0-12.0 [facility] ([facility]) ID Date Data Source [id number] 01/12/2020 01:36:00 PM EDT [facility] Name Value Range Interpretation Code Description Data Fatmata rce(s) Supporting Document(s) Myoglobin [Mass/volume] in Serum or Plasma 81 ng/mL 16-[address] [facility] ([facility]) ID Date Data Source [id number] 01/12/2020 01:36:00 PM EDT [facility] Name Value Range Interpretation Code Description Data Fatmata rce(s) Supporting Document(s) Albumin % Laboratory test result 55.8-66.1 [facility] ([facility]) Kgryw-1-Iwqajxsby % Laboratory test result 7.1-11.8 [facility] ([facility]) Jpwq-6-Kcpwtghsw % Laboratory test result 4.7-7.2 [facility] ([facility]) Oummb-5-Ixajmtlj % Laboratory test result 2.9-4.9 [facility] ([facility]) Gamma Globulin % Laboratory test result 11.1-18.8 [facility] ([facility]) Ghtm-7-Erskonjwi % Laboratory test result 3.2-6.5 [facility] ([facility]) Ueegi-5-Wlhvimdjt Laboratory test result 0.42-0.99 [facility] Albumin Laboratory test result 3.29-5.55 [facility] ([facility]) Test not performed. Please resubmit wit h new order and sample. Mebis-8-Yzkrrtyyh Laboratory test result 0.17-0.41 [facility] ([facility]) Insp-6-Xjwbufswx Laboratory test result 0.19-0.55 [facility] Axdv-5-Abqhercfb Laboratory test result 0.28-0.60 [facility]) Gamma Globulins Laboratory test result 0.65-1.58 [facility]) Total Protein Laboratory test result 6.4-8.[address] [facility]) Spep Interpretation For RFX Laboratory test result [facility]) Laboratory test finding (navigational concept) Laboratory test result [facility] ([facility]) ID Date Data Source [id number] 01/12/2020 01:36:00 PM EDT [facility] Name Value Range Interpretation Code Description Data Fatmata rce(s) Supporting Document(s) Myoglobin Screen, Urine Laboratory test [facility]) Myoglobin [Mass/volume] in Serum or Plasma Laboratory test result [facility]) Protein [Mass/volume] in Urine Laboratory test result [facility] ([facility]) Creatinine [Mass/volume] in Urine Laboratory test result [facility] ([facility]) ID Date Data Source [id number] 01/17/2020 05:05:00 PM EDT [facility] Name Value Range Interpretation Code Description Data Fatmata rce(s) Supporting Document(s) Free [place] Lt Chains,S 65.3 mg/L 3.3-19.4 Above high normal [facility] Free Lambda Lt Chains,S 58.7 mg/L 5.7-26.3 Above high normal [facility] [place]/Lambda Ratio,S 1.11 0.26-1.65 [facility] ID Date Data Source [id number] 01/18/2020 04:05:00 AM EDT [facility] Name Value Range Interpretation Code Description Data Fatmata rce(s) Supporting Document(s) Free [place] Lt Chains,Ur 153.36 mg/L 0.63-113.79 Above high normal [facility] Free Lambda Lt Chains,Ur 54.49 mg/L 0.47-11.77 Above high normal [facility] [place]/Lambda Ratio,U 2.81 1.03-31.76 [facility] ID Date Data Source [id number] 01/18/2020 03:05:00 PM EDT [facility] Name Value Range Interpretation Code Description Data Fatmata rce(s) Supporting Document(s) Protein,Total,Urine 559.1 mg/dL Not Estab. [facility] Results confirmed ondilution. Albumin, U 74.8 % [facility] Ycrkh-8-Dymqfsba, U 6.5 % [facility] Dllfl-8-Wazpuqdw, U 4.1 % [facility] Beta Globulin, U [...] PDF . [facility] ID Date Data Source [id number] 01/12/2020 11:13:00 AM EDT [facility]) Name Value Range Interpretation Code Description Data Fatmata rce(s) Supporting Document(s) Creatine kinase [Enzymatic activity/volume] in Serum or Plasma 26 U /L 39-[address] [facility] ([facility]) ID Date Data Source [id number] 01/12/2020 10:59:00 AM EDT [facility] ([facility]) Name Value Range Interpretation Code Description Data Fatmata rce(s) Supporting Document(s) Urine Creatinine 92.3 mg/dL 30.0-125.0 [facility] ([facility]) Microalbumin Urine 3505.9 mg/L 1.3-20.0 [facility] Microalb/Creat Ratio 3798.4 ug/mg 0.0-30.0 [facility] ([facility]) ID Date Data Source [id number] 01/04/2020 12:00:00 AM EDT [facility] Imaging Melida Fofana MD Patient Name: ALVINA [id number] [facility] Date of : Floor Date [facility]: [facility] [id number] Fax: [phone] EXAM: CT ABDOMEN & PELVIS [...] ureteral orbladder calculus. A cyst in the hogcp-ol-xlc left kidney measuresapproximately 1.8 cm in diameter. [...] mayindicate inflammatory change or neoplasm.Accredited by the [employer] in [place].Davi Back, ASHLEY/Christiano you for referring ALVINA BLACKMAN to our office. Electronically Signed - DAVI BACK MD 01/04/20 18:16 Name Value Range Interpretation Code Description Data Fatmata rce(s) Supporting Document(s) ID Date Data Source [id number] 01/03/2020 11:46:00 AM EDT [facility]) Name Value Range Interpretation Code Description Data Fatmata rce(s) Supporting Document(s) Urine Color Laboratory test result MED[facility] T ([facility]) Urine Appearance Laboratory test result [facility] ([facility]) Specific gravity of Urine 1.015 1.005-1.030 [facility] ([facility]) Urine PH 7.0 units 5.0-9.0 [facility] ([facility]) Urine Leukocytes Laboratory test result [facility] ([facility]) Urine Blood Laboratory test result Abnormal (applies to non-numeric results) [facility] ([facility]) Urine Protein Laboratory test result 0-0 Abnormal (applies to non-numeric results) [facility] ([facility]) Glucose [Presence] in Urine Laboratory test result [facility] ([facility]) Urine Nitrite Laboratory test result [facility] ([facility]) Urine Ketone Laboratory test result MEDE NT ([facility]) Urine Urobilinogen 0.2 mg/dL 0.2-1.0 [facility] ([facility]) Bilirubin.total [Mass/volume] in Serum or Plasma Laboratory test resu lt [facility] ([facility]) ID Date Data Source [id number] 01/03/2020 11:46:00 AM EDT [facility] ([facility]) Name Value Range Interpretation Code Description Data Fatmata rce(s) Supporting Document(s) Urine Creatinine 99.4 mg/dL 30.0-125.0 [facility] Microalbumin Urine 3327.8 mg/L 1.3-20.0 [facility] Microalb/Creat Ratio 3347.9 ug/mg 0.0-30.[address] [facility] ([facility]) ID Date Data Source [id number] 01/03/2020 10:44:00 AM EDT [facility] ([facility]) Name Value Range Interpretation Code Description Data Fatmata rce(s) Supporting Document(s) Ferritin [Mass/volume] in Serum or Plasma Laboratory test result [facility] ([facility]) ID Date Data Source [id number] 01/03/2020 10:33:00 AM EDT [facility] ([facility]) Name Value Range Interpretation Code Description Data Fatmata rce(s) Supporting Document(s) Thyrotropin [Units/volume] in Serum or Plasma by Detec tion limit <= 0.05 mIU/L 3.81 uIU/mL 0.36-3.74 [facility] ([facility] ) ID Date Data Source [id number] 01/03/2020 10:33:00 AM EDT [facility] ([facility]) Name Value Range Interpretation Code Description Data Fatmata rce(s) Supporting Document(s) Glucose [Mass/volume] in Serum or Plasma 205 mg/dL 74-99 [facility] ([facility]) 100-125 mg/dL PRE-DIABETES/FASTING >126 mg/dL DIABETES/FASTING Creatinine 1.2 mg/dL 0.6-1.[address] [facility] Urea nitrogen [Mass/volume] in Serum or Plasma 20 mg/dL 7-18 [facility] ([facility]) Sodium [Moles/volume] in Serum or Plasma 142 meq/L 136-145 [facility] ([facility]) Potassium [Moles/volume] in Serum or Plasma 4.9 meq/L 3.5-5.1 [facility] ([facility]) Chloride [Moles/volume] in Serum or Plasma 104 meq/L 98-107 [facility] ([facility]) Calcium [Mass/volume] in Serum or Plasma 8.1 mg/dL 8.5-10.1 [facility] ([facility]) NOTE: RESULT VERIFIED. Glomerular filtration rate/1.73 sq M pre dicted among non-blacks [Volume Rate/Area] in Serum or Plasma by Creatinine-based formula (MDRD) Laboratory test result [facility] ([facility] ) Carbon dioxide, total [Moles/volume] in Serum or Plasma 28 meq/L 21 -32 [facility] ([facility]) Glomerular filtration rate/1.73 sq M pre dicted among blacks [Volume Rate/Area] in Serum or Plasma by Creatinine-based formula (MDRD) Laboratory test result [facility] ([facility]) <content>CHRONIC KIDNEY DISEASE STAGING PER NKF</content>
<content></content>
<content>STAGE I & II GFR >= 60 NORMAL TO MILDLY DECREASED</content>
<content>STAGE III GFR 30-59 MODERATELY DECREASED</content>
<content>STAGE IV GFR 15-29 SEVERELY DECREASED</content>
<content>STAGE V GFR <15 VERY LITTLE GFR LEFT</content>
<content>ESRD GFR <15 ON ENTERPRISE ACCOUNT EXECUTIVE</content>
<content></content> ID Date Data Source [id number] 01/03/2020 10:33:00 AM EDT [facility] ([facility]) Name Value Range Interpretation Code Description Data Fatmata rce(s) Supporting Document(s) Magnesium 1.8 mg/dL 1.8-2.4 [facility] ([facility]) ID Date Data Source [id number] 01/03/2020 10:33:00 AM EDT [facility] ([facility]) Name Value Range Interpretation Code Description Data Fatmata rce(s) Supporting Document(s) Hemoglobin A1c/Hemoglobin.total in Blood 7.8 g/dL 4.8-5.6 [facility] ([facility] Lab Result Notes: Pre-Diabetes 5.7 - 6.4 % Diabetes = or > 6.5% Glucose mean value [Mass/volume] in Blood Estimated fr om glycated hemoglobin 177 mg/dL 60-110 [facility] ([facility] ID Date Data Source [id number] 01/03/2020 10:33:00 AM EDT [facility] ([facility] Name Value Range Interpretation Code Description Data Fatmata rce(s) Supporting Document(s) Leukocytes [#/volume] in Blood by Automated count 12.1 x10*3/UL 4.1-1 0.9 [facility] ([facility] Hematocrit [Volume Fraction] of Blood by Automated count 31.6 % 3 7.0-51.0 [facility] ([facility]) Erythrocytes [#/volume] in Blood by Automated count 3.69 x10*6/UL 4.2 0-6.30 [facility] ([facility] Hemoglobin [Mass/volume] in Blood 10.9 g/dL 12.0-18.0 [facility] NOTE: RESULT VERIFIED. MCV 85.7 fL 80.0-97.0 [facility] ([facility]) MCH 29.5 pg 26.0-32.0 [facility] ([facility]) MCHC 34.4 g/dL 31.0-38.0 [facility] ([facility]) Erythrocyte distribution width [Ratio] by Automated count 16.6 % 11.6-13.7 [facility] ([facility] Platelets [#/volume] in Blood by Automated count 368 x10*3/UL 140-440 [facility] MPV 9.3 FL 7.8-11.0 [facility] ([facility]) Mid % 5.6 % 1.7-9.3 [facility] ([facility]) Lymph % 16.5 % 10.0-58.5 [facility] ([facility]) Lymph # 2.0 x10*3/UL 0.6-4.1 [facility] ([facility]) Neut % 77.9 % 37.0-92.0 [facility]) Mid # 0.7 x10*3/UL 0.1-0.6 [facility] ([facility]) Neut # 9.4 x10*3/UL 2.0-7.8 [facility] ([facility]) ID Date Data Source [id number] 01/03/2020 10:33:00 AM EDT [facility]) Name Value Range Interpretation Code Description Data Fatmata rce(s) Supporting Document(s) Magnesium, Serum Laboratory test result [facility] ([facility]) Hemoglobin A1c/Hemoglobin.total in Blood Laboratory test result [facility] ([facility]) ID Date Data Source [id number] 01/03/2020 10:32:00 AM EDT [facility]) Name Value Range Interpretation Code Description Data Fatmata rce(s) Supporting Document(s) Prostate specific Ag [Mass/volume] in Serum or Plasma 1.63 ng/mL [facility] ([facility]) This assay was performed on the Siemens Dimension EXL using the B- Galactosidase/CPRG methodology and should not be compared interchangeably with other methods. The PSA should not be used alone as a screening test for the presence or absence of malignant disease. ID Date Data Source [id number] 01/03/2020 10:32:00 AM EDT [facility] ([facility]) Name Value Range Interpretation Code Description Data Fatmata rce(s) Supporting Document(s) Cholesterol [Mass/volume] in Serum or Plasma 114 mg/dL 131-[address] [facility] ([facility]) Triglyceride [Mass/volume] in Serum or Plasma 61 mg/dL 30-150 [facility] ([facility]) Cholesterol in LDL [Mass/volume] in Serum or Plasma by calcu lation 70 CALC 50-[address] [facility] ([facility]) Cholesterol in HDL [Mass/volume] in Serum or Plasma 32 mg/dL 35-[address] [facility] ([facility]) ID Date Data Source [id number] 01/03/2020 10:32:00 AM EDT [facility]) Name Value Range Interpretation Code Description Data Fatmata rce(s) Supporting Document(s) Alkaline phosphatase isoenzyme [Units/volume] in Serum or Pl asma 128 mg/dL 46-116 [facility] ([facility]) Total Bilirubin 0.6 mg/dL 0.2-1.0 [facility] ([facility]) Alanine aminotransferase [Enzymatic activity/volume] in Seru m or Plasma 16 U/L 12-78 [facility] ([facility]) Aspartate aminotransferase [Enzymatic activity/volume] in Serum or Plasma 18 U/L 15-37 [facility] ([facility] Albumin [Mass/volume] in Serum or Plasma 2.4 g/dL 3.4-5.0 [facility] ([facility]) NOTE: RESULT VERIFIED. Proteinase 3 Ab [Units/volume] in Serum 6.1 g/dL 6.4-8.2 [facility] ([facility] Direct Bilirubin 0.2 mg/dL 0.0-0.2 [facility] ([facility]) A/G Ratio 0.65 CALC 1.00-1.90 [facility] ([facility]) ID Date Data Source [id number] 12/19/2019 11:45:00 AM EDT [facility] ([facility]) Name Value Range Interpretation Code Description Data Fatmata rce(s) Supporting Document(s) Microalbumin Urine 1594.2 mg/L 1.3-20.0 [facility] ([facility]) 240.3 Microalb/Creat Ratio 2652.6 ug/mg 0.0-30.0 [facility] ([facility] Urine Creatinine 60.1 mg/dL 30.0-125.0 [facility] ([facility]) ID Date Data Source [id number] 12/19/2019 11:45:00 AM EDT [facility] ([facility] Name Value Range Interpretation Code Description Data Fatmata rce(s) Supporting Document(s) Urine Color Laboratory test result [facility] ([facility]) Specific gravity of Urine 1.020 1.005-1.030 [place] [facility] ([facility]) Urine Appearance [facility] Urine PH 6.0 units 5.0-9.0 [facility] ([facility]) Urine Blood Laboratory test result Abnormal (applies to non-numeric results) [facility] ([facility]) Urine Leukocytes Laboratory test result [facility] ([facility]) Urine Nitrite Laboratory test result [facility] ([facility]) Urine Protein Laboratory test result 0-0 Abnormal (applies to non-numeric results) [facility] ([facility]) Glucose [Presence] in Urine Laboratory test result [facility] ([facility]) Urine Urobilinogen 0.2 mg/dL 0.2-1.0 [facility] ([facility]) Urine Ketone Laboratory test result [facility] ([facility]) Bilirubin.total [Mass/volume] in Serum or Plasma Laboratory test resu lt [facility] ([facility]) ID Date Data Source [id number] 12/19/2019 11:45:00 AM EDT [facility]) Name Value Range Interpretation Code Description Data Fatmata rce(s) Supporting Document(s) Glucose [Mass/volume] in Serum or Plasma 132 mg/dL 74-99 [facility] ([facility]) 100-125 mg/dL PRE-DIABETES/FASTING >126 mg/dL DIABETES/FASTING Urea nitrogen [Mass/volume] in Serum or Plasma 24 mg/dL 7-18 [facility] ([facility]) Creatinine 1.3 mg/dL 0.6-1.[address] [facility]) Sodium [Moles/volume] in Serum or Plasma 141 meq/L 136-145 [facility] ([facility]) Chloride [Moles/volume] in Serum or Plasma 103 meq/L 98-107 [facility] ([facility]) Potassium [Moles/volume] in Serum or Plasma 4.4 meq/L 3.5-5.1 [facility] ([facility]) Glomerular filtration rate/1.73 sq M pre dicted among non-blacks [Volume Rate/Area] in Serum or Plasma by Creatinine-based formula (MDRD) 55 mL/min [facility] Carbon dioxide, total [Moles/volume] in Serum or Plasma 30 meq/L 21 -32 [facility] ([facility]) Calcium [Mass/volume] in Serum or Plasma 8.5 mg/dL 8.5-10.1 [facility] ([facility]) Glomerular filtration rate/1.73 sq M pre dicted among blacks [Volume Rate/Area] in Serum or Plasma by Creatinine-based formula (MDRD) Laboratory test result [facility] ([facility]) <content>CHRONIC KIDNEY DISEASE STAGING PER NKF</content>
<content></content>
<content>STAGE I & II GFR >= 60 NORMAL TO MILDLY DECREASED</content>
<content>STAGE III GFR 30-59 MODERATELY DECREASED</content>
<content>STAGE IV GFR 15-29 SEVERELY DECREASED</content>
<content>STAGE V GFR <15 VERY LITTLE GFR LEFT</content>
<content>ESRD GFR <15 ON ENTERPRISE ACCOUNT EXECUTIVE</content>
<content></content> ID Date Data Source [id number] 12/19/2019 11:45:00 AM EDT [facility] ([facility]) Name Value Range Interpretation Code Description Data Fatmata rce(s) Supporting Document(s) Magnesium 1.4 mg/dL 1.8-2.4 [facility] ([place] [facility]) NOTE: RESULT VERIFIED. ID Date Data Source [id number] 12/08/2019 09:04:00 AM EDT [facility] ([facility] Name Value Range Interpretation Code Description Data Fatmata rce(s) Supporting Document(s) Color, Urine Laboratory test result [facility] NT ([facility]) Appearance, Urine Laboratory test result [facility] ([facility]) Protein, Urine Auto Laboratory test result [facility] ([facility]) Specific [place] Urine Auto 1.014 1.002-1.035 [facility] ([facility]) PH,Urine 6.0 units 5.0-9.0 [facility] ([place] [facility]) Ketone, Urine Auto Laboratory test result [facility] ([facility]) Glucose, Urine (Ua) Auto Laboratory test result [facility] ([facility] Urobilinogen, Urine Auto 2.0 mg/dL 0.0-2.0 [facility] T ([facility]) Bilirubin, Urine Auto Laboratory test result [facility] ([facility]) Nitrite, Urine Auto Laboratory test result [facility] ([facility]) Blood, Urine Blood Laboratory test result [facility] ([facility] [facility] Leukocyte Esterase, Urine Auto Laboratory test result [facility] ([facility]) RBC, Urine Auto 7 /HPF 0-3 [facility] ([facility]) WBC, Urine Auto 1 /HPF 0-3 [facility] ([facility]) Bacteria, Urine Auto Laboratory test result [facility] ([facility] [facility] Squamous Epithelial Cell Ur AU 1 /HPF 0-6 [facility] ([place] [facility]) Hyaline Cast, Urine Auto 0 /LPF 0-1 [facility] ([facility] [facility]) ID Date Data Source [id number] 12/08/2019 09:04:00 AM EDT [facility] Name Value Range Interpretation Code Description Data Fatmata rce(s) Supporting Document(s) Microscopic observation [Identifier] in Unspecified specimen by Non- gynecological cytology method Laboratory test result [facility] ([facility]) Bacteria identified in Urine by Culture Laboratory test result [facility] ([facility]) FULL REPORT IN LAB NOTES (eCW and [facility] ). NO GROWTH ID Date Data Source [id number] 12/08/2019 09:03:00 AM EDT [facility] ([facility]) Name Value Range Interpretation Code Description Data Fatmata rce(s) Supporting Document(s) Erythrocytes [#/volume] in Blood by Automated count 3.86 x10*6/UL 4.2 0-6.[address] [facility]) Leukocytes [#/volume] in Blood by Automated count 10.4 x10*3/UL 4.1-1 0.9 [facility] ([facility]) MCV 87.8 fL 80.0-97.[address] [facility] [facility] Hemoglobin [Mass/volume] in Blood 11.2 g/dL 12.0-18.0 [facility] ([facility]) NOTE: RESULT VERIFIED. Hematocrit [Volume Fraction] of Blood by Automated count 33.9 % 3 7.0-51.0 [facility] ([facility]) MCHC 33.1 g/dL 31.0-38.0 [facility] ([facility]) MCH 29.0 pg 26.0-32.0 [facility] ([facility]) Erythrocyte distribution width [Ratio] by Automated count 17.3 % 11.6-13.7 [facility] ([facility]) Platelets [#/volume] in Blood by Automated count 272 x10*3/UL 140-440 [facility] ([facility]) Lymph % 16.3 % 10.0-58.5 [facility] ([facility]) MPV 9.0 FL 7.8-11.0 [facility] ([facility]) Mid % 5.8 % 1.7-9.3 [facility] ([facility]) Neut % 77.9 % 37.0-92.0 [facility] ([facility]) Mid # 0.6 x10*3/UL 0.1-0.6 [facility] ([facility]) Lymph # 1.7 x10*3/UL 0.6-4.1 [facility] ([facility]) Neut # 8.1 x10*3/UL 2.0-7.8 [facility] ([facility]) ID Date Data Source [id number] 12/08/2019 09:03:00 AM EDT [facility] ([facility]) Name Value Range Interpretation Code Description Data Fatmata rce(s) Supporting Document(s) Hemoglobin A1c/Hemoglobin.total in Blood 7.9 g/dL 4.8-5.[address] [facility] ([facility] [facility] Lab Result Notes: Pre-Diabetes 5.7 - 6.4 % Diabetes = or > 6.5% Glucose mean value [Mass/volume] in Blood Estimated fr om glycated hemoglobin 180 mg/dL 60-110 [facility] ([facility] [facility] ) ID Date Data Source [id number] 12/08/2019 09:03:00 AM EDT [facility] ([facility]) Name Value Range Interpretation Code Description Data Fatmata rce(s) Supporting Document(s) Magnesium 1.4 mg/dL 1.8-2.4 [facility] ([facility]) NOTE: RESULT VERIFIED. ID Date Data Source [id number] 12/08/2019 09:03:00 AM EDT [facility] ([facility]) Name Value Range Interpretation Code Description Data Fatmata rce(s) Supporting Document(s) Glucose [Mass/volume] in Serum or Plasma 98 mg/dL 74-99 [facility] ([facility]) 100-125 mg/dL PRE-DIABETES/FASTING >126 mg/dL DIABETES/FASTING Urea nitrogen [Mass/volume] in Serum or Plasma 23 mg/dL 7-18 [facility] ([facility]) Creatinine 1.5 mg/dL 0.6-1.3 [facility] ([facility]) Sodium [Moles/volume] in Serum or Plasma 141 meq/L 136-145 [facility] ([facility]) Chloride [Moles/volume] in Serum or Plasma 106 meq/L 98-107 [facility] ([facility]) Potassium [Moles/volume] in Serum or Plasma 4.5 meq/L 3.5-5.1 [facility] ([facility]) Glomerular filtration rate/1.73 sq M pre dicted among non-blacks [Volume Rate/Area] in Serum or Plasma by Creatinine-based formula (MDRD) 47 mL/min [facility] ([facility]) Calcium [Mass/volume] in Serum or Plasma 8.1 mg/dL 8.5-10.1 [facility] ([facility]) NOTE: RESULT VERIFIED. Carbon dioxide, total [Moles/volume] in Serum or Plasma 28 meq/L 21 -32 [facility] ([facility] [facility]) Glomerular filtration rate/1.73 sq M pre dicted among blacks [Volume Rate/Area] in Serum or Plasma by Creatinine-based formula (MDRD) 57 mL/min [facility] ([place] [facility]) <content>CHRONIC KIDNEY DISEASE STAGING PER NKF</content>
<content></content>
<content>STAGE I & II GFR >= 60 NORMAL TO MILDLY DECREASED</content>
<content>STAGE III GFR 30-59 MODERATELY DECREASED</content>
<content>STAGE IV GFR 15-29 SEVERELY DECREASED</content>
<content>STAGE V GFR <15 VERY LITTLE GFR LEFT</content>
<content>ESRD GFR <15 ON ENTERPRISE ACCOUNT EXECUTIVE</content>
<content></content> ID Date Data Source [id number] 12/08/2019 09:03:00 AM EDT [facility]) Name Value Range Interpretation Code Description Data Fatmata rce(s) Supporting Document(s) Digoxin [Mass/volume] in Serum or Plasma 1.0 ng/mL 0.5-2.0 [facility] ([facility]) ID Date Data Source [id number] 12/08/2019 09:03:00 AM EDT [facility] ([facility]) Name Value Range Interpretation Code Description Data Fatmata rce(s) Supporting Document(s) Microscopic observation [Identifier] in Unspecified specimen by Non- gynecological cytology method Laboratory test result [facility] ([place] [facility]) SPECIMEN: Urine 60ml Dark yellow SPECIMEN ADEQUACY: Satisfactory for evaluation CATEGORIZATION: Negative for Malignancy DESCRIPTIONS: Urothelial cells noted COMMENTS: 12/12/2019 - 1245 Signed EDMUNDO RAMSEY(ASCP) 12/12/2019 1246 (Prelim) Signed Sree Lozano MD 12/12/2019 1311 ID Date Data Source [id number] 12/08/2019 09:03:00 AM EDT [facility]) Name Value Range Interpretation Code Description Data Fatmata rce(s) Supporting Document(s) Magnesium, Serum Laboratory test result [facility] ([facility]) Hemoglobin A1c/Hemoglobin.total in Blood Laboratory test [facility] ([facility]) ID Date Data Source [id number] 11/21/2019 03:53:00 PM EDT [facility] ([facility]) Name Value Range Interpretation Code Description Data Fatmata rce(s) Supporting Document(s) Appearance, Urine Manual Laboratory test result [facility] ([facility]) PH,Urine Man 8.5 units 5.0-7.0 [facility] ([facility]) Color, Urine Manual Laboratory test result [facility] ([facility]) Glucose, Urine (Ua) Manual Laboratory test result [facility] ([facility]) Protein, Urine Manual Laboratory test result [facility] ([facility]) Specific [place],Urine Manual 1.016 1.002-1.035 [facility] ([facility] [facility]) Urobilinogen, Urine Manual Laboratory test result [facility] ([facility]) Ketone, Urine Manual Laboratory test result [facility] ([facility]) Nitrite, Urine Manual Laboratory test result [facility] ([facility] [facility]) Bilirubin, Urine Manual Laboratory test result [facility] ([facility]) Blood Urine Manual Laboratory test result [facility] ([facility] [facility]) Leukocyte Esterase, Urine Man Laboratory test result [facility] ([facility] [facility]) ID Date Data Source [id number] 11/21/2019 03:53:00 PM EDT [facility] ([facility]) Name Value Range Interpretation Code Description Data Fatmata rce(s) Supporting Document(s) Neutrophils 83 % 28-66 [facility] ([facility]) Lymphocytes 8 % 16-44 [facility] ([facility]) Monocytes 7 % 0-5 [facility] ([place] [facility]) Eosinophils 1 % 0-3 [facility] ([facility]) Basophils 1 % 0-1 [facility] ([place] [facility]) Anisocytosis Laboratory test result [facility] ([facility] [facility]) Crenated RBC Laboratory test result [facility] ([facility]) Platelet Estimate Laboratory test result [facility] ([facility] [facility]) Ovalocytes Laboratory test result [facility] ([facility] [facility]) ID Date Data Source [id number] 11/21/2019 03:53:00 PM EDT [facility] ([facility]) Name Value Range Interpretation Code Description Data Fatmata rce(s) Supporting Document(s) RBC, Urine Laboratory test result 0-3 [facility] ([facility]) WBC, Urine Laboratory test result 0-3 [facility] ([facility]) Squamous Epithelial Cell Urine Laboratory test result [facility] ([facility]) Hyaline Cast, Urine Laboratory test result 0-1 [facility] ([facility] [facility]) Bacteria, Urine Laboratory test result M [facility] ([facility] [facility]) Mucus, Urine Laboratory test result [facility] ([facility] [facility]) Amorphous Sediment, Urine Laboratory test result [facility] ([facility]) Microscopic Exam Laboratory test result [facility] ([facility]) ID Date Data Source [id number] 11/21/2019 03:53:00 PM EDT [facility] ([facility]) Name Value Range Interpretation Code Description Data Fatmata rce(s) Supporting Document(s) Bacteria identified in Urine by Culture Laboratory test result [facility] ([facility] [facility]) FULL REPORT IN LAB NOTES (eCW and [facility] ). ORGANISM 1: AEROCOCCUS VIRIDANS COLONY COUNT >100,000 Aerococcus viridans appear to be susceptible to penicillin and display a low level of resistance to aminoglycoides. A. viridans seems to be naturally susceptible to macrolides, tetracyclines, and chloramphenicol, resistance to these agents has been observed. ORGANISM 1: AEROCOCCUS VIRIDANS ID Date Data Source [id number] 11/21/2019 03:39:00 PM EDT [facility] ([facility]) Name Value Range Interpretation Code Description Data Fatmata rce(s) Supporting Document(s) Creatine kinase [Enzymatic activity/volume] in Serum or Plasma 63 U /L 39-308 [facility] ([facility] [facility]) ID Date Data Source [id number] 11/21/2019 03:39:00 PM EDT [facility] ([facility]) Name Value Range Interpretation Code Description Data Fatmata rce(s) Supporting Document(s) Leukocytes [#/volume] in Blood by Automated count 14.4 x10*3/UL 4.1-1 0.9 [facility] ([facility] [facility]) NOTE: MANUAL DIFFERENTIAL SENT TO [facility] FOR VERIFICATION. Erythrocytes [#/volume] in Blood by Automated count 4.53 x10*6/UL 4.2 0-6.[address] [facility] ([facility]) Hematocrit [Volume Fraction] of Blood by Automated count 38.8 % 3 7.0-51.[address] [facility] ([facility]) Hemoglobin [Mass/volume] in Blood 12.8 g/dL 12.0-18.0 [facility] ([facility]) MCH 28.2 pg 26.0-32.0 [facility] [facility] MCV 85.5 fL 80.0-97.0 [facility] [facility] MCHC 32.9 g/dL 31.0-38.0 [facility] ([place] [facility]) MPV 8.5 FL 7.8-11.0 [facility] ([place] [facility]) Platelets [#/volume] in Blood by Automated count 362 x10*3/UL 140-440 [facility] ([facility]) Erythrocyte distribution width [Ratio] by Automated count 16.9 % 11.6-13.7 [facility] ([facility]) Lymph % 7.1 % 10.0-58.5 [facility] [facility] Mid % 8.5 % 1.7-9.3 [facility] [facility] Neut # 12.1 x10*3/UL 2.0-7.8 [facility] ([facility]) Neut % 84.4 % 37.0-92.0 [facility] ([place] [facility]) Mid # 1.3 x10*3/UL 0.1-0.6 [facility] ([facility]) Lymph # 1.0 x10*3/UL 0.6-4.1 [facility] ([facility]) ID Date Data Source [id number] 11/21/2019 03:39:00 PM EDT [facility] ([facility]) Name Value Range Interpretation Code Description Data Fatmata rce(s) Supporting Document(s) Urea nitrogen [Mass/volume] in Serum or Plasma 30 mg/dL 7-18 [facility] ([facility]) Glucose [Mass/volume] in Serum or Plasma 119 mg/dL 74-99 [facility] ([facility]) 100-125 mg/dL PRE-DIABETES/FASTING >126 mg/dL DIABETES/FASTING Creatinine 1.5 mg/dL 0.6-1.3 [facility] ([facility]) Sodium [Moles/volume] in Serum or Plasma 141 meq/L 136-145 [facility] ([facility]) Potassium [Moles/volume] in Serum or Plasma 4.2 meq/L 3.5-5.1 [facility] ([facility]) Carbon dioxide, total [Moles/volume] in Serum or Plasma 33 meq/L 21 -32 [facility] ([facility]) Chloride [Moles/volume] in Serum or Plasma 104 meq/L 98-107 [facility] ([facility]) Calcium [Mass/volume] in Serum or Plasma 8.7 mg/dL 8.5-10.1 [facility] ([facility]) Alkaline phosphatase isoenzyme [Units/volume] in Serum or Pl asma 126 mg/dL 46-116 [facility] ([facility]) Total Bilirubin 0.8 mg/dL 0.2-1.0 [facility] ([facility]) Aspartate aminotransferase [Enzymatic activity/volume] in Serum or Plasma 10 U/L 15-37 [facility] ([facility] ) Alanine aminotransferase [Enzymatic activity/volume] in Seru m or Plasma 9 U/L 12-78 [facility] ([facility]) Albumin [Mass/volume] in Serum or Plasma 2.5 g/dL 3.4-5.0 [facility] ([facility]) A/G Ratio 0.57 CALC 1.00-1.90 [facility] ([place] [facility]) Proteinase 3 Ab [Units/volume] in Serum 6.9 g/dL 6.4-8.2 [facility] ([facility]) Glomerular filtration rate/1.73 sq M pre dicted among blacks [Volume Rate/Area] in Serum or Plasma by Creatinine-based formula (MDRD) 57 mL/min [facility] ([facility] [facility] <content>CHRONIC KIDNEY DISEASE STAGING PER NKF</content>
<content></content>
<content>STAGE I & II GFR >= 60 NORMAL TO MILDLY DECREASED</content>
<content>STAGE III GFR 30-59 MODERATELY DECREASED</content>
<content>STAGE IV GFR 15-29 SEVERELY DECREASED</content>
<content>STAGE V GFR <15 VERY LITTLE GFR LEFT</content>
<content>ESRD GFR <15 ON ENTERPRISE ACCOUNT EXECUTIVE</content>
<content></content> Glomerular filtration rate/1.73 sq M pre dicted among non-blacks [Volume Rate/Area] in Serum or Plasma by Creatinine-based formula (MDRD) 47 mL/min [facility] ([facility]) ID Date Data Source [id number] 07/19/2019 11:57:00 AM EST [facility] ([facility]) Name Value Range Interpretation Code Description Data Fatmata rce(s) Supporting Document(s) Urate [Mass/volume] in Serum or Plasma 5.4 mg/dL 3.5-7.2 [facility] ([facility]) ID Date Data Source [id number] 07/19/2019 11:56:00 AM EST [facility] ([facility]) Name Value Range Interpretation Code Description Data Fatmata rce(s) Supporting Document(s) Urea nitrogen [Mass/volume] in Serum or Plasma 23 mg/dL 7-18 [facility] ([facility]) Glucose [Mass/volume] in Serum or Plasma 106 mg/dL 74-99 [facility] ([facility]) 100-125 mg/dL PRE-DIABETES/FASTING >126 mg/dL DIABETES/FASTING Creatinine 1.3 mg/dL 0.6-1.3 [facility] ([facility]) Sodium [Moles/volume] in Serum or Plasma 142 meq/L 136-145 [facility] ([facility]) Potassium [Moles/volume] in Serum or Plasma 4.9 meq/L 3.5-5.1 [facility] ([facility]) Glomerular filtration rate/1.73 sq M pre dicted among non-blacks [Volume Rate/Area] in Serum or Plasma by Creatinine-based formula (MDRD) 55 mL/min [facility] ([facility]) Carbon dioxide, total [Moles/volume] in Serum or Plasma 30 meq/L 21 -32 [facility] ([facility]) Calcium [Mass/volume] in Serum or Plasma 8.3 mg/dL 8.5-10.1 [facility] ([facility]) Chloride [Moles/volume] in Serum or Plasma 105 meq/L 98-107 [facility] ([facility]) Glomerular filtration rate/1.73 sq M pre dicted among blacks [Volume Rate/Area] in Serum or Plasma by Creatinine-based formula (MDRD) Laboratory test result [facility] ([facility] [facility] <content>CHRONIC KIDNEY DISEASE STAGING PER NKF</content>
<content></content>
<content>STAGE I & II GFR >= 60 NORMAL TO MILDLY DECREASED</content>
<content>STAGE III GFR 30-59 MODERATELY DECREASED</content>
<content>STAGE IV GFR 15-29 SEVERELY DECREASED</content>
<content>STAGE V GFR <15 VERY LITTLE GFR LEFT</content>
<content>ESRD GFR <15 ON ENTERPRISE ACCOUNT EXECUTIVE</content>
<content></content> ID Date Data Source [id number] 07/19/2019 11:56:00 AM EST [facility] ([facility]) Name Value Range Interpretation Code Description Data Fatmata rce(s) Supporting Document(s) Magnesium 1.5 mg/dL 1.8-2.4 [facility] ([place] [facility]) NOTE: RESULT VERIFIED. ID Date Data Source [id number] 07/19/2019 11:56:00 AM EST [facility] ([facility]) Name Value Range Interpretation Code Description Data Fatmata rce(s) Supporting Document(s) Hemoglobin A1c/Hemoglobin.total in Blood 7.8 g/dL 4.8-5.[address] [facility]) Lab Result Notes: Pre-Diabetes 5.7 - 6.4 % Diabetes = or > 6.5% Glucose mean value [Mass/volume] in Blood Estimated fr om glycated hemoglobin 177 mg/dL 60-110 [facility] ([facility] [facility] ID Date Data Source [id number] 07/19/2019 11:56:00 AM EST [facility] ([facility]) Name Value Range Interpretation Code Description Data Fatmata rce(s) Supporting Document(s) Leukocytes [#/volume] in Blood by Automated count 10.0 x10*3/UL 4.1-1 0.9 [facility] ([facility]) Hemoglobin [Mass/volume] in Blood 11.2 g/dL 12.0-18.0 [facility] ([facility]) NOTE: RESULT VERIFIED. Erythrocytes [#/volume] in Blood by Automated count 4.08 x10*6/UL 4.2 0-6.30 [facility] ([facility]) MCV 84.3 fL 80.0-97.0 [facility] ([facility]) MCH 27.4 pg 26.0-32.0 [facility] ([facility]) Hematocrit [Volume Fraction] of Blood by Automated count 34.4 % 3 7.0-51.0 [facility] ([facility] [facility] MCHC 32.5 g/dL 31.0-38.0 [facility] ([facility]) Platelets [#/volume] in Blood by Automated count 265 x10*3/UL 140-440 [facility] ([facility] [facility] Erythrocyte distribution width [Ratio] by Automated count 17.7 % 11.6-13.7 [facility] ([facility] [facility]) Mid % 4.3 % 1.7-9.3 [facility] ([facility]) Lymph % 13.9 % 10.0-58.5 [facility] ([facility]) MPV 8.7 FL 7.8-11.0 [facility] ([facility]) Neut % 81.8 % 37.0-92.0 [facility] ([facility]) Neut # 8.2 x10*3/UL 2.0-7.8 [facility] ([facility]) Mid # 0.5 x10*3/UL 0.1-0.6 [facility] ([facility]) Lymph # 1.3 x10*3/UL 0.6-4.1 [facility] ([facility] [facility] ID Date Data Source [id number] 07/19/2019 11:56:00 AM EST [facility] ([facility] Name Value Range Interpretation Code Description Data Fatmata rce(s) Supporting Document(s) Thyrotropin [Units/volume] in Serum or Plasma by Detec tion limit <= 0.05 mIU/L 3.27 uIU/mL 0.36-3.74 [facility] ([facility] ) ID Date Data Source [id number] 07/11/2019 10:51:00 AM EST [facility] ([facility] Name Value Range Interpretation Code Description Data Fatmata rce(s) Supporting Document(s) Bedside Glucose 95 mg/dL 80-115 [facility] ([facility]) ID Date Data Source [id number] 06/14/2019 10:14:00 AM EST [facility] ([facility]) Name Value Range Interpretation Code Description Data Fatmata rce(s) Supporting Document(s) Creatinine 1.2 mg/dL 0.6-1.3 [facility] [facility] Urea nitrogen [Mass/volume] in Serum or Plasma 21 mg/dL 7-18 [facility] ([facility]) Glucose [Mass/volume] in Serum or Plasma 102 mg/dL 74-99 [facility] ([facility]) 100-125 mg/dL PRE-DIABETES/FASTING >126 mg/dL DIABETES/FASTING Potassium [Moles/volume] in Serum or Plasma 4.2 meq/L 3.5-5.1 [facility] ([facility]) Chloride [Moles/volume] in Serum or Plasma 103 meq/L 98-107 [facility] ([facility]) Carbon dioxide, total [Moles/volume] in Serum or Plasma 32 meq/L 21 -32 [facility] ([facility]) Sodium [Moles/volume] in Serum or Plasma 143 meq/L 136-145 [facility] ([facility]) Glomerular filtration rate/1.73 sq M pre dicted among non-blacks [Volume Rate/Area] in Serum or Plasma by Creatinine-based formula (MDRD) [facility] Glomerular filtration rate/1.73 sq M pre dicted among blacks [Volume Rate/Area] in Serum or Plasma by Creatinine-based formula (MDRD) Laboratory test result [facility] ([facility]) <content>CHRONIC KIDNEY DISEASE STAGING PER NKF</content>
<content></content>
<content>STAGE I & II GFR >= 60 NORMAL TO MILDLY DECREASED</content>
<content>STAGE III GFR 30-59 MODERATELY DECREASED</content>
<content>STAGE IV GFR 15-29 SEVERELY DECREASED</content>
<content>STAGE V GFR <15 VERY LITTLE GFR LEFT</content>
<content>ESRD GFR <15 ON ENTERPRISE ACCOUNT EXECUTIVE</content>
<content></content> Calcium [Mass/volume] in Serum or Plasma 9.0 mg/dL 8.5-10.1 MED[facility] ([facility]) ID Date Data Source [id number] 06/14/2019 10:14:00 AM EST [facility] ([facility]) Name Value Range Interpretation Code Description Data Fatmata rce(s) Supporting Document(s) Erythrocytes [#/volume] in Blood by Automated count 4.63 x10*6/UL 4.2 0-6.30 [facility] ([facility]) Leukocytes [#/volume] in Blood by Automated count 11.4 x10*3/UL 4.1-1 0.9 [facility] ([facility]) Hematocrit [Volume Fraction] of Blood by Automated count 38.8 % 3 7.0-51.0 [facility] ([facility]) MCH 26.9 pg 26.0-32.0 [facility] MCV 83.9 fL 80.0-97.0 [facility] ([facility]) Hemoglobin [Mass/volume] in Blood 12.4 g/dL 12.0-18.0 [facility] Erythrocyte distribution width [Ratio] by Automated count 16.4 % 11.6-13.7 [facility] ([facility]) MCHC 32.0 g/dL 31.0-38.0 [facility] ([facility]) Platelets [#/volume] in Blood by Automated count 317 x10*3/UL 140-440 [facility] ([facility]) Lymph % 15.5 % 10.0-58.5 [facility] ([facility]) Mid % 4.7 % 1.7-9.3 [facility] ([facility]) MPV 8.5 FL 7.8-11.0 [facility] Neut % 79.8 % 37.0-92.0 [facility] ([facility]) Lymph # 1.7 x10*3/UL 0.6-4.1 [facility] ([facility]) Mid # 0.6 x10*3/UL 0.1-0.6 [facility] ([facility]) Neut # 9.1 x10*3/UL 2.0-7.8 [facility] ([facility]) Procedure Social History Code Duration Value Status Description Data Source(s ) Smoking 07/31/2020 12:00:00 AM EST Former Smoker completed Former Smoker [facility] Smoking 06/27/2020 12:00:00 AM EST Former Smoker completed Former Smoker eCW1 ([facility]) Smoking 06/27/2020 12:00:00 AM EST Former Smoker completed Former Smoker eCW1 ([facility]) Smoking 06/27/2020 12:00:00 AM EST Former Smoker completed Former Smoker eCW1 ([facility]) Smoking 05/25/2020 12:00:00 AM EST Former Smoker completed Former Smoker eCW1 ([facility]) Smoking 05/25/2020 12:00:00 AM EST Former Smoker completed Former Smoker eCW1 ([facility]) Smoking 05/25/2020 12:00:00 AM EST Former Smoker completed Former Smoker eCW1 ([facility]) Vital Signs ID Date Data Source UNK Name Value Range Interpretation Code Description Data Source(s) Diastolic blood pressure 74 mm[Hg] 74 mm[Hg] eCW1 [facility]) Systolic blood pressure 128 mm[Hg] 128 mm[Hg] e CW1 ([facility]) Body temperature 99 [degF] 99 [degF] eCW1 ([facility]) Respiratory rate 18 /min 18 /min eCW1 ([facility]) Heart rate 58 /min 58 /min eCW1 ([facility]) Body mass index (BMI) [Ratio] 38.41 kg/m2 38.41 kg/m2 eCW1 ([facility]) Body height 66 [in_i] 66 [in_i] eCW1 ([facility]) Body weight 238 [lb_av] 238 [lb_av] eCW1 ([facility]) Body mass index (BMI) [Ratio] 37.4 kg/m2 37.4 k g/m2 [facility] ([facility]) Body weight 225.00 [lb_av] 225.00 [lb_av] MEDEN T ([facility]) Body height 65 [in_i] 65 [in_i] [facility] ([facility]) 5'5" Heart rate 60 /min 60 /min [facility] ([facility]) Diastolic blood pressure 70 mm[Hg] 70 mm[Hg] [facility] ([facility]) RT Arm Systolic blood pressure 128 mm[Hg] 128 mm[Hg] M EDENT ([facility]) RT Arm Diastolic blood pressure 72 mm[Hg] 72 mm[Hg] eCW1 [facility] Systolic blood pressure 130 mm[Hg] 130 mm[Hg] e CW1 ([facility]) Body temperature 98.3 [degF] 98.3 [degF] eCW1 ( [facility]) Respiratory rate 18 /min 18 /min eCW1 ([facility]) Heart rate 52 /min 52 /min eCW1 ([facility]) Body mass index (BMI) [Ratio] 38.41 kg/m2 38.41 kg/m2 W1 ([facility]) Body height 66 [in_i] 66 [in_i] eCW1 ([facility]) Body weight 238 [lb_av] 238 [lb_av] eCW1 ([facility]) Diastolic blood pressure 74 mm[Hg] 74 mm[Hg] eCW1 ([facility]) Systolic blood pressure 132 mm[Hg] 132 mm[Hg] e CW1 ([facility]) Body temperature 98.9 [degF] 98.9 [degF] eCW1 ( [facility]) Respiratory rate 18 /min 18 /min eCW1 ([facility]) Heart rate 45 /min 45 /min eCW1 ([facility]) Body mass index (BMI) [Ratio] 38.41 kg/m2 38.41 kg/m2 W1 ([facility]) Body height 66 [in_i] 66 [in_i] eCW1 ([facility]) Body weight 238 [lb_av] 238 [lb_av] eCW1 ([facility]) Body mass index (BMI) [Ratio] 39.1 kg/m2 39.1 k g/m2 [facility] ([facility]) Body weight 235.00 [lb_av] 235.00 [lb_av] MEDEN T ([facility]) Body height 65 [in_i] 65 [in_i] [facility] ([facility]) 5'5" Heart rate 58 /min 58 /min [facility] ([facility]) Diastolic blood pressure 60 mm[Hg] 60 mm[Hg] [facility] ([facility]) Systolic blood pressure 120 mm[Hg] 120 mm[Hg] M EDENT ([facility]) Body mass index (BMI) [Ratio] 41.3 kg/m2 41.3 k g/m2 [facility] ([facility]) Diastolic blood pressure 60 mm[Hg] 60 mm[Hg] [facility] ([facility]) RT Arm Systolic blood pressure 128 mm[Hg] 128 mm[Hg] M EDENT ([facility]) RT Arm Body weight 248.00 [lb_av] 248.00 [lb_av] MEDEN T ([facility]) Body height 65 [in_i] 65 [in_i] [facility] ([facility]) 5'5" Heart rate 56 /min 56 /min [facility] ([facility]) Body weight 107.503 kg 107.503 [...] [Ratio] 38.2 kg/m2 38.2 k g/m2 [facility] ([facility] ) Body weight 237.00 [lb_av] 237.00 [lb_av] MEDEN T ([facility]) Body height 66 [in_i] 66 [in_i] [facility] ([facility]) 5'6" Body temperature 97.4 [degF] 97.4 [degF] [facility] ([facility] ) Body mass index (BMI) [Ratio] 40.5 kg/m2 40.5 k g/m2 [facility] ([facility]) Oxygen saturation in Arterial blood by Pulse oximetry 98 % 98 % [facility] ([facility]) Air Body weight 243.12 [lb_av] 243.12 [lb_av] MEDEN T ([facility]) Body height 65 [in_i] 65 [in_i] [facility] ([facility]) 5'5" Heart rate 50 /min 50 /min MED[facility] ([facility]) Diastolic blood pressure 64 mm[Hg] 64 mm[Hg] [facility] ([facility]) Systolic blood pressure 126 mm[Hg] 126 mm[Hg] [facility] ([facility]) Body mass index (BMI) [Ratio] 41.1 kg/m2 41.1 k g/m2 [facility] ([facility]) Oxygen saturation in Arterial blood by Pulse oximetry 94 % 94 % [facility] ([facility]) Body weight 247.00 [lb_av] 247.00 [lb_av] MEDEN T ([facility]) Body height 65 [in_i] 65 [in_i] [facility] ([facility]) 5'5" Heart rate 74 /min 74 /min [facility] ([facility]) Diastolic blood pressure 66 mm[Hg] 66 mm[Hg] [facility] ([facility]) Systolic blood pressure 138 mm[Hg] 138 mm[Hg] [facility] ([facility]) Body mass index (BMI) [Ratio] 40.8 kg/m2 40.8 k g/m2 [facility] ([facility]) Oxygen saturation in Arterial blood by Pulse oximetry 97 % 97 % [facility] ([facility]) Body weight 245.00 [lb_av] 245.00 [lb_av] MEDEN T ([facility]) Body height 65 [in_i] 65 [in_i] [facility] ([facility]) 5'5" Heart rate 63 /min 63 /min [facility] ([facility]) Diastolic blood pressure 72 mm[Hg] 72 mm[Hg] [facility] Systolic blood pressure 124 mm[Hg] 124 mm[Hg] [facility] ([facility]) Body mass index (BMI) [Ratio] 38.8 kg/m2 38.8 k g/m2 [facility] ([facility]) Oxygen saturation in Arterial blood by Pulse oximetry 95 % 95 % [facility] ([facility]) Body weight 233.00 [lb_av] 233.00 [lb_av] MEDEN T ([facility]) Body height 65 [in_i] 65 [in_i] [facility] ([facility]) 5'5" Heart rate 85 /min 85 /min [facility] ([facility]) Diastolic blood pressure 62 mm[Hg] 62 mm[Hg] [facility]) Systolic blood pressure 122 mm[Hg] 122 mm[Hg] [facility] ([facility]) Body mass index (BMI) [Ratio] 43.8 kg/m2 43.8 k g/m2 [facility] ([facility]) Body weight 263.00 [lb_av] 263.00 [lb_av] [facility] Body height 65 [in_i] 65 [in_i] [facility] 5'5" Heart rate 88 /min 88 /min [facility] ([facility]) Diastolic blood pressure 64 mm[Hg] 64 mm[Hg] [facility]) RT Arm Systolic blood pressure 150 mm[Hg] 150 mm[Hg] [facility] ([facility]) RT Arm Body height 67 [in_i] 67 [in_i] [facility] ([facility]) 5'7" Body weight 116.122 kg 116.122 kg [facility] ([facility]) Body mass index (BMI) [Ratio] 40.1 kg/m2 [...] let [Bactrim] 05/25/2020 12:00:00 AM EST eCW1 ([facility]) Sulfamethoxazole 800 MG / Trimethoprim 160 MG Oral Tab let [Bactrim] 05/25/2020 12:00:00 AM EST eCW1 ([facility]) Sulfamethoxazole 800 MG / Trimethoprim 160 MG Oral Tab let [Bactrim] 05/25/2020 12:00:00 AM EST eCW1 ([facility])
[2020-08-03 19:29] LABS: APPEARANCE, URINE MANUAL TURBID (CLEAR); COLOR, URINE MANUAL RED (YELLOW)
[2020-08-03 19:35] LABS: BASO # 0.1 10^3/uL (0.0-0.2); BASO % 0.5 % (0.0-1.0); EOS # 0.3 10^3/uL (0.0-0.5); EOS % 2.5 % (0.0-3.0); HEMOGLOBIN 8.3 g/dl (13.5-17.5); LYMPH # 1.8 10^3/uL (1.5-5.0); LYMPH % 14.8 % (24.0-44.0); MEAN CORPUSCULAR HEMOGLOBIN 28.4 pg (27.0-33.0); MEAN CORPUSCULAR HGB CONC 30.7 g/dl (32.0-36.5); MEAN CORPUSCULAR VOLUME 92.5 fl (80.0-96.0); MONO # 0.7 10^3/uL (0.0-0.8); MONO % 5.6 % (2.0-8.0); NEUTROPHILS # 9.4 10^3/uL (1.5-8.5); NEUTROPHILS % 75.9 % (36.0-66.0); PLATELET COUNT, AUTOMATED 257 10^3/uL (150-450); RED BLOOD COUNT 2.92 10^6/uL (4.30-6.10); WHITE BLOOD COUNT 12.4 10^3/uL (4.0-10.0)
[2020-08-03 19:39] LABS: PH,URINE MAN 6.5 UNITS (5.0 - 7.0); SPECIFIC GRAVITY,URINE MANUAL 1.015 (1.002-1.035)
[2020-08-03 19:40] LABS: BILIRUBIN, URINE MANUAL NEGATIVE (NEGATIVE); BLOOD URINE MANUAL POSITIVE (NEGATIVE); GLUCOSE, URINE (UA) MANUAL NEGATIVE (NEGATIVE); KETONE, URINE MANUAL NEGATIVE (NEGATIVE); LEUKOCYTE ESTERASE, URINE MAN POSITIVE (NEGATIVE); NITRITE, URINE MANUAL NEGATIVE (NEGATIVE); PROTEIN, URINE MANUAL 3+ mg/dL (NEGATIVE); UROBILINOGEN, URINE MANUAL NORMAL (NORMAL)
[2020-08-03 19:43] LABS: RBC, URINE TNTC /hpf (0-3); WBC, URINE TNTC /hpf (0-3)
[2020-08-03 19:44] LABS: BACTERIA, URINE SMALL AMOUNT; SQUAMOUS EPITHELIAL CELL URINE NONE SEEN /hpf (SMALL AMT)
[2020-08-03 19:45] LABS: INR 1.16; PROTHROMBIN TIME 15.1 SECONDS (12.5-14.3)
[2020-08-03 19:46] LABS: HYALINE CAST, URINE NONE SEEN /lpf (0-1); MUCUS, URINE SMALL AMOUNT (NEGATIVE)
[2020-08-03 19:46] LABS: PARTIAL THROMBOPLASTIN TIME 40.4 SECONDS (24.2-38.5)
== END 2020-08-03 21:24 | disposition home or self-care (01) ==
LOC: M ED 17:00
DX: T83.098A Other mechanical complication of other urinary catheter, initial encounter (principal); R31.9 Hematuria, unspecified; R71.8 Other abnormality of red blood cells; I11.0 Hypertensive heart disease with heart failure; E11.9 Type 2 diabetes mellitus without complications; I48.91 Unspecified atrial fibrillation; E78.5 Hyperlipidemia, unspecified; G47.33 Obstructive sleep apnea (adult) (pediatric); Z86.73 Personal history of transient ischemic attack (TIA), and cerebral infarction without residual deficits; Z79.899 Other long term (current) drug therapy

== ENCOUNTER → 2020-08-06 | Outpatient (CLI) | payer MEDICARE, BC ==
[~2020-08-06] MED LIST changes: +ASPI-569 PO; -ASPI81TAEC PO
--- NOTE | 2020-08-06 12:51 | REP ---
INDICATION: SOB COMPARISON: 12/23/2016 TECHNIQUE: PA and lateral. FINDINGS: The mediastinum and cardiac silhouette are normal. The lung solares are clear and without acute consolidation, effusion, or pneumothorax. The skeletal structures are intact and normal. IMPRESSION: No acute cardiopulmonary process. <Electronically signed by Simon Lutz > 08/06/20 124
[2020-08-06 17:49] LABS: INR 1.23; PROTHROMBIN TIME 15.8 SECONDS (12.5-14.3)
[2020-08-06 17:50] LABS: PARTIAL THROMBOPLASTIN TIME 39.6 SECONDS (24.2-38.5)
== END ==
LOC: M WUC 12:36
PROVIDERS: ATTEND Internal Medicine
DX: R31.9 Hematuria, unspecified (principal); I48.20 Chronic atrial fibrillation, unspecified; Z79.01 Long term (current) use of anticoagulants

== ENCOUNTER → 2020-08-10 | Outpatient (REF) | payer MEDICARE, BC ==
[2020-08-10 17:08] LABS: APPEARANCE, URINE CLOUDY (CLEAR); BACTERIA, URINE AUTO 1+ (NEGATIVE); BILIRUBIN, URINE AUTO NEGATIVE (NEGATIVE); BLOOD, URINE BLOOD 3+ (NEGATIVE); COLOR, URINE RED (YELLOW); GLUCOSE, URINE (UA) AUTO NEGATIVE (NEGATIVE); KETONE, URINE AUTO NEGATIVE (NEGATIVE); LEUKOCYTE ESTERASE, URINE AUTO 2+ (NEGATIVE); MUCUS, URINE SMALL (NEGATIVE); NITRITE, URINE AUTO NEGATIVE (NEGATIVE); PROTEIN, URINE AUTO 2+ mg/dL (NEGATIVE); RBC, URINE AUTO TNTC /HPF (0-3); SPECIFIC GRAVITY URINE AUTO 1.009 (1.002-1.035); SQUAMOUS EPITHELIAL CELL UR AU 0 /HPF (0-6); UROBILINOGEN, URINE AUTO 0.2 mg/dL (0.0-2.0); WBC, URINE AUTO 30 /HPF (0-3)
== END ==
LOC: M LAB REF 16:09
PROVIDERS: ATTEND Internal Medicine
DX: R31.9 Hematuria, unspecified (principal)

== ENCOUNTER → 2020-08-22 | Outpatient (REF) | payer MEDICARE, BC ==
[~2020-08-22] MED LIST changes: +FINA5TAB2 PO; +HYDR-3716 PO; +IRON27TA2 PO; +LOTRISONE TOP
[2020-08-22 17:15] LABS: APPEARANCE, URINE CLEAR (CLEAR); BACTERIA, URINE AUTO NEGATIVE (NEGATIVE); BILIRUBIN, URINE AUTO NEGATIVE (NEGATIVE); BLOOD, URINE BLOOD NEGATIVE (NEGATIVE); COLOR, URINE YELLOW (YELLOW); GLUCOSE, URINE (UA) AUTO NEGATIVE (NEGATIVE); KETONE, URINE AUTO NEGATIVE (NEGATIVE); LEUKOCYTE ESTERASE, URINE AUTO TRACE (NEGATIVE); NITRITE, URINE AUTO NEGATIVE (NEGATIVE); PROTEIN, URINE AUTO 2+ mg/dL (NEGATIVE); RBC, URINE AUTO 1 /HPF (0-3); SQUAMOUS EPITHELIAL CELL UR AU 0 /HPF (0-6); UROBILINOGEN, URINE AUTO 0.2 mg/dL (0.0-2.0); WBC, URINE AUTO 4 /HPF (0-3)
== END ==
LOC: M LAB REF 16:22
PROVIDERS: ATTEND Internal Medicine
DX: N30.21 Other chronic cystitis with hematuria (principal)

== ENCOUNTER → 2020-08-23 | Outpatient (REF) | payer MEDICARE, BC ==
[~2020-08-23] MED LIST changes: +AMPI500C9 PO; +OXYB-54 PO
[2020-08-23 17:50] LABS: APPEARANCE, URINE HAZY (CLEAR); BACTERIA, URINE AUTO NEGATIVE (NEGATIVE); BILIRUBIN, URINE AUTO NEGATIVE (NEGATIVE); BLOOD, URINE BLOOD 2+ (NEGATIVE); COLOR, URINE YELLOW (YELLOW); GLUCOSE, URINE (UA) AUTO NEGATIVE (NEGATIVE); KETONE, URINE AUTO NEGATIVE (NEGATIVE); LEUKOCYTE ESTERASE, URINE AUTO 3+ (NEGATIVE); MUCUS, URINE SMALL (NEGATIVE); NITRITE, URINE AUTO NEGATIVE (NEGATIVE); PROTEIN, URINE AUTO 2+ mg/dL (NEGATIVE); RBC, URINE AUTO 49 /HPF (0-3); SQUAMOUS EPITHELIAL CELL UR AU 5 /HPF (0-6); UROBILINOGEN, URINE AUTO 0.2 mg/dL (0.0-2.0); WBC, URINE AUTO 100 /HPF (0-3)
== END ==
LOC: M SMT 17:01
PROVIDERS: ATTEND Nurse Practitioner Women's Health
DX: Z01.818 Encounter for other preprocedural examination (principal); N28.89 Other specified disorders of kidney and ureter

== ENCOUNTER → 2020-08-26 | Outpatient (CLI) | payer MEDICARE, BC ==
[~2020-08-26] MED LIST changes: -AMPI500C9 PO; -OXYB-54 PO
== END ==
LOC: M LABSMTC 09:18
PROVIDERS: ATTEND Anesthesiology
DX: Z01.812 Encounter for preprocedural laboratory examination (principal); Z20.822 Contact with and (suspected) exposure to COVID-19

== ENCOUNTER → 2020-08-27 | Outpatient (REF) | payer MEDICARE, BC ==
[2020-08-27 17:14] LABS: INR 1.1; PROTHROMBIN TIME 14.5 SECONDS (12.5-14.3)
[2020-08-27 17:15] LABS: PARTIAL THROMBOPLASTIN TIME 39.8 SECONDS (24.2-38.5)
== END ==
LOC: M LAB REF 16:16
PROVIDERS: ATTEND Internal Medicine
DX: Z01.818 Encounter for other preprocedural examination (principal); I48.20 Chronic atrial fibrillation, unspecified

== ENCOUNTER 2020-08-31 10:52 | Day surgery (SDC) | payer MEDICARE, BC ==
[~2020-08-31] VITALS: Ht 167.6 cm; Wt 99.8 kg
[~2020-08-31 10:52] MED LIST changes: +LR 1,000 ML IV ONE; +ceFAZolin SOD 2 GM in IV 1 EA IV ONE
[2020-08-31] MEDS ORDERED: AMPI500C9 PO (11:35)
[2020-08-31 11:48] LABS: INR 1.15
[2020-08-31] MEDS ORDERED: MIDAZOLAM INJ 2MG/2ML VIAL (J2250 PER 1MG) As Ordered ONE (11:54)
[2020-08-31] MEDS ORDERED: fentaNYL 100 MCG/2 ML INJECTION (J3010) As Ordered ONE ×2 (11:54→12:53)
[2020-08-31] MEDS ORDERED: ROCURONIUM BROMIDE 50 MG/5 ML VIAL As Ordered ONE ×2 (11:55→12:14)
[2020-08-31] MEDS ORDERED: LIDOCAINE 2% 100MG/5ML SDV (FOR ANES.) As Ordered ONE (11:55)
[2020-08-31] MEDS ORDERED: dexameTHASONE 4 MG/ML 1ML VIAL (J1100 PER 1MG) As Ordered ONE (11:56)
[2020-08-31] MEDS ORDERED: ONDANSETRON 4MG/2ML VIAL As Ordered ONE ×2 (11:56→14:52)
[2020-08-31] MEDS ORDERED: METOCLOPRAMIDE INJ 10MG/2ML VIAL (J2765 PER 1) As Ordered ONE (12:26)
[2020-08-31] MEDS ORDERED: FUROSEMIDE 100MG/10ML VIAL (J1940) As Ordered ONE (14:01)
[2020-08-31] MEDS ORDERED: SUGAMMADEX SODIUM 500 MG/5 ML VIAL (BRIDION) As Ordered ONE (14:23)
[2020-08-31] MEDS ORDERED: ACETAMINOPHEN TAB 650MG DOSE (2X325MG) PO PRN (14:55)
[2020-08-31] MEDS ORDERED: HYDROMORPHONE HCL 0.5 MG/ 0.5 ML SYRINGE (J1170 PER 1) IV PRN (14:55)
[2020-08-31] MEDS ORDERED: ONDANSETRON 4MG/2ML VIAL IV PRN (14:55)
[2020-08-31] MEDS ORDERED: LR 1,000 ML IV SCH (14:55)
[2020-08-31] MEDS ORDERED: oxyCODONE 5MG TAB PO PRN (14:55)
--- NOTE | 2020-08-31 15:08 | ROOPDOC ---
[facility] [place] Report Of Operation Report of Operation DATE OF PROCEDURE: 08/31/20 PREPROCEDURE DIAGNOSIS: Benign prostatic hyperplasia. POSTPROCEDURE DIAGNOSIS: Benign prostatic hyperplasia. PROCEDURE: Cystoscopy, button transurethral electrovaporization of the prostate. 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 ANESTHESIA: General. OPERATIVE INDICATIONS: This is a 70-year-old male with benign prostatic hyperplasia and urinary retention who was brought to the operating room today for treatment. DESCRIPTION OF PROCEDURE: The patient was brought to the operating room and general anesthesia was induced. Prophylactic antibiotics were infused. He was placed in the dorsal lithotomy position and prepped and draped in the usual sterile fashion. At this point, I advanced the resectoscope into the urethra and into the bladder using the visual obturator. Of note, the patient had bilobar benign prostatic hyperplasia. I made note of the location of both ureteral orifices, as well as the verumontanum. At this point, I began vaporizing hyperplastic tissue on the circumferentially at the bladder neck. I then vaporized hyperplastic tissue on both lateral lobes. I kept doing this until there was a clear channel established. Once there was a clear channel established, hemostasis was obtained using the coagulation current. Once satisfied with hemostasis, the resectoscope was removed and an 18-Italian Gomez catheter was inserted into the bladder. The balloon was filled with 15 mL of sterile water and then the catheter was connected to gravity drainage. This marked the conclusion of the procedure. The patient was taken out of the dorsal lithotomy position, awakened from anesthesia and transported to the recovery room in stable condition. Estimated blood loss: 25 mL. Complications: None. Specimens: None. PLAN: The patient will followup in the clinic in approximately 1 week for catheter removal and a voiding trial. HOSEA RICHARDS MD Aug 31, 2020 15:08
[2020-08-31] MEDS: fentaNYL 100 MCG/2 ML INJECTION (J3010) IV PRN ×3 (15:09→15:22)
[2020-08-31 16:00] VITALS: BP 180/75
[2020-09-01] MEDS ORDERED: XARE15TA PO (14:20)
[2020-09-01] MEDS ORDERED: OXYB-54 PO (15:55)
== END 2020-08-31 16:48 | disposition home or self-care (01) ==
LOC: M SDC 10:52
PROVIDERS: ATTEND Urology
DX: N40.1 Benign prostatic hyperplasia with lower urinary tract symptoms (principal); I10 Essential (primary) hypertension; E10.9 Type 1 diabetes mellitus without complications; Z79.4 Long term (current) use of insulin; Z79.82 Long term (current) use of aspirin; I48.91 Unspecified atrial fibrillation; Z98.61 Coronary angioplasty status; Z87.891 Personal history of nicotine dependence; G47.33 Obstructive sleep apnea (adult) (pediatric); Z79.899 Other long term (current) drug therapy
CPT/HCPCS: 36415; 52601; 85610; J0690; J1100; J1940; J2250; J2405; J2765; J3010

== ENCOUNTER 2020-09-01 14:08 | Emergency (ER) | payer MEDICARE, BC ==
[~2020-09-01] VITALS: Ht 167.6 cm; Wt 102.7 kg
[~2020-09-01 14:08] MED LIST changes: +AMPI500C9 PO; -LR 1,000 ML IV ONE; -ceFAZolin SOD 2 GM in IV 1 EA IV ONE
[2020-09-01] MEDS ORDERED: XARE15TA PO (14:20)
[2020-09-01] MEDS ORDERED: LIDOCAINE 2% 5ML JELLY UROJET TOP ONE (14:50)
[2020-09-01] MEDS ORDERED: OXYB-54 PO (15:55)
[2020-09-01 16:06] VITALS: BP 158/88
== END 2020-09-01 16:07 | disposition home or self-care (01) ==
LOC: M ED 14:08
DX: T83.091A Other mechanical complication of indwelling urethral catheter, initial encounter (principal); E11.9 Type 2 diabetes mellitus without complications; I10 Essential (primary) hypertension; E78.5 Hyperlipidemia, unspecified; I48.91 Unspecified atrial fibrillation; R56.9 Unspecified convulsions; G47.33 Obstructive sleep apnea (adult) (pediatric); K21.9 Gastro-esophageal reflux disease without esophagitis; Z86.73 Personal history of transient ischemic attack (TIA), and cerebral infarction without residual deficits; Z79.4 Long term (current) use of insulin; Z79.899 Other long term (current) drug therapy

== ENCOUNTER → 2020-09-28 | Outpatient (REF) | payer MEDICARE, BC ==
[~2020-09-28] MED LIST changes: +OXYB-54 PO
[2020-09-28 18:08] LABS: APPEARANCE, URINE MANUAL TURBID (CLEAR); COLOR, URINE MANUAL RED (YELLOW)
[2020-09-28 18:34] LABS: BILIRUBIN, URINE MANUAL NEGATIVE (NEGATIVE); BLOOD URINE MANUAL POSITIVE (NEGATIVE); GLUCOSE, URINE (UA) MANUAL NEGATIVE (NEGATIVE); KETONE, URINE MANUAL NEGATIVE (NEGATIVE); LEUKOCYTE ESTERASE, URINE MAN TRACE (NEGATIVE); NITRITE, URINE MANUAL NEGATIVE (NEGATIVE); PROTEIN, URINE MANUAL 3+ mg/dL (NEGATIVE); UROBILINOGEN, URINE MANUAL NORMAL (NORMAL)
[2020-09-28 18:37] LABS: RBC, URINE TNTC /hpf (0-3)
[2020-09-28 18:40] LABS: HYALINE CAST, URINE NONE SEEN /lpf (0-1); SQUAMOUS EPITHELIAL CELL URINE NONE SEEN /hpf (SMALL AMT)
[2020-09-28 18:41] LABS: BACTERIA, URINE SMALL AMOUNT
== END ==
LOC: M SMT 16:59
PROVIDERS: ATTEND Nurse Practitioner Women's Health
DX: N28.89 Other specified disorders of kidney and ureter (principal)

== ENCOUNTER → 2020-10-17 | Outpatient (REF) | payer MEDICARE, BC ==
[2020-10-17 12:44] LABS: ATYPICAL LYMPH 3 % (0-5); BASOPHILS 2 % (0-1); EOSINOPHILS 1 % (0-3); LYMPHOCYTES 12 % (16-44); MONOCYTES 2 % (0-5); NEUTROPHILS 80 % (28-66); PLATELET ESTIMATE NORMAL (NORMAL)
[2020-10-17 12:46] LABS: TEAR DROP CELLS 1+
[2020-10-17 12:47] LABS: HYPOCHROMASIA 1+; OVALOCYTES 2+
[2020-10-17 12:48] LABS: ANISOCYTOSIS 1+; POIKILOCYTOSIS 2+
== END ==
LOC: M LAB REF 12:06
PROVIDERS: ATTEND Internal Medicine
DX: D72.9 Disorder of white blood cells, unspecified (principal)

== ENCOUNTER → 2020-10-29 | Outpatient (REF) | payer MEDICARE, BC ==
[2020-10-29 18:30] LABS: CREATININE 24 HOUR, URINE 820.8 MG/24HR (950-2500); CREATININE, URINE 53.3 MG/DL; TOTAL PROTEIN 24 HOUR URINE 1940.4 MG/24HR (50-150)
[2020-10-29 19:04] LABS: FERRITIN 34 NG/ML (26-388); IRON (FE) 27 UG/DL (65-175); NT-PRO BNP 5745 PG/ML (<125); PERCENT SATURATION 11.1 % (19.7-50.0); TOTAL IRON BINDING CAPACITY 243 UG/DL (250-450)
[2020-10-31 15:04] LABS: ALBUMIN 2.76 GM/DL (3.29-5.55); ALPHA-1-GLOBULIN % 7.2 % (2.9-4.9); ALPHA-2-GLOBULINS % 14.2 % (7.1-11.8); BETA-1-GLOBULINS % 5.9 % (4.7-7.2); BETA-2-GLOBULINS % 14.8 % (3.2-6.5); GAMMA GLOBULIN % 11.9 % (11.1-18.8)
[2020-10-31 15:05] LABS: ALPHA-1-GLOBULINS 0.43 GM/DL (0.17-0.41); ALPHA-2-GLOBULINS 0.85 GM/DL (0.42-0.99); BETA-1-GLOBULINS 0.35 GM/DL (0.28-0.60); BETA-2-GLOBULINS 0.89 GM/DL (0.19-0.55); GAMMA GLOBULINS 0.71 GM/DL (0.65-1.58)
[2020-10-31 18:08] LABS: FREE KAPPA LIGHT CHAINS SERUM 96.6 mg/L (3.3-19.4); FREE LAMBDA LIGHT CHAINS SERUM 70.6 mg/L (5.7-26.3); KAPPA/LAMBDA RATIO SERUM 1.37 (0.26-1.65)
== END ==
LOC: M LAB REF 16:35
PROVIDERS: ATTEND Internal Medicine Nephrology
DX: R80.9 Proteinuria, unspecified (principal); D50.9 Iron deficiency anemia, unspecified; I50.22 Chronic systolic (congestive) heart failure

== ENCOUNTER 2020-11-07 11:22 | Inpatient (IN) | payer MEDICARE, BC ==
[~2020-11-07] VITALS: Ht 167.6 cm; Wt 101.5 kg
[2020-11-07 12:12] LABS: BASO # 0.1 10^3/uL (0.0-0.2); BASO % 0.6 % (0.0-1.0); EOS # 0.4 10^3/uL (0.0-0.5); EOS % 2.8 % (0.0-3.0); HEMATOCRIT 29.1 % (42.0-52.0); HEMOGLOBIN 8.6 g/dl (13.5-17.5); LYMPH # 1.8 10^3/uL (1.5-5.0); LYMPH % 11.9 % (24.0-44.0); MEAN CORPUSCULAR HEMOGLOBIN 25.1 pg (27.0-33.0); MEAN CORPUSCULAR HGB CONC 29.6 g/dl (32.0-36.5); MEAN CORPUSCULAR VOLUME 85.1 fl (80.0-96.0); MONO # 0.8 10^3/uL (0.0-0.8); MONO % 5.1 % (2.0-8.0); NEUTROPHILS # 11.9 10^3/uL (1.5-8.5); NEUTROPHILS % 78.9 % (36.0-66.0); PLATELET COUNT, AUTOMATED 381 10^3/uL (150-450); RED BLOOD COUNT 3.42 10^6/uL (4.30-6.10); WHITE BLOOD COUNT 15.1 10^3/uL (4.0-10.0)
[2020-11-07 12:23] LABS: INR 2.16; PROTHROMBIN TIME 24.6 SECONDS (12.5-14.3)
[2020-11-07] MEDS ORDERED: LOSA50TA88 PO (12:50)
[2020-11-07] MEDS ORDERED: PANT20TA51 PO (12:50)
[2020-11-07] MEDS ORDERED: INSU100I16 SC (12:50)
[2020-11-07 12:58] LABS: ALBUMIN 2.9 GM/DL (3.2-5.2); BILIRUBIN,DIRECT 0.2 MG/DL (0.0-0.2); BILIRUBIN,TOTAL 0.6 MG/DL (0.2-1.0); TOTAL PROTEIN 6.9 GM/DL (6.4-8.2)
[2020-11-07] MEDS ORDERED: ONDANSETRON 4MG/2ML VIAL IV ONE (13:10)
[2020-11-07] MEDS ORDERED: NS 1,000 ML IV SCH ×2 (13:10→16:45)
[2020-11-07 13:51] LABS: CALCIUM LEVEL 8.5 MG/DL (8.8-10.2); CREATININE FOR GFR 1.9 MG/DL (0.70-1.30); GLOMERULAR FILTRATION RATE 37.7 (>49); POTASSIUM SERUM 4.4 MEQ/L (3.5-5.1)
[2020-11-07 15:25] LABS: DIGOXIN LEVEL 1.4 NG/ML (0.5-2.0)
[2020-11-07 15:47] LABS: RSV AMPLIFICATION NEGATIVE (NEGATIVE)
[2020-11-07] MEDS ORDERED: GLUCOSE 4GM CHEW TABLET PO PRN (15:55)
[2020-11-07] MEDS ORDERED: DEXTROSE 50% 50 ML SYRINGE IV PRN (15:55)
[2020-11-07] MEDS ORDERED: GLUCAGON INJ 1MG VIAL SC PRN (15:55)
[2020-11-07] MEDS ORDERED: ANEXSIA, NORCO 7.5MG/325MG TABLET(HYDROCODONE/APAP) PO PRN (16:40)
[2020-11-07] MEDS ORDERED: DOCUSATE SODIUM 100MG CAPSULE PO PRN (16:40)
[2020-11-07] MEDS ORDERED: ONDANSETRON 4 MG TAB PO PRN (16:40)
[2020-11-07] MEDS ORDERED: ALBUTEROL 90 MCG/ACT 8GM HFA INHALER INH PRN (16:40)
[2020-11-07] MEDS ORDERED: hydrALAZINE 20MG/ML 1ML VIAL (J0360 PER 20MG) IV PRN (17:10)
[2020-11-07 17:13] VITALS: BP 160/64
[2020-11-07] MEDS: HumaLOG INSULIN (NovoLOG) PER UNIT SC SCH ×2 (17:30→20:12)
[2020-11-07] MEDS: SUCRALFATE SUSP 1GM/10ML UD PO SCH ×2 (17:48→20:17)
[2020-11-07] MEDS: NS 1,000 ML IV SCH (17:48)
[2020-11-07 18:16] LABS: PERCENT SATURATION 6.7 % (19.7-50.0)
--- NOTE | 2020-11-07 19:55 | HPEPDOC ---
General Date of Admission Nov 07, 2020 at 15:50 Date of Service: Nov 07, 2020 Chief Complaint The patient is a 70-year-old male admitted with a reason for visit of MARY, Diarrhea, Vomiting. Source: Patient, Family History of Present Illness Mr. Cowan is a 70 year old male with post poliomyelitis syndrome, atrial fibrillation on digoxin and rivaroxaban, NIDDM, and CKD stage 3 who presents for diarrhea and N/V. About 2 weeks ago, he started to have diarrhea. He says it is not watery, but it is more dark and tarry. He has history of C.diff in the past which concerns him. Otherwise, denies any recent hospitalization, travel, or antibiotics. He does not drink stream water, but he does drink well water. Rest of the family also drinks well water and no one is sick. Otherwise, this morning, he had nausea and vomited 4 times today. Not associated with food but randomly happens. Otherwise, his guiac is trace positive. Hemoglobin is 8.6 which was better than July's hemoglobin of 8.3. Otherwise, patient creatinine was elevated to 1.9. Last creatinine we have here was in 2017 and patient was closer to 1. It is unclear what the patient' baseline creatinine is, but patient will be admitted for MARY and nausea, vomiting, and diarrhea possibly due to GI bleed. Home Medications Scheduled Allopurinol (Zyloprim) 300 Mg Tablet, 300 MG PO QPM, (Reported) Aspirin (Aspirin EC) 81 Mg Tab, 81 MG PO DAILY, (Reported) Atorvastatin Calcium (Atorvastatin Calcium) 80 Mg Tab, 80 MG PO QHS, (Reported) Carvedilol (Carvedilol) 25 Mg Tab, 25 MG PO BID, (Reported) Digoxin (Digoxin) 125 Mcg Tablet, 125 MCG PO QPM, (Reported) Ergocalciferol (Vitamin D2) (Vitamin D2) 50,000 Units Cap, 50,000 UNITS PO QWEEK, (Reported) THURSDAYS Ferrous Sulfate (Ferrous Sulfate) 325 Mg Tablet.dr, 325 MG PO BID, (Reported) Finasteride (Finasteride) 5 Mg Tablet, 5 MG PO QPM, (Reported) Insulin Aspart (Insulin Aspart Flexpen) 100 Unit/1 Ml Insuln.pen, 10 UNITS SC DAILY, (Reported) INJECT BEFORE THE LARGEST MEAL OF THE DAY, CURRENTLY ON HOLD PER PT FOR N/V/D Insulin Glargine,Hum.rec.anlog (Khari Smithostar) 300 Unit/Ml Inj, 42 UNIT SC QAM, (Reported) Levetiracetam (Keppra) 500 Mg Tab, 500 MG PO BID, (Reported) Losartan Potassium (Losartan Potassium) 50 Mg Tablet, 50 MG PO DAILY, (Reported) Magnesium Oxide (Magnesium Oxide) 400 Mg Tablet, 800 MG PO BID, (Reported) Pantoprazole Sodium (Pantoprazole Sodium) 20 Mg Tablet.dr, 20 MG PO DAILY, (Reported) Rivaroxaban (Xarelto) 15 Mg Tablet, 15 MG PO QHS, (Reported) Tamsulosin HCl (Flomax) 0.4 Mg Capsule, 0.4 MG PO QPM, (Reported) once daily 1/2 hour following the same meal each day Torsemide (Torsemide) 20 Mg Tablet, 40 MG PO DAILY, (Reported) Tramadol HCl (Tramadol HCl ER) 200 Mg Tab, 200 MG PO DAILY, (Reported) Scheduled PRN Albuterol Sulfate (Ventolin Hfa) 18 Gm Hfa.aer.ad, 2 PUFFS INH QID PRN for DYSPNEA, (Reported) Docusate Sodium (Colace) 100 Mg Cap, 100 MG PO DAILY PRN for CONSTIPATION, (Reported) Hydrocodone/Acetaminophen (Hydrocodone-Acetamin 7.5-325) 1 Each Tablet, 1 TAB PO BID PRN for PAIN, (Reported) Lidocaine (Lidoderm) 5 % Dis, 1-2 PATCH TD DAILY PRN for PAIN, (Reported) APPLY TO BACK Ondansetron HCl (Ondansetron HCl) 4 Mg Tablet, 4 MG PO Q6HP PRN for NAUSEA OR VOMITING, (Reported) Allergies Coded Allergies: No Known Allergies (Unverified , 08/24/20) Past Medical History Medical History 1. DM type 2 2. Chronic atrial fibrillation 3. CKD stage 3 4. Cardiomyopathy 5. Obstructive sleep apnea 6. Post poliomyelitis syndrome (patient wears a brace on right leg, uses crutches to ambulate) 7. Proteinuria 8. Gout 9. History of CVA with slight left sided deficits Surgical History 1. Heart stent placed in 2011 2. Right leg surgery 3. Cataracts 4. Coloscopy 5. Cystoscopy Family History Father: History of stomach cancer Mother: History of breast and colon cancer Social History * Smoker: former Smoker (Quit 8 years ago) Alcohol: rarely Drugs: denies A-FIB/CHADSVASC A-FIB History Current/History of A-Fib/PAF?: Yes Current PO Anticoag Therapy: Yes Review of Systems Constitutional: Denies: Chills, Fever Eyes: Denies: Vision change ENT: Denies: Sore Throat Skin: Denies: Rash Pulmonary: Denies: Dyspnea, Cough Cardiovascular: Denies: Chest Pain Gastrointestinal: Reports: Nausea, Vomiting (small volumes, not associated with food, denies blood), Diarrhea (black and tarry); Denies: Abdominal Pain Genitourinary: Denies: Dysuria Hematologic: Reports: Bruising Neurological: Denies: Numbness Psych: Denies: Anxiety, Depression Physical Examination General Exam: Positive: Alert, Cooperative Eye Exam: Positive: EOMI; Negative: Sclera icteric ENT Exam: Positive: Atraumatic Neck Exam: Positive: Supple Chest Exam: Positive: Clear to auscultation; Negative: Rales, Rhonchi, Wheezing Heart Exam: Positive: Bradycardic, Irregular Rhythm Abdomen Exam: Positive: Normal bowel sounds, Soft; Negative: Tenderness Extremity Exam: Negative: Edema Neuro Exam: Positive: Normal Speech, Cranial Nerves 3-12 NL Psych Exam: Positive: Mental status NL, Mood NL Vital Signs Vital Signs Date Time Temp Pulse Resp B/P (MAP) Pulse Ox O2 Delivery O2 Flow Rate FiO2 11/07/20 16:49 96.9 51 18 186/79 (114) 96 Room Air Laboratory Data Labs 24H Laboratory Tests 2 11/07/20 11:45: Immature Granulocyte % (Auto) 0.7, Neutrophils (%) (Auto) 78.9H, Lymphocytes (%) (Auto) 11.9L, Monocytes (%) (Auto) 5.1, Eosinophils (%) (Auto) 2.8, Basophils (%) (Auto) 0.6, Neutrophils # (Auto) 11.9H, Lymphocytes # (Auto) 1.8, Monocytes # (Auto) 0.8, Eosinophils # (Auto) 0.4, Basophils # (Auto) 0.1, Nucleated Red Blood Cells % (auto) 0.0, Prothrombin Time 24.6H, Prothromb Time International Ratio 2.16, Anion Gap 7L, Glomerular Filtration Rate 37.7L, Calcium Level 8.5L, Total Bilirubin 0.6, Direct Bilirubin 0.2, Aspartate Amino Transf (AST/SGOT) 8, Alanine Aminotransferase (ALT/SGPT) 10L, Alkaline Phosphatase 113, Total Protein 6.9, Albumin 2.9L, Albumin/Globulin Ratio 0.7, Digoxin Level 1.4 11/07/20 14:42: Coronavirus (COVID-19)(PCR) NEGATIVE, Influenza Type A (RT-PCR) NEGATIVE, I nfluenza Type B (RT-PCR) NEGATIVE, Respiratory Syncytial Virus (PCR) NEGATIVE CBC/BMP Laboratory Tests 11/07/20 11:45 Assessment/Plan Mr. Cowan is a 70 year old male with post poliomyelitis syndrome, atrial fibrillation on digoxin and rivaroxaban, NIDDM, and CKD stage 3 who presents for diarrhea and N/V. Patient's diarrhea may be secondary to GI bleed from an ticoagulation vs C.diff. Will check a GI panel and occult stool. Patient's diarrhea may have dehydrated the patient causing MARY which would also increase levels of Xarelto or Digoxin. He denies any yellow vision, but his Digoxin may be causing his nausea. The vomiting, would further dehydrate him more. I've held both Digoxin and Xarelto due to his MARY. He is bradycardic and would not need digoxin at this time as he is also on Coreg. I've ordered an occult stool and C.diff to evaluate his diarrhea. In terms of his MARY, I've consulted nephrology, recommendations appreciated. Patient had already received fluids in the ED, so urine studies would be skewed. Will order renal ultrasound and provide supportive care. Plan / VTE VTE Prophylaxis Ordered?: Yes Plan Plan 1. Acute kidney injury on chronic kidney disease stage III Follows with nephrology. Nephrology consulted, recommendations appreciated May be secondary to diarrhea and made worse with vomiting Supportive care, blood pressure control, and avoid nephrotoxic agents Allopurinol will be held Losartan and torsemide will be held 2. Diarrhea May be secondary to GI bleed versus C. difficile Ordered for occult stool and we'll trend CBC. Continue PPI and Carafate Ordered GI panel. Patient does drink well water 3. Iron deficient anemia Iron 18, Ferritin 34 -Continue BID iron supplements -Added on Vitamin C to help with absorption -Patient having diarrhea, no laxatives at this time -May benefit for IV iron 4. History of C.diff diarrhea -WBC 15.1 -No watery diarrhea, but will order GI panel for other causes of infectious diarrhea -Pending GI panel results -Cautious with antibiotics 5. Diabetes mellitus type 2 -Sliding scale insulin -Decrease basal insulin as on diabetic diet here 6. Seizure disorder -Continue Keppra -Ordered for Keppra levels 7. Hypertension -Hold Losartan -Continue carvedilol and tamsulosin -Added hydralazine 8. Gout -Allopurinol on hold due to MARY 9. Persistent atrial fibrillation -Bradycardic -Will hold digoxin due to MARY. Bradycardia may be from digoxin toxicity which would also cause nausea -Continue Coreg -Hold anticoagulation due to possible bleed 10. BPH -Continue tamsulosin and finasteride 11. COPD -Not in exacerbation, no wheezing, doing well at room air -Continue inhalers 12. Post poliomyelitis syndrome -Uses brace on right leg and crutches to walk -Ordered for PT 13. DVT ppx -Possible GI bleed, no chemical ppx -SCD and TEDs Disposition: Pending improvement in symptoms, improvement in renal function, and stability of H&H. ELIDA MANUEL DO Nov 07, 2020 17:16
[2020-11-07 20:00] VITALS: BP 179/78
[2020-11-07] MEDS: ASCORBIC ACID 500 MG TAB PO SCH (20:16)
[2020-11-07] MEDS: FERROUS SULFATE 325MG TAB PO SCH (20:16)
[2020-11-07] MEDS: TAMSULOSIN 0.4 MG CAP PO SCH (20:16)
[2020-11-07] MEDS: levETIRAcetam 250MG TABLET (KEPPRA) PO SCH (20:16)
[2020-11-07] MEDS: ATORVASTATIN 20 MG TAB PO SCH (20:16)
[2020-11-07] MEDS: FINASTERIDE 5 MG TAB PO SCH (20:16)
[2020-11-07] MEDS: CARVedilol 12.5 MG TAB PO SCH (20:30)
--- NOTE | 2020-11-07 20:53 | ECGEPIP ---
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
[2020-11-07 21:45] VITALS: BP 155/67
--- NOTE | 2020-11-07 23:45 | REPVR ---
PROCEDURE INFORMATION: Exam: US Retroperitoneal Limited, Kidneys Exam date and time: 11/07/2020 10:46 PM Age: 70 years old Clinical indication: Condition or disease; Kidney or ureter condition; Acute renal insufficiency; Additional info: Marquise TECHNIQUE: Imaging protocol: Real-time ultrasound of the retroperitoneum with image documentation. Examination was focused on the kidneys. COMPARISON: No relevant prior studies available. FINDINGS: Right kidney: The right kidney measures 11.7 cm in length by 5.9 cm in thickness. There is no evidence of hydronephrosis. Left kidney: The left kidney measures 10.9 cm in length by 6 cm in thickness and also no evidence of hydronephrosis. Normal appearing urinary bladder. IMPRESSION: No evidence of hydronephrosis. Electronically signed by: Jamaal Barron On 11/07/2020 23:45:22 PM
[2020-11-08] VITALS (7 sets, daily range): BP systolic 121–169; BP diastolic 57–74
[2020-11-08] MEDS: NS 1,000 ML IV SCH (05:29)
[2020-11-08] MEDS ORDERED: METOCLOPRAMIDE INJ 10MG/2ML VIAL (J2765 PER 1) IV ONE (05:55)
[2020-11-08] MEDS: HumaLOG INSULIN (NovoLOG) PER UNIT SC SCH ×4 (07:30→20:12)
[2020-11-08] MEDS: CARVedilol 12.5 MG TAB PO SCH ×2 (07:47→20:13)
[2020-11-08] MEDS: LEVEMIR (INSULIN DETEMIR) 1 UNITS/0.01ML SC SCH (08:37)
[2020-11-08] MEDS: PANTOPRAZOLE 40MG TAB (PROTONIX) PO SCH (08:42)
[2020-11-08] MEDS: levETIRAcetam 250MG TABLET (KEPPRA) PO SCH ×2 (08:42→20:12)
[2020-11-08] MEDS: ASCORBIC ACID 500 MG TAB PO SCH ×2 (08:42→20:12)
[2020-11-08] MEDS: FERROUS SULFATE 325MG TAB PO SCH ×2 (08:42→20:12)
[2020-11-08] MEDS: traMADol ER 100MG TABLET (ULTRAM ER) PO SCH (08:42)
[2020-11-08] MEDS: SUCRALFATE SUSP 1GM/10ML UD PO SCH ×4 (08:42→20:12)
[2020-11-08] MEDS: ASPIRIN 81MG ENTERIC TABLET PO SCH (08:43)
[2020-11-08 10:03] LABS: HEMATOCRIT 28.6 % (42.0-52.0); HEMOGLOBIN 8.3 g/dl (13.5-17.5); MEAN CORPUSCULAR HEMOGLOBIN 24.6 pg (27.0-33.0); MEAN CORPUSCULAR VOLUME 84.9 fl (80.0-96.0); PLATELET COUNT, AUTOMATED 367 10^3/uL (150-450); RED BLOOD COUNT 3.37 10^6/uL (4.30-6.10); WHITE BLOOD COUNT 13.5 10^3/uL (4.0-10.0)
[2020-11-08 10:23] LABS: ALBUMIN 2.7 GM/DL (3.2-5.2); CALCIUM LEVEL 8.5 MG/DL (8.8-10.2); CREATININE FOR GFR 1.59 MG/DL (0.70-1.30); GLOMERULAR FILTRATION RATE 46.3 (>49); PHOSPHORUS LEVEL 3.5 MG/DL (2.5-4.9); POTASSIUM SERUM 4.2 MEQ/L (3.5-5.1)
[2020-11-08] MEDS ORDERED: FERRIC CARBOXYMALTOSE INJ 750 MG, VIAL MATE ADAPTER 1 EACH in NS 250 ML IV ONE (12:00)
--- NOTE | 2020-11-08 13:01 | CR ---
CONSULTATION DATE: 11/08/2020 CONSULTATION FOR: Dr. Delvin Acosta REASON FOR CONSULTATION: Acute kidney injury and severe iron deficiency anemia in this gentleman with multiple chronic medical problems. HISTORY OF PRESENT ILLNESS: Mr. Cowan is a 70-year-old gentleman with multiple chronic medical problems, including history of type 2 diabetes, atrial fibrillation, and chronic kidney disease. Apparently he was noticed to have worsening anemia, and iron studies showed severe iron deficiency. There was a plan for outpatient iron infusion; however, patient was admitted yesterday due to worsening kidney function related to diarrhea for a few days. He was sent to the emergency room by his primary physician. MEDICAL HISTORY: Significant for: 1. Type 2 diabetes. 2. Chronic atrial fibrillation. 3. Stage III of chronic kidney disease. 4. History of cardiomyopathy. 5. History of obstructive sleep apnea. 6. History of post poliomyelitis syndrome. 7. History of gout. 8. History of stroke with slight left-sided deficit. 9. History of proteinuria. SURGICAL HISTORY: Significant for: 1. Coronary artery angioplasty with stent in 2011. 2. Right leg surgery. 3. Cataract surgery. 4. Colonoscopy. 5. Upper endoscopy. 6. Cystoscopy. HOME MEDICATIONS: - allopurinol 300 mg daily - aspirin 81 mg daily - atorvastatin 80 mg daily - carvedilol 25 mg twice a day - digoxin 125 mcg daily - vitamin D 50,000 units once a week - ferrous sulfate 325 mg twice a day - finasteride 5 mg at bedtime - insulin aspart 10 units daily - Toujeo insulin 42 units daily - Keppra 500 mg twice a day - losartan 50 mg daily - magnesium oxide 800 mg twice a day - pantoprazole 20 mg daily - Xarelto 15 mg at bedtime - Flomax 0.4 mg daily - albuterol as needed - hydrocodone as needed for pain ALLERGIES: Patient has no known drug allergies. PERSONAL AND SOCIAL HISTORY: Patient is a former smoker and reports quitting about 8 years ago. There is no history of drug use, and he consumes alcohol rarely. FAMILY HISTORY: There is a history of stomach cancer on his father's side and breast and colon cancer on the mother's side. REVIEW OF SYSTEMS: Patient denies any fever or chills. Ears, nose, and throat are unremarkable. Cardiovascular system significant for chronic atrial fibrillation and cardiomyopathy. He denies any leg edema or difficulty breathing. Respiratory system is negative for cough or hemoptysis. Gastrointestinal (GI) system is negative for vomiting but does report loose stools for a few days. Genitourinary () system is negative for dysuria or hematuria. Endocrine system is significant for type 2 diabetes. Hematological system is significant for chronic anticoagulation with Xarelto. He was found to have heme-positive stool. Patient was also noticed to have severe iron deficiency on his recent labs. Skin is negative for rash or ulcers. Neurological system is significant for prior history of stroke with minimal left-sided residual weakness. PHYSICAL EXAMINATION: At the time of my visit this morning patient is awake, alert, and sitting in the bed with head elevated at about 60 degrees. Temperature is 96.3 degrees Fahrenheit, heart rate 56 per minute, and respiratory rate 18 per minute. Blood pressure 148/63 mmHg and oxygen saturation 96% on room air. Head is atraumatic. Neck supple, and jugular venous distention (JVD) or thyroid enlargement. Pupils are equal and reactive to light. Sclerae are anicteric. There is no oral thrush or ulcers. Heart sounds are irregular in rhythm, and lungs sound clear to auscultation. Abdomen soft and nontender, and bowel sounds are normal. Extremities without any cyanosis or clubbing. Neurologically he seems to be awake and alert at present with fully oriented times three. There is minimal chronic residual weakness on the left side. LABORATORY DATA: Yesterday his BUN was 50 and creatinine 1.9. Iron level was 18, saturation 6.7 and ferritin 34. Albumin was 2.9. Today BUN is down to 39 and creatinine 1.59. Glucose 222, calcium 8.5, sodium 139, and potassium 4.2. Yesterday his WBC count was 15.1, hemoglobin 8.6, and hematocrit 29. Today hemoglobin is down to 8.3 and hematocrit 28.6. PROBLEMS: 1. Acute kidney injury superimposed on chronic kidney disease. Patient has known history of stage III of chronic kidney disease at baseline. He does report some loose stools for a few days but not watery. He has history of Clostridium (C) difficile colitis in the past and was concerned about it. This morning he reports no more diarrhea. Acute kidney injury was probably related to diarrhea, and he did receive some intravenous (IV) fluid, which has been running at 80 mL per hour. Patient reports no vomiting, and his oral intake is adequate. I am going ot stop his IV fluid and will watch him for next 24 hours. 2. Severe iron deficiency anemia. Most likely he has chronic blood loss, and we will give him one dose of Injectafer 750 mg today. He can probably benefit from another dose of Injectafer in 2-3 weeks. His anemia is significant, but there is no emergent indication for a transfusion. Patient reports upper and lower endoscopy within last 1 year. He has been on Xarelto with elevated risk of blood loss. 3. Atrial fibrillation and cardiomyopathy. His ventricular rate is very well controlled, and volume status is also reasonably well compensated. I am stopping his IV fluid to prevent any decompensation. Thank you for involving me in the care of Mr. Cowan. I will follow him along with you.
--- NOTE | 2020-11-08 13:01 | IPNPDOC ---
Subjective Date Seen The patient was seen on 11/08/20. Subjective Chief Complaint/HPI Mr. Cowan is a 70 year old male with post poliomyelitis syndrome, atrial fibrillation on digoxin and rivaroxaban, NIDDM, and CKD stage 3 who presents for diarrhea and N/V and found to have MARY. Overnight, he was nauseous and vomited a little bit. He tells me that it is not food related. He is hungry and feels that he can try something more solid. Will advance his diet and see how he tolerates a more solid diet. We discontinued the fluids and advanced the diet. Otherwise, no bowel movement yet to look for occult blood or infectious diarrhea. Objective Physical Examination General Exam: Positive: Alert, Cooperative Eye Exam: Positive: EOMI; Negative: Sclera icteric ENT Exam: Positive: Atraumatic Neck Exam: Positive: Supple Chest Exam: Positive: Clear to auscultation; Negative: Rales, Rhonchi, Wheezing Heart Exam: Positive: Bradycardic, Irregular Rhythm Abdomen Exam: Positive: Normal bowel sounds, Soft; Negative: Tenderness Extremity Exam: Negative: Edema Neuro Exam: Positive: Normal Speech, Cranial Nerves 3-12 NL Psych Exam: Positive: Mental status NL, Mood NL Assessment /Plan Assessment Mr. Cowan is a 70 year old male with post poliomyelitis syndrome, atrial fibrillation on digoxin and rivaroxaban, NIDDM, and CKD stage 3 who presents for diarrhea and N/V. Patient's diarrhea may be secondary to GI bleed from anticoagulation vs C.diff. Will check a GI panel and occult stool. Patient's diarrhea may have dehydrated the patient causing MARY which would also increase levels of Xarelto or Digoxin. He denies any yellow vision, but his digoxin may be causing his nausea and bradycardia. The vomiting, would further dehydrate him more. I've held both digoxin and Xarelto due to his MARY. He is bradycardic and would not need digoxin at this time as he is also on Coreg. I've ordered an occult stool and C.diff to evaluate his diarrhea. In terms of his MARY, I've consulted nephrology, recommendations appreciated. Patient had already received fluids in the ED, so urine studies would be skewed. Will order renal ultrasound and provide supportive care. Plan/VTE VTE Prophylaxis Ordered?: Yes Plan 1. Acute kidney injury on chronic kidney disease stage III Follows with nephrology. Nephrology consulted, recommendations appreciated May be secondary to diarrhea and made worse with vomiting Supportive care, blood pressure control, and avoid nephrotoxic agents Allopurinol will be held Losartan and torsemide will be held 2. Diarrhea May be secondary to GI bleed versus C. difficile Ordered for occult stool and we'll trend CBC. Continue PPI and Carafate Ordered GI panel. Patient does drink well water -Patient has not yet had a bowel movement to provide a sample 3. Iron deficient anemia Iron 18, Ferritin 34 -Continue BID iron supplements -Added on Vitamin C to help with absorption -Patient having diarrhea, no laxatives at this time -May benefit for IV iron 4. History of C.diff diarrhea -WBC 15.1 -No watery diarrhea, but will order GI panel for other causes of infectious diarrhea -Pending GI panel results -Cautious with antibiotics 5. Diabetes mellitus type 2 -Sliding scale insulin -Decrease basal insulin as on diabetic diet here 6. Seizure disorder -Continue Keppra -Ordered for Keppra levels 7. Hypertension -Hold Losartan -Continue carvedilol and tamsulosin -Added hydralazine 8. Gout -Allopurinol on hold due to MARY 9. Persistent atrial fibrillation -Bradycardic -Will hold digoxin due to MARY. Bradycardia may be from digoxin toxicity which would also cause nausea -Continue Coreg -Hold anticoagulation due to possible bleed 10. BPH -Continue tamsulosin and finasteride 11. COPD -Not in exacerbation, no wheezing, doing well at room air -Continue inhalers 12. Post poliomyelitis syndrome -Uses brace on right leg and crutches to walk -Ordered for PT 13. DVT ppx -Possible GI bleed, no chemical ppx -SCD and TEDs Disposition: Pending improvement in symptoms, improvement in renal function, and stability of H&H. If no BM by tomorrow, unlikely to have GI bleed or infectious diarrhea. Physical therapy recommended outpatient PT. VS, I&O, 24H, [facility] Vital Signs/I&O Vital Signs Date Time Temp Pulse Resp B/P (MAP) Pulse Ox O2 Delivery O2 Flow Rate FiO2 11/08/20 12:00 97.2 56 18 121/57 (78) 98 Room Air I&O- Last 24 Hours up to 6 AM 11/08/20 05:59 Intake Total 1000 ml Output Total 1100 ml Balance -100 ml Laboratory Data 24H LABS Laboratory Tests 2 11/07/20 14:42: Coronavirus (COVID-19)(PCR) NEGATIVE, Influenza Type A (RT-PCR) NEGATIVE, Influenza Type B (RT-PCR) NEGATIVE, Respiratory Syncytial Virus (PCR) NEGATIVE 11/07/20 17:26: Bedside Glucose (Misc Panel) 104 11/07/20 17:31: Reticulocyte # (auto) 59.0, Percent Reticulocyte Count 1.8H, Reticulocyte Hemoglobin Equivalent 24.0, Iron Level 18L, Total Iron Binding Capacity 269, Transferrin % Saturation 6.7L, Ferritin 34, Lactate Dehydrogenase 180 11/07/20 20:11: Bedside Glucose (Misc Panel) 131H 11/08/20 07:31: Bedside Glucose (Misc Panel) 105 11/08/20 09:48: Nucleated Red Blood Cells % (auto) 0.0, Anion Gap 5L, Glomerular Filtration Rate 46.3L, Calcium Level 8.5L, Phosphorus Level 3.5, Albumin 2.7L 11/08/20 11:17: Bedside Glucose (Misc Panel) 249H CBC/BMP Laboratory Tests 11/08/20 09:48 ELIDA MANUEL DO Nov 08, 2020 13:01
[2020-11-08] MEDS: TAMSULOSIN 0.4 MG CAP PO SCH (20:12)
[2020-11-08] MEDS: FINASTERIDE 5 MG TAB PO SCH (20:12)
[2020-11-08] MEDS: ATORVASTATIN 20 MG TAB PO SCH (20:12)
[2020-11-09] VITALS: BP 165/72
[2020-11-09 04:00] VITALS: BP 171/74
[2020-11-09 05:25] LABS: HEMATOCRIT 27.1 % (42.0-52.0); HEMOGLOBIN 8.1 g/dl (13.5-17.5); MEAN CORPUSCULAR HEMOGLOBIN 25.2 pg (27.0-33.0); MEAN CORPUSCULAR HGB CONC 29.9 g/dl (32.0-36.5); MEAN CORPUSCULAR VOLUME 84.4 fl (80.0-96.0); PLATELET COUNT, AUTOMATED 317 10^3/uL (150-450); RED BLOOD COUNT 3.21 10^6/uL (4.30-6.10); WHITE BLOOD COUNT 11.8 10^3/uL (4.0-10.0)
[2020-11-09 05:46] LABS: ALBUMIN 2.4 GM/DL (3.2-5.2); CALCIUM LEVEL 8.2 MG/DL (8.8-10.2); CREATININE FOR GFR 1.56 MG/DL (0.70-1.30); GLOMERULAR FILTRATION RATE 47.4 (>49); POTASSIUM SERUM 4.5 MEQ/L (3.5-5.1)
[2020-11-09 08:28] VITALS: BP 167/72
[2020-11-09] MEDS: LEVEMIR (INSULIN DETEMIR) 1 UNITS/0.01ML SC SCH (09:23)
[2020-11-09] MEDS: HumaLOG INSULIN (NovoLOG) PER UNIT SC SCH ×2 (09:23→12:44)
[2020-11-09 09:24] VITALS: BP 167/72
[2020-11-09] MEDS: FERROUS SULFATE 325MG TAB PO SCH (09:24)
[2020-11-09] MEDS: PANTOPRAZOLE 40MG TAB (PROTONIX) PO SCH (09:24)
[2020-11-09] MEDS: ASPIRIN 81MG ENTERIC TABLET PO SCH (09:24)
[2020-11-09] MEDS: levETIRAcetam 250MG TABLET (KEPPRA) PO SCH (09:24)
[2020-11-09] MEDS: CARVedilol 12.5 MG TAB PO SCH (09:24)
[2020-11-09] MEDS: ASCORBIC ACID 500 MG TAB PO SCH (09:24)
[2020-11-09] MEDS: traMADol ER 100MG TABLET (ULTRAM ER) PO SCH (09:25)
[2020-11-09] MEDS: SUCRALFATE SUSP 1GM/10ML UD PO SCH ×2 (09:25→12:44)
[2020-11-09] MEDS ORDERED: ASCO50TA PO (10:47)
[2020-11-09 11:30] VITALS: BP 144/66
[2020-11-09 11:42] VITALS: BP 117/56
--- NOTE | 2020-11-09 11:58 | IPN ---
PROGRESS NOTE DATE: 11/09/2020 SUBJECTIVE: Mr. Cowan is seen this morning on his bedside. He is feeling well and wants to go home. He did receive intravenous iron infusion yesterday without any problem. His IV fluid has been stopped and the patient reports adequate oral intake. He denies any diarrhea or vomiting. OBJECTIVE: VITAL SIGNS: Temperature 97.7 degrees Fahrenheit, heart rate 52 per minute, and respiratory rate 18 per minute. Blood pressure 144/66 mmHg and oxygen saturation 96% on room air. HEAD: Atraumatic. NECK: Supple and without JVD or thyroid enlargement. HEART: Irregular in rhythm. LUNGS: Clear to auscultation. ABDOMEN: Soft and nontender. Bowel sounds are normal. EXTREMITIES: Without any cyanosis or clubbing. NEUROLOGIC: He is awake, alert, and at his baseline mentation. LABORATORY DATA: Show WBC count 11.8, hemoglobin 8.1, and hematocrit 27.1, platelets 317,000. Sodium 139, potassium 4.5, CO2 of 27, BUN 38, and creatinine 1.56. PROBLEMS: 1. Acute kidney injury superimposed on chronic kidney disease. Kidney function has improved almost back to chronic baseline. The patient has adequate oral intake now and does not need any further intravenous (IV) fluid. 2. Iron deficiency anemia. The patient did receive intravenous iron infusion of 750 mg of Injectafer yesterday, which he tolerated well. He can probably be given another dose in two to three weeks as an outpatient. He already had upper and lower endoscopies done within the last one year. 3. Hypertension. Blood pressure seems well-controlled on current medications and no changes are being made today. He can continue with his chronic home medications. 4. Disposition: From a renal standpoint, the patient is doing well and can be discharged to home today. He will follow-up in the outpatient clinic where he already has an appointment.
--- NOTE | 2020-11-09 23:12 | DS.PDOC ---
Discharge Summary General Date of Admission Nov 07, 2020 at 15:50 Date of Discharge Nov 09, 2020 Discharge Summary PROCEDURES PERFORMED DURING STAY: [None]. ADMITTING DIAGNOSES: 1. . DISCHARGE DIAGNOSES: 1. . COMPLICATIONS/CHIEF COMPLAINT: Marquise,Diarrhea,Vomiting. HISTORY OF PRESENT ILLNESS: . HOSPITAL COURSE: . DISCHARGE MEDICATIONS: Please see below. ALLERGIES: Please see below. PHYSICAL EXAMINATION ON DISCHARGE: VITAL SIGNS: Please see below. GENERAL: HEENT: NECK: CARDIOVASCULAR EXAMINATION: RESPIRATORY EXAMINATION: ABDOMINAL EXAMINATION: EXTREMITIES: SKIN: NEUROLOGICAL EXAMINATION: PSYCHIATRIC EXAMINATION: LABORATORY DATA: Please see below. IMAGING: PROGNOSIS: ACTIVITY: [As tolerated]. DIET: DISCHARGE PLAN: DISPOSITION: Home Health Service. DISCHARGE INSTRUCTIONS: 1. . ITEMS TO FOLLOWUP ON ON OUTPATIENT: 1. . DISCHARGE CONDITION: [Stable]. TIME SPENT ON DISCHARGE: Greater than minutes. Vital Signs/I&Os Vital Signs Date Time Temp Pulse Resp B/P (MAP) Pulse Ox O2 Delivery O2 Flow Rate FiO2 11/09/20 11:30 97.7 53 18 144/66 (92) 97 Room Air I&O- Last 24 Hours up to 6 AM 11/09/20 06:00 Intake Total 1465 ml Output Total 1725 ml Balance -260 ml Laboratory Data Labs 24H Laboratory Tests 2 11/09/20 04:45: Nucleated Red Blood Cells % (auto) 0.0, Anion Gap 6L, Glomerular Filtration Rate 47.4L, Calcium Level 8.2L, Phosphorus Level 3.0, Albumin 2.4L 11/09/20 12:38: Bedside Glucose (Misc Panel) 149H CBC/BMP Laboratory Tests 11/09/20 04:45 FSBS Laboratory Tests Test 11/09/20 12:38 Range/Units Bedside Glucose (Misc Panel) 149 80-115 MG/DL Discharge Medications Scheduled Allopurinol (Zyloprim) 300 Mg Tablet, 300 MG PO QPM, (Reported) Ascorbic Acid (Vitamin C) 500 Mg Tablet, 500 MG PO BID Aspirin (Aspirin EC) 81 Mg Tab, 81 MG PO DAILY, (Reported) Atorvastatin Calcium (Atorvastatin Calcium) 80 Mg Tab, 80 MG PO QHS, (Reported) Carvedilol (Carvedilol) 25 Mg Tab, 25 MG PO BID, (Reported) Digoxin (Digoxin) 125 Mcg Tablet, 125 MCG PO QPM, (Reported) Ergocalciferol (Vitamin D2) (Vitamin D2) 50,000 Units Cap, 50,000 UNITS PO QWEEK, (Reported) THURSDAYS Ferrous Sulfate (Ferrous Sulfate) 325 Mg Tablet.dr, 325 MG PO BID, (Reported) Finasteride (Finasteride) 5 Mg Tablet, 5 MG PO QPM, (Reported) Insulin Aspart (Insulin Aspart Flexpen) 100 Unit/1 Ml Insuln.pen, 10 UNITS SC DAILY, (Reported) INJECT BEFORE THE LARGEST MEAL OF THE DAY, CURRENTLY ON HOLD PER PT FOR N/V/D Insulin Glargine,Hum.rec.anlog (Toujeo Solostar) 300 Unit/Ml Inj, 42 UNIT SC QAM, (Reported) Levetiracetam (Keppra) 500 Mg Tab, 500 MG PO BID, (Reported) Losartan Potassium (Losartan Potassium) 50 Mg Tablet, 50 MG PO DAILY, (Reported) Magnesium Oxide (Magnesium Oxide) 400 Mg Tablet, 800 MG PO BID, (Reported) Pantoprazole Sodium (Pantoprazole Sodium) 20 Mg Tablet.dr, 20 MG PO DAILY, (Reported) Rivaroxaban (Xarelto) 15 Mg Tablet, 15 MG PO QHS, (Reported) Tamsulosin HCl (Flomax) 0.4 Mg Capsule, 0.4 MG PO QPM, (Reported) once daily 1/2 hour following the same meal each day Torsemide (Torsemide) 20 Mg Tablet, 40 MG PO DAILY, (Reported) Tramadol HCl (Tramadol HCl ER) 200 Mg Tab, 200 MG PO DAILY, (Reported) Scheduled PRN Albuterol Sulfate (Ventolin Hfa) 18 Gm Hfa.aer.ad, 2 PUFFS INH QID PRN for DYSPNEA, (Reported) Docusate Sodium (Colace) 100 Mg Cap, 100 MG PO DAILY PRN for CONSTIPATION, (Reported) Hydrocodone/Acetaminophen (Hydrocodone-Acetamin 7.5-325) 1 Each Tablet, 1 TAB PO BID PRN for PAIN, (Reported) Lidocaine (Lidoderm) 5 % Dis, 1-2 PATCH TD DAILY PRN for PAIN, (Reported) APPLY TO BACK Ondansetron HCl (Ondansetron HCl) 4 Mg Tablet, 4 MG PO Q6HP PRN for NAUSEA OR VOMITING, (Reported) Allergies Coded Allergies: No Known Allergies (Unverified , 08/24/20) ELIDA MANUEL 4, 2021 23:12
== END 2020-11-09 13:01 | disposition home health service (06) | DRG 683 ==
LOC: M ED 11:22 → M ED INP 15:50 → ENRESERV 16:01 → M PCU 17:00
PROVIDERS: ADMIT Internal Medicine; ATTEND Internal Medicine
DX: N17.9 Acute kidney failure, unspecified (principal); I48.19 Other persistent atrial fibrillation; I69.352 Hemiplegia and hemiparesis following cerebral infarction affecting left dominant side; I24.8 Other forms of acute ischemic heart disease; R19.7 Diarrhea, unspecified; D50.9 Iron deficiency anemia, unspecified; N18.30 Chronic kidney disease, stage 3 unspecified; Z79.899 Other long term (current) drug therapy; Z79.82 Long term (current) use of aspirin; Z79.4 Long term (current) use of insulin; E11.9 Type 2 diabetes mellitus without complications; G14 Postpolio syndrome; G47.33 Obstructive sleep apnea (adult) (pediatric); M10.9 Gout, unspecified; Z95.2 Presence of prosthetic heart valve; Z87.891 Personal history of nicotine dependence; Z98.41 Cataract extraction status, right eye; Z98.42 Cataract extraction status, left eye; G40.909 Epilepsy, unspecified, not intractable, without status epilepticus; N40.0 Benign prostatic hyperplasia without lower urinary tract symptoms; J44.9 Chronic obstructive pulmonary disease, unspecified

== ENCOUNTER 2020-11-16 11:52 | Outpatient (CLI) | payer MEDICARE, BC ==
[~2020-11-16] VITALS: Ht 167.6 cm; Wt 103.4 kg
[~2020-11-16 11:52] MED LIST changes: +ALBUTEROL SULFATE 2.5 MG/0.5 ML INH NEB SOLN INH PRN; +ASCO50TA PO; +EPINEPHrine INJ 1 MG/ML 1ML AMP IM PRN; +INSU100I16 SC; +LOSA50TA88 PO; +PANT20TA51 PO; +diphenhydrAMINE 50MG/ML VIAL (J1200) IV PRN; +methylPREDNISolone 125MG 2ML VIAL IV PRN
[2020-11-16 12:05] VITALS: BP 145/66
[2020-11-16] MEDS ORDERED: FERRIC CARBOXYMALTOSE INJ 750 MG, VIAL MATE ADAPTER 1 EACH in NS 250 ML IV ONE (12:30)
[2020-11-16] MEDS ORDERED: NS 1,000 ML IV SCH (12:30)
[2020-11-16 14:15] VITALS: BP 168/73
[2020-11-16 14:45] VITALS: BP 141/78
== END 2020-11-16 14:45 | disposition home or self-care (01) ==
LOC: M INFU 11:52
PROVIDERS: ATTEND Internal Medicine Nephrology
DX: D50.9 Iron deficiency anemia, unspecified (principal)
CPT/HCPCS: 96365; 96366; J1439

== ENCOUNTER → 2020-12-17 | Outpatient (REF) | payer MEDICARE, BC ==
[~2020-12-17] MED LIST changes: -ALBUTEROL SULFATE 2.5 MG/0.5 ML INH NEB SOLN INH PRN; -EPINEPHrine INJ 1 MG/ML 1ML AMP IM PRN; +ERGO500029 PO; -VITA50005 PO; -diphenhydrAMINE 50MG/ML VIAL (J1200) IV PRN; -methylPREDNISolone 125MG 2ML VIAL IV PRN
[2020-12-17 13:34] LABS: APPEARANCE, URINE CLOUDY (CLEAR); BACTERIA, URINE AUTO 1+ (NEGATIVE); BILIRUBIN, URINE AUTO NEGATIVE (NEGATIVE); BLOOD, URINE BLOOD 1+ (NEGATIVE); COLOR, URINE YELLOW (YELLOW); GLUCOSE, URINE (UA) AUTO NEGATIVE (NEGATIVE); KETONE, URINE AUTO NEGATIVE (NEGATIVE); LEUKOCYTE ESTERASE, URINE AUTO 3+ (NEGATIVE); NITRITE, URINE AUTO NEGATIVE (NEGATIVE); PROTEIN, URINE AUTO 2+ mg/dL (NEGATIVE); RBC, URINE AUTO 5 /HPF (0-3); SPECIFIC GRAVITY URINE AUTO 1.009 (1.002-1.035); SQUAMOUS EPITHELIAL CELL UR AU 0 /HPF (0-6); UROBILINOGEN, URINE AUTO 0.2 mg/dL (0.0-2.0); WBC, URINE AUTO TNTC /HPF (0-3)
== END ==
LOC: M SMT 13:06
PROVIDERS: ATTEND Nurse Practitioner Women's Health
DX: N40.1 Benign prostatic hyperplasia with lower urinary tract symptoms (principal); R33.8 Other retention of urine; N28.89 Other specified disorders of kidney and ureter
CPT/HCPCS: 51798; 81001; 87086; G0463

== ENCOUNTER → 2021-01-23 | Outpatient (CLI) | payer MEDICARE, BC ==
[~2021-01-23] MED LIST changes: +ALLO10TA PO
--- NOTE | 2021-01-23 12:47 | REP ---
INDICATION: SHORTNESS OF BREATH. COMPARISON: Multiple the latest 08/06/2020 FINDINGS: The superior mediastinal structures are midline. The cardiac silhouette is unremarkable in size, shape, and position. The diaphragmatic surfaces of the lungs are regular, and the costophrenic angles are clear. The pulmonary solares are clear. The imaged osseous structures are intact. IMPRESSION: There is no acute cardiopulmonary disease. No change from the prior exams <Electronically signed by Eric Allen > 01/23/21 [id number]
== END ==
LOC: M WUC 11:25
PROVIDERS: ATTEND Internal Medicine
DX: R06.02 Shortness of breath (principal)

== ENCOUNTER → 2021-02-13 | Outpatient (CLI) | payer MEDICARE, BC ==
[~2021-02-13] MED LIST changes: +BACT800T5 PO
== END ==
LOC: M LABSMTC 11:46
PROVIDERS: ATTEND Anesthesiology
DX: Z01.812 Encounter for preprocedural laboratory examination (principal); Z11.52 Encounter for screening for COVID-19

== ENCOUNTER → 2021-02-13 | Outpatient (REF) | payer MEDICARE, BC | LOC: M SMT 16:52 | PROVIDERS: ATTEND Urology | DX: R33.9 Retention of urine, unspecified (principal) | CPT/HCPCS: 51703; 87088; 87186; U0003 ==

== ENCOUNTER 2021-02-18 07:31 | Day surgery (SDC) | payer MEDICARE, BC ==
[~2021-02-18] VITALS: Ht 167.6 cm; Wt 99.5 kg
[~2021-02-18 07:31] MED LIST changes: -BACT800T5 PO; +CIPROFLOXACIN 400 MG in IV 1 EA IV ONE; +LIDOCAINE 1% MDV 20ML VIAL SQ PRN; +LR 1,000 ML IV ONE
[2021-02-18] MEDS ORDERED: ASPIRIN 81 MG CHEW TABLET PO ONE (08:20)
[2021-02-18] MEDS ORDERED: LIDOCAINE 2% 100MG/5ML SDV (FOR ANES.) As Ordered ONE (08:24)
[2021-02-18] MEDS ORDERED: propofoL 200 MG/20 ML VIAL As Ordered ONE (08:24)
[2021-02-18] MEDS ORDERED: fentaNYL 100 MCG/2 ML INJECTION (J3010) As Ordered ONE (08:25)
[2021-02-18] MEDS ORDERED: MIDAZOLAM INJ 2MG/2ML VIAL (J2250 PER 1MG) As Ordered ONE (08:25)
[2021-02-18] MEDS ORDERED: ONDANSETRON 4MG/2ML VIAL As Ordered ONE (09:04)
[2021-02-18] MEDS ORDERED: KETOROLAC 60MG 2ML VIAL As Ordered ONE (09:04)
--- NOTE | 2021-02-18 09:19 | ROOPDOC ---
[facility] Report Of Operation Report of Operation DATE OF PROCEDURE: 02/18/21 PREPROCEDURE DIAGNOSES: [bladder neck contracture]. POSTPROCEDURE DIAGNOSES: [same]. PROCEDURE PERFORMED: [cysto with incision of bnc and catheter placement]. SURGEON: [Mehdi], COMPUTER SYSTEM[employer] SOFTWARE ARCHITECT: [none], MD ANESTHESIA: [general]. ESTIMATED BLOOD LOSS: Approximately [1] mL. COMPLICATIONS: [none]. REMARKS: [71yo wm with retention. H/o turp. Was cath'ing himself but he then developed difficulty. Cysto demonstrated bladder neck contracture. Today's surgery to better evaluate and treat. Informed consent obtained. Risks discussed including infection, pain, bleeding, scarring, injury to gu tract and others.]. FINDINGS: [chronic cystitis, bnc] SPECIMENS REMOVED: [urine for cx and cytology] PROCEDURE NOTE: . DESCRIPTION OF PROCEDURE: Met with pt in preop area before surgery and again discussed surgery. Pt wished to proceed. Pt brought to OR. General anesthesia secured. Dorsal litho position. Well padded. Prep'd and draped in sterile fashion. Before doing so, catheter removed. Time out performed. Surgery done under iv antibiotic. Rigid cystoscopy performed. No urethral stricture. Evidence of past turp noted. Prostate open. Veru intact. Bladder neck contracture noted. Opening was more or less a horizontal slit. I was able to pass rigid scope through it. Upon entering bladder, urine collected for cx and cytology. Urine cloudy. Chronic cystitis noted. Some areas of erythema and edema noted. Blebs noted. Nothing resembling a typical bladder tumor noted. Attention directed to bladder neck. It was incised with cold knife after passing urethrotome into urethra. I cut at 9, 12 and 3. More bleeding than I wanted at 12 was stopped with bugbie. Once satisfied, 20fr catheter placed. Pt tolerated all well. Prostate benign feeling on junior. Home with catheter and Bactrim. I spoke with Cecile after surgery.]. CAROLA MATTHEWS MD Feb 18, 2021 09:19
[2021-02-18] MEDS ORDERED: BACT800T5 PO (09:21)
[2021-02-18] MEDS ORDERED: LR 1,000 ML IV SCH ×2 (09:50→09:55)
[2021-02-18] MEDS ORDERED: ONDANSETRON 4MG/2ML VIAL IV PRN (09:55)
[2021-02-18] MEDS ORDERED: oxyCODONE 5MG TAB PO PRN (09:55)
[2021-02-18] MEDS ORDERED: HYDROMORPHONE HCL 0.5 MG/ 0.5 ML SYRINGE (J1170 PER 1) IV PRN (09:55)
[2021-02-18] MEDS ORDERED: fentaNYL 100 MCG/2 ML INJECTION (J3010) IV PRN (09:55)
[2021-02-18 10:40] VITALS: BP 144/68
== END 2021-02-18 10:40 | disposition home or self-care (01) ==
LOC: M SDC 07:31
PROVIDERS: ATTEND Urology
DX: N32.0 Bladder-neck obstruction (principal); R33.9 Retention of urine, unspecified; E11.9 Type 2 diabetes mellitus without complications; I10 Essential (primary) hypertension; I48.20 Chronic atrial fibrillation, unspecified; N18.30 Chronic kidney disease, stage 3 unspecified; G47.33 Obstructive sleep apnea (adult) (pediatric); M10.9 Gout, unspecified; Z87.891 Personal history of nicotine dependence; G40.909 Epilepsy, unspecified, not intractable, without status epilepticus; Z79.82 Long term (current) use of aspirin; Z79.4 Long term (current) use of insulin; Z79.01 Long term (current) use of anticoagulants; G14 Postpolio syndrome; I42.9 Cardiomyopathy, unspecified; Z86.73 Personal history of transient ischemic attack (TIA), and cerebral infarction without residual deficits
CPT/HCPCS: 52276; 87088; 87186; 88108; C1769; J0744; J1885; J2250; J2405; J3010

== ENCOUNTER → 2021-03-05 | Outpatient (REF) | payer MEDICARE, BC ==
[~2021-03-05] MED LIST changes: +BACT800T5 PO; -CIPROFLOXACIN 400 MG in IV 1 EA IV ONE; -LIDOCAINE 1% MDV 20ML VIAL SQ PRN; -LR 1,000 ML IV ONE
== END ==
LOC: M LAB REF 17:23
PROVIDERS: ATTEND Internal Medicine Nephrology
DX: E83.42 Hypomagnesemia (principal)

== ENCOUNTER → 2021-04-16 | Outpatient (REF) | payer MEDICARE, BC | LOC: M LAB REF 14:58 | PROVIDERS: ATTEND Internal Medicine | DX: I48.20 Chronic atrial fibrillation, unspecified (principal); Z79.01 Long term (current) use of anticoagulants ==

== ENCOUNTER → 2021-07-04 | Outpatient (REF) | payer MEDICARE, BC ==
[~2021-07-04] MED LIST changes: -CEFD1CAP8 PO; +CEFD300C41 PO; +LOSA25TA13 PO; -LOSA25TA14 PO; +LOSA50TA28 PO; -LOSA50TA88 PO
== END ==
LOC: M LAB REF 11:18
PROVIDERS: ATTEND Internal Medicine
DX: N39.0 Urinary tract infection, site not specified (principal); R31.9 Hematuria, unspecified

== ENCOUNTER → 2021-07-18 | Outpatient (REF) | payer MEDICARE, BC | LOC: M LAB REF 16:17 | PROVIDERS: ATTEND Internal Medicine | DX: M10.9 Gout, unspecified (principal) ==

== ENCOUNTER → 2021-07-24 | Outpatient (REF) | payer MEDICARE, BC ==
[2021-07-24 13:54] LABS: MAGNESIUM LEVEL 1.7 MG/DL (1.8-2.4); PERCENT SATURATION 13.6 % (19.7-50.0)
== END ==
LOC: M LAB REF 12:45
PROVIDERS: ATTEND Internal Medicine Nephrology
DX: N17.9 Acute kidney failure, unspecified (principal); E83.42 Hypomagnesemia

== ENCOUNTER 2021-07-29 11:48 | Outpatient (CLI) | payer MEDICARE, BC ==
[2021-07-29] VITALS (7 sets, daily range): BP systolic 136–170; BP diastolic 64–100
[~2021-07-29] VITALS: Ht 167.6 cm; Wt 101.4 kg
[~2021-07-29 11:48] MED LIST changes: +ALBUTEROL SULFATE 2.5 MG/0.5 ML INH NEB SOLN INH PRN; +EPINEPHrine INJ 1 MG/ML 1ML AMP IM PRN; +NS 1,000 ML IV SCH; +diphenhydrAMINE 50MG/ML VIAL (J1200) IV PRN; +methylPREDNISolone 125MG 2ML VIAL IV PRN
[2021-07-29] MEDS ORDERED: IRON SUCROSE 500 MG in NS 475 ML IV ONE (12:00)
[2021-07-29] MEDS ORDERED: IRON SUCROSE 25 MG in NS 25 ML IV ONE (12:00)
[2021-07-29] MEDS ORDERED: FEBU40TA4 PO (12:34)
[2021-07-29] MEDS ORDERED: METH25TAB PO (12:34)
== END 2021-07-29 17:30 | disposition home or self-care (01) ==
LOC: M INFU 11:48
PROVIDERS: ATTEND Internal Medicine Nephrology
DX: D50.9 Iron deficiency anemia, unspecified (principal)
CPT/HCPCS: 96365; 96366; J1756

== ENCOUNTER → 2021-08-20 | Outpatient (REF) | payer MEDICARE, BC ==
[~2021-08-20] MED LIST changes: -ALBUTEROL SULFATE 2.5 MG/0.5 ML INH NEB SOLN INH PRN; -EPINEPHrine INJ 1 MG/ML 1ML AMP IM PRN; +METH25TAB PO; -NS 1,000 ML IV SCH; -diphenhydrAMINE 50MG/ML VIAL (J1200) IV PRN; -methylPREDNISolone 125MG 2ML VIAL IV PRN
== END ==
LOC: M LAB REF 16:58
PROVIDERS: ATTEND Internal Medicine
DX: R19.7 Diarrhea, unspecified (principal)

== ENCOUNTER → 2021-09-03 | Outpatient (REF) | payer MEDICARE, BC ==
[~2021-09-03] MED LIST changes: +BACTDSTA; +CEPH500C PO
[2021-09-03 18:25] LABS: APPEARANCE, URINE TURBID (CLEAR); BACTERIA, URINE AUTO NEGATIVE (NEGATIVE); BILIRUBIN, URINE AUTO NEGATIVE (NEGATIVE); BLOOD, URINE BLOOD 3+ (NEGATIVE); COLOR, URINE AMBER (YELLOW); GLUCOSE, URINE (UA) AUTO NEGATIVE (NEGATIVE); KETONE, URINE AUTO NEGATIVE (NEGATIVE); LEUKOCYTE ESTERASE, URINE AUTO 3+ (NEGATIVE); NITRITE, URINE AUTO NEGATIVE (NEGATIVE); PROTEIN, URINE AUTO 3+ mg/dL (NEGATIVE); RBC, URINE AUTO TNTC /HPF (0-3); SQUAMOUS EPITHELIAL CELL UR AU 3 /HPF (0-6); UROBILINOGEN, URINE AUTO 0.2 mg/dL (0.0-2.0); WBC, URINE AUTO TNTC /HPF (0-3)
== END ==
LOC: M SMT 16:57
PROVIDERS: ATTEND Urology
DX: R31.0 Gross hematuria (principal)

== ENCOUNTER 2021-09-05 14:20 | Emergency (ER) | payer MEDICARE, BC ==
[~2021-09-05] VITALS: Ht 167.6 cm; Wt 103.3 kg
[~2021-09-05 14:20] MED LIST changes: -BACTDSTA; -CEPH500C PO
[2021-09-05 14:58] LABS: BASO # 0.1 10^3/uL (0.0-0.2); BASO % 0.6 % (0.0-1.0); EOS # 0.2 10^3/uL (0.0-0.5); EOS % 1.9 % (0.0-3.0); LYMPH # 1.2 10^3/uL (1.5-5.0); LYMPH % 9.5 % (24.0-44.0); MEAN CORPUSCULAR HEMOGLOBIN 28.9 pg (27.0-33.0); MEAN CORPUSCULAR HGB CONC 31.4 g/dl (32.0-36.5); MEAN CORPUSCULAR VOLUME 92.1 fl (80.0-96.0); MONO # 0.6 10^3/uL (0.0-0.8); MONO % 4.8 % (2.0-8.0); NEUTROPHILS # 10.4 10^3/uL (1.5-8.5); NEUTROPHILS % 82.8 % (36.0-66.0); PLATELET COUNT, AUTOMATED 265 10^3/uL (150-450); WHITE BLOOD COUNT 12.6 10^3/uL (4.0-10.0)
[2021-09-05 15:12] LABS: INR 2.16; PROTHROMBIN TIME 24.5 SECONDS (12.7-14.5)
[2021-09-05 15:24] LABS: MB/CK RELATIVE INDEX 2.56 (< OR =4)
[2021-09-05 15:37] LABS: ALBUMIN 2.7 GM/DL (3.2-5.2); BILIRUBIN,DIRECT 0.2 MG/DL (0.0-0.2); BILIRUBIN,TOTAL 0.6 MG/DL (0.2-1.0); CALCIUM LEVEL 8.6 MG/DL (8.8-10.2); CREATININE FOR GFR 1.65 MG/DL (0.70-1.30); GLOMERULAR FILTRATION RATE 44.3 (>49); POTASSIUM SERUM 4.6 MEQ/L (3.5-5.1); TOTAL PROTEIN 6.5 GM/DL (6.4-8.2)
[2021-09-05 16:46] VITALS: BP 171/78
[2021-09-05] MEDS ORDERED: BACTDSTA (16:57)
[2021-09-05] MEDS ORDERED: CEPHALEXIN 500 MG CAP PO ONE (17:00)
[2021-09-05] MEDS ORDERED: CEPH500C PO (17:01)
== END 2021-09-05 17:20 | disposition home or self-care (01) ==
LOC: M ED 14:20
DX: R07.9 Chest pain, unspecified (principal); N18.30 Chronic kidney disease, stage 3 unspecified; N39.0 Urinary tract infection, site not specified; I48.91 Unspecified atrial fibrillation; Z86.79 Personal history of other diseases of the circulatory system; I50.22 Chronic systolic (congestive) heart failure; Z95.5 Presence of coronary angioplasty implant and graft

== ENCOUNTER → 2021-10-15 | Outpatient (REF) | payer MEDICARE, BC ==
[~2021-10-15] MED LIST changes: +BACTDSTA; +CEPH500C PO
== END ==
LOC: M LAB REF 16:25
PROVIDERS: ATTEND Internal Medicine
DX: R31.9 Hematuria, unspecified (principal)

== ENCOUNTER → 2021-11-02 | Outpatient (CLI) | payer MEDICARE, BC ==
[~2021-11-02] MED LIST changes: +TRAM200T20 PO; -TRAM200T23 PO
== END ==
LOC: M SLEEP 20:00
PROVIDERS: ATTEND Physician Assistant
DX: G47.33 Obstructive sleep apnea (adult) (pediatric) (principal)

== ENCOUNTER → 2021-11-11 | Outpatient (REF) | payer MEDICARE, BC | LOC: M LAB REF 12:19 | PROVIDERS: ATTEND Internal Medicine | DX: R31.9 Hematuria, unspecified (principal); R82.90 Unspecified abnormal findings in urine ==

== ENCOUNTER → 2021-11-26 | Outpatient (REF) | payer MEDICARE, BC ==
[~2021-11-26] MED LIST changes: +DULO30CA9 PO; +ECOT81TA5 PO
[2021-11-26 17:31] LABS: DIGOXIN LEVEL 1.6 NG/ML (0.5-2.0)
[2021-11-27 09:57] LABS: PERCENT SATURATION 21.4 % (19.7-50.0)
== END ==
LOC: M LAB REF 16:29
PROVIDERS: ATTEND Internal Medicine
DX: N39.0 Urinary tract infection, site not specified (principal); I48.20 Chronic atrial fibrillation, unspecified; D64.9 Anemia, unspecified

== ENCOUNTER → 2021-12-23 | Outpatient (REF) | payer MEDICARE, BC ==
[~2021-12-23] MED LIST changes: -DULO30CA9 PO; -ECOT81TA5 PO
[2021-12-23 14:09] LABS: APPEARANCE, URINE CLOUDY (CLEAR); BACTERIA, URINE AUTO 1+ (NEGATIVE); BILIRUBIN, URINE AUTO NEGATIVE (NEGATIVE); BLOOD, URINE BLOOD 1+ (NEGATIVE); COLOR, URINE YELLOW (YELLOW); GLUCOSE, URINE (UA) AUTO NEGATIVE (NEGATIVE); KETONE, URINE AUTO NEGATIVE (NEGATIVE); LEUKOCYTE ESTERASE, URINE AUTO 3+ (NEGATIVE); NITRITE, URINE AUTO NEGATIVE (NEGATIVE); PROTEIN, URINE AUTO 3+ mg/dL (NEGATIVE); RBC, URINE AUTO 7 /HPF (0-3); SPECIFIC GRAVITY URINE AUTO 1.008 (1.002-1.035); SQUAMOUS EPITHELIAL CELL UR AU 0 /HPF (0-6); UROBILINOGEN, URINE AUTO 0.2 mg/dL (0.0-2.0); WBC, URINE AUTO TNTC /HPF (0-3)
== END ==
LOC: M LAB REF 12:14
PROVIDERS: ATTEND Internal Medicine
DX: N30.01 Acute cystitis with hematuria (principal)

== ENCOUNTER → 2022-01-17 | Outpatient (CLI) | payer MEDICARE, BC ==
[~2022-01-17] MED LIST changes: +DULO30CA9 PO; +ECOT81TA5 PO
== END ==
LOC: M SLEEP 20:00
PROVIDERS: ATTEND Physician Assistant
DX: G47.33 Obstructive sleep apnea (adult) (pediatric) (principal)

== ENCOUNTER 2022-01-28 06:15 | Inpatient (IN) | payer MEDICARE, BC ==
[2022-01-28] VITALS (38 sets, daily range): BP systolic 113–164; BP diastolic 54–91
[~2022-01-28] VITALS: Ht 167.6 cm; Wt 101.9 kg
[~2022-01-28 06:15] MED LIST changes: -DULO30CA9 PO; -ECOT81TA5 PO
[2022-01-28] MEDS ORDERED: NITROGLYCERIN 0.4 MG SUBL TABLET SL PRN (06:40)
[2022-01-28 06:46] LABS: BASO # 0.1 10^3/uL (0.0-0.2); BASO % 0.4 % (0.0-1.0); EOS # 0.2 10^3/uL (0.0-0.5); EOS % 1.2 % (0.0-3.0); HEMATOCRIT 32.3 % (42.0-52.0); HEMOGLOBIN 10.5 g/dl (13.5-17.5); LYMPH # 1.2 10^3/uL (1.5-5.0); LYMPH % 6.1 % (24.0-44.0); MEAN CORPUSCULAR HEMOGLOBIN 30.2 pg (27.0-33.0); MEAN CORPUSCULAR HGB CONC 32.5 g/dl (32.0-36.5); MEAN CORPUSCULAR VOLUME 92.8 fl (80.0-96.0); NEUTROPHILS # 16.9 10^3/uL (1.5-8.5); NEUTROPHILS % 86.4 % (36.0-66.0); PLATELET COUNT, AUTOMATED 363 10^3/uL (150-450); RED BLOOD COUNT 3.48 10^6/uL (4.30-6.10); WHITE BLOOD COUNT 19.6 10^3/uL (4.0-10.0)
[2022-01-28 07:11] LABS: CK-MB VALUE MASS 1.2 NG/ML (<3.6); MB/CK RELATIVE INDEX 3.64 (< OR =4)
[2022-01-28 07:22] LABS: ALBUMIN 2.3 GM/DL (3.2-5.2); BILIRUBIN,DIRECT 0.3 MG/DL (0.0-0.2); BILIRUBIN,TOTAL 0.7 MG/DL (0.2-1.0); CALCIUM LEVEL 8.6 MG/DL (8.8-10.2); CREATININE FOR GFR 1.71 MG/DL (0.70-1.30); DIGOXIN LEVEL 1.2 NG/ML (0.5-2.0); GLOMERULAR FILTRATION RATE 42.3 (>42); TOTAL PROTEIN 6.1 GM/DL (6.4-8.2)
[2022-01-28] MEDS ORDERED: NITROGLYCERIN 2% OINT 1 GM *U/D* PKT TOP ONE (07:35)
[2022-01-28] MEDS ORDERED: FUROSEMIDE 100MG/10ML VIAL (J1940) IV ONE (07:35)
[2022-01-28] MEDS ORDERED: hydrALAZINE 20MG/ML 1ML VIAL (J0360 PER 20MG) IV ONE (08:10)
[2022-01-28] MEDS ORDERED: MORPHINE 2 MG/ML 1ML VIAL IV PRN (08:10)
[2022-01-28 08:11] LABS: RSV AMPLIFICATION NEGATIVE (NEGATIVE)
[2022-01-28 08:12] LABS: CK-MB VALUE MASS < 1.0 NG/ML (<3.6); CPK CREATINE PHOSPHOKINASE 32 U/L (39-308); MB/CK RELATIVE INDEX 3.12 (< OR =4)
[2022-01-28] MEDS ORDERED: ONDANSETRON 4MG 2ML VIAL IV ONE (08:25)
[2022-01-28] MEDS ORDERED: ONDANSETRON 4MG 2ML VIAL As Ordered ONE (08:26)
[2022-01-28] MEDS: LOSARTAN 50MG TABLET PO SCH ×2 (09:00→16:32)
[2022-01-28] MEDS: levETIRAcetam 250MG TABLET (KEPPRA) PO SCH ×3 (09:00→21:00)
[2022-01-28] MEDS: TORSEMIDE 20 MG TAB PO SCH ×2 (09:00→16:30)
[2022-01-28] MEDS: PANTOPRAZOLE 40MG TAB (PROTONIX) PO SCH ×2 (09:00→16:29)
[2022-01-28] MEDS: MAGNESIUM OXIDE 400MG TAB (MAG-OX) PO SCH ×3 (09:00→21:00)
[2022-01-28] MEDS: TAMSULOSIN 0.4 MG CAP PO SCH ×2 (09:00→16:31)
[2022-01-28] MEDS: CARVedilol 12.5 MG TAB PO SCH ×3 (09:00→21:00)
[2022-01-28] MEDS ORDERED: ISOVUE-370 76% 100ML VIAL As Ordered ONE (09:17)
[2022-01-28] MEDS: niCARdipine IV 40 MG in IV 1 EA IV SCH ×4 (09:45→22:45)
[2022-01-28 10:30] LABS: CK-MB VALUE MASS 1.3 NG/ML (<3.6); MB/CK RELATIVE INDEX 4.81 (< OR =4)
[2022-01-28] MEDS ORDERED: PROMETHAZINE 25MG/ML 1ML VIAL IV ONE (11:00)
[2022-01-28] MEDS ORDERED: LEVALBUTEROL 1.25 MG/0.5 ML CONCENTRATE NEB NEB PRN (11:45)
[2022-01-28] MEDS ORDERED: DEXTROSE 50% 50 ML SYRINGE IV PRN (11:50)
[2022-01-28] MEDS ORDERED: GLUCAGON INJ 1MG VIAL SC PRN (11:50)
[2022-01-28] MEDS ORDERED: GLUCOSE 4GM CHEW TABLET PO PRN (11:50)
[2022-01-28] MEDS: INSULIN LISPRO (NovoLOG) PER UNIT SC SCH ×2 (12:00→17:30)
[2022-01-28] MEDS ORDERED: CARV25TA PO (12:31)
[2022-01-28] MEDS ORDERED: ECOT81TA5 PO (12:31)
[2022-01-28] MEDS ORDERED: TORS20TA2 PO (12:31)
[2022-01-28] MEDS ORDERED: CLOT1CRE71 TOP (12:31)
[2022-01-28] MEDS ORDERED: PANT40TA29 PO (12:31)
[2022-01-28] MEDS ORDERED: DULO30CA9 PO (12:31)
[2022-01-28] MEDS ORDERED: HOME MED LIST COMPLETE! XX SCH (12:35)
[2022-01-28] MEDS ORDERED: TAMSULOSIN 0.4 MG CAP PO ONE (16:10)
[2022-01-28] MEDS ORDERED: levETIRAcetam 250MG TABLET (KEPPRA) PO ONE (16:10)
[2022-01-28] MEDS ORDERED: TORSEMIDE 20 MG TAB PO ONE (16:10)
[2022-01-28] MEDS ORDERED: PANTOPRAZOLE 40MG TAB (PROTONIX) PO ONE (16:10)
[2022-01-28] MEDS ORDERED: LOSARTAN 50MG TABLET PO ONE (16:10)
[2022-01-28] MEDS ORDERED: MAGNESIUM OXIDE 400MG TAB (MAG-OX) PO ONE (16:10)
[2022-01-28] MEDS ORDERED: CARVedilol 12.5 MG TAB PO ONE (16:10)
[2022-01-28] MEDS: RIVAROXABAN 15MG TAB (XARELTO) PO SCH (17:28)
[2022-01-28] MEDS: ACETAMINOPHEN TAB 650MG DOSE (2X325MG) PO PRN (19:04)
[2022-01-28 19:28] LABS: BACTERIA, URINE LARGE AMOUNT; HYALINE CAST, URINE NONE SEEN /lpf (0-1); SQUAMOUS EPITHELIAL CELL URINE SMALL AMOUNT /hpf (SMALL AMT)
[2022-01-28] MEDS ORDERED: cefTRIAXone SOD 1 GM in D5W MINI-BAG PLUS 50 ML IV SCH (21:00)
[2022-01-28] MEDS: LEVEMIR (INSULIN DETEMIR) 1 UNITS/0.01ML SC SCH (21:00)
[2022-01-28] MEDS: DULoxetine 30MG CAPSULE (CYMBALTA) PO SCH (22:18)
[2022-01-28] MEDS: allopurinoL 300 MG TAB PO SCH (22:19)
[2022-01-28] MEDS: ATORVASTATIN 20 MG TAB PO SCH (22:19)
[2022-01-28] MEDS: DIGOXIN 0.125 MG TAB PO SCH (22:19)
[2022-01-29] VITALS (65 sets, daily range): BP systolic 107–208; BP diastolic 53–104
[2022-01-29 05:46] LABS: HEMATOCRIT 29.8 % (42.0-52.0); HEMOGLOBIN 9.8 g/dl (13.5-17.5); MEAN CORPUSCULAR HEMOGLOBIN 29.9 pg (27.0-33.0); MEAN CORPUSCULAR HGB CONC 32.9 g/dl (32.0-36.5); MEAN CORPUSCULAR VOLUME 90.9 fl (80.0-96.0); PLATELET COUNT, AUTOMATED 299 10^3/uL (150-450); RED BLOOD COUNT 3.28 10^6/uL (4.30-6.10)
[2022-01-29 05:54] LABS: WHITE BLOOD COUNT 34.9 10^3/uL (4.0-10.0)
[2022-01-29 06:28] LABS: BILIRUBIN,TOTAL 3.3 MG/DL (0.2-1.0); CALCIUM LEVEL 8.4 MG/DL (8.8-10.2); CREATININE FOR GFR 2.41 MG/DL (0.70-1.30); GLOMERULAR FILTRATION RATE 28.5 (>42); POTASSIUM SERUM 4.6 MEQ/L (3.5-5.1); TOTAL PROTEIN 5.3 GM/DL (6.4-8.2)
[2022-01-29] MEDS: niCARdipine IV 40 MG in IV 1 EA IV SCH ×3 (06:45→22:45)
[2022-01-29] MEDS: MEROPENEM INJ 1 GM in IV 1 EA IV SCH ×2 (07:38→20:16)
[2022-01-29] MEDS: INSULIN LISPRO (NovoLOG) PER UNIT SC SCH ×3 (07:38→18:04)
[2022-01-29] MEDS ORDERED: PIPERACILLIN/TAZOBACTAM SOD 3.375 GM in D5W MINI-BAG PLUS 50 ML IV SCH (08:00)
[2022-01-29] MEDS: LOSARTAN 50MG TABLET PO SCH (08:43)
[2022-01-29] MEDS: TAMSULOSIN 0.4 MG CAP PO SCH (08:43)
[2022-01-29] MEDS: ASPIRIN 81MG ENTERIC TABLET PO SCH (08:43)
[2022-01-29] MEDS: TORSEMIDE 20 MG TAB PO SCH (08:43)
[2022-01-29] MEDS: PANTOPRAZOLE 40MG TAB (PROTONIX) PO SCH (08:43)
[2022-01-29] MEDS: levETIRAcetam 250MG TABLET (KEPPRA) PO SCH ×2 (08:44→20:17)
[2022-01-29] MEDS: MAGNESIUM OXIDE 400MG TAB (MAG-OX) PO SCH ×2 (08:44→20:17)
[2022-01-29] MEDS ORDERED: CARVedilol 6.25 MG TAB PO SCH (09:00)
[2022-01-29] MEDS: ACETAMINOPHEN TAB 650MG DOSE (2X325MG) PO PRN ×2 (09:07→18:04)
[2022-01-29] MEDS: ONDANSETRON 4MG 2ML VIAL IV PRN ×2 (10:30→15:41)
[2022-01-29] MEDS ORDERED: ONDANSETRON 4MG 2ML VIAL IV PRN (12:30)
[2022-01-29 13:04] LABS: BACTERIA, URINE LARGE AMOUNT; HYALINE CAST, URINE NONE SEEN /lpf (0-1); MUCUS, URINE MOD AMOUNT (NEGATIVE); SQUAMOUS EPITHELIAL CELL URINE SMALL AMOUNT /hpf (SMALL AMT)
[2022-01-29] MEDS: LR 1,000 ML IV SCH (13:59)
[2022-01-29 16:44] LABS: MB/CK RELATIVE INDEX 1.56 (< OR =4)
[2022-01-29] MEDS: RIVAROXABAN 15MG TAB (XARELTO) PO SCH (18:04)
[2022-01-29] MEDS: allopurinoL 300 MG TAB PO SCH (20:16)
[2022-01-29] MEDS: ATORVASTATIN 20 MG TAB PO SCH (20:16)
[2022-01-29] MEDS: DULoxetine 30MG CAPSULE (CYMBALTA) PO SCH (20:16)
[2022-01-29] MEDS: DIGOXIN 0.125 MG TAB PO SCH (20:17)
[2022-01-29] MEDS: LEVEMIR (INSULIN DETEMIR) 1 UNITS/0.01ML SC SCH (21:00)
[2022-01-30] VITALS (15 sets, daily range): BP systolic 134–164; BP diastolic 55–71
[2022-01-30] MEDS: LR 1,000 ML IV SCH (03:00)
[2022-01-30 05:56] LABS: HEMATOCRIT 30.1 % (42.0-52.0); HEMOGLOBIN 9.9 g/dl (13.5-17.5); MEAN CORPUSCULAR HEMOGLOBIN 29.6 pg (27.0-33.0); MEAN CORPUSCULAR HGB CONC 32.9 g/dl (32.0-36.5); MEAN CORPUSCULAR VOLUME 90.1 fl (80.0-96.0); PLATELET COUNT, AUTOMATED 276 10^3/uL (150-450); RED BLOOD COUNT 3.34 10^6/uL (4.30-6.10); WHITE BLOOD COUNT 48.5 10^3/uL (4.0-10.0)
[2022-01-30 06:30] LABS: ALBUMIN 1.7 GM/DL (3.2-5.2); BILIRUBIN,TOTAL 2.9 MG/DL (0.2-1.0); CALCIUM LEVEL 7.9 MG/DL (8.8-10.2); CREATININE FOR GFR 3.04 MG/DL (0.70-1.30); GLOMERULAR FILTRATION RATE 21.8 (>42); POTASSIUM SERUM 4.6 MEQ/L (3.5-5.1); TOTAL PROTEIN 5.7 GM/DL (6.4-8.2)
[2022-01-30] MEDS: INSULIN LISPRO (NovoLOG) PER UNIT SC SCH ×3 (07:30→17:30)
[2022-01-30] MEDS: niCARdipine IV 40 MG in IV 1 EA IV SCH (07:50)
[2022-01-30] MEDS ORDERED: VANCOMYCIN HCL 1,000 MG, VIAL MATE ADAPTER 1 EACH in NS 250 ML IV SCH (08:00)
[2022-01-30] MEDS: ACETAMINOPHEN TAB 650MG DOSE (2X325MG) PO PRN (08:12)
[2022-01-30] MEDS: TAMSULOSIN 0.4 MG CAP PO SCH (09:00)
[2022-01-30] MEDS: LOSARTAN 50MG TABLET PO SCH (09:00)
[2022-01-30] MEDS ORDERED: VANCOMYCIN HCL 1,000 MG, VIAL MATE ADAPTER 1 EACH in NS 250 ML IV ONE (09:00)
[2022-01-30] MEDS: MAGNESIUM OXIDE 400MG TAB (MAG-OX) PO SCH ×2 (09:00→20:33)
[2022-01-30] MEDS: ASPIRIN 81MG ENTERIC TABLET PO SCH (09:00)
[2022-01-30 09:19] LABS: INR 3.25; PROTHROMBIN TIME 33.5 SECONDS (12.7-14.5)
[2022-01-30 09:20] LABS: PARTIAL THROMBOPLASTIN TIME 66.7 SECONDS (25.9-37.0)
[2022-01-30] MEDS: MEROPENEM INJ 1 GM in IV 1 EA IV SCH ×2 (09:42→20:33)
[2022-01-30] MEDS: PANTOPRAZOLE 40MG VIAL IV SCH (09:43)
[2022-01-30] MEDS: NS 1,000 ML IV SCH ×3 (09:43→23:10)
[2022-01-30] MEDS: levETIRAcetam INJection 500 MG in D5W MINI-BAG PLUS 100 ML IV SCH ×2 (09:43→21:35)
[2022-01-30] MEDS: MORPHINE 2 MG/ML 1ML VIAL IV PRN ×2 (13:26→20:38)
[2022-01-30] MEDS ORDERED: LIDOCAINE 1% MDV 20ML VIAL As Ordered ONE (15:38)
[2022-01-30] MEDS: ONDANSETRON 4MG 2ML VIAL IV PRN (16:34)
[2022-01-30 19:01] LABS: INR 2.08; PROTHROMBIN TIME 23.8 SECONDS (12.7-14.5)
[2022-01-30 19:02] LABS: PARTIAL THROMBOPLASTIN TIME 59.1 SECONDS (25.9-37.0)
[2022-01-30] MEDS: LEVEMIR (INSULIN DETEMIR) 1 UNITS/0.01ML SC SCH (20:32)
[2022-01-30] MEDS: DULoxetine 30MG CAPSULE (CYMBALTA) PO SCH (20:33)
[2022-01-30] MEDS: DIGOXIN 0.125 MG TAB PO SCH (20:33)
[2022-01-30] MEDS: ATORVASTATIN 20 MG TAB PO SCH (20:33)
[2022-01-30] MEDS: allopurinoL 300 MG TAB PO SCH (20:33)
[2022-01-31] VITALS (40 sets, daily range): BP systolic 122–162; BP diastolic 58–81
[2022-01-31 07:04] LABS: HEMATOCRIT 23.8 % (42.0-52.0); HEMOGLOBIN 7.6 g/dl (13.5-17.5); MEAN CORPUSCULAR HEMOGLOBIN 29.1 pg (27.0-33.0); MEAN CORPUSCULAR HGB CONC 31.9 g/dl (32.0-36.5); MEAN CORPUSCULAR VOLUME 91.2 fl (80.0-96.0); PLATELET COUNT, AUTOMATED 289 10^3/uL (150-450); RED BLOOD COUNT 2.61 10^6/uL (4.30-6.10)
[2022-01-31 07:19] LABS: INR 1.44; PROTHROMBIN TIME 17.9 SECONDS (12.7-14.5)
[2022-01-31 07:20] LABS: PARTIAL THROMBOPLASTIN TIME 51.2 SECONDS (25.9-37.0)
[2022-01-31 07:28] LABS: WHITE BLOOD COUNT 40.8 10^3/uL (4.0-10.0)
[2022-01-31 07:39] LABS: ALBUMIN 1.6 GM/DL (3.2-5.2); BILIRUBIN,TOTAL 1.3 MG/DL (0.2-1.0); CALCIUM LEVEL 7.6 MG/DL (8.8-10.2); CREATININE FOR GFR 3.58 MG/DL (0.70-1.30); GLOMERULAR FILTRATION RATE 18.1 (>42); POTASSIUM SERUM 4.8 MEQ/L (3.5-5.1); TOTAL PROTEIN 4.6 GM/DL (6.4-8.2)
[2022-01-31] MEDS: LOSARTAN 50MG TABLET PO SCH (08:29)
[2022-01-31] MEDS: PANTOPRAZOLE 40MG VIAL IV SCH (08:29)
[2022-01-31] MEDS: NS 1,000 ML IV SCH ×3 (08:30→19:41)
[2022-01-31] MEDS: LACTOBACILLUS ACIDOPHILUS CAP (BACID) PO SCH ×2 (08:30→18:41)
[2022-01-31] MEDS: MAGNESIUM OXIDE 400MG TAB (MAG-OX) PO SCH (08:30)
[2022-01-31] MEDS: levETIRAcetam INJection 500 MG in D5W MINI-BAG PLUS 100 ML IV SCH ×2 (08:30→23:29)
[2022-01-31] MEDS: TAMSULOSIN 0.4 MG CAP PO SCH (08:31)
[2022-01-31] MEDS: INSULIN LISPRO (NovoLOG) PER UNIT SC SCH ×3 (09:03→17:30)
[2022-01-31] MEDS: MORPHINE 2 MG/ML 1ML VIAL IV PRN ×2 (09:16→19:39)
[2022-01-31] MEDS: MEROPENEM INJ 1 GM in IV 1 EA IV SCH ×2 (09:16→19:40)
[2022-01-31 11:00] LABS: HEPATITIS B SURFACE ANTIGEN NEGATIVE (NEGATIVE)
[2022-01-31] MEDS ORDERED: MORPHINE 2 MG/ML 1ML VIAL IV ONE (11:50)
[2022-01-31] MEDS: ONDANSETRON 4MG 2ML VIAL IV PRN (11:51)
[2022-01-31] MEDS ORDERED: ETOMIDATE INJ 20MG/10ML VIAL As Ordered ONE (17:05)
[2022-01-31] MEDS ORDERED: LIDOCAINE 2% 100MG/5ML SDV (FOR ANES.) As Ordered ONE (17:05)
[2022-01-31] MEDS ORDERED: fentaNYL 100 MCG/2 ML INJECTION As Ordered ONE ×2 (17:05→17:30)
[2022-01-31] MEDS ORDERED: PHENYLephrine 500MCG 5ML (100MCG/ML) SYRINGE As Ordered ONE (17:10)
[2022-01-31] MEDS ORDERED: SUCCINYLCHOLINE 100 MG/5 ML SYRINGE (J0330) As Ordered ONE (17:11)
[2022-01-31] MEDS ORDERED: ePHEDrine SULFATE 25 MG/5 ML(5MG/ML) SYRINGE As Ordered ONE (17:11)
[2022-01-31] MEDS ORDERED: fentaNYL 100 MCG/2 ML INJECTION IV PRN (17:45)
[2022-01-31] MEDS ORDERED: LR 1,000 ML IV SCH (17:45)
[2022-01-31] MEDS ORDERED: ONDANSETRON 4MG 2ML VIAL IV PRN (17:45)
[2022-01-31] MEDS ORDERED: MORPHINE 2 MG/ML 1ML VIAL IV PRN (17:45)
[2022-01-31] MEDS ORDERED: PERCOCET 5MG/325MG TAB PO PRN (17:45)
[2022-01-31] MEDS: ACETAMINOPHEN TAB 650MG DOSE (2X325MG) PO PRN (19:39)
[2022-01-31] MEDS: LEVEMIR (INSULIN DETEMIR) 1 UNITS/0.01ML SC SCH (21:00)
[2022-01-31] MEDS ORDERED: DIGOXIN INJ 0.5 MG/2 ML AMP (J1160) IV SCH (21:00)
[2022-01-31] MEDS: DULoxetine 30MG CAPSULE (CYMBALTA) PO SCH (23:29)
[2022-01-31] MEDS: DIGOXIN INJ 0.5 MG/2 ML AMP (J1160) IV SCH (23:29)
[2022-01-31] MEDS: allopurinoL 300 MG TAB PO SCH (23:29)
[2022-01-31] MEDS: ATORVASTATIN 20 MG TAB PO SCH (23:30)
[2022-02-01] VITALS (26 sets, daily range): BP systolic 128–185; BP diastolic 60–108
[2022-02-01] MEDS: ACETAMINOPHEN TAB 650MG DOSE (2X325MG) PO PRN ×2 (04:37→20:52)
[2022-02-01] MEDS: MORPHINE 2 MG/ML 1ML VIAL IV PRN ×5 (04:38→21:15)
[2022-02-01 04:59] LABS: HEMATOCRIT 27.4 % (42.0-52.0); MEAN CORPUSCULAR HEMOGLOBIN 29.7 pg (27.0-33.0); MEAN CORPUSCULAR HGB CONC 32.8 g/dl (32.0-36.5); MEAN CORPUSCULAR VOLUME 90.4 fl (80.0-96.0); PLATELET COUNT, AUTOMATED 250 10^3/uL (150-450); RED BLOOD COUNT 3.03 10^6/uL (4.30-6.10); WHITE BLOOD COUNT 26.4 10^3/uL (4.0-10.0)
[2022-02-01 05:54] LABS: ALBUMIN 1.5 GM/DL (3.2-5.2); BILIRUBIN,TOTAL 1.7 MG/DL (0.2-1.0); CALCIUM LEVEL 7.8 MG/DL (8.8-10.2); CREATININE FOR GFR 3.8 MG/DL (0.70-1.30); DIGOXIN LEVEL 2.4 NG/ML (0.5-2.0); GLOMERULAR FILTRATION RATE 16.8 (>42); MAGNESIUM LEVEL 1.7 MG/DL (1.8-2.4); PHOSPHORUS LEVEL 5.8 MG/DL (2.5-4.9); POTASSIUM SERUM 4.7 MEQ/L (3.5-5.1); TOTAL PROTEIN 4.7 GM/DL (6.4-8.2)
[2022-02-01] MEDS: INSULIN LISPRO (NovoLOG) PER UNIT SC SCH ×3 (07:30→17:08)
[2022-02-01] MEDS: MEROPENEM INJ 1 GM in IV 1 EA IV SCH (07:35)
[2022-02-01] MEDS: ONDANSETRON 4MG 2ML VIAL IV PRN (07:36)
[2022-02-01] MEDS: levETIRAcetam INJection 500 MG in D5W MINI-BAG PLUS 100 ML IV SCH ×2 (08:29→20:52)
[2022-02-01] MEDS: PANTOPRAZOLE 40MG VIAL IV SCH (08:29)
[2022-02-01] MEDS: NS 1,000 ML IV SCH ×2 (08:30→17:00)
[2022-02-01] MEDS: **hydrALAZINE HCL** 25 MG TAB PO SCH ×3 (08:30→20:51)
[2022-02-01] MEDS: TAMSULOSIN 0.4 MG CAP PO SCH (08:30)
[2022-02-01] MEDS: LACTOBACILLUS ACIDOPHILUS CAP (BACID) PO SCH ×2 (08:30→18:00)
[2022-02-01] MEDS: MEROPENEM INJ 500 MG in IV 1 EA IV SCH (20:21)
[2022-02-01] MEDS: allopurinoL 300 MG TAB PO SCH (20:51)
[2022-02-01] MEDS: ATORVASTATIN 20 MG TAB PO SCH (20:51)
[2022-02-01] MEDS: DULoxetine 30MG CAPSULE (CYMBALTA) PO SCH (20:51)
[2022-02-01] MEDS: LEVEMIR (INSULIN DETEMIR) 1 UNITS/0.01ML SC SCH (20:52)
[2022-02-01] MEDS: DIGOXIN INJ 0.5 MG/2 ML AMP (J1160) IV SCH ×2 (20:54→21:00)
[2022-02-02] VITALS (19 sets, daily range): BP systolic 150–187; BP diastolic 66–87
[2022-02-02] MEDS: NS 1,000 ML IV SCH (01:22)
[2022-02-02 04:32] LABS: HEMATOCRIT 26.6 % (42.0-52.0); MEAN CORPUSCULAR HEMOGLOBIN 30.6 pg (27.0-33.0); MEAN CORPUSCULAR HGB CONC 33.8 g/dl (32.0-36.5); MEAN CORPUSCULAR VOLUME 90.5 fl (80.0-96.0); PLATELET COUNT, AUTOMATED 212 10^3/uL (150-450); RED BLOOD COUNT 2.94 10^6/uL (4.30-6.10); WHITE BLOOD COUNT 16.9 10^3/uL (4.0-10.0)
[2022-02-02 05:17] LABS: ALBUMIN 1.6 GM/DL (3.2-5.2); CALCIUM LEVEL 8.2 MG/DL (8.8-10.2); CREATININE FOR GFR 3.35 MG/DL (0.70-1.30); DIGOXIN LEVEL 1.9 NG/ML (0.5-2.0); GLOMERULAR FILTRATION RATE 19.5 (>42); PHOSPHORUS LEVEL 5.3 MG/DL (2.5-4.9); POTASSIUM SERUM 4.8 MEQ/L (3.5-5.1); TOTAL PROTEIN 4.7 GM/DL (6.4-8.2)
[2022-02-02] MEDS: MORPHINE 2 MG/ML 1ML VIAL IV PRN ×4 (06:05→20:54)
[2022-02-02] MEDS: INSULIN LISPRO (NovoLOG) PER UNIT SC SCH ×3 (07:30→17:30)
[2022-02-02] MEDS: LACTOBACILLUS ACIDOPHILUS CAP (BACID) PO SCH ×2 (08:28→17:47)
[2022-02-02] MEDS: **hydrALAZINE HCL** 25 MG TAB PO SCH ×3 (08:28→20:56)
[2022-02-02] MEDS: TAMSULOSIN 0.4 MG CAP PO SCH (08:28)
[2022-02-02] MEDS: levETIRAcetam INJection 500 MG in D5W MINI-BAG PLUS 100 ML IV SCH (08:28)
[2022-02-02] MEDS: PANTOPRAZOLE 40MG VIAL IV SCH (08:28)
[2022-02-02] MEDS: MEROPENEM INJ 500 MG in IV 1 EA IV SCH ×2 (09:02→20:56)
[2022-02-02] MEDS ORDERED: FUROSEMIDE 100MG/10ML VIAL (J1940) IV ONE ×2 (10:00→16:00)
[2022-02-02 15:23] LABS: HEMATOCRIT 27.2 % (42.0-52.0); HEMOGLOBIN 9.1 g/dl (13.5-17.5)
[2022-02-02] MEDS: DIGOXIN INJ 0.5 MG/2 ML AMP (J1160) IV SCH (20:55)
[2022-02-02] MEDS: ATORVASTATIN 20 MG TAB PO SCH (20:55)
[2022-02-02] MEDS: levETIRAcetam 250MG TABLET (KEPPRA) PO SCH (20:55)
[2022-02-02] MEDS: ACETAMINOPHEN TAB 650MG DOSE (2X325MG) PO PRN (20:55)
[2022-02-02] MEDS: allopurinoL 300 MG TAB PO SCH (20:56)
[2022-02-02] MEDS: DULoxetine 30MG CAPSULE (CYMBALTA) PO SCH (20:56)
[2022-02-02] MEDS: LEVEMIR (INSULIN DETEMIR) 1 UNITS/0.01ML SC SCH (21:32)
[2022-02-03] VITALS (7 sets, daily range): BP systolic 155–181; BP diastolic 71–77
[2022-02-03] MEDS ORDERED: hydrALAZINE 20MG/ML 1ML VIAL (J0360 PER 20MG) IV STA (00:18)
[2022-02-03 06:07] LABS: HEMATOCRIT 28.4 % (42.0-52.0); HEMOGLOBIN 9.3 g/dl (13.5-17.5); MEAN CORPUSCULAR HEMOGLOBIN 29.3 pg (27.0-33.0); MEAN CORPUSCULAR HGB CONC 32.7 g/dl (32.0-36.5); MEAN CORPUSCULAR VOLUME 89.6 fl (80.0-96.0); PLATELET COUNT, AUTOMATED 245 10^3/uL (150-450); RED BLOOD COUNT 3.17 10^6/uL (4.30-6.10); WHITE BLOOD COUNT 12.7 10^3/uL (4.0-10.0)
[2022-02-03 06:45] LABS: ALBUMIN 1.5 GM/DL (3.2-5.2); BILIRUBIN,TOTAL 0.9 MG/DL (0.2-1.0); CALCIUM LEVEL 8.1 MG/DL (8.8-10.2); CREATININE FOR GFR 2.53 MG/DL (0.70-1.30); DIGOXIN LEVEL 1.8 NG/ML (0.5-2.0); GLOMERULAR FILTRATION RATE 26.9 (>42); MAGNESIUM LEVEL 1.9 MG/DL (1.8-2.4); PHOSPHORUS LEVEL 4.3 MG/DL (2.5-4.9); POTASSIUM SERUM 4.6 MEQ/L (3.5-5.1); TOTAL PROTEIN 4.7 GM/DL (6.4-8.2)
[2022-02-03] MEDS: INSULIN LISPRO (NovoLOG) PER UNIT SC SCH ×3 (07:30→17:30)
[2022-02-03] MEDS: PANTOPRAZOLE 40MG VIAL IV SCH (08:05)
[2022-02-03] MEDS: TAMSULOSIN 0.4 MG CAP PO SCH (08:05)
[2022-02-03] MEDS: levETIRAcetam 250MG TABLET (KEPPRA) PO SCH ×2 (08:05→20:18)
[2022-02-03] MEDS: **hydrALAZINE HCL** 25 MG TAB PO SCH ×3 (08:05→20:19)
[2022-02-03] MEDS: LACTOBACILLUS ACIDOPHILUS CAP (BACID) PO SCH ×2 (08:05→18:15)
[2022-02-03] MEDS: MEROPENEM INJ 500 MG in IV 1 EA IV SCH ×2 (08:06→20:19)
[2022-02-03] MEDS: MORPHINE 2 MG/ML 1ML VIAL IV PRN (08:10)
[2022-02-03] MEDS: amLODIPine 5 MG TAB PO SCH (09:00)
[2022-02-03] MEDS ORDERED: FUROSEMIDE 100MG/10ML VIAL (J1940) IV ONE (09:30)
[2022-02-03] MEDS: ACETAMINOPHEN TAB 650MG DOSE (2X325MG) PO PRN (15:14)
[2022-02-03] MEDS: allopurinoL 300 MG TAB PO SCH (20:18)
[2022-02-03] MEDS: DIGOXIN INJ 0.5 MG/2 ML AMP (J1160) IV SCH (20:19)
[2022-02-03] MEDS: DULoxetine 30MG CAPSULE (CYMBALTA) PO SCH (20:19)
[2022-02-03] MEDS: ATORVASTATIN 20 MG TAB PO SCH (20:19)
[2022-02-03] MEDS: LEVEMIR (INSULIN DETEMIR) 1 UNITS/0.01ML SC SCH (20:20)
[2022-02-04] VITALS (7 sets, daily range): BP systolic 134–178; BP diastolic 62–74
[2022-02-04 05:48] LABS: HEMATOCRIT 28.2 % (42.0-52.0); HEMOGLOBIN 9.5 g/dl (13.5-17.5); MEAN CORPUSCULAR HEMOGLOBIN 30.1 pg (27.0-33.0); MEAN CORPUSCULAR HGB CONC 33.7 g/dl (32.0-36.5); MEAN CORPUSCULAR VOLUME 89.2 fl (80.0-96.0); PLATELET COUNT, AUTOMATED 242 10^3/uL (150-450); RED BLOOD COUNT 3.16 10^6/uL (4.30-6.10); WHITE BLOOD COUNT 11.9 10^3/uL (4.0-10.0)
[2022-02-04 07:08] LABS: ALBUMIN 1.5 GM/DL (3.2-5.2); BILIRUBIN,TOTAL 1.1 MG/DL (0.2-1.0); CALCIUM LEVEL 7.9 MG/DL (8.8-10.2); CREATININE FOR GFR 1.92 MG/DL (0.70-1.30); DIGOXIN LEVEL 1.8 NG/ML (0.5-2.0); MAGNESIUM LEVEL 1.8 MG/DL (1.8-2.4); PHOSPHORUS LEVEL 3.6 MG/DL (2.5-4.9); POTASSIUM SERUM 4.5 MEQ/L (3.5-5.1); TOTAL PROTEIN 4.7 GM/DL (6.4-8.2)
[2022-02-04] MEDS: INSULIN LISPRO (NovoLOG) PER UNIT SC SCH ×3 (07:30→17:08)
[2022-02-04] MEDS: **hydrALAZINE HCL** 25 MG TAB PO SCH ×3 (08:42→20:19)
[2022-02-04] MEDS: levETIRAcetam 250MG TABLET (KEPPRA) PO SCH ×2 (08:42→20:21)
[2022-02-04] MEDS: PANTOPRAZOLE 40MG VIAL IV SCH (08:42)
[2022-02-04] MEDS: TAMSULOSIN 0.4 MG CAP PO SCH (08:42)
[2022-02-04] MEDS: LACTOBACILLUS ACIDOPHILUS CAP (BACID) PO SCH ×2 (08:42→17:08)
[2022-02-04] MEDS: amLODIPine 5 MG TAB PO SCH (08:42)
[2022-02-04] MEDS: MEROPENEM INJ 500 MG in IV 1 EA IV SCH (08:43)
[2022-02-04] MEDS ORDERED: amLODIPine 5 MG TAB PO ONE (12:25)
[2022-02-04] MEDS: ACETAMINOPHEN TAB 650MG DOSE (2X325MG) PO PRN ×2 (14:31→23:41)
[2022-02-04] MEDS ORDERED: ANEXSIA, NORCO 7.5MG/325MG TABLET(HYDROCODONE/APAP) PO PRN (14:40)
[2022-02-04] MEDS ORDERED: MEROPENEM INJ 1 GM in IV 1 EA IV SCH (20:00)
[2022-02-04] MEDS: ATORVASTATIN 20 MG TAB PO SCH (20:19)
[2022-02-04] MEDS: DIGOXIN 0.125 MG TAB PO SCH (20:20)
[2022-02-04] MEDS: DULoxetine 30MG CAPSULE (CYMBALTA) PO SCH (20:20)
[2022-02-04] MEDS: allopurinoL 300 MG TAB PO SCH (20:20)
[2022-02-04] MEDS: LEVEMIR (INSULIN DETEMIR) 1 UNITS/0.01ML SC SCH (20:58)
[2022-02-05 04:30] VITALS: BP 157/69
[2022-02-05 04:31] LABS: HEMATOCRIT 27.5 % (42.0-52.0); HEMOGLOBIN 9.3 g/dl (13.5-17.5); MEAN CORPUSCULAR HEMOGLOBIN 30.1 pg (27.0-33.0); MEAN CORPUSCULAR HGB CONC 33.8 g/dl (32.0-36.5); PLATELET COUNT, AUTOMATED 243 10^3/uL (150-450); RED BLOOD COUNT 3.09 10^6/uL (4.30-6.10); WHITE BLOOD COUNT 14.9 10^3/uL (4.0-10.0)
[2022-02-05] MEDS: MORPHINE 2 MG/ML 1ML VIAL IV PRN (05:38)
[2022-02-05 05:39] LABS: ALBUMIN 1.6 GM/DL (3.2-5.2); BILIRUBIN,TOTAL 1.1 MG/DL (0.2-1.0); CREATININE FOR GFR 1.69 MG/DL (0.70-1.30); DIGOXIN LEVEL 1.8 NG/ML (0.5-2.0); GLOMERULAR FILTRATION RATE 42.9 (>42); MAGNESIUM LEVEL 1.8 MG/DL (1.8-2.4); PHOSPHORUS LEVEL 3.2 MG/DL (2.5-4.9); POTASSIUM SERUM 4.4 MEQ/L (3.5-5.1); TOTAL PROTEIN 4.6 GM/DL (6.4-8.2)
[2022-02-05] MEDS: PANTOPRAZOLE 40MG VIAL IV SCH (08:21)
[2022-02-05] MEDS: CEPHALEXIN 500 MG CAP PO SCH ×3 (08:21→20:41)
[2022-02-05] MEDS: LACTOBACILLUS ACIDOPHILUS CAP (BACID) PO SCH ×2 (08:22→17:10)
[2022-02-05] MEDS: TAMSULOSIN 0.4 MG CAP PO SCH (08:22)
[2022-02-05] MEDS: levETIRAcetam 250MG TABLET (KEPPRA) PO SCH ×2 (08:22→20:40)
[2022-02-05] MEDS: INSULIN LISPRO (NovoLOG) PER UNIT SC SCH ×3 (08:22→17:10)
[2022-02-05 08:24] VITALS: BP 157/74
[2022-02-05] MEDS: **hydrALAZINE HCL** 25 MG TAB PO SCH ×3 (08:26→20:40)
[2022-02-05] MEDS ORDERED: FUROSEMIDE 100MG/10ML VIAL (J1940) IV ONE (09:30)
[2022-02-05] MEDS ORDERED: SENOKOT S TAB PO PRN (10:10)
[2022-02-05] MEDS ORDERED: HYDROMORPHONE HCL 0.5 MG/ 0.5 ML SYRINGE (J1170 PER 1) IV ONE (10:20)
[2022-02-05] MEDS: PERCOCET 5MG/325MG TAB PO PRN (10:45)
[2022-02-05 16:00] VITALS: BP 153/68
[2022-02-05] MEDS: RIVAROXABAN 15MG TAB (XARELTO) PO SCH (17:11)
[2022-02-05 20:27] VITALS: BP 127/60
[2022-02-05] MEDS: ATORVASTATIN 20 MG TAB PO SCH (20:40)
[2022-02-05] MEDS: allopurinoL 300 MG TAB PO SCH (20:40)
[2022-02-05] MEDS: DULoxetine 30MG CAPSULE (CYMBALTA) PO SCH (20:41)
[2022-02-05] MEDS: DIGOXIN 0.125 MG TAB PO SCH (20:41)
[2022-02-05] MEDS: LEVEMIR (INSULIN DETEMIR) 1 UNITS/0.01ML SC SCH (20:42)
[2022-02-05 22:14] VITALS: BP 135/62
[2022-02-06 04:13] VITALS: BP 146/66
[2022-02-06 04:48] LABS: HEMATOCRIT 28.9 % (42.0-52.0); HEMOGLOBIN 9.5 g/dl (13.5-17.5); MEAN CORPUSCULAR HEMOGLOBIN 29.8 pg (27.0-33.0); MEAN CORPUSCULAR HGB CONC 32.9 g/dl (32.0-36.5); MEAN CORPUSCULAR VOLUME 90.6 fl (80.0-96.0); PLATELET COUNT, AUTOMATED 247 10^3/uL (150-450); RED BLOOD COUNT 3.19 10^6/uL (4.30-6.10); WHITE BLOOD COUNT 13.5 10^3/uL (4.0-10.0)
[2022-02-06 05:22] LABS: ALBUMIN 1.7 GM/DL (3.2-5.2); BILIRUBIN,TOTAL 1.2 MG/DL (0.2-1.0); CALCIUM LEVEL 8.3 MG/DL (8.8-10.2); CREATININE FOR GFR 1.6 MG/DL (0.70-1.30); GLOMERULAR FILTRATION RATE 45.7 (>42); POTASSIUM SERUM 4.5 MEQ/L (3.5-5.1); TOTAL PROTEIN 4.9 GM/DL (6.4-8.2)
[2022-02-06] MEDS: INSULIN LISPRO (NovoLOG) PER UNIT SC SCH ×3 (07:30→17:29)
[2022-02-06 08:29] VITALS: BP 179/77
[2022-02-06] MEDS: **hydrALAZINE HCL** 25 MG TAB PO SCH ×3 (08:37→20:16)
[2022-02-06] MEDS: TAMSULOSIN 0.4 MG CAP PO SCH (08:37)
[2022-02-06] MEDS: PANTOPRAZOLE 40MG TAB (PROTONIX) PO SCH (08:37)
[2022-02-06] MEDS: LACTOBACILLUS ACIDOPHILUS CAP (BACID) PO SCH ×2 (08:38→17:26)
[2022-02-06] MEDS: CEPHALEXIN 500 MG CAP PO SCH ×3 (08:38→20:16)
[2022-02-06] MEDS: levETIRAcetam 250MG TABLET (KEPPRA) PO SCH ×2 (08:38→20:17)
[2022-02-06] MEDS: PERCOCET 5MG/325MG TAB PO PRN ×4 (08:38→23:52)
[2022-02-06] MEDS ORDERED: TORSEMIDE 20 MG TAB PO ONE (11:05)
[2022-02-06] MEDS: ONDANSETRON 4MG 2ML VIAL IV PRN (12:08)
[2022-02-06] MEDS ORDERED: ONDANSETRON 4MG ORAL DISINTEGRATING TAB PO PRN (17:10)
[2022-02-06] MEDS ORDERED: PROMETHAZINE 25MG SUPP PR PRN (17:10)
[2022-02-06] MEDS: RIVAROXABAN 15MG TAB (XARELTO) PO SCH (17:26)
[2022-02-06 20:06] VITALS: BP 123/57
[2022-02-06] MEDS: DULoxetine 30MG CAPSULE (CYMBALTA) PO SCH (20:15)
[2022-02-06] MEDS: allopurinoL 300 MG TAB PO SCH (20:16)
[2022-02-06] MEDS: ATORVASTATIN 20 MG TAB PO SCH (20:16)
[2022-02-06] MEDS: DIGOXIN 0.125 MG TAB PO SCH (20:16)
[2022-02-06] MEDS: LEVEMIR (INSULIN DETEMIR) 1 UNITS/0.01ML SC SCH (20:17)
[2022-02-07 04:53] LABS: HEMATOCRIT 27.4 % (42.0-52.0); HEMOGLOBIN 9.2 g/dl (13.5-17.5); MEAN CORPUSCULAR HEMOGLOBIN 30.7 pg (27.0-33.0); MEAN CORPUSCULAR HGB CONC 33.6 g/dl (32.0-36.5); MEAN CORPUSCULAR VOLUME 91.3 fl (80.0-96.0); PLATELET COUNT, AUTOMATED 224 10^3/uL (150-450); WHITE BLOOD COUNT 14.1 10^3/uL (4.0-10.0)
[2022-02-07 05:34] LABS: ALBUMIN 1.6 GM/DL (3.2-5.2); BILIRUBIN,TOTAL 1.2 MG/DL (0.2-1.0); CALCIUM LEVEL 8.4 MG/DL (8.8-10.2); CREATININE FOR GFR 1.67 MG/DL (0.70-1.30); GLOMERULAR FILTRATION RATE 43.5 (>42); POTASSIUM SERUM 4.6 MEQ/L (3.5-5.1); TOTAL PROTEIN 4.6 GM/DL (6.4-8.2)
[2022-02-07 06:15] VITALS: BP 130/62
[2022-02-07] MEDS: INSULIN LISPRO (NovoLOG) PER UNIT SC SCH ×3 (07:15→17:10)
[2022-02-07] MEDS: CEPHALEXIN 500 MG CAP PO SCH ×3 (08:31→22:16)
[2022-02-07] MEDS: **hydrALAZINE HCL** 25 MG TAB PO SCH ×3 (08:31→22:18)
[2022-02-07] MEDS: LACTOBACILLUS ACIDOPHILUS CAP (BACID) PO SCH ×2 (08:31→17:09)
[2022-02-07] MEDS: PANTOPRAZOLE 40MG TAB (PROTONIX) PO SCH (08:32)
[2022-02-07] MEDS: PERCOCET 5MG/325MG TAB PO PRN (08:32)
[2022-02-07] MEDS: levETIRAcetam 250MG TABLET (KEPPRA) PO SCH ×2 (08:33→22:17)
[2022-02-07] MEDS: TAMSULOSIN 0.4 MG CAP PO SCH (08:33)
[2022-02-07] MEDS: TORSEMIDE 20 MG TAB PO SCH (08:33)
[2022-02-07] MEDS ORDERED: LIDOCAINE 1% MDV 20ML VIAL As Ordered ONE (12:33)
[2022-02-07] MEDS ORDERED: diphenhydrAMINE CREAM 30GM TOP PRN (14:10)
[2022-02-07] MEDS: diphenhydrAMINE 25MG CAP PO PRN (14:37)
[2022-02-07] MEDS: RIVAROXABAN 15MG TAB (XARELTO) PO SCH (17:09)
[2022-02-07] MEDS: SODIUM CHLORIDE 0.9% INJ 10 ML SYR IV SCH (17:10)
[2022-02-07 22:00] VITALS: BP 149/58
[2022-02-07] MEDS: allopurinoL 300 MG TAB PO SCH (22:16)
[2022-02-07] MEDS: DULoxetine 30MG CAPSULE (CYMBALTA) PO SCH (22:16)
[2022-02-07] MEDS: ATORVASTATIN 20 MG TAB PO SCH (22:16)
[2022-02-07] MEDS: DIGOXIN 0.125 MG TAB PO SCH (22:18)
[2022-02-07] MEDS: LEVEMIR (INSULIN DETEMIR) 1 UNITS/0.01ML SC SCH (22:19)
[2022-02-07] MEDS: ACETAMINOPHEN TAB 650MG DOSE (2X325MG) PO PRN (22:29)
[2022-02-08 06:00] VITALS: BP 149/55
[2022-02-08] MEDS: SODIUM CHLORIDE 0.9% INJ 10 ML SYR IV SCH ×2 (06:31→18:04)
[2022-02-08] MEDS: INSULIN LISPRO (NovoLOG) PER UNIT SC SCH ×3 (07:30→18:03)
[2022-02-08] MEDS: CEPHALEXIN 500 MG CAP PO SCH ×3 (08:31→20:19)
[2022-02-08] MEDS: TORSEMIDE 20 MG TAB PO SCH (08:31)
[2022-02-08] MEDS: LACTOBACILLUS ACIDOPHILUS CAP (BACID) PO SCH ×2 (08:31→18:03)
[2022-02-08] MEDS: TAMSULOSIN 0.4 MG CAP PO SCH (08:31)
[2022-02-08] MEDS: **hydrALAZINE HCL** 25 MG TAB PO SCH ×3 (08:31→20:22)
[2022-02-08] MEDS: PANTOPRAZOLE 40MG TAB (PROTONIX) PO SCH (08:32)
[2022-02-08] MEDS: levETIRAcetam 250MG TABLET (KEPPRA) PO SCH ×2 (08:32→20:20)
[2022-02-08] MEDS: ACETAMINOPHEN TAB 650MG DOSE (2X325MG) PO PRN (16:17)
[2022-02-08] MEDS: RIVAROXABAN 15MG TAB (XARELTO) PO SCH (18:03)
[2022-02-08] MEDS: DULoxetine 30MG CAPSULE (CYMBALTA) PO SCH (20:19)
[2022-02-08] MEDS: ATORVASTATIN 20 MG TAB PO SCH (20:19)
[2022-02-08] MEDS: allopurinoL 300 MG TAB PO SCH (20:20)
[2022-02-08] MEDS: LEVEMIR (INSULIN DETEMIR) 1 UNITS/0.01ML SC SCH (20:21)
[2022-02-08] MEDS: DIGOXIN 0.125 MG TAB PO SCH (20:22)
[2022-02-08] MEDS: PERCOCET 5MG/325MG TAB PO PRN (20:34)
[2022-02-09 05:46] VITALS: BP 99/67
[2022-02-09 06:17] LABS: BASO # 0.1 10^3/uL (0.0-0.2); BASO % 0.5 % (0.0-1.0); EOS # 0.3 10^3/uL (0.0-0.5); EOS % 1.9 % (0.0-3.0); HEMATOCRIT 25.2 % (42.0-52.0); HEMOGLOBIN 8.6 g/dl (13.5-17.5); LYMPH # 1.6 10^3/uL (1.5-5.0); LYMPH % 9.2 % (24.0-44.0); MEAN CORPUSCULAR HEMOGLOBIN 30.6 pg (27.0-33.0); MEAN CORPUSCULAR HGB CONC 34.1 g/dl (32.0-36.5); MEAN CORPUSCULAR VOLUME 89.7 fl (80.0-96.0); MONO % 5.6 % (2.0-8.0); NEUTROPHILS # 13.8 10^3/uL (1.5-8.5); PLATELET COUNT, AUTOMATED 257 10^3/uL (150-450); RED BLOOD COUNT 2.81 10^6/uL (4.30-6.10)
[2022-02-09] MEDS: SODIUM CHLORIDE 0.9% INJ 10 ML SYR IV SCH ×2 (06:33→17:12)
[2022-02-09] MEDS: PANTOPRAZOLE 40MG TAB (PROTONIX) PO SCH (08:47)
[2022-02-09] MEDS: LACTOBACILLUS ACIDOPHILUS CAP (BACID) PO SCH ×2 (08:47→17:12)
[2022-02-09] MEDS: CEPHALEXIN 500 MG CAP PO SCH ×3 (08:47→20:20)
[2022-02-09] MEDS: TAMSULOSIN 0.4 MG CAP PO SCH (08:47)
[2022-02-09] MEDS: INSULIN LISPRO (NovoLOG) PER UNIT SC SCH ×3 (08:47→17:11)
[2022-02-09] MEDS: TORSEMIDE 20 MG TAB PO SCH (08:48)
[2022-02-09] MEDS: levETIRAcetam 250MG TABLET (KEPPRA) PO SCH ×2 (08:48→20:24)
[2022-02-09] MEDS: **hydrALAZINE HCL** 25 MG TAB PO SCH ×3 (08:52→20:23)
[2022-02-09] MEDS: ACETAMINOPHEN TAB 650MG DOSE (2X325MG) PO PRN (14:19)
[2022-02-09 16:15] VITALS: BP 119/62
[2022-02-09] MEDS: RIVAROXABAN 15MG TAB (XARELTO) PO SCH (17:12)
[2022-02-09] MEDS: diphenhydrAMINE 25MG CAP PO PRN (18:57)
[2022-02-09] MEDS: PERCOCET 5MG/325MG TAB PO PRN (19:12)
[2022-02-09] MEDS: allopurinoL 300 MG TAB PO SCH (20:20)
[2022-02-09] MEDS: DULoxetine 30MG CAPSULE (CYMBALTA) PO SCH (20:20)
[2022-02-09] MEDS: ATORVASTATIN 20 MG TAB PO SCH (20:20)
[2022-02-09] MEDS: DIGOXIN 0.125 MG TAB PO SCH (20:20)
[2022-02-09] MEDS: metroNIDAZOLE (FLAGYL) 500MG TABLET PO SCH (20:24)
[2022-02-09] MEDS: LEVEMIR (INSULIN DETEMIR) 1 UNITS/0.01ML SC SCH (20:24)
[2022-02-09 21:20] VITALS: BP 125/59
[2022-02-10] MEDS: metroNIDAZOLE (FLAGYL) 500MG TABLET PO SCH (05:10)
[2022-02-10] MEDS: SODIUM CHLORIDE 0.9% INJ 10 ML SYR IV SCH ×2 (05:11→17:24)
[2022-02-10] MEDS: PERCOCET 5MG/325MG TAB PO PRN (05:17)
[2022-02-10 06:00] VITALS: BP 154/67
[2022-02-10] MEDS ORDERED: CIPROFLOXACIN 500MG TABLET PO SCH (06:00)
[2022-02-10 06:31] LABS: BASO # 0.1 10^3/uL (0.0-0.2); BASO % 0.6 % (0.0-1.0); EOS # 0.3 10^3/uL (0.0-0.5); EOS % 2.2 % (0.0-3.0); HEMATOCRIT 25.8 % (42.0-52.0); HEMOGLOBIN 8.5 g/dl (13.5-17.5); LYMPH # 1.6 10^3/uL (1.5-5.0); LYMPH % 10.4 % (24.0-44.0); MEAN CORPUSCULAR HEMOGLOBIN 29.7 pg (27.0-33.0); MEAN CORPUSCULAR HGB CONC 32.9 g/dl (32.0-36.5); MEAN CORPUSCULAR VOLUME 90.2 fl (80.0-96.0); MONO % 6.8 % (2.0-8.0); NEUTROPHILS # 11.6 10^3/uL (1.5-8.5); NEUTROPHILS % 77.9 % (36.0-66.0); PLATELET COUNT, AUTOMATED 274 10^3/uL (150-450); RED BLOOD COUNT 2.86 10^6/uL (4.30-6.10); WHITE BLOOD COUNT 14.9 10^3/uL (4.0-10.0)
[2022-02-10 06:48] LABS: C REACTIVE PROTEIN QUANTITATIV 3.02 MG/DL (0.00-0.30); CALCIUM LEVEL 8.3 MG/DL (8.8-10.2); CREATININE FOR GFR 1.63 MG/DL (0.70-1.30); GLOMERULAR FILTRATION RATE 44.8 (>42); POTASSIUM SERUM 4.8 MEQ/L (3.5-5.1)
[2022-02-10 07:02] LABS: ERYTHROCYTE SEDIMENTATION RATE 66 mm/hr (0-20)
[2022-02-10] MEDS: INSULIN LISPRO (NovoLOG) PER UNIT SC SCH ×3 (07:30→17:28)
[2022-02-10] MEDS: levETIRAcetam 250MG TABLET (KEPPRA) PO SCH ×2 (08:08→20:29)
[2022-02-10] MEDS: TAMSULOSIN 0.4 MG CAP PO SCH (08:08)
[2022-02-10] MEDS: TORSEMIDE 20 MG TAB PO SCH (08:08)
[2022-02-10] MEDS: PANTOPRAZOLE 40MG TAB (PROTONIX) PO SCH (08:08)
[2022-02-10] MEDS: LACTOBACILLUS ACIDOPHILUS CAP (BACID) PO SCH ×2 (08:08→17:24)
[2022-02-10] MEDS: CEPHALEXIN 500 MG CAP PO SCH ×3 (08:08→20:29)
[2022-02-10] MEDS: ACETAMINOPHEN TAB 650MG DOSE (2X325MG) PO PRN ×2 (08:09→17:27)
[2022-02-10] MEDS: **hydrALAZINE HCL** 25 MG TAB PO SCH ×3 (08:12→20:31)
[2022-02-10] MEDS ORDERED: FUROSEMIDE 40 MG TAB PO ONE (15:00)
[2022-02-10] MEDS: RIVAROXABAN 15MG TAB (XARELTO) PO SCH (17:24)
[2022-02-10] MEDS: allopurinoL 300 MG TAB PO SCH (20:29)
[2022-02-10] MEDS: DULoxetine 30MG CAPSULE (CYMBALTA) PO SCH (20:29)
[2022-02-10] MEDS: ATORVASTATIN 20 MG TAB PO SCH (20:29)
[2022-02-10] MEDS: DIGOXIN 0.125 MG TAB PO SCH (20:30)
[2022-02-10] MEDS: LEVEMIR (INSULIN DETEMIR) 1 UNITS/0.01ML SC SCH (20:32)
[2022-02-11 05:27] VITALS: BP 137/56
[2022-02-11] MEDS: SODIUM CHLORIDE 0.9% INJ 10 ML SYR IV SCH ×2 (05:38→17:57)
[2022-02-11] MEDS: PERCOCET 5MG/325MG TAB PO PRN ×3 (05:40→20:23)
[2022-02-11 07:51] LABS: HEMATOCRIT 25.1 % (42.0-52.0); HEMOGLOBIN 8.2 g/dl (13.5-17.5); MEAN CORPUSCULAR HEMOGLOBIN 29.6 pg (27.0-33.0); MEAN CORPUSCULAR HGB CONC 32.7 g/dl (32.0-36.5); MEAN CORPUSCULAR VOLUME 90.6 fl (80.0-96.0); PLATELET COUNT, AUTOMATED 261 10^3/uL (150-450); RED BLOOD COUNT 2.77 10^6/uL (4.30-6.10); WHITE BLOOD COUNT 14.4 10^3/uL (4.0-10.0)
[2022-02-11] MEDS ORDERED: MORPHINE 2 MG/ML 1ML VIAL IV ONE (08:30)
[2022-02-11 08:34] LABS: ALBUMIN 1.9 GM/DL (3.2-5.2); BILIRUBIN,TOTAL 0.9 MG/DL (0.2-1.0); CALCIUM LEVEL 8.3 MG/DL (8.8-10.2); CREATININE FOR GFR 1.65 MG/DL (0.70-1.30); GLOMERULAR FILTRATION RATE 44.1 (>42); POTASSIUM SERUM 4.8 MEQ/L (3.5-5.1); TOTAL PROTEIN 5.1 GM/DL (6.4-8.2)
[2022-02-11] MEDS: LACTOBACILLUS ACIDOPHILUS CAP (BACID) PO SCH ×2 (08:42→17:56)
[2022-02-11] MEDS: CEPHALEXIN 500 MG CAP PO SCH ×3 (08:43→20:23)
[2022-02-11] MEDS: levETIRAcetam 250MG TABLET (KEPPRA) PO SCH ×2 (08:43→20:23)
[2022-02-11] MEDS: TAMSULOSIN 0.4 MG CAP PO SCH (08:43)
[2022-02-11] MEDS: TORSEMIDE 20 MG TAB PO SCH (08:44)
[2022-02-11] MEDS: PANTOPRAZOLE 40MG TAB (PROTONIX) PO SCH (08:44)
[2022-02-11] MEDS: SODIUM CHLORIDE 0.9% INJ 10 ML SYR IV PRN (08:44)
[2022-02-11] MEDS: **hydrALAZINE HCL** 25 MG TAB PO SCH ×3 (08:45→20:24)
[2022-02-11] MEDS: INSULIN LISPRO (NovoLOG) PER UNIT SC SCH ×3 (08:52→17:56)
[2022-02-11] MEDS: diphenhydrAMINE 25MG CAP PO PRN (12:23)
[2022-02-11] MEDS ORDERED: MOM 30ML SUSPENSION UDC PO PRN (17:15)
[2022-02-11 18:50] LABS: PERCENT SATURATION 18.5 % (19.7-50.0)
[2022-02-11] MEDS: LEVEMIR (INSULIN DETEMIR) 1 UNITS/0.01ML SC SCH (20:22)
[2022-02-11] MEDS: DULoxetine 30MG CAPSULE (CYMBALTA) PO SCH (20:23)
[2022-02-11] MEDS: DIGOXIN 0.125 MG TAB PO SCH (20:23)
[2022-02-11 20:24] VITALS: BP 142/55
[2022-02-11] MEDS: DOCUSATE SODIUM 100MG CAPSULE PO SCH (20:24)
[2022-02-11] MEDS: ATORVASTATIN 20 MG TAB PO SCH (20:24)
[2022-02-11] MEDS: SENNA 8.6 MG TAB (SENOKOT) PO SCH (20:24)
[2022-02-11] MEDS: allopurinoL 300 MG TAB PO SCH (20:24)
[2022-02-12] MEDS: SODIUM CHLORIDE 0.9% INJ 10 ML SYR IV SCH ×2 (05:21→17:04)
[2022-02-12 06:00] VITALS: BP 144/54
[2022-02-12 06:17] LABS: HEMATOCRIT 25.7 % (42.0-52.0); HEMOGLOBIN 8.4 g/dl (13.5-17.5); MEAN CORPUSCULAR HGB CONC 32.7 g/dl (32.0-36.5); MEAN CORPUSCULAR VOLUME 91.8 fl (80.0-96.0); PLATELET COUNT, AUTOMATED 277 10^3/uL (150-450); WHITE BLOOD COUNT 13.6 10^3/uL (4.0-10.0)
[2022-02-12 06:34] LABS: INR 1.57; PROTHROMBIN TIME 19.2 SECONDS (12.7-14.5)
[2022-02-12 06:37] LABS: BILIRUBIN,TOTAL 0.7 MG/DL (0.2-1.0); CALCIUM LEVEL 8.4 MG/DL (8.8-10.2); CREATININE FOR GFR 1.7 MG/DL (0.70-1.30); GLOMERULAR FILTRATION RATE 42.6 (>42); POTASSIUM SERUM 4.7 MEQ/L (3.5-5.1); TOTAL PROTEIN 5.4 GM/DL (6.4-8.2)
[2022-02-12] MEDS: levETIRAcetam 250MG TABLET (KEPPRA) PO SCH ×2 (08:14→20:44)
[2022-02-12] MEDS: INSULIN LISPRO (NovoLOG) PER UNIT SC SCH ×3 (08:14→17:04)
[2022-02-12] MEDS: DOCUSATE SODIUM 100MG CAPSULE PO SCH ×2 (08:14→20:43)
[2022-02-12] MEDS: LACTOBACILLUS ACIDOPHILUS CAP (BACID) PO SCH ×2 (08:14→16:53)
[2022-02-12] MEDS: TORSEMIDE 20 MG TAB PO SCH (08:15)
[2022-02-12] MEDS: **hydrALAZINE HCL** 25 MG TAB PO SCH ×3 (08:15→20:43)
[2022-02-12] MEDS: TAMSULOSIN 0.4 MG CAP PO SCH (08:16)
[2022-02-12] MEDS: PANTOPRAZOLE 40MG TAB (PROTONIX) PO SCH (08:16)
[2022-02-12] MEDS: PERCOCET 5MG/325MG TAB PO PRN ×2 (08:22→19:23)
[2022-02-12] MEDS ORDERED: LACTULOSE 20 GM/30 ML SYRUP UD PO ONE (08:50)
[2022-02-12] MEDS ORDERED: BISACODYL 10 MG SUPP PR ONE (11:45)
[2022-02-12] MEDS: LACTULOSE 20 GM/30 ML SYRUP UD PO SCH ×3 (12:44→23:44)
[2022-02-12] MEDS: IRON SUCROSE 200 MG in NS 100 ML IV SCH (12:44)
[2022-02-12 12:47] VITALS: BP 145/50
[2022-02-12] MEDS: SODIUM CHLORIDE 0.9% INJ 10 ML SYR IV PRN (14:52)
[2022-02-12] MEDS ORDERED: COVID-19 VAC, BV (MODERNA)/PF 50 MCG/0.5 ML VIAL (EUA) IM.IMMUN ONE (16:00)
[2022-02-12] MEDS: DULoxetine 30MG CAPSULE (CYMBALTA) PO SCH (20:43)
[2022-02-12] MEDS: ATORVASTATIN 20 MG TAB PO SCH (20:43)
[2022-02-12] MEDS: LEVEMIR (INSULIN DETEMIR) 1 UNITS/0.01ML SC SCH (20:43)
[2022-02-12] MEDS: SENNA 8.6 MG TAB (SENOKOT) PO SCH (20:44)
[2022-02-12] MEDS: DIGOXIN 0.125 MG TAB PO SCH (20:44)
[2022-02-12] MEDS: allopurinoL 300 MG TAB PO SCH (20:44)
[2022-02-12 21:00] VITALS: BP 148/53
[2022-02-13] MEDS: SODIUM CHLORIDE 0.9% INJ 10 ML SYR IV SCH ×2 (05:23→17:25)
[2022-02-13 05:24] VITALS: BP 149/56
[2022-02-13] MEDS: LACTULOSE 20 GM/30 ML SYRUP UD PO SCH ×2 (05:24→09:29)
[2022-02-13 06:40] LABS: HEMATOCRIT 26.6 % (42.0-52.0); HEMOGLOBIN 8.6 g/dl (13.5-17.5); MEAN CORPUSCULAR HEMOGLOBIN 30.3 pg (27.0-33.0); MEAN CORPUSCULAR HGB CONC 32.3 g/dl (32.0-36.5); MEAN CORPUSCULAR VOLUME 93.7 fl (80.0-96.0); PLATELET COUNT, AUTOMATED 255 10^3/uL (150-450); RED BLOOD COUNT 2.84 10^6/uL (4.30-6.10); WHITE BLOOD COUNT 12.2 10^3/uL (4.0-10.0)
[2022-02-13 07:29] LABS: ALBUMIN 2.2 GM/DL (3.2-5.2); BILIRUBIN,TOTAL 0.8 MG/DL (0.2-1.0); CALCIUM LEVEL 8.8 MG/DL (8.8-10.2); CREATININE FOR GFR 1.78 MG/DL (0.70-1.30); GLOMERULAR FILTRATION RATE 40.4 (>42); POTASSIUM SERUM 4.8 MEQ/L (3.5-5.1); TOTAL PROTEIN 5.5 GM/DL (6.4-8.2)
[2022-02-13] MEDS: INSULIN LISPRO (NovoLOG) PER UNIT SC SCH ×3 (07:30→17:22)
[2022-02-13] MEDS ORDERED: ANEXSIA, NORCO 7.5MG/325MG TABLET(HYDROCODONE/APAP) PO PRN (08:25)
[2022-02-13] MEDS: PANTOPRAZOLE 40MG TAB (PROTONIX) PO SCH (08:49)
[2022-02-13] MEDS: LACTOBACILLUS ACIDOPHILUS CAP (BACID) PO SCH ×2 (08:49→17:22)
[2022-02-13] MEDS: levETIRAcetam 250MG TABLET (KEPPRA) PO SCH ×2 (08:49→20:49)
[2022-02-13] MEDS: TAMSULOSIN 0.4 MG CAP PO SCH (08:49)
[2022-02-13] MEDS: DOCUSATE SODIUM 100MG CAPSULE PO SCH ×2 (08:49→20:51)
[2022-02-13] MEDS: **hydrALAZINE HCL** 25 MG TAB PO SCH ×3 (08:50→20:50)
[2022-02-13] MEDS: TORSEMIDE 20 MG TAB PO SCH (09:29)
[2022-02-13 13:35] VITALS: BP 151/61
[2022-02-13] MEDS: IRON SUCROSE 200 MG in NS 100 ML IV SCH (13:37)
[2022-02-13 14:00] VITALS: BP 152/60
[2022-02-13] MEDS: ACETAMINOPHEN TAB 650MG DOSE (2X325MG) PO PRN (14:23)
[2022-02-13] MEDS: SODIUM CHLORIDE 0.9% INJ 10 ML SYR IV PRN (14:54)
[2022-02-13 14:57] VITALS: BP 152/60
[2022-02-13] MEDS ORDERED: RIVAROXABAN 15MG TAB (XARELTO) PO SCH (18:00)
[2022-02-13 20:32] VITALS: BP 151/60
[2022-02-13] MEDS: ATORVASTATIN 20 MG TAB PO SCH (20:49)
[2022-02-13] MEDS: SENNA 8.6 MG TAB (SENOKOT) PO SCH (20:49)
[2022-02-13] MEDS: DULoxetine 30MG CAPSULE (CYMBALTA) PO SCH (20:50)
[2022-02-13] MEDS: DIGOXIN 0.125 MG TAB PO SCH (20:50)
[2022-02-13] MEDS: allopurinoL 300 MG TAB PO SCH (20:51)
[2022-02-13] MEDS: NORCO, ANEXSIA 5/325MG TABLET (HYDROcodone/ACETAMINOPHEN) PO PRN (20:51)
[2022-02-13] MEDS: LEVEMIR (INSULIN DETEMIR) 1 UNITS/0.01ML SC SCH (20:52)
[2022-02-14] MEDS: SODIUM CHLORIDE 0.9% INJ 10 ML SYR IV SCH (05:24)
[2022-02-14 06:52] VITALS: BP 161/65
[2022-02-14 07:14] LABS: HEMATOCRIT 26.8 % (42.0-52.0); HEMOGLOBIN 8.4 g/dl (13.5-17.5); MEAN CORPUSCULAR HEMOGLOBIN 29.4 pg (27.0-33.0); MEAN CORPUSCULAR HGB CONC 31.3 g/dl (32.0-36.5); MEAN CORPUSCULAR VOLUME 93.7 fl (80.0-96.0); PLATELET COUNT, AUTOMATED 255 10^3/uL (150-450); RED BLOOD COUNT 2.86 10^6/uL (4.30-6.10); WHITE BLOOD COUNT 13.2 10^3/uL (4.0-10.0)
[2022-02-14] MEDS: INSULIN LISPRO (NovoLOG) PER UNIT SC SCH (07:30)
[2022-02-14] MEDS ORDERED: AMLO1TAB25 PO (07:53)
[2022-02-14] MEDS ORDERED: TORS20TA2 PO (07:53)
[2022-02-14] MEDS ORDERED: DEXT50SY3 IV (07:53)
[2022-02-14] MEDS ORDERED: COLA100C5 PO (07:53)
[2022-02-14] MEDS ORDERED: SENN18TA PO (07:53)
[2022-02-14] MEDS ORDERED: INSUHUMDS SC (07:53)
[2022-02-14] MEDS ORDERED: DIPHCR TOP (07:53)
[2022-02-14] MEDS ORDERED: INSUDET SC (07:53)
[2022-02-14] MEDS ORDERED: HYDR-3715 PO (07:53)
[2022-02-14] MEDS ORDERED: ACET1TAB55 PO (07:53)
[2022-02-14] MEDS ORDERED: LACT20EL PO (07:53)
[2022-02-14] MEDS ORDERED: MOM30SS2 PO (07:53)
[2022-02-14] MEDS ORDERED: RISATAB3 PO (07:53)
[2022-02-14] MEDS ORDERED: DEXT4TAB83 PO (07:53)
[2022-02-14] MEDS ORDERED: HYDR25TA PO (07:53)
[2022-02-14] MEDS ORDERED: HYDR-4514 PO (07:53)
[2022-02-14 07:59] LABS: ALBUMIN 2.1 GM/DL (3.2-5.2); BILIRUBIN,TOTAL 0.8 MG/DL (0.2-1.0); CALCIUM LEVEL 8.4 MG/DL (8.8-10.2); CREATININE FOR GFR 1.65 MG/DL (0.70-1.30); GLOMERULAR FILTRATION RATE 44.1 (>42); POTASSIUM SERUM 4.5 MEQ/L (3.5-5.1); TOTAL PROTEIN 5.3 GM/DL (6.4-8.2)
[2022-02-14] MEDS ORDERED: IRON SUCROSE 200 MG in NS 100 ML IV SCH (08:00)
[2022-02-14] MEDS: DOCUSATE SODIUM 100MG CAPSULE PO SCH (08:12)
[2022-02-14] MEDS: LACTULOSE 20 GM/30 ML SYRUP UD PO SCH (08:12)
[2022-02-14] MEDS: LACTOBACILLUS ACIDOPHILUS CAP (BACID) PO SCH (08:12)
[2022-02-14 08:13] VITALS: BP 161/65
[2022-02-14] MEDS: **hydrALAZINE HCL** 25 MG TAB PO SCH (08:13)
[2022-02-14] MEDS: levETIRAcetam 250MG TABLET (KEPPRA) PO SCH (08:13)
[2022-02-14] MEDS: TAMSULOSIN 0.4 MG CAP PO SCH (08:13)
[2022-02-14] MEDS: PANTOPRAZOLE 40MG TAB (PROTONIX) PO SCH (08:14)
[2022-02-14] MEDS: NORCO, ANEXSIA 5/325MG TABLET (HYDROcodone/ACETAMINOPHEN) PO PRN (08:14)
[2022-02-14] MEDS: TORSEMIDE 20 MG TAB PO SCH (08:14)
== END 2022-02-14 12:21 | DRG 853 ==
LOC: M ED 06:15 → EDBD 06:15 → M ED INP 11:43 → ENRESERV 13:22 → M ICU 14:34 → M MS5PR 02-07 17:49
PROVIDERS: ADMIT Internal Medicine Pulmonary Disease; ATTEND Internal Medicine
PROC: 30233K1 Transfusion of Nonautologous Frozen Plasma into Peripheral Vein, Percutaneous Approach (ICD-10-PCS; 2022-01-30)
PROC: 0F943ZZ Drainage of Gallbladder, Percutaneous Approach (ICD-10-PCS; 2022-01-31)
PROC: BF42ZZZ Ultrasonography of Gallbladder (ICD-10-PCS; 2022-01-31)
PROC: 30233N1 Transfusion of Nonautologous Red Blood Cells into Peripheral Vein, Percutaneous Approach (ICD-10-PCS; 2022-01-31)
PROC: 0VT08ZZ Resection of Prostate, Via Natural or Artificial Opening Endoscopic (ICD-10-PCS; principal; 2022-01-31 15:30)
PROC: 05HB33Z Insertion of Infusion Device into Right Basilic Vein, Percutaneous Approach (ICD-10-PCS; 2022-02-07)
DX: A40.9 Streptococcal sepsis, unspecified (principal); I50.33 Acute on chronic diastolic (congestive) heart failure; R65.21 Severe sepsis with septic shock; N39.0 Urinary tract infection, site not specified; N17.9 Acute kidney failure, unspecified; J90 Pleural effusion, not elsewhere classified; I48.20 Chronic atrial fibrillation, unspecified; E87.1 Hypo-osmolality and hyponatremia; K80.00 Calculus of gallbladder with acute cholecystitis without obstruction; I13.0 Hypertensive heart and chronic kidney disease with heart failure and stage 1 through stage 4 chronic kidney disease, or unspecified chronic kidney disease; D62 Acute posthemorrhagic anemia; I16.0 Hypertensive urgency; E11.22 Type 2 diabetes mellitus with diabetic chronic kidney disease; N18.30 Chronic kidney disease, stage 3 unspecified; N40.0 Benign prostatic hyperplasia without lower urinary tract symptoms; Z79.01 Long term (current) use of anticoagulants; K59.00 Constipation, unspecified; B96.29 Other Escherichia coli [E. coli] as the cause of diseases classified elsewhere; G40.909 Epilepsy, unspecified, not intractable, without status epilepticus; I25.10 Atherosclerotic heart disease of native coronary artery without angina pectoris; Z79.899 Other long term (current) drug therapy; Z79.82 Long term (current) use of aspirin; Z79.4 Long term (current) use of insulin; Z86.73 Personal history of transient ischemic attack (TIA), and cerebral infarction without residual deficits; E78.5 Hyperlipidemia, unspecified; G14 Postpolio syndrome; E66.9 Obesity, unspecified; Z68.37 Body mass index [BMI] 37.0-37.9, adult

== ENCOUNTER → 2022-02-17 | Outpatient (REF) ==
[~2022-02-17] MED LIST changes: +ACET1TAB55 PO; +AMLO1TAB25 PO; +DEXT4TAB83 PO; +DEXT50SY3 IV; +DIPHCR TOP; +DULO30CA9 PO; +ECOT81TA5 PO; +HYDR-3715 PO; +HYDR-4514 PO; +HYDR25TA PO; +INSUDET SC; +INSUHUMDS SC; +LACT20EL PO; +MOM30SS2 PO; +RISATAB3 PO; +SENN18TA PO
[2022-02-17 07:46] LABS: BASO # 0.1 10^3/uL (0.0-0.2); BASO % 0.9 % (0.0-1.0); EOS # 0.4 10^3/uL (0.0-0.5); HEMATOCRIT 28.9 % (42.0-52.0); HEMOGLOBIN 9.1 g/dl (13.5-17.5); LYMPH # 1.7 10^3/uL (1.5-5.0); LYMPH % 11.7 % (24.0-44.0); MEAN CORPUSCULAR HEMOGLOBIN 29.8 pg (27.0-33.0); MEAN CORPUSCULAR HGB CONC 31.5 g/dl (32.0-36.5); MEAN CORPUSCULAR VOLUME 94.8 fl (80.0-96.0); MONO % 6.8 % (2.0-8.0); NEUTROPHILS # 10.9 10^3/uL (1.5-8.5); PLATELET COUNT, AUTOMATED 236 10^3/uL (150-450); RED BLOOD COUNT 3.05 10^6/uL (4.30-6.10); WHITE BLOOD COUNT 14.2 10^3/uL (4.0-10.0)
[2022-02-17 08:23] LABS: ALBUMIN 2.2 GM/DL (3.2-5.2); BILIRUBIN,TOTAL 0.9 MG/DL (0.2-1.0); CALCIUM LEVEL 8.7 MG/DL (8.8-10.2); CREATININE FOR GFR 1.29 MG/DL (0.70-1.30); GLOMERULAR FILTRATION RATE 58.6 (>42); POTASSIUM SERUM 4.2 MEQ/L (3.5-5.1); TOTAL PROTEIN 5.6 GM/DL (6.4-8.2)
== END ==
LOC: SKLAB5 08:43
PROVIDERS: ATTEND Nurse Practitioner Family
DX: D64.9 Anemia, unspecified (principal); I10 Essential (primary) hypertension

== ENCOUNTER → 2022-02-24 | Outpatient (REF) ==
[2022-02-24 08:24] LABS: BASO # 0.1 10^3/uL (0.0-0.2); BASO % 1.2 % (0.0-1.0); EOS # 0.5 10^3/uL (0.0-0.5); EOS % 5.8 % (0.0-3.0); HEMATOCRIT 30.2 % (42.0-52.0); HEMOGLOBIN 9.5 g/dl (13.5-17.5); LYMPH # 1.6 10^3/uL (1.5-5.0); LYMPH % 17.8 % (24.0-44.0); MEAN CORPUSCULAR HEMOGLOBIN 30.4 pg (27.0-33.0); MEAN CORPUSCULAR HGB CONC 31.5 g/dl (32.0-36.5); MEAN CORPUSCULAR VOLUME 96.8 fl (80.0-96.0); MONO # 0.7 10^3/uL (0.0-0.8); MONO % 7.5 % (2.0-8.0); NEUTROPHILS # 6.1 10^3/uL (1.5-8.5); NEUTROPHILS % 67.2 % (36.0-66.0); PLATELET COUNT, AUTOMATED 286 10^3/uL (150-450); RED BLOOD COUNT 3.12 10^6/uL (4.30-6.10); WHITE BLOOD COUNT 9.1 10^3/uL (4.0-10.0)
[2022-02-24 09:20] LABS: ALBUMIN 2.5 GM/DL (3.2-5.2); BILIRUBIN,TOTAL 0.8 MG/DL (0.2-1.0); CALCIUM LEVEL 8.5 MG/DL (8.8-10.2); CREATININE FOR GFR 1.28 MG/DL (0.70-1.30); GLOMERULAR FILTRATION RATE 59.1 (>42); POTASSIUM SERUM 4.6 MEQ/L (3.5-5.1); TOTAL PROTEIN 5.9 GM/DL (6.4-8.2)
== END ==
LOC: SKLAB5 09:44
PROVIDERS: ATTEND Nurse Practitioner Family
DX: E11.9 Type 2 diabetes mellitus without complications (principal)

== ENCOUNTER 2022-02-26 10:09 | Emergency (ER) | payer MEDICARE, BC ==
[~2022-02-26] VITALS: Ht 167.6 cm; Wt 90.9 kg
[2022-02-26 13:29] VITALS: BP 150/68
== END 2022-02-26 13:31 | disposition home or self-care (01) ==
LOC: M ED 10:09 → EDBD 10:09 → M ED 13:31
DX: Z43.4 Encounter for attention to other artificial openings of digestive tract (principal); E11.9 Type 2 diabetes mellitus without complications; I10 Essential (primary) hypertension; N18.9 Chronic kidney disease, unspecified; Z86.79 Personal history of other diseases of the circulatory system; Z95.5 Presence of coronary angioplasty implant and graft; Z87.891 Personal history of nicotine dependence; Z79.51 Long term (current) use of inhaled steroids; Z79.82 Long term (current) use of aspirin; Z79.4 Long term (current) use of insulin; Z79.899 Other long term (current) drug therapy

== ENCOUNTER → 2022-03-04 | Outpatient (REF) | LOC: SKLAB5 09:21 | PROVIDERS: ATTEND Nurse Practitioner Family | DX: D64.9 Anemia, unspecified (principal); I10 Essential (primary) hypertension; Z53.8 Procedure and treatment not carried out for other reasons ==

== ENCOUNTER → 2022-03-13 | Outpatient (REF) | payer MEDICARE, BC | LOC: M LAB REF 12:24 | PROVIDERS: ATTEND Internal Medicine | DX: I48.20 Chronic atrial fibrillation, unspecified (principal) ==

== ENCOUNTER → 2022-03-19 | Outpatient (REF) | payer MEDICARE, BC ==
[2022-03-19 16:40] LABS: CALCIUM LEVEL 8.7 MG/DL (8.8-10.2); CREATININE FOR GFR 2.19 MG/DL (0.70-1.30); GLOMERULAR FILTRATION RATE 31.8 (>42); POTASSIUM SERUM 4.6 MEQ/L (3.5-5.1)
== END ==
LOC: M SHH 15:23
PROVIDERS: ATTEND Internal Medicine
DX: I10 Essential (primary) hypertension (principal)

== ENCOUNTER → 2022-03-24 | Outpatient (REF) | payer MEDICARE, BC ==
[2022-03-24 17:14] LABS: CALCIUM LEVEL 8.4 MG/DL (8.8-10.2); CREATININE FOR GFR 1.96 MG/DL (0.70-1.30); GLOMERULAR FILTRATION RATE 36.2 (>42); POTASSIUM SERUM 4.7 MEQ/L (3.5-5.1)
== END ==
LOC: M LAB REF 15:39
PROVIDERS: ATTEND Internal Medicine
DX: N18.32 Chronic kidney disease, stage 3b (principal)

== ENCOUNTER → 2022-04-03 | Outpatient (REF) | payer MEDICARE, BC | LOC: M LAB REF 15:58 | PROVIDERS: ATTEND Internal Medicine | DX: I48.20 Chronic atrial fibrillation, unspecified (principal) ==

== ENCOUNTER → 2022-04-16 | Outpatient (CLI) | payer MEDICARE, BC | LOC: M LABSMTC 11:11 | PROVIDERS: ATTEND Anesthesiology | DX: Z01.812 Encounter for preprocedural laboratory examination (principal); Z11.52 Encounter for screening for COVID-19 ==

== ENCOUNTER 2022-04-21 06:00 | Day surgery (SDC) | payer MEDICARE, BC ==
[~2022-04-21] VITALS: Ht 167.6 cm; Wt 103.9 kg
[2022-04-21] MEDS ORDERED: LR 1,000 ML IV SCH ×2 (06:30→09:30)
[2022-04-21] MEDS ORDERED: INSULIN LISPRO (NovoLOG) PER UNIT SC PRN ×2 (06:30→09:30)
[2022-04-21] MEDS ORDERED: CARV25TA (06:53)
[2022-04-21] MEDS ORDERED: ASPI81CH33 PO (06:53)
[2022-04-21] MEDS ORDERED: TRAM200T20 (06:55)
[2022-04-21] MEDS ORDERED: BUPIVACAINE/EPIN 0.25% 30 ML VIAL As Ordered ONE (07:09)
[2022-04-21] MEDS ORDERED: dexameTHASONE 4 MG/ML 1ML VIAL (J1100 PER 1MG) As Ordered ONE (07:13)
[2022-04-21] MEDS ORDERED: ONDANSETRON 4MG 2ML VIAL As Ordered ONE (07:13)
[2022-04-21] MEDS ORDERED: MIDAZOLAM INJ 2MG/2ML VIAL (J2250 PER 1MG) As Ordered ONE (07:13)
[2022-04-21] MEDS ORDERED: fentaNYL 100 MCG/2 ML INJECTION As Ordered ONE (07:13)
[2022-04-21] MEDS ORDERED: propofoL 200 MG/20 ML VIAL As Ordered ONE (07:13)
[2022-04-21] MEDS ORDERED: LIDOCAINE 2% 100MG/5ML SDV (FOR ANES.) As Ordered ONE (07:14)
[2022-04-21] MEDS ORDERED: ROCURONIUM BROMIDE 50 MG/5 ML VIAL As Ordered ONE ×2 (07:14→08:17)
[2022-04-21] MEDS ORDERED: SUGAMMADEX SODIUM 500 MG/5 ML VIAL (BRIDION) As Ordered ONE (07:14)
[2022-04-21] MEDS ORDERED: ePHEDrine SULFATE 25 MG/5 ML(5MG/ML) SYRINGE As Ordered ONE (07:56)
[2022-04-21] MEDS ORDERED: GLYCOPYRROLATE INJ 0.2 MG/ML 2 ML VIAL As Ordered ONE (08:14)
[2022-04-21] MEDS ORDERED: ACETAMINOPHEN 1000MG 100ML IV BAG As Ordered ONE (08:30)
[2022-04-21] MEDS ORDERED: HYDROMORPHONE HCL 0.5 MG/ 0.5 ML SYRINGE (J1170 PER 1) IV PRN (09:30)
[2022-04-21] MEDS ORDERED: oxyCODONE 5MG TAB PO PRN (09:30)
[2022-04-21] MEDS ORDERED: fentaNYL 100 MCG/2 ML INJECTION IV PRN (09:30)
[2022-04-21] MEDS ORDERED: ONDANSETRON 4MG 2ML VIAL IV PRN (09:30)
[2022-04-21] MEDS ORDERED: METOCLOPRAMIDE INJ 10MG/2ML VIAL (J2765 PER 1) IV PRN (09:30)
[2022-04-21 12:10] VITALS: BP 165/77
== END 2022-04-21 12:44 | disposition home or self-care (01) ==
LOC: M SDC 06:00
PROVIDERS: ATTEND Surgery
DX: K80.20 Calculus of gallbladder without cholecystitis without obstruction (principal); I25.10 Atherosclerotic heart disease of native coronary artery without angina pectoris; I10 Essential (primary) hypertension; E78.5 Hyperlipidemia, unspecified; K21.9 Gastro-esophageal reflux disease without esophagitis; K59.00 Constipation, unspecified; Z86.73 Personal history of transient ischemic attack (TIA), and cerebral infarction without residual deficits; I48.91 Unspecified atrial fibrillation; Z98.61 Coronary angioplasty status; Z87.891 Personal history of nicotine dependence; E11.9 Type 2 diabetes mellitus without complications; Z79.4 Long term (current) use of insulin; M10.9 Gout, unspecified; Z79.899 Other long term (current) drug therapy; Z79.51 Long term (current) use of inhaled steroids; Z79.01 Long term (current) use of anticoagulants; G47.33 Obstructive sleep apnea (adult) (pediatric); N40.0 Benign prostatic hyperplasia without lower urinary tract symptoms
CPT/HCPCS: 47562; 88304; J0131; J1100; J2250; J2405; J3010; S2900

== ENCOUNTER → 2022-06-17 | Outpatient (REF) | payer MEDICARE, BC ==
[~2022-06-17] MED LIST changes: +ASPI81CH33 PO; +CARV25TA; +TRAM200T20
[2022-06-17 19:48] LABS: PERCENT SATURATION 13.3 % (19.7-50.0)
[2022-06-17 19:49] LABS: FERRITIN 181.1 NG/ML (10.5-307.3)
== END ==
LOC: M LAB REF 17:22
PROVIDERS: ATTEND Internal Medicine Nephrology
DX: D50.9 Iron deficiency anemia, unspecified (principal)

== ENCOUNTER → 2022-06-25 | Outpatient (REF) | payer MEDICARE, BC | LOC: M LAB REF 16:28 | PROVIDERS: ATTEND Internal Medicine | DX: I48.20 Chronic atrial fibrillation, unspecified (principal) ==

== ENCOUNTER → 2022-06-30 | Outpatient (REF) | payer MEDICARE, BC ==
[2022-06-30 21:00] LABS: CLOSTRIDIUM DIFFICILE PCR NEGATIVE (NEGATIVE)
== END ==
LOC: M LAB REF 15:50
PROVIDERS: ATTEND Internal Medicine
DX: R19.7 Diarrhea, unspecified (principal)

== ENCOUNTER 2022-08-07 12:28 | Outpatient (CLI) | payer MEDICARE, BC ==
[~2022-08-07] VITALS: Ht 167.6 cm; Wt 101.5 kg
[~2022-08-07 12:28] MED LIST changes: +ALBUTEROL SULFATE 2.5MG/0.5ML INH NEB SOLN INH PRN; +EPINEPHrine INJ 1 MG/ML 1ML AMP IM PRN; +diphenhydrAMINE 50MG/ML VIAL IV PRN; +methylPREDNISolone 125MG 2ML VIAL IV PRN
[2022-08-07 12:45] VITALS: BP 99/51
[2022-08-07] MEDS ORDERED: FERRIC CARBOXYMALTOSE INJ 750 MG in NS 250 ML (>50kg) IV ONE ×3 (13:00)
[2022-08-07] MEDS ORDERED: NS 1,000 ML IV SCH (13:00)
[2022-08-07 14:00] VITALS: BP 116/57
== END 2022-08-07 14:00 | disposition home or self-care (01) ==
LOC: M INFU 12:28
PROVIDERS: ATTEND Internal Medicine Nephrology
DX: E61.1 Iron deficiency (principal)
CPT/HCPCS: 96365; J1439

== ENCOUNTER 2022-08-14 12:45 | Outpatient (CLI) | payer MEDICARE, BC ==
[~2022-08-14] VITALS: Ht 167.6 cm; Wt 101.2 kg
[2022-08-14 12:45] VITALS: BP 123/58
[2022-08-14] MEDS ORDERED: NS 1,000 ML IV SCH (13:00)
[2022-08-14] MEDS ORDERED: FERRIC CARBOXYMALTOSE INJ 750 MG in NS 250 ML (>50kg) IV ONE ×3 (13:00)
[2022-08-14 13:50] VITALS: BP 115/54
== END 2022-08-14 14:00 | disposition home or self-care (01) ==
LOC: M INFU 12:45
PROVIDERS: ATTEND Internal Medicine Nephrology
DX: E61.1 Iron deficiency (principal)
CPT/HCPCS: 96365; J1439

== ENCOUNTER → 2022-08-15 | Outpatient (CLI) | payer MEDICARE, BC ==
[~2022-08-15] MED LIST changes: -ALBUTEROL SULFATE 2.5MG/0.5ML INH NEB SOLN INH PRN; -EPINEPHrine INJ 1 MG/ML 1ML AMP IM PRN; -diphenhydrAMINE 50MG/ML VIAL IV PRN; -methylPREDNISolone 125MG 2ML VIAL IV PRN
== END ==
LOC: M WUC 13:28
PROVIDERS: ATTEND Nurse Practitioner Adult Health
DX: M25.552 Pain in left hip (principal); W19.XXXA Unspecified fall, initial encounter; Y92.9 Unspecified place or not applicable

== ENCOUNTER → 2022-09-22 | Outpatient (REF) | payer MEDICARE, BC | LOC: M LAB REF 17:18 | PROVIDERS: ATTEND Internal Medicine | DX: E11.21 Type 2 diabetes mellitus with diabetic nephropathy (principal) ==

== ENCOUNTER → 2022-10-23 | Outpatient (REF) | payer MEDICARE, BC | LOC: M LAB REF 11:55 | PROVIDERS: ATTEND Internal Medicine | DX: R19.7 Diarrhea, unspecified (principal) ==